=== PATIENT | male | born 1965 | race Caucasian/White ===

== ENCOUNTER → 2017-05-04 | Outpatient (CLI) | payer OTHER ==
[~2017-05-04] MED LIST: ACET-1256 PO; ATOR-22 PO; CLOP1TAB15 PO; HYDR-5688 PO; LISI-725 PO; LRS10 PO; VTMD PO
--- NOTE | 2017-05-04 08:32 | DIAGNOSTIC IMAGING REPORT ---
CHEST 2 VIEWS ROUTINE CLINICAL HISTORY: SCREENING COMPARISON STUDY: 12/11/2015 FINDINGS: The bones soft tissues and hemidiaphragms are normal. The cardiomediastinal silhouette is normal. The lungs are clear. The pulmonary vasculature is normal. Unchanged postoperative change of the thoracolumbar spine IMPRESSION: No acute process. Interval removal of the right-sided PICC catheter The above report was generated using voice recognition software. It may contain grammatical, syntax or spelling errors. Electronically signed by: Rey Jensen M.D. 05/04/2017 8:30 AM Dictated Date/Time: 05/04/2017 8:29 AM
[2017-05-04 09:39] LABS: URINE APPEARANCE CLEAR (CLEAR); URINE BILIRUBIN NEG (NEG); URINE COLOR YELLOW; URINE EPITHELIAL CELL AUTO 0-5 /lpf (0-5); URINE NITRITE NEG (NEG); URINE PH 5.5 (4.5-7.5); URINE SPECIFIC GRAVITY 1.014 (1.000-1.030); UROBILINOGEN NEG (NEG)
[2017-05-04 09:40] LABS: BASO % 0.4 %; BASO ABS # 0.03 K/uL (0-0.2); COMPLETE YES; EOS % 1.4 %; IG% 0.1 %; LYMPH % 32.2 %; LYMPH ABS # 2.59 K/uL (1.2-3.4); MEAN CELL VOLUME 92.4 fL (80-100); MEAN CORPUSCULAR HEMOGLOBIN 30.7 pg (25-34); MEAN CORPUSCULAR HGB CONC 33.2 g/dl (32-36); MEAN PLATELET VOLUME 9.5 fL (7.4-10.4); MONO % 7.8 %; NEUT % 58.1 %; PLATELET COUNT 273 K/uL (130-400); RED BLOOD COUNT 4.76 M/uL (4.7-6.1); WHITE BLOOD COUNT 8.05 K/uL (4.8-10.8)
[2017-05-04 09:51] LABS: MANUAL MICROSCOPIC REQUIRED? NO; REVIEW REQ? NO
[2017-05-04 10:01] LABS: ESTIMATED AVERAGE GLUCOSE 100 mg/dl; HA1C FLAG Normal (Normal)
[2017-05-04 10:06] LABS: BLOOD UREA NITROGEN 10 mg/dl (7-18); GLUCOSE 111 mg/dl (70-99)
[2017-05-04 10:07] LABS: ALT/SGPT 31 U/L (12-78); CALCIUM 8.8 mg/dl (8.5-10.1); CARBON DIOXIDE 29 mmol/L (21-32); CHLORIDE 107 mmol/L (98-107); CHOLESTEROL 136 mg/dl (0-200); POTASSIUM 4.6 mmol/L (3.5-5.1); SODIUM 139 mmol/L (136-145); TRIGLYCERIDES 73 mg/dl (0-150); URIC ACID 5.2 mg/dl (2.6-7.2); VERY LOW DENSITY LIPOPROT CALC 15 mg/dl
[2017-05-04 10:17] LABS: ALB/GLOB RATIO 1.2 (0.9-2); ALKALINE PHOSPHATASE 66 U/L (45-117); AST/SGOT 14 U/L (15-37); CHOLESTEROL/HDL RATIO 3.2; HDL CHOLESTEROL 42 mg/dl; LDL CHOLESTEROL CALCULATED 79 mg/dl; PROSTATE SPECIFIC ANTIGEN 0.282 ng/ml (0.000-4.000); THYROID STIMULATING HORMONE 0.956 uIu/ml (0.300-4.500)
== END | disposition home or self-care (01) ==
LOC: C.RAD 07:39
DX: I10 Essential (primary) hypertension (principal); R73.01 Impaired fasting glucose; G82.20 Paraplegia, unspecified; E78.5 Hyperlipidemia, unspecified; N39.0 Urinary tract infection, site not specified; Z95.820 Peripheral vascular angioplasty status with implants and grafts

== ENCOUNTER 2017-09-15 12:48 | Emergency (ER) | payer OTHER ==
[~2017-09-15] VITALS: Ht 175.3 cm; Wt 100.0 kg
[2017-09-15 12:53] VITALS: TEMP 36.9; Ht 175.3 cm; Wt 100.0 kg
--- NOTE | 2017-09-15 14:07 | EMERGENCY ROOM VISIT NOTE ---
History Report prepared by Yasmin: Amy Deleon Under the Supervision of: Dr. Brayan Roque M.D. First contact with patient: 13:42 Chief Complaint: PENIS PAIN Stated Complaint: ERECTION THAT WONT GO AWAY X3 DAYS,RECENT LEG AMPU Nursing Triage Summary: Pt reports an erection x 3 days, states he has not taken any medications. History of Present Illness The patient is a 52 year old male who presents to the Emergency Room with complaints of persistent erection that began 3 days ago. The patient states that he woke up with an erection, noting he did not take medications to cause the erection. The patient notes that he cannot feel the erection--he is a T12 paraplegic. He states that he had both legs amputated above the knee one month ago due to poor circulation to his legs. The patient denies any history of heart attacks or kidney problems. Source of History: patient Onset: 3 days ago Position: other (penis) Quality: other (erection) Timing: other (persistent) Review of Systems See HPI for pertinent positives & negatives. A total of 10 systems reviewed and were otherwise negative. Past Medical & Surgical Medical Problems: (1) Neurogenic bladder (2) Paraplegia (3) T12 spinal cord injury Surgical Problems: (1) History of back surgery (2) S/p fracture repair left arm Family History Cancer Social History Smoking Status: Former Smoker Drug Use: none Marital Status: Housing Status: lives alone Occupation Status: unemployed, disabled Current/Historical Medications Scheduled Atorvastatin (Lipitor), 20 MG PO QPM Baclofen (Baclofen), 10 MG PO TID Clopidogrel (Plavix), 75 MG PO QAM Ergocalciferol (Vitamin D), 50,000 UNITS PO WK Lisinopril (Zestril), 20 MG PO QAM Scheduled PRN Acetaminophen (Tylenol), 1,000 MG PO DIRECTED PRN for Pain or Fever Hydrocodone/Acetaminophen 5MG/325MG ([place] 5MG/325MG), 1 TAB PO Q6 PRN for Pain Allergies Coded Allergies: No Known Allergies (Unverified , 07/27/16) Physical Exam Vital Signs Date Time Temp Pulse Resp B/P (MAP) Pulse Ox O2 Delivery O2 Flow Rate FiO2 09/15/17 14:58 108 18 130/75 100 09/15/17 14:03 108 18 130/75 100 Room Air 09/15/17 12:53 36.9 108 20 116/63 98 Room Air Physical Exam GENERAL: Patient is in no acute distress. HEENT: No acute trauma, normocephalic atraumatic, mucous membranes moist, no nasal congestion, no scleral icterus. NECK: No stridor, no adenopathy, no meningismus, trachea is midline. LUNGS: Crackles at both lung bases. No wheezes. Breath sounds equal. HEART: Without murmurs gallops or rubs, regular rate and rhythm. ABDOMEN: Soft, nontender, bowel sounds positive, no hernias, no peritonitis. EXTREMITIES: Bilateral above the knee amputations, sutures still in place, no signs of infection. GROIN: Circumcised, no scrotal or penile cellulitis, erection present. NEUROLOGIC: Oriented x 3, awake and alert, paraplegia noted. SKIN: No rash, no jaundice, no diaphoresis. Medical Decision & Procedures Laboratory Results 09/15/17 14:46 09/15/17 14:46 Test 09/15/17 14:46 Red Blood Count 3.18 M/uL (4.7-6.1) Mean Corpuscular Volume 95.6 fL (80-100) Mean Corpuscular Hemoglobin 30.2 pg (25-34) Mean Corpuscular Hemoglobin Concent 31.6 g/dl (32-36) RDW Standard Deviation 52.0 fL (36.4-46.3) RDW Coefficient of Variation 14.9 % (11.5-14.5) Mean Platelet Volume 8.3 fL (7.4-10.4) Prothrombin Time 10.7 SECONDS (9.0-12.0) Prothromb Time International Ratio 1.0 (0.9-1.1) Activated Partial Thromboplast Time 31.0 SECONDS (21.0-31.0) Partial Thromboplastin Ratio 1.2 Anion Gap 7.0 mmol/L (3-11) Est Creatinine Clear Calc Drug Dose 156.1 ml/min Estimated GFR () 130.7 Estimated GFR (Non- 112.7 BUN/Creatinine Ratio 14.9 (10-20) Calcium Level 8.5 mg/dl (8.5-10.1) Total Bilirubin 0.4 mg/dl (0.2-1) Aspartate Amino Transf (AST/SGOT) 15 U/L (15-37) Alanine Aminotransferase (ALT/SGPT) 24 U/L (12-78) Alkaline Phosphatase 621 U/L (45-117) Total Protein 6.9 gm/dl (6.4-8.2) Albumin 3.5 gm/dl (3.4-5.0) Globulin 3.4 gm/dl (2.5-4.0) Albumin/Globulin Ratio 1.0 (0.9-2) Laboratory results reviewed by me. ED Course 1345: The patient was evaluated in room B4. A complete history and physical exam was performed. 1355: Reevaluated the patient. Discussed results and further instructions. He verbalized understanding and agreement. The patient was instructed to see Dr. Dockery, urologist for further evaluation. Medical Decision The patient is a 52 year old male who presents to the ED with complaints of a 3 day erection. Differential diagnoses considered include Infection, Priapism, Medication Reaction, Vascular Disease . There is a mild leukocytosis, this could be consistent with infection or just his presentation alone. The patient is anemic, the number is not critical, his count is likely down from his recent bilateral [id number] amputations. No significant electrolyte abnormality or kidney failure. No hepatitis. There was no coagulopathy. On exam, patient did have an obvious erection, there was no penile or scrotal cellulitis. I was concerned because his erection had been ongoing for a 3 full days. Patient was not in pain as he does have paraplegia. I discussed the case with urology. The patient was sent to their office. The chances of him having the ability to obtain an erection in the future are limited given the length of time that this current erection has been present. Patient understands. He was discharged to go directly to the urology office. Medication Reconcilliation Current Medication List: was personally reviewed by me Blood Pressure Screening Patient's blood pressure: Elevated blood pressure Blood pressure disposition: Elevated BP felt to be situational Consults Time Called: [id number] Consulting Physician: Dr. Dockery, Urologist Returned Call: [phone] Discussed the patient's case. The patient will be evaluated for further management. Impression Primary Impression: Priapism Scribe Attestation The scribe's documentation has been prepared under my direction and personally reviewed by me in its entirety. I confirm that the note above accurately reflects all work, treatment, procedures, and medical decision making performed by me. Departure Information Dispostion Other (discharged to the urology office) Referrals Yohannes Joshua M.D. (PCP) Forms HOME CARE DOCUMENTATION FORM, IMPORTANT VISIT INFORMATION Patient Instructions [facility] Additional Instructions report directly to Dr. Dockery's office for care do not eat or drink anything for now
[2017-09-15 14:56] LABS: HEMATOCRIT 30.4 % (42-52); MEAN CELL VOLUME 95.6 fL (80-100); MEAN CORPUSCULAR HEMOGLOBIN 30.2 pg (25-34); MEAN CORPUSCULAR HGB CONC 31.6 g/dl (32-36); MEAN PLATELET VOLUME 8.3 fL (7.4-10.4); PLATELET COUNT 378 K/uL (130-400); RED BLOOD COUNT 3.18 M/uL (4.7-6.1); WHITE BLOOD COUNT 12.83 K/uL (4.8-10.8)
[2017-09-15 14:58] VITALS: BP 130/75; PULSE 108; O2SAT 100
[2017-09-15 15:10] LABS: PARTIAL THROMBOPLASTIN RATIO 1.2; PROTHROMBIN TIME (PATIENT) 10.7 SECONDS (9.0-12.0)
[2017-09-15] MEDS ORDERED: PHENYLEPHRINE HCL ITC SCH (15:15)
[2017-09-15 15:19] LABS: BUN/CREATININE RATIO 14.9 (10-20); CALCIUM 8.5 mg/dl (8.5-10.1); CREATININE 0.66 mg/dl (0.60-1.40); POTASSIUM 3.4 mmol/L (3.5-5.1)
--- NOTE | 2017-09-15 16:11 | Pharmacy Progress Note ---
ED Pharmacist Progress Note Date of Service: Sep 15, 2017. Per Dr. Roque, urologist Dr. Dockery requested 6-8 phenylephrine syringes to be sent with the patient to urology office for treatment of priapism. I confirmed with Dr. Dockery the dose and concentration of 100mcg/ml q 10-15 min qty 7 syringes. After discussing with charge nurse Claire, it was decided to send the doses with security to the office to ensure safe and appropriate delivery to the physician.
== END 2017-09-15 14:59 | disposition home or self-care (01) ==
LOC: C.EDB 12:50
DX: N48.30 Priapism, unspecified (principal); G82.20 Paraplegia, unspecified; D64.9 Anemia, unspecified; Z89.611 Acquired absence of right leg above knee; Z89.612 Acquired absence of left leg above knee; N31.9 Neuromuscular dysfunction of bladder, unspecified; Z80.9 Family history of malignant neoplasm, unspecified; Z87.891 Personal history of nicotine dependence; Z79.01 Long term (current) use of anticoagulants; Z79.899 Other long term (current) drug therapy; Z98.890 Other specified postprocedural states

== ENCOUNTER → 2018-05-05 | Outpatient (CLI) | payer OTHER ==
--- NOTE | 2018-05-05 10:17 | DIAGNOSTIC IMAGING REPORT ---
RENAL ULTRASOUND HISTORY: Neurogenic bladder, Ret of Urine, Priapism COMPARISON: Abdomen and pelvis CT 12/11/2015. FINDINGS: Right kidney: 10.2 cm. No hydronephrosis. Normal corticomedullary differentiation and cortical thickness. Left kidney: 10.2 cm. Mild fullness within the left renal collecting system without nile hydronephrosis. Focal cortical scarring within the interpolar region of the left kidney. Question of an exophytic hypoechoic lesion within the left kidney. This measures 2.4 x 1.8 x 1.5 cm. Bladder: Mild bladder wall thickening and trabeculation. Bilateral ureteral jets are identified. The bladder is normal in size. IMPRESSION: 1. Mild bladder wall thickening with trabeculation. This could be due to chronic outlet obstruction or cystitis. 2. Question of an exophytic hypoechoic lesion within the left kidney which measures 2.4 cm. This favors the normal cortical lobulation. However, follow-up nonemergent dedicated renal CT is recommended for confirmation. 3. Mild fullness within the left renal collecting system without nile hydronephrosis. 4. Normal right kidney. Electronically signed by: Keo [place] M.D. 05/05/2018 10:16 AM Dictated Date/Time: 05/05/2018 10:12 AM
== END | disposition home or self-care (01) ==
LOC: C.ULTR 09:18
PROVIDERS: ATTEND Urology
DX: N31.9 Neuromuscular dysfunction of bladder, unspecified (principal); N48.30 Priapism, unspecified; R33.9 Retention of urine, unspecified; N28.9 Disorder of kidney and ureter, unspecified

== ENCOUNTER 2024-03-17 03:47 | Inpatient (IN) ==
--- NOTE | 2024-03-17 03:49 | Emergency Department Note ---
Impression & Plan Sepsis, Paraplegia, Neurogenic bladder, Colitis ED Provider Note CHIEF COMPLAINT: Constipation HISTORY OF PRESENTING ILLNESS: This 58-year-old male patient presents to the emergency department via EMS for evaluation of constipation. 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 The patient typically has a harder BM every 2-3 days, but hasn't had a BM in the past week. Has been taking an OTC stool softener without improvement of his symptoms. Now having pain in his lower abdomen and it radiates into his groin. Having nausea and vomiting with the symptoms. Vomited 3 times today. Denies any chest pain or SOB. Denies any urinary symptoms, but self caths 6 times a day due to his neurogenic bladder. Denies any fevers. No previous abdominal surgeries. No previous abdominal obstruction. He is not on any blood thinners. REVIEW OF SYSTEMS: See HPI for pertinent positives and pertinent negatives. ALLERGIES: NKDA MEDICATIONS: See below PAST MEDICAL HISTORY: See below PHYSICAL EXAM: VITALS: Vitals are noted on the nurse's note and reviewed by myself. GENERAL: Non toxic, no acute distress, non-diaphoretic. SKIN: Capillary refill <2 sec. EYES: PERRLA. EOMI. Conjunctivae without injection, sclerae without icterus. NOSE: Patent without discharge. MOUTH: Mucous membranes moist. Uvula midline. Airway patent. NECK: Supple without nuchal rigidity. HEART: Regular rate and rhythm without murmurs gallops or rubs. LUNGS: Clear to auscultation bilaterally without wheezes, rales or rhonchi. No retractions or accessory muscle use. ABDOMEN: Positive bowel sounds x 4. Normal tympanic percussion. Soft, diffusely tender to palpation in the lower abdomen. No masses or organomegaly. No CVA tenderness. Isabel sign negative. No guarding or rebound tenderness. : Permission to perform the exam. Male wall taper present for the exam. Bilateral testicles are descended and are nontender to palpation. However, the patient states that he typically has decreased sensation in this area, but no change in his sensation. No obvious penile lesions or discharge. No obvious hernias appreciated. RECTAL EXAM: Permission to perform the exam. Publicity Manager present for exam. External hemorrhoids present without thrombosis, but there is a small amount of bright red bleeding from the external hemorrhoid. No other external lesions. Normal sphincter tone. Internal hemorrhoids are not enlarged. No masses, tears, fistulas, fissures, or abscess noted. Harder stool is felt very high up in the rectal vault, but no fecal impaction felt on exam. Stool is brown and Hemoccult positive. MUSCULOSKELETAL: Bilateral [id number] amputations. No other gross musculoskeletal defects. NEURO: Patient was alert and oriented. No focal neurological deficits. DIFFERENTIAL DIAGNOSIS: Differential diagnosis includes hepatitis, pancreatitis, cholecystitis, cholelithiasis, appendicitis, kidney stone, pyelonephritis, UTI, gastritis, gastroenteritis, mesenteric adenitis, obstruction, constipation, hernia, abdominal abscess, perforation, diverticulitis, IBD, ischemic colitis, abdominal aortic aneurysm, testicular torsion, prostatitis, or others. ED COURSE AND MEDICAL DECISION MAKING: MONITOR: Continuous satellite project site monitor: Order was placed for continuous satellite project site monitor. Patient was placed on the satellite project site monitor and continuous pulse ox. Patient was noted to be in normal sinus rhythm at an initial rate of 88 bpm per my interpretation. EKG: EKG was interpreted by myself as normal sinus rhythm at 83 bpm with no acute ST or T wave changes. MEDICATIONS GIVEN: A total of 2.5 L of normal saline solution bolus. Toradol 10 mg IV, Zofran 4 mg IV, and Reglan 5 mg IV. Zosyn 4.5 g IV. INTERPRETATION OF LABS: I interpreted the labs with full lab results as below in the lab section of this note. White blood cell count elevated at 28.74. Hemoglobin elevated 18.8. Platelet count normal at 372. Potassium 3.2, anion gap 15, creatinine 1.8, glucose of 254, total bilirubin 1.1, AST 41, alk phos 122, and lipase 171. Magnesium normal. TSH elevated at 5.343 with free T4 still pending. Lactate elevated 3.8. Procalcitonin elevated 1.63. C. difficile negative. Stool bio fire still pending. Blood cultures are pending. INTERPRETATION OF IMAGING: Chest x-ray per my interpretation was negative for acute cardiopulmonary etiology. Radiology report still pending. Additional imaging studies were interpreted by myself and read by radiology as below. CT scan of the abdomen pelvis with IV contrast shows some apparent colitis within the mid to distal large bowel as well as possible cystitis and additional chronic changes. However, per our interpretation, there appears to be a possible obstruction with significant distention of the stomach and possible transition point. At our request, our radiologist Dr. Park also read the CT scan of the abdomen pelvis. He agrees with the colitis with the need to exclude a less likely underlying mass. The stomach and esophagus are distended and fluid-filled which may represent a gastric outlet obstruction. To consider GI consult for EGD. KUB to confirm NG tube placement shows that the NG tube terminates in the proximal stomach. The fenestrated line is at the GE junction. The tube should be advanced by approximately 5 cm. CONSULTATIONS: On-call hospitalist. Dr. Park of radiology. MDM SUMMARY: I examined the patient. The patient presents via EMS for constipation. He states that he has not had a bowel movement in the last week. He started with lower abdominal pain, nausea, and vomiting today. He has a history of constipation, but usually goes every 2 to 3 days. An IV lock was placed and labs were drawn. The patient was initially given 1 L normal saline solution bolus as well as Toradol 10 mg IV and Zofran 4 mg IV. He had some additional nausea and was given Reglan 5 mg IV. After the patient returned from CT scan, the patient had a large amount of loose foul-smelling stool. The stool was sent for C. difficile and stool bio fire. C. difficile was negative. Stool bio fire still pending. The patient did have multiple large episodes of loose stool while in the ER. Rectal exam with hard stool very high in the rectal vault, but no fecal impaction that can be disimpacted on exam. The patient's stool was Hemoccult positive, but the patient also had a bleeding external hemorrhoid from his large amount of diarrhea. CT scan of the abdomen pelvis with IV contrast read by stat rad shows colitis as well as possible cystitis. However, per our interpretation, there appears to be a possible obstruction with significant distention of the stomach and possible transition point. An NG tube was placed with 1000 mL of gastric contents removed. The patient felt much improved after his multiple episodes of diarrhea as well as the NG tube placement. At our request in the morning, our radiologist Dr. Park also read the CT scan of the abdomen pelvis. He agrees with the colitis with the need to exclude a less likely underlying mass. The stomach and esophagus are distended and fluid-filled which may represent a gastric outlet obstruction. To consider GI consult for EGD. KUB to confirm NG tube placement shows that the NG tube terminates in the proximal stomach. The fenestrated line is at the GE junction. The tube should be advanced by approximately 5 cm. The NG tube was repositioned. The patient continued with multiple large episodes of diarrhea and nursing staff placed a DigniShield. The patient's white blood cell count is elevated at 28.74. Lactate is also elevated at 3.8 with procalcitonin elevated at 1.63. The patient also has other multiple abnormal labs as above. Blood cultures are still pending. The patient was given a total of 2.5 L of normal saline solution bolus based on actual body weight since ideal body weight cannot be accurately calculated due to his bilateral [id number] amputations. The patient was given IV Zosyn. I had a meaningful discussion about this patient with Dr. Calderon who agrees with my assessment and the treatment plan. I spoke with the on-call hospitalist who agreed to admit the patient for further evaluation and treatment. Please refer to their dictation for further details. The patient's care was transferred in stable condition. DIAGNOSIS: Sepsis Colitis Past Med/Surg History Problem List (Updated 03/17/24 @ 08:07 by Nikki Pizano PA-C) Colitis (Acute) Sepsis (Acute) Paraplegia (Chronic) T12 spinal cord injury (Chronic) Neurogenic bladder (Chronic) History of back surgery (Chronic) Urinary tract infection (Acute) Medical History (Updated 03/17/24 @ 08:07 by Nikki Pizano PA-C) Paraplegia UTI (urinary tract infection) Surgical History S/P AKA (above knee amputation) bilateral Social History Smoking Status: Former smoker Tobacco Type: Cigarettes Feels Safe at Home: Yes Allergies Allergies Allergy/AdvReac Type Severity Reaction Status Date / Time No Known Allergies Allergy Unverified 11/13/19 16:16 Home Meds Home Medications Medication Instructions Recorded Confirmed atorvastatin 20 mg tablet 20 mg PO DAILY 01/09/19 04/26/23 baclofen 20 mg tablet 20 mg PO TID PRN Muscle Spasm 01/09/19 04/26/23 citalopram 20 mg tablet 40 mg PO DAILY 04/26/23 04/26/23 ferrous sulfate 325 mg (65 mg 325 mg PO Q OTHER DAY 04/26/23 04/26/23 iron) tablet (FeroSul) hydroxyzine HCl 25 mg tablet 25 mg PO TID PRN Anxiety 04/26/23 04/26/23 metoprolol succinate 25 mg 25 mg PO DAILY 04/26/23 04/26/23 tablet,extended release 24 hr ondansetron HCl 4 mg tablet 4 mg PO Q8 PRN Nausea And Vomiting 04/26/23 04/26/23 pantoprazole 40 mg tablet,delayed 40 mg PO QAM 04/26/23 04/26/23 release quetiapine 100 mg tablet 100 mg PO HS 04/26/23 04/26/23 Previous Rx's Medication Instructions Recorded amlodipine 5 mg tablet (Norvasc) 5 mg PO DAILY #30 tabs 04/26/23 Results & Data (ED) Vital Signs Vital Signs - 24 hr 03/17/24 03:50 03/17/24 04:00 03/17/24 04:01 Temperature 36.6 C Temperature Source Oral Pulse Rate 100 H 103 H 98 H Pulse Rate from SpO2 Sensor 98 H Pulse Rhythm Respiratory Rate 18 23 Respiratory Effort / Characteristics Non-Labored Spontaneous Respiratory Depth Normal Respiratory Pattern Regular Blood Pressure 105/75 105/75 Blood Pressure Mean 85 85 Pulse Oximetry 95 94 Oxygen Delivery Method Room Air Room Air Sepsis Recent Fever Within 48 Hours No Sepsis New/Unexplained Change in Mental Status N/A Sepsis Action Taken by Nursing No Action Required 03/17/24 04:05 03/17/24 04:53 Temperature Temperature Source Pulse Rate 70 85 Pulse Rate from SpO2 Sensor 87 Pulse Rhythm Regular Respiratory Rate 18 20 Respiratory Effort / Characteristics Respiratory Depth Respiratory Pattern Blood Pressure 125/106 H Blood Pressure Mean 112 Pulse Oximetry 98 97 Oxygen Delivery Method Room Air Room Air Sepsis Recent Fever Within 48 Hours Sepsis New/Unexplained Change in Mental Status Sepsis Action Taken by Nursing Laboratory Data 03/17/24 03:59 03/17/24 03:59 Lab Results 03/17/24 03/17/24 03/17/24 Range/Units 03:59 05:37 06:23 WBC 28.74 H (4.8-10.8) K/ul RBC 6.13 H (4.70-6.10) M/uL Hgb 18.8 H (14.0-18.0) g/dl Hct 54.6 H (42.0-52.0) % MCV 89.1 (80.0-100.0) fL MCH 30.7 (25.0-34.0) pg MCHC 34.4 (32.0-36.0) g/dL RDW Std Deviation 41.9 (36.4-46.3) fL RDW Coeff of Yves 13.0 (11.5-14.5) % Plt Count 372 (130-400) K/uL MPV 10.1 (9.4-12.4) fL Immature Gran % (Auto) 0.6 % Neut % (Auto) 82.9 % Lymph % (Auto) 8.8 % Billings % (Auto) 7.1 % Eos % (Auto) 0.2 % Baso % (Auto) 0.4 % Neut # (Auto) 23.83 H (1.40-6.50) K/uL Lymph # (Auto) 2.53 (1.20-3.40) K/uL Billings # (Auto) 2.03 H (0.11-0.59) K/uL Eos # (Auto) 0.05 (0.00-0.50) K/uL Baso # (Auto) 0.12 (0.00-0.20) K/uL Immature Gran # (Auto) 0.18 (0.01-0.20) K/uL Sodium 138 (136-145) mmol/L Potassium 3.2 L (3.5-5.1) mmol/L Chloride 101 (98-107) mmol/L Carbon Dioxide 22 (21-32) mmol/L Anion Gap 15 H (3-11) BUN 19 (6-23) mg/dl Creatinine 1.80 H (0.6-1.4) mg/dl Est Cr Clr Drug Dosing Not Reportable Est GFR ( Amer) 47.7 ml/min Est GFR (Non-Af Amer) 41.2 ml/min BUN/Creatinine Ratio 10.6 (10-20) Glucose 254 H (70-99(Fasting)) mg/dl Lactate 3.8 H* (0.4-2.0) mmol/L Calcium 9.6 (8.6-10.3) mg/dl Magnesium 2.3 (1.7-2.4) mg/dl Total Bilirubin 1.1 H (0.2-1.0) mg/dl AST 41 H (13-39) U/L ALT 41 (7-52) U/L Alkaline Phosphatase 122 H (34-104) U/L Total Protein 8.1 (6.0-8.3) gm/dl Albumin 5.0 (3.4-5.0) gm/dl Globulin 3.1 (2.5-4.0) gm/dl Albumin/Globulin Ratio 1.6 (0.9-2) Lipase 171 H (11-82) U/L Procalcitonin 1.63 H (0-0.5) ng/ml TSH 5.343 H (0.300-4.500) uIu/ml Stl C. cayetanensis PCR Not Detected (NotDetected) Stool Rotavirus A PCR Not Detected (NotDetected) Stl Adenov F 40/41 PCR Not Detected (NotDetected) Stool Astrovirus (PCR) Not Detected (NotDetected) Stool Campylobacter PCR Not Detected (NotDetected) Stl C. diff Tox B Gene Negative Cdiff Gene (Neg) Stool Cryptosporidium PCR Not Detected (NotDetected) Stl E.coli Shiga Tox PCR Not Detected (NotDetected) Stl Enterotoxigenic E PCR Not Detected (NotDetected) Stool EPEC (PCR) Not Detected (NotDetected) Stool EAEC (PCR) Not Detected (NotDetected) Stl E. histolytica PCR Not Detected (NotDetected) Stool Giardia Lamblia PCR Not Detected (NotDetected) Stool Salmonella PCR Not Detected (NotDetected) Stool Sapovirus (PCR) Not Detected (NotDetected) Stl P. shigelloides PCR Not Detected (NotDetected) Stl Shigella/EIEC PCR Not Detected (NotDetected) St Y.enterocolitica PCR Not Detected (NotDetected) Stool Vibrio (PCR) Not Detected (NotDetected) Stl Vibrio cholerae PCR Not Detected (NotDetected) Stl Norovirus GI/GII PCR Not Detected (NotDetected) Administered Medications Discontinued Medications Sodium Chloride (Nss) 1,000 mls @ 999 mls/hr IV .Q1H1M STA Stop: 03/17/24 05:01 Last Infusion: 03/17/24 05:28 Dose: Infused Documented By: Admin: 03/17/24 04:13 Dose: 999 mls/hr Documented By: SCAR Sodium Chloride (Nss) 1,000 mls @ 999 mls/hr IV .Q1H1M ONE Stop: 03/17/24 07:09 Last Infusion: 03/17/24 07:29 Dose: Infused Documented By: Admin: 03/17/24 06:25 Dose: 999 mls/hr Documented By: CSAR Piperacillin Sod/Tazobactam Sod (Zosyn) 4.5 gm in 100 mls @ 200 mls/hr IV NOW ONE Stop: 03/17/24 07:16 Last Infusion: 03/17/24 07:51 Dose: Infused Documented By: Admin: 03/17/24 07:21 Dose: 200 mls/hr Documented By: BERRY Ioversol (Optiray 320 100ml) 100 ml IV ONCE ONE Stop: 03/17/24 05:31 Last Admin: 03/17/24 05:32 Dose: 91 ml Documented By: PAYTON Ketorolac Tromethamine (Ketorolac Tromethamine 15 Mg/Ml Vial) 10 mg IV NOW STA Stop: 03/17/24 04:02 Last Admin: 03/17/24 04:13 Dose: 10 mg Documented By: SCAR Metoclopramide HCl (Metoclopramide Hcl Inj 5 Mg/Ml 2 Ml Vial) 5 mg IV ONE ONE Stop: 03/17/24 06:10 Last Admin: 03/17/24 06:25 Dose: 5 mg Documented By: SCAR Ondansetron HCl (Ondansetron Inj 2 Mg/Ml 2 Ml Vial) 4 mg IV NOW STA Stop: 03/17/24 04:02 Last Admin: 03/17/24 04:13 Dose: 4 mg Documented By: SCAR Imaging Data Radiologist's Impression: Abdomen/Pelvis CT 03/17/24 04:01 Exam(s): CT ABDOMEN + PELVIS With Contrast IV Amt: 91 ML OPTIRAY 320 EXAM: CT Abdomen and Pelvis With Intravenous Contrast CLINICAL HISTORY: Reason for exam: Lower abdominal pain, no BM x 1 week, paraplegia. TECHNIQUE: Axial computed tomography images of the abdomen and pelvis with intravenous contrast. CTDI is 25.36 mGy and DLP is 1148.48 mGy-cm. Automated exposure control was utilized for the study. A dose lowering technique was utilized adhering to the principles of ALARA. CONTRAST: Patient received 91 ML OPTIRAY 320 of IV contrast COMPARISON: No relevant prior studies available. FINDINGS: Lung bases: Unremarkable. No mass. No consolidation. ABDOMEN: Liver: Unremarkable. No mass. Gallbladder and bile ducts: Unremarkable. No calcified stones. No ductal dilation. Pancreas: There is stippled calcifications demonstrated within the pancreatic parenchyma. No ductal dilation. Spleen: Unremarkable. No splenomegaly. Adrenals: Unremarkable. No mass. Kidneys and ureters: Unremarkable. No solid mass. No hydronephrosis. Stomach and bowel: There is some bowel wall thickening and enhancement demonstrated to the distal transverse and proximal descending colon. There is some fecal retention within the distal: There is fluid demonstrated throughout the remaining colon. No obstruction. PELVIS: Appendix: No findings to suggest acute appendicitis. Bladder: There is diffuse urinary bladder wall thickening. Reproductive: Unremarkable as visualized. ABDOMEN and PELVIS: Intraperitoneal space: Unremarkable. No free air. No significant fluid collection. Bones/joints: There is degenerative change to the osseous structures. there are postsurgical changes to the spine subsequent streak artifact limits assessment. No acute fracture. No dislocation. Soft tissues: There are bilateral fat-containing indirect inguinal hernias. Vasculature: Abdominal aortic aneurysm is demonstrated mid and distal abdominal aorta with moderate mural thrombus 3.9 cm in maximal transverse dimension. There is calcific atherosclerotic vascular disease. Lymph nodes: Unremarkable. No enlarged lymph nodes. IMPRESSION: Some apparent colitis demonstrated within the mid to distal large bowel, Follow-up to resolution imaging findings suggest cystitis, additional chronic change, limited as described. Electronically signed by: Enrique Morse MD 03/17/24 06:01 AM Chest X-Ray 03/17/24 04:01 XR chest 1V portable HISTORY: abdominal pain COMPARISON: Chest 04/26/2023. FINDINGS: The lungs are clear. Cardiac silhouette is normal in size. No pleural effusions. No pneumothorax. Thoracolumbar posterior fusion hardware is again noted. IMPRESSION: No acute process. ACT 112: Negative or not required by law. Electronically signed by: Keo Park M.D. 03/17/2024 6:47 AM KUB X-Ray 03/17/24 06:08 KUB HISTORY: s/p NG tube COMPARISON: Abdomen and pelvis CT 03/17/2024. FINDINGS: Nasogastric tube terminates in the proximal stomach. The fenestrated line is at the gastroesophageal junction. This should be advanced by approximately 5 cm. No dilated loops of bowel identified. No renal calculi. No ureteral calculi. No pneumoperitoneum or pneumatosis. IMPRESSION: Nasogastric tube terminates in the proximal stomach. The fenestrated line is at the gastroesophageal junction. This should be advanced by approximately 5 cm. ACT 112: Negative or not required by law. Electronically signed by: Keo Park M.D. 03/17/2024 6:53 AM Discharge Plan Visit Data Chief Complaint: Constipation Stated Complaint: Constipation, Lower Abdominal Pain ED Provider: Christy Calderon ED Midlevel Provider: Nikki Pizano Discharge Problem: Sepsis, Paraplegia, Neurogenic bladder, Colitis Patient Disposition: Admitted As Inpatient Condition: Good Prescriptions Prescriptions: No Action baclofen 20 mg tablet 20 mg PO TID PRN (Reason: Muscle Spasm) atorvastatin 20 mg tablet 20 mg PO DAILY quetiapine 100 mg tablet 100 mg PO HS citalopram 20 mg tablet 40 mg PO DAILY metoprolol succinate 25 mg tablet extended release 24 hr 25 mg PO DAILY pantoprazole 40 mg tablet,delayed release (DR/EC) 40 mg PO QAM hydroxyzine HCl 25 mg tablet 25 mg PO TID PRN (Reason: Anxiety) ondansetron HCl 4 mg tablet 4 mg PO Q8 PRN (Reason: Nausea And Vomiting) ferrous sulfate [FeroSul] 325 mg (65 mg iron) tablet 325 mg PO Q OTHER DAY amlodipine [Norvasc] 5 mg tablet 5 mg PO DAILY Qty: 30 0RF Referrals Referrals: Ines Ruiz MD [Primary Care Provider] - Discharge Problem: Sepsis Qualifiers: Sepsis type: sepsis due to unspecified organism
[2024-03-17] MEDS: KETOROLAC TROMETHAMINE 15 MG/ML VIAL IV STA (04:13)
[2024-03-17] MEDS: ONDANSETRON INJ 2 MG/ML 2 ML VIAL IV STA (04:13)
[2024-03-17] MEDS: SODIUM CHLORIDE 0.9% 1,000 ML IV STA (04:13)
[2024-03-17 04:45] LABS: Alanine Aminotransferase 41 U/L (7-52); Albumin Globulin Ratio 1.6 (0.9-2); Alkaline Phosphatase 122 U/L (34-104); Anion Gap 15 (3-11); Aspartate Aminotransferase 41 U/L (13-39); BUN Creatinine Ratio 10.6 (10-20); Bilirubin,Total 1.1 mg/dl (0.2-1.0); Blood Urea Nitrogen 19 mg/dl (6-23); Calcium 9.6 mg/dl (8.6-10.3); Carbon Dioxide 22 mmol/L (21-32); Chloride 101 mmol/L (98-107); Est GFR (African American) 47.7 ml/min; Est GFR (Non-African American) 41.2 ml/min; Globulin 3.1 gm/dl (2.5-4.0); Glucose 254 mg/dl (70-99(Fasting)); Lipase 171 U/L (11-82); Magnesium 2.3 mg/dl (1.7-2.4); Potassium 3.2 mmol/L (3.5-5.1); Sodium 138 mmol/L (136-145); Total Protein 8.1 gm/dl (6.0-8.3)
[2024-03-17 05:00] LABS: Thyroid Stimulating Hormone 5.343 uIu/ml (0.300-4.500)
[2024-03-17 05:01] LABS: Hematocrit (blood only) 54.6 % (42.0-52.0); Hemoglobin 18.8 g/dl (14.0-18.0); Mean Corpuscular Hemoglobin 30.7 pg (25.0-34.0); Mean Corpuscular Hgb Conc 34.4 g/dL (32.0-36.0); Mean Corpuscular Volume 89.1 fL (80.0-100.0); Mean Platelet Volume 10.1 fL (9.4-12.4); Platelet Count 372 K/uL (130-400); RDW Standard Deviation 41.9 fL (36.4-46.3); Red Blood Count 6.13 M/uL (4.70-6.10); White Blood Count 28.74 K/ul (4.8-10.8)
[2024-03-17 05:02] LABS: Basophils # (auto) 0.12 K/uL (0.00-0.20); Basophils % (auto) 0.4 %; Eosinophils # (auto) 0.05 K/uL (0.00-0.50); Eosinophils % (auto) 0.2 %; Immature Granulocytes # (auto) 0.18 K/uL (0.01-0.20); Immature Granulocytes % (auto) 0.6 %; Lymphocytes # (auto) 2.53 K/uL (1.20-3.40); Lymphocytes % (auto) 8.8 %; Monocytes # (auto) 2.03 K/uL (0.11-0.59); Monocytes % (auto) 7.1 %; Neutrophils # (auto) 23.83 K/uL (1.40-6.50); Neutrophils % (auto) 82.9 %
[2024-03-17] MEDS: OPTIRAY 320 100ml IV ONE (05:32)
--- NOTE | 2024-03-17 06:02 | CT Scan Report ---
Exam(s): CT ABDOMEN + PELVIS With Contrast IV Amt: 91 ML OPTIRAY 320 EXAM: CT Abdomen and Pelvis With Intravenous Contrast CLINICAL HISTORY: Reason for exam: Lower abdominal pain, no BM x 1 week, paraplegia. TECHNIQUE: Axial computed tomography images of the abdomen and pelvis with intravenous contrast. CTDI is 25.36 mGy and DLP is 1148.48 mGy-cm. Automated exposure control was utilized for the study. A dose lowering technique was utilized adhering to the principles of ALARA. CONTRAST: Patient received 91 ML OPTIRAY 320 of IV contrast COMPARISON: No relevant prior studies available. FINDINGS: Lung bases: Unremarkable. No mass. No consolidation. ABDOMEN: Liver: Unremarkable. No mass. Gallbladder and bile ducts: Unremarkable. No calcified stones. No ductal dilation. Pancreas: There is stippled calcifications demonstrated within the pancreatic parenchyma. No ductal dilation. Spleen: Unremarkable. No splenomegaly. Adrenals: Unremarkable. No mass. Kidneys and ureters: Unremarkable. No solid mass. No hydronephrosis. Stomach and bowel: There is some bowel wall thickening and enhancement demonstrated to the distal transverse and proximal descending colon. There is some fecal retention within the distal: There is fluid demonstrated throughout the remaining colon. No obstruction. PELVIS: Appendix: No findings to suggest acute appendicitis. Bladder: There is diffuse urinary bladder wall thickening. Reproductive: Unremarkable as visualized. ABDOMEN and PELVIS: Intraperitoneal space: Unremarkable. No free air. No significant fluid collection. Bones/joints: There is degenerative change to the osseous structures. there are postsurgical changes to the spine subsequent streak artifact limits assessment. No acute fracture. No dislocation. Soft tissues: There are bilateral fat-containing indirect inguinal hernias. Vasculature: Abdominal aortic aneurysm is demonstrated mid and distal abdominal aorta with moderate mural thrombus 3.9 cm in maximal transverse dimension. There is calcific atherosclerotic vascular disease. Lymph nodes: Unremarkable. No enlarged lymph nodes. IMPRESSION: Some apparent colitis demonstrated within the mid to distal large bowel, Follow-up to resolution imaging findings suggest cystitis, additional chronic change, limited as described. Electronically signed by: Enrique Morse MD 03/17/24 06:01 AM
[2024-03-17] MEDS: METOCLOPRAMIDE HCL INJ 5 MG/ML 2 ML VIAL IV ONE (06:25)
[2024-03-17] MEDS: SODIUM CHLORIDE 0.9% 1,000 ML IV ONE ×2 (06:25→10:38)
--- NOTE | 2024-03-17 06:50 | XRay Report ---
XR chest 1V portable HISTORY: abdominal pain COMPARISON: Chest 04/26/2023. FINDINGS: The lungs are clear. Cardiac silhouette is normal in size. No pleural effusions. No pneumot horax. Thoracolumbar posterior fusion hardware is again noted. IMPRESSION: No acute process. ACT 112: Negative or not required by law. Electronically signed by: Keo Park M.D. 03/17/2024 6:47 AM
--- NOTE | 2024-03-17 06:56 | XRay Report ---
KUB HISTORY: s/p NG tube COMPARISON: Abdomen and pelvis CT 03/17/2024. FINDINGS: Nasogastric tube terminates in the proximal stomach. The fenestrated line is at the gastroe sophageal junction. This should be advanced by approximately 5 cm. No dilated loops of bowel identifi ed. No renal calculi. No ureteral calculi. No pneumoperitoneum or pneumatosis. IMPRESSION: Nasogastric tube terminates in the proximal stomach. The fenestrated line is at the gastroesophageal junction. This should be advanced by approximately 5 cm. ACT 112: Negative or not required by law. Electronically signed by: Keo Park M.D. 03/17/2024 6:53 AM
[2024-03-17] MEDS: PIPERACILLIN/TAZOBACTAM 4.5 GM/100 ML BAG IV ONE (07:21)
[2024-03-17 07:41] LABS: Adenovirus F 40/41 PCR Not Detected (NotDetected); Astrovirus PCR Not Detected (NotDetected); Campylobacter PCR Not Detected (NotDetected); Cryptosporidium PCR Not Detected (NotDetected); Cyclospora cayetanensis PCR Not Detected (NotDetected); Entamoeba histolytica PCR Not Detected (NotDetected); Enteroaggregative E.coli(EAEC) Not Detected (NotDetected); Enteropathogenic E.coli (EPEC) Not Detected (NotDetected); Enterotoxigenic E.coli (ETEC) Not Detected (NotDetected); Giardia lamblia PCR Not Detected (NotDetected); Norovirus GI/GII PCR Not Detected (NotDetected); Plesiomonas shigelloides PCR Not Detected (NotDetected); Rotavirus A PCR Not Detected (NotDetected); Salmonella PCR Not Detected (NotDetected); Sapovirus PCR Not Detected (NotDetected); Shiga-like Toxin E.coli (STEC) Not Detected (NotDetected); Shigella/Enteroinvasive E.coli Not Detected (NotDetected); Vibrio cholerae PCR Not Detected (NotDetected); Vibrio species PCR Not Detected (NotDetected); Yersinia enterocolitica PCR Not Detected (NotDetected)
[2024-03-17 08:17] LABS: T4 Free Thyroxine 1.27 ng/dl (0.61-1.60)
--- NOTE | 2024-03-17 08:48 | Electrocardiogram Report ---
Test Reason : Blood Pressure : / mmHG Vent. Rate : 083 BPM Atrial Rate : 083 BPM P-R Int : 160 ms QRS Dur : 060 ms QT Int : 384 ms P-R-T Axes : 058 012 -02 degrees QTc Int : 451 ms Normal sinus rhythm Normal ECG When compared with ECG of 26-APR-2023 19:18, No significant change was found Confirmed by Kt Bush ([id number]) on 03/17/2024 8:48:01 AM Referred By: REFERRED SELF Confirmed By:Kt Bush
[2024-03-17] MEDS: SODIUM CHLORIDE 0.9% 1,000 ML IV SCH (10:06)
[2024-03-17] MEDS: SODIUM CHLORIDE 0.9% 500 ML IV ONE (10:08)
[2024-03-17] MEDS: Patient's HEIGHT &/or WEIGHT Needed STA (10:36)
--- NOTE | 2024-03-17 11:13 | History & Physical Report ---
Date of Service March 17, 2024 Assessment & Plan (1) Abdominal pain: (2) Colitis: (3) Neurogenic bladder: (4) Sepsis: (5) FRANK (acute kidney injury): Plan 1) Abdominal Pain: Pt with a hx of paraplegia, neurogenic bladder, bilateraly [id number] amputation presented with abdominal pain, n/v, constipation x1week that has progressed since arrival to multiple episodes of large volume diarrhea. -Stomach & esophageal distension on CTAP. NG tube placed and removed 1000mL, raising concern for gastric outlet obstruction -New diarrhea in the setting of constipation, could represent overflow vs. infectious colitis given his leukocytosis -GI consult placed, appreciate recommendations -NPO 2) Sepsis: Afebrile. BPs normal-high. However, he is tachycardic with WBC count 28.74, meeting SIRS criteria. Source unknown, considerations include UTI vs. GI -Lactate 3.8 on admission-->5.7. Continue to trend -2.5L NS bolus given in ED -Continue mIVF NS @ 100mL/hr -Continue Zosyn 4.5g q8hr -Blood cx & UA pending -MRSA nares pending 3) Neurogenic bladder requiring multiple daily self catheterizations: Pt self caths 6-7x per day and has a hx of UTIs. 12 hrs since last cath at home, reporting suprapubic pain/pressure that was not relieved after catheterization. -Shields in place now -UA pending 4) FRANK: -Unclear if FRANK due to outlet obstruction vs. 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 He presented to the ED early this morning with nausea, vomiting, lower abd pain, and constipation. He estimates his last bowel movement was 1 week ago. He typically has BM every 2-3 days. Pt tried to relieve constipation with OTC stool softeners/suppositories several times this week without success. Yesterday the pain became constant and he began vomiting frequently, 1x per hour, which prompted him to seek evaluation. No hx of previous bowel obstruction or abdominal surgeries. He has had no recent changes to diet or medications. Pt reports no other sx and denies fevers/chills/chest pains/SOB. Pt also has a hx of neurogenic bladder related to his previous spinal cord injury, requiring him to self cath 6-7x per day. He reports having ~2 UTIs per year with his most recent UTI being 1 month ago. In the ED, pt was hemodynamically stable and afebrile, but found to have significant leukocytosis, elevated procal, elevated lactate, and FRANK with Cr 1.80. Pt was given 2.5L NS bolus and started on IV zosyn. He later began having multiple, large-volume loose stools. Stool biofire was negative. CXR was negative. CTAP revealed evidence of colitis in mid-distal large bowel, possible cystitis, as well as a distended/fluid-filled stomach which raised concern for gastric outlet obstruction. An NG tube was placed which evacuated 1000mL of gastric fluid and the pt felt much improvement in his sx after this. Allergies Allergy/AdvReac Type Severity Reaction Status Date / Time No Known Allergies Allergy Unverified 11/13/19 16:16 Home Medications Medication Instructions Recorded Confirmed Type baclofen 20 mg tablet 20 mg PO TID PRN Muscle Spasm 01/09/19 03/17/24 History amlodipine 5 mg tablet (Norvasc) 5 mg PO DAILY #30 tabs 04/26/23 03/17/24 Rx citalopram 20 mg tablet 40 mg PO DAILY 04/26/23 03/17/24 History ferrous sulfate 325 mg (65 mg 325 mg PO Q OTHER DAY 04/26/23 03/17/24 History iron) tablet (FeroSul) hydroxyzine HCl 25 mg tablet 25 mg PO TID PRN Anxiety 04/26/23 03/17/24 History metoprolol succinate 25 mg 25 mg PO DAILY 04/26/23 04/26/23 History tablet,extended release 24 hr ondansetron HCl 4 mg tablet 4 mg PO Q8 PRN Nausea And Vomiting 04/26/23 03/17/24 History pantoprazole 40 mg tablet,delayed 40 mg PO QAM 04/26/23 03/17/24 History release quetiapine 100 mg tablet 100 mg PO HS 04/26/23 03/17/24 History atorvastatin 40 mg tablet 40 mg PO DAILY 03/17/24 03/17/24 History lisinopril 20 mg tablet 20 mg PO DAILY 03/17/24 03/17/24 History Past Med/Surg History Problem List FRANK (acute kidney injury) (Acute) Abdominal pain (Acute) Colitis (Acute) Sepsis (Acute) Paraplegia (Chronic) T12 spinal cord injury (Chronic) Neurogenic bladder (Chronic) History of back surgery (Chronic) Urinary tract infection (Acute) Medical History Paraplegia UTI (urinary tract infection) Surgical History S/P AKA (above knee amputation) bilateral Social History Smoking Status: Former smoker Tobacco Type: Cigarettes Cigarettes Per Day: 80; Second Hand Exposure: No; Do You Dip or Chew Tobacco: No; Tobacco Cessation Education Requested by Patient: No Hx Alcohol Use: Yes (former) Hx Substance Use: Yes Last Used Substance: Days (ago) Preferred Language: Wolof Communication Ability: Effective Fieldwork Coordinator Required: No Beliefs That Will Affect Care: None Current Living Situation: Alone Other Information That Helps Us Care for You: No Feels Safe at Home: Yes Assistive Devices: Wheelchair and Other Review of Systems 2 Review of Systems: As per HPI. Physical Exam 2 Physical Exam: GENERAL: Non toxic, no acute distress, non-diaphoretic. SKIN: Capillary refill <2 sec. EYES: PERRLA. EOMI. Conjunctivae without injection, sclerae without icterus. NOSE: Patent without discharge. MOUTH: Mucous membranes moist. Uvula midline. Airway patent. NECK: Supple without nuchal rigidity. No lymphadenopathy. No thyromegaly. HEART: Regular rate and rhythm without murmurs gallops or rubs. LUNGS: Clear to auscultation bilaterally without wheezes, rales or rhonchi. No retractions or accessory muscle use. ABDOMEN: Normal bowel sounds. Soft, no rebound tenderness, no guarding. No hepatosplenomegaly. +diffusely ttp, most significant RLQ/suprapubic. +mild bladder distention. : Deferred. MUSCULOSKELETAL: Bilateral mlvfl-[id number]-cpkq amputations. No other gross musculoskeletal defects. NEURO: Patient was alert and oriented. No focal neurological deficits. Results & Data Results & Data Vital Signs (Past 12 Hours) Vital Signs Temp Pulse Pulse Resp BP BP Pulse Ox 03/17/24 08:36 36.2 C L 03/17/24 08:28 85 03/17/24 08:20 101 H 20 131/99 97 03/17/24 04:53 85 20 125/106 H 97 03/17/24 04:05 70 18 98 03/17/24 04:01 98 H 23 105/75 94 03/17/24 04:00 103 H 03/17/24 03:50 36.6 C 100 H 18 105/75 95 O2 Del Method 03/17/24 08:36 03/17/24 08:28 03/17/24 08:20 Room Air 03/17/24 04:53 Room Air 03/17/24 04:05 Room Air 03/17/24 04:01 Room Air 03/17/24 04:00 03/17/24 03:50 Room Air Laboratory Results 03/17/24 03:59 03/17/24 03:59 Laboratory Results WBC 28.74 K/ul (4.8-10.8) H 03/17/24 03:59 RBC 6.13 M/uL (4.70-6.10) H 03/17/24 03:59 Hgb 18.8 g/dl (14.0-18.0) H 03/17/24 03:59 Hct 54.6 % (42.0-52.0) H 03/17/24 03:59 MCV 89.1 fL (80.0-100.0) 03/17/24 03:59 MCH 30.7 pg (25.0-34.0) 03/17/24 03:59 MCHC 34.4 g/dL (32.0-36.0) 03/17/24 03:59 RDW Std Deviation 41.9 fL (36.4-46.3) 03/17/24 03:59 RDW Coeff of Yves 13.0 % (11.5-14.5) 03/17/24 03:59 Plt Count 372 K/uL (130-400) 03/17/24 03:59 MPV 10.1 fL (9.4-12.4) 03/17/24 03:59 Immature Gran % (Auto) 0.6 % 03/17/24 03:59 Neut % (Auto) 82.9 % 03/17/24 03:59 Lymph % (Auto) 8.8 % 03/17/24 03:59 [place] % (Auto) 7.1 % 03/17/24 03:59 Eos % (Auto) 0.2 % 03/17/24 03:59 Baso % (Auto) 0.4 % 03/17/24 03:59 Neut # (Auto) 23.83 K/uL (1.40-6.50) H 03/17/24 03:59 Lymph # (Auto) 2.53 K/uL (1.20-3.40) 03/17/24 03:59 [place] # (Auto) 2.03 K/uL (0.11-0.59) H 03/17/24 03:59 Eos # (Auto) 0.05 K/uL (0.00-0.50) 03/17/24 03:59 Baso # (Auto) 0.12 K/uL (0.00-0.20) 03/17/24 03:59 Immature Gran # (Auto) 0.18 K/uL (0.01-0.20) 03/17/24 03:59 Sodium 138 mmol/L (136-145) 03/17/24 03:59 Potassium 3.2 mmol/L (3.5-5.1) L 03/17/24 03:59 Chloride 101 mmol/L (98-107) 03/17/24 03:59 Carbon Dioxide 22 mmol/L (21-32) 03/17/24 03:59 Anion Gap 15 (3-11) H 03/17/24 03:59 BUN 19 mg/dl (6-23) 03/17/24 03:59 Creatinine 1.80 mg/dl (0.6-1.4) H 03/17/24 03:59 Est Cr Clr Drug Dosing Not Reportable 03/17/24 03:59 Est GFR ( Amer) 47.7 ml/min 03/17/24 03:59 Est GFR (Non-Af Amer) 41.2 ml/min 03/17/24 03:59 BUN/Creatinine Ratio 10.6 (10-20) 03/17/24 03:59 Glucose 254 mg/dl (70-99(Fasting)) H 03/17/24 03:59 Lactate 4.4 mmol/L (0.4-2.0) H* 03/17/24 08:23 Calcium 9.6 mg/dl (8.6-10.3) 03/17/24 03:59 Magnesium 2.3 mg/dl (1.7-2.4) 03/17/24 03:59 Total Bilirubin 1.1 mg/dl (0.2-1.0) H 03/17/24 03:59 AST 41 U/L (13-39) H 03/17/24 03:59 ALT 41 U/L (7-52) 03/17/24 03:59 Alkaline Phosphatase 122 U/L (34-104) H 03/17/24 03:59 Total Protein 8.1 gm/dl (6.0-8.3) 03/17/24 03:59 Albumin 5.0 gm/dl (3.4-5.0) 03/17/24 03:59 Globulin 3.1 gm/dl (2.5-4.0) 03/17/24 03:59 Albumin/Globulin Ratio 1.6 (0.9-2) 03/17/24 03:59 Lipase 171 U/L (11-82) H 03/17/24 03:59 Procalcitonin 1.63 ng/ml (0-0.5) H 03/17/24 03:59 TSH 5.343 uIu/ml (0.300-4.500) H 03/17/24 03:59 Free T4 1.27 ng/dl (0.61-1.60) 03/17/24 03:59 Stl C. cayetanensis PCR Not Detected (NotDetected) 03/17/24 05:37 Stool Rotavirus A PCR Not Detected (NotDetected) 03/17/24 05:37 Stl Adenov F 40/41 PCR Not Detected (NotDetected) 03/17/24 05:37 Stool Astrovirus (PCR) Not Detected (NotDetected) 03/17/24 05:37 Stool Campylobacter PCR Not Detected (NotDetected) 03/17/24 05:37 Stl C. diff Tox B Gene Negative Cdiff Gene (Neg) 03/17/24 05:37 Stool Cryptosporidium PCR Not Detected (NotDetected) 03/17/24 05:37 Stl E.coli Shiga Tox PCR Not Detected (NotDetected) 03/17/24 05:37 Stl Enterotoxigenic E PCR Not Detected (NotDetected) 03/17/24 05:37 Stool EPEC (PCR) Not Detected (NotDetected) 03/17/24 05:37 Stool EAEC (PCR) Not Detected (NotDetected) 03/17/24 05:37 Stl E. histolytica PCR Not Detected (NotDetected) 03/17/24 05:37 Stool Giardia Lamblia PCR Not Detected (NotDetected) 03/17/24 05:37 Stool Salmonella PCR Not Detected (NotDetected) 03/17/24 05:37 Stool Sapovirus (PCR) Not Detected (NotDetected) 03/17/24 05:37 Stl P. shigelloides PCR Not Detected (NotDetected) 03/17/24 05:37 Stl Shigella/EIEC PCR Not Detected (NotDetected) 03/17/24 05:37 St Y.enterocolitica PCR Not Detected (NotDetected) 03/17/24 05:37 Stool Vibrio (PCR) Not Detected (NotDetected) 03/17/24 05:37 Stl Vibrio cholerae PCR Not Detected (NotDetected) 03/17/24 05:37 Stl Norovirus GI/GII PCR Not Detected (NotDetected) 03/17/24 05:37 Diagnostic Findings Abdomen/Pelvis CT 03/17/24 04:01 Exam(s): CT ABDOMEN + PELVIS With Contrast IV Amt: 91 ML OPTIRAY 320 EXAM: CT Abdomen and Pelvis With Intravenous Contrast CLINICAL HISTORY: Reason for exam: Lower abdominal pain, no BM x 1 week, paraplegia. TECHNIQUE: Axial computed tomography images of the abdomen and pelvis with intravenous contrast. CTDI is 25.36 mGy and DLP is 1148.48 mGy-cm. Automated exposure control was utilized for the study. A dose lowering technique was utilized adhering to the principles of ALARA. CONTRAST: Patient received 91 ML OPTIRAY 320 of IV contrast COMPARISON: No relevant prior studies available. FINDINGS: Lung bases: Unremarkable. No mass. No consolidation. ABDOMEN: Liver: Unremarkable. No mass. Gallbladder and bile ducts: Unremarkable. No calcified stones. No ductal dilation. Pancreas: There is stippled calcifications demonstrated within the pancreatic parenchyma. No ductal dilation. Spleen: Unremarkable. No splenomegaly. Adrenals: Unremarkable. No mass. Kidneys and ureters: Unremarkable. No solid mass. No hydronephrosis. Stomach and bowel: There is some bowel wall thickening and enhancement demonstrated to the distal transverse and proximal descending colon. There is some fecal retention within the distal: There is fluid demonstrated throughout the remaining colon. No obstruction. PELVIS: Appendix: No findings to suggest acute appendicitis. Bladder: There is diffuse urinary bladder wall thickening. Reproductive: Unremarkable as visualized. ABDOMEN and PELVIS: Intraperitoneal space: Unremarkable. No free air. No significant fluid collection. Bones/joints: There is degenerative change to the osseous structures. there are postsurgical changes to the spine subsequent streak artifact limits assessment. No acute fracture. No dislocation. Soft tissues: There are bilateral fat-containing indirect inguinal hernias. Vasculature: Abdominal aortic aneurysm is demonstrated mid and distal abdominal aorta with moderate mural thrombus 3.9 cm in maximal transverse dimension. There is calcific atherosclerotic vascular disease. Lymph nodes: Unremarkable. No enlarged lymph nodes. IMPRESSION: Some apparent colitis demonstrated within the mid to distal large bowel, Follow-up to resolution imaging findings suggest cystitis, additional chronic change, limited as described. Electronically signed by: Enrique Morse MD 03/17/24 06:01 AM Chest X-Ray 03/17/24 04:01 XR chest 1V portable HISTORY: abdominal pain COMPARISON: Chest 04/26/2023. FINDINGS: The lungs are clear. Cardiac silhouette is normal in size. No pleural effusions. No pneumothorax. Thoracolumbar posterior fusion hardware is again noted. IMPRESSION: No acute process. ACT 112: Negative or not required by law. Electronically signed by: Keo Park M.D. 03/17/2024 6:47 AM KUB X-Ray 03/17/24 06:08 KUB HISTORY: s/p NG tube COMPARISON: Abdomen and pelvis CT 03/17/2024. FINDINGS: Nasogastric tube terminates in the proximal stomach. The fenestrated line is at the gastroesophageal junction. This should be advanced by approximately 5 cm. No dilated loops of bowel identified. No renal calculi. No ureteral calculi. No pneumoperitoneum or pneumatosis. IMPRESSION: Nasogastric tube terminates in the proximal stomach. The fenestrated line is at the gastroesophageal junction. This should be advanced by approximately 5 cm. ACT 112: Negative or not required by law. Electronically signed by: Keo Park M.D. 03/17/2024 6:53 AM Code Status & VTE Plan Code Status Full code. VTE Prophylaxis Plan VTE Prophylaxis will be ordered: Yes Supervising Physician Co-Signing Physician Notes Attending Physician Supervision Note: I independently interviewed and examined the patient and verified the jacques history and physical, reviewed labs and image studies and agree with findings and care plan noted above. 58 y/o with bilateral AKA and chronic constipation here with worsening abdominal pain, nausea, vomiting, diarrhea. Seen multiple times through the day - Early in the day - comfortable in bed with NGT draining. on exam - RRR, CTAB, BS diminished, tenderness in left lower quadrant, Few hours later - diaphoretic, abdomen tenderness worse. wbc 23, hb 18, creatinine 1.8 (baseline 1), lactate on admission 3, Abdominal pain - secondary to mesenteric ischemia Sepsis FRANK -Admitted in am with colitis possibly infectious and concern of GOO - received bolus fluids, IV abx, NGT placed and GI consulted. -With worsening status - rise in lactate from 3 to 5 - CTA done showing mesenteric ischemia -consult payroll processor for ICU transfer, calling [place] [facility] for transfer. -continue NGT, NPO, IVF, IV abx. -consult general surgery (4) Sepsis Sepsis type: sepsis due to unspecified organism
[2024-03-17] MEDS: POTASSIUM CHLORIDE / WTR 10 MEQ/100 ML PLCT IV SCH (11:45)
[2024-03-17] MEDS: PANTOprazole 40 MG in SYRINGE 0 ML IV SCH (11:48)
[2024-03-17] MEDS: HEPARIN SOD 5,000 UNIT/0.5 ML VIAL SQ SCH (11:50)
[2024-03-17] MEDS: ONDANSETRON INJ 2 MG/ML 2 ML VIAL IV PRN (12:29)
[2024-03-17 13:03] LABS: Appearance Urine Cloudy (Clear); Bacteria Urine Automated None Seen (None Seen); Bilirubin Urine 1+ (Negative); Blood Urine 1+ (Negative); Color Urine Dark Yellow; Epithelial Cell Urine Auto 0-2 /hpf (0-2); Glucose Urine UA Negative (Negative); Ketones Urine Negative (Negative); Leukocyte Esterase Urine 1+ (Negative); Nitrite Urine Negative (Negative); Protein Urine 2+ (Negative); RBC Urine Automated 0-2 /hpf (0-2); Specific Gravity Urine 1.043 (1.000-1.030); Sperm Urine Present (None Prsent); Urobilinogen Urine Negative (Negative)
--- NOTE | 2024-03-17 13:51 | Gastrointestinal Consultation ---
Date of Consultation March 17, 2024 Assessment & Plan (1) Colitis: Pleasant man with colitis more than likely an acute infectious colitis. His vomiting and relative GOO may well be related to his acute infectious process. He may well need evaluation but I would like to see how he does as his condition resolves. His WBC is elevated which goes along with an acute infectious process. Evaluation of his colon will be very difficult for him. May do EGD if his "GOO" doesn't resolve. I will follow over the weekend. History of Present Illness Reason for Consultation: colitis Attending Physician: Smiley Glynn MD History of Present Illness 58 year old man bilateral AKA and paraplegia below T12 who has been having lower abdominal pain for the past week. During this week he hadn't moved his bowels but since he came to hospital he has been having diarrhea. He also had vomiting all week. Denies NSAID usage. Denies fever or chills. Denies bleeding. Has never seen GI doctor for anything. CT scan showed distended stomach and evidence of colitis. NG placed and 1000 ml removed. WBC on admit 28K Allergies Allergy/AdvReac Type Severity Reaction Status Date / Time No Known Allergies Allergy Unverified 11/13/19 16:16 Home Medications Medication Instructions Recorded Confirmed Type baclofen 20 mg tablet 20 mg PO TID PRN Muscle Spasm 01/09/19 03/17/24 History amlodipine 5 mg tablet (Norvasc) 5 mg PO DAILY #30 tabs 04/26/23 03/17/24 Rx citalopram 20 mg tablet 40 mg PO DAILY 04/26/23 03/17/24 History ferrous sulfate 325 mg (65 mg 325 mg PO Q OTHER DAY 04/26/23 03/17/24 History iron) tablet (FeroSul) hydroxyzine HCl 25 mg tablet 25 mg PO TID PRN Anxiety 04/26/23 03/17/24 History metoprolol succinate 25 mg 25 mg PO DAILY 04/26/23 04/26/23 History tablet,extended release 24 hr ondansetron HCl 4 mg tablet 4 mg PO Q8 PRN Nausea And Vomiting 04/26/23 03/17/24 History pantoprazole 40 mg tablet,delayed 40 mg PO QAM 04/26/23 03/17/24 History release quetiapine 100 mg tablet 100 mg PO HS 04/26/23 03/17/24 History atorvastatin 40 mg tablet 40 mg PO DAILY 03/17/24 03/17/24 History lisinopril 20 mg tablet 20 mg PO DAILY 03/17/24 03/17/24 History Patient History Medical History Paraplegia UTI (urinary tract infection) Surgical History S/P AKA (above knee amputation) bilateral Social History Smoking Status: Former smoker Tobacco Type: Cigarettes Cigarettes Per Day: 80; Second Hand Exposure: No; Do You Dip or Chew Tobacco: No; Tobacco Cessation Education Requested by Patient: No Hx Alcohol Use: Yes (former) Hx Substance Use: Yes Last Used Substance: Days (ago) Preferred Language: Mongolian Communication Ability: Effective 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 Beliefs That Will Affect Care: None Current Living Situation: Alone Other Information That Helps Us Care for You: No Feels Safe at Home: Yes Assistive Devices: Wheelchair and Other Review of Systems Review of Systems: All systems reviewed & are unremarkable except as noted in HPI & below Physical Exam 2 Constitutional: WD/WN, vitals as above anxious Neck: trachea midline, no thyromegaly Respiratory: normal respiratory effort, lungs clear to auscultation Cardiovascular: RRR, no murmur, no edema Gastrointestinal (Abdomen): normal bowel sounds, soft, nontender, no hepatosplenomegaly Musculoskeletal: Extremities: + lower leg abnormality (AKA) Bilateral Results & Data Vital Signs (Past 12 Hours) Vital Signs Temp Pulse Pulse Pulse Resp BP BP 03/17/24 13:09 36.3 C L 120 H 150/98 H 03/17/24 12:37 36.7 C 122 H 18 169/108 H 03/17/24 11:51 37.1 C 111 H 18 154/89 H 03/17/24 10:00 36.7 C 101 H 18 154/94 H 03/17/24 08:36 36.2 C L 03/17/24 08:28 85 03/17/24 08:20 101 H 20 131/99 03/17/24 04:53 85 20 125/106 H 03/17/24 04:05 70 18 03/17/24 04:01 98 H 23 105/75 03/17/24 04:00 103 H 03/17/24 03:50 36.6 C 100 H 18 105/75 Pulse Ox O2 Del Method 03/17/24 13:09 98 Room Air 03/17/24 12:37 98 Room Air 03/17/24 11:51 98 Room Air 03/17/24 10:00 95 Room Air 03/17/24 08:36 03/17/24 08:28 03/17/24 08:20 97 Room Air 03/17/24 04:53 97 Room Air 03/17/24 04:05 98 Room Air 03/17/24 04:01 94 Room Air 03/17/24 04:00 03/17/24 03:50 95 Room Air Laboratory Results 03/17/24 03/17/24 03/17/24 Range/Units 13:13 12:26 12:10 WBC (4.8-10.8) K/ul RBC (4.70-6.10) M/uL Hgb (14.0-18.0) g/dl Hct (42.0-52.0) % MCV (80.0-100.0) fL MCH (25.0-34.0) pg MCHC (32.0-36.0) g/dL RDW Std Deviation (36.4-46.3) fL RDW Coeff of Yves (11.5-14.5) % Plt Count (130-400) K/uL MPV (9.4-12.4) fL Immature Gran % (Auto) % Neut % (Auto) % Lymph % (Auto) % [place] % (Auto) % Eos % (Auto) % Baso % (Auto) % Neut # (Auto) (1.40-6.50) K/uL Lymph # (Auto) (1.20-3.40) K/uL [place] # (Auto) (0.11-0.59) K/uL Eos # (Auto) (0.00-0.50) K/uL Baso # (Auto) (0.00-0.20) K/uL Immature Gran # (Auto) (0.01-0.20) K/uL Sodium (136-145) mmol/L Potassium (3.5-5.1) mmol/L Chloride (98-107) mmol/L Carbon Dioxide (21-32) mmol/L Anion Gap (3-11) BUN (6-23) mg/dl Creatinine (0.6-1.4) mg/dl Est Cr Clr Drug Dosing Est GFR ( Amer) ml/min Est GFR (Non-Af Amer) ml/min BUN/Creatinine Ratio (10-20) Glucose (70-99(Fasting)) mg/dl Lactate 5.7 H* (0.4-2.0) mmol/L Calcium (8.6-10.3) mg/dl Magnesium (1.7-2.4) mg/dl Total Bilirubin (0.2-1.0) mg/dl AST (13-39) U/L ALT (7-52) U/L Alkaline Phosphatase (34-104) U/L Total Protein (6.0-8.3) gm/dl Albumin (3.4-5.0) gm/dl Globulin (2.5-4.0) gm/dl Albumin/Globulin Ratio (0.9-2) Lipase (11-82) U/L Procalcitonin (0-0.5) ng/ml TSH (0.300-4.500) uIu/ml Free T4 (0.61-1.60) ng/dl Urine Color Dark Yellow Urine Appearance Cloudy A (Clear) Urine pH 5.0 (4.5-7.5) Ur Specific [place] 1.043 H (1.000-1.030) Urine Protein 2+ H (Negative) Urine Glucose (UA) Negative (Negative) Urine Ketones Negative (Negative) Urine Blood 1+ H (Negative) Urine Nitrite Negative (Negative) Urine Bilirubin 1+ H (Negative) Urine Urobilinogen Negative (Negative) Ur Leukocyte Esterase 1+ H (Negative) Urine WBC (Auto) 6-10 H (0-5) /hpf Urine RBC (Auto) 0-2 (0-2) /hpf U Hyaline Cast (Auto) 3-5 H (0-2) /lpf U Epithel Cells (Auto) 0-2 (0-2) /hpf Urine Bacteria (Auto) None Seen (None Seen) Urine Sperm Present A (None Prsent) Nasal Screen MRSA (PCR) Pending Stl C. cayetanensis PCR (NotDetected) Stool Rotavirus A PCR (NotDetected) Stl Adenov F 40/41 PCR (NotDetected) Stool Astrovirus (PCR) (NotDetected) Stool Campylobacter PCR (NotDetected) Stl C. diff Tox B Gene (Neg) Stool Cryptosporidium PCR (NotDetected) Stl E.coli Shiga Tox PCR (NotDetected) Stl Enterotoxigenic E PCR (NotDetected) Stool EPEC (PCR) (NotDetected) Stool EAEC (PCR) (NotDetected) Stl E. histolytica PCR (NotDetected) Stool Giardia Lamblia PCR (NotDetected) Stool Salmonella PCR (NotDetected) Stool Sapovirus (PCR) (NotDetected) Stl P. shigelloides PCR (NotDetected) Stl Shigella/EIEC PCR (NotDetected) St Y.enterocolitica PCR (NotDetected) Stool Vibrio (PCR) (NotDetected) Stl Vibrio cholerae PCR (NotDetected) Stl Norovirus GI/GII PCR (NotDetected) 03/17/24 03/17/24 03/17/24 Range/Units 10:46 08:23 06:23 WBC (4.8-10.8) K/ul RBC (4.70-6.10) M/uL Hgb (14.0-18.0) g/dl Hct (42.0-52.0) % MCV (80.0-100.0) fL MCH (25.0-34.0) pg MCHC (32.0-36.0) g/dL RDW Std Deviation (36.4-46.3) fL RDW Coeff of Yves (11.5-14.5) % Plt Count (130-400) K/uL MPV (9.4-12.4) fL Immature Gran % (Auto) % Neut % (Auto) % Lymph % (Auto) % [place] % (Auto) % Eos % (Auto) % Baso % (Auto) % Neut # (Auto) (1.40-6.50) K/uL Lymph # (Auto) (1.20-3.40) K/uL [place] # (Auto) (0.11-0.59) K/uL Eos # (Auto) (0.00-0.50) K/uL Baso # (Auto) (0.00-0.20) K/uL Immature Gran # (Auto) (0.01-0.20) K/uL Sodium (136-145) mmol/L Potassium (3.5-5.1) mmol/L Chloride (98-107) mmol/L Carbon Dioxide (21-32) mmol/L Anion Gap (3-11) BUN (6-23) mg/dl Creatinine (0.6-1.4) mg/dl Est Cr Clr Drug Dosing Est GFR ( Amer) ml/min Est GFR (Non-Af Amer) ml/min BUN/Creatinine Ratio (10-20) Glucose (70-99(Fasting)) mg/dl Lactate 5.0 H* 4.4 H* 3.8 H* (0.4-2.0) mmol/L Calcium (8.6-10.3) mg/dl Magnesium (1.7-2.4) mg/dl Total Bilirubin (0.2-1.0) mg/dl AST (13-39) U/L ALT (7-52) U/L Alkaline Phosphatase (34-104) U/L Total Protein (6.0-8.3) gm/dl Albumin (3.4-5.0) gm/dl Globulin (2.5-4.0) gm/dl Albumin/Globulin Ratio (0.9-2) Lipase (11-82) U/L Procalcitonin (0-0.5) ng/ml TSH (0.300-4.500) uIu/ml Free T4 (0.61-1.60) ng/dl Urine Color Urine Appearance (Clear) Urine pH (4.5-7.5) Ur Specific [place] (1.000-1.030) Urine Protein (Negative) Urine Glucose (UA) (Negative) Urine Ketones (Negative) Urine Blood (Negative) Urine Nitrite (Negative) Urine Bilirubin (Negative) Urine Urobilinogen (Negative) Ur Leukocyte Esterase (Negative) Urine WBC (Auto) (0-5) /hpf Urine RBC (Auto) (0-2) /hpf U Hyaline Cast (Auto) (0-2) /lpf U Epithel Cells (Auto) (0-2) /hpf Urine Bacteria (Auto) (None Seen) Urine Sperm (None Prsent) Nasal Screen MRSA (PCR) Stl C. cayetanensis PCR (NotDetected) Stool Rotavirus A PCR (NotDetected) Stl Adenov F PCR (NotDetected) Stool Astrovirus (PCR) (NotDetected) Stool Campylobacter PCR (NotDetected) Stl C. diff Tox B Gene (Neg) Stool Cryptosporidium PCR (NotDetected) Stl E.coli Shiga Tox PCR (NotDetected) Stl Enterotoxigenic E PCR (NotDetected) Stool EPEC (PCR) (NotDetected) Stool EAEC (PCR) (NotDetected) Stl E. histolytica PCR (NotDetected) Stool Giardia Lamblia PCR (NotDetected) Stool Salmonella PCR (NotDetected) Stool Sapovirus (PCR) (NotDetected) Stl P. shigelloides PCR (NotDetected) Stl Shigella/EIEC PCR (NotDetected) St Y.enterocolitica PCR (NotDetected) Stool Vibrio (PCR) (NotDetected) Stl Vibrio cholerae PCR (NotDetected) Stl Norovirus GI/GII PCR (NotDetected) 03/17/24 03/17/24 Range/Units 05:37 03:59 WBC 28.74 H (4.8-10.8) K/ul RBC 6.13 H (4.70-6.10) M/uL Hgb 18.8 H (14.0-18.0) g/dl Hct 54.6 H (42.0-52.0) % MCV 89.1 (80.0-100.0) fL MCH 30.7 (25.0-34.0) pg MCHC 34.4 (32.0-36.0) g/dL RDW Std Deviation 41.9 (36.4-46.3) fL RDW Coeff of Yves 13.0 (11.5-14.5) % Plt Count 372 (130-400) K/uL MPV 10.1 (9.4-12.4) fL Immature Gran % (Auto) 0.6 % Neut % (Auto) 82.9 % Lymph % (Auto) 8.8 % [place] % (Auto) 7.1 % Eos % (Auto) 0.2 % Baso % (Auto) 0.4 % Neut # (Auto) 23.83 H (1.40-6.50) K/uL Lymph # (Auto) 2.53 (1.20-3.40) K/uL [place] # (Auto) 2.03 H (0.11-0.59) K/uL Eos # (Auto) 0.05 (0.00-0.50) K/uL Baso # (Auto) 0.12 (0.00-0.20) K/uL Immature Gran # (Auto) 0.18 (0.01-0.20) K/uL Sodium 138 (136-145) mmol/L Potassium 3.2 L (3.5-5.1) mmol/L Chloride 101 (98-107) mmol/L Carbon Dioxide 22 (21-32) mmol/L Anion Gap 15 H (3-11) BUN 19 (6-23) mg/dl Creatinine 1.80 H (0.6-1.4) mg/dl Est Cr Clr Drug Dosing Not Reportable Est GFR ( Amer) 47.7 ml/min Est GFR (Non-Af Amer) 41.2 ml/min BUN/Creatinine Ratio 10.6 (10-20) Glucose 254 H (70-99(Fasting)) mg/dl Lactate (0.4-2.0) mmol/L Calcium 9.6 (8.6-10.3) mg/dl Magnesium 2.3 (1.7-2.4) mg/dl Total Bilirubin 1.1 H (0.2-1.0) mg/dl AST 41 H (13-39) U/L ALT 41 (7-52) U/L Alkaline Phosphatase 122 H (34-104) U/L Total Protein 8.1 (6.0-8.3) gm/dl Albumin 5.0 (3.4-5.0) gm/dl Globulin 3.1 (2.5-4.0) gm/dl Albumin/Globulin Ratio 1.6 (0.9-2) Lipase 171 H (11-82) U/L Procalcitonin 1.63 H (0-0.5) ng/ml TSH 5.343 H (0.300-4.500) uIu/ml Free T4 1.27 (0.61-1.60) ng/dl Urine Color Urine Appearance (Clear) Urine pH (4.5-7.5) Ur Specific [place] (1.000-1.030) Urine Protein (Negative) Urine Glucose (UA) (Negative) Urine Ketones (Negative) Urine Blood (Negative) Urine Nitrite (Negative) Urine Bilirubin (Negative) Urine Urobilinogen (Negative) Ur Leukocyte Esterase (Negative) Urine WBC (Auto) (0-5) /hpf Urine RBC (Auto) (0-2) /hpf U Hyaline Cast (Auto) (0-2) /lpf U Epithel Cells (Auto) (0-2) /hpf Urine Bacteria (Auto) (None Seen) Urine Sperm (None Prsent) Nasal Screen MRSA (PCR) Stl C. cayetanensis PCR Not Detected (NotDetected) Stool Rotavirus A PCR Not Detected (NotDetected) Stl Adenov F 40/41 PCR Not Detected (NotDetected) Stool Astrovirus (PCR) Not Detected (NotDetected) Stool Campylobacter PCR Not Detected (NotDetected) Stl C. diff Tox B Gene Negative Cdiff Gene (Neg) Stool Cryptosporidium PCR Not Detected (NotDetected) Stl E.coli Shiga Tox PCR Not Detected (NotDetected) Stl Enterotoxigenic E PCR Not Detected (NotDetected) Stool EPEC (PCR) Not Detected (NotDetected) Stool EAEC (PCR) Not Detected (NotDetected) Stl E. histolytica PCR Not Detected (NotDetected) Stool Giardia Lamblia PCR Not Detected (NotDetected) Stool Salmonella PCR Not Detected (NotDetected) Stool Sapovirus (PCR) Not Detected (NotDetected) Stl P. shigelloides PCR Not Detected (NotDetected) Stl Shigella/EIEC PCR Not Detected (NotDetected) St Y.enterocolitica PCR Not Detected (NotDetected) Stool Vibrio (PCR) Not Detected (NotDetected) Stl Vibrio cholerae PCR Not Detected (NotDetected) Stl Norovirus GI/GII PCR Not Detected (NotDetected) Diagnostic Findings Abdomen/Pelvis CT 03/17/24 04:01 Exam(s): CT ABDOMEN + PELVIS With Contrast IV Amt: 91 ML OPTIRAY 320 EXAM: CT Abdomen and Pelvis With Intravenous Contrast CLINICAL HISTORY: Reason for exam: Lower abdominal pain, no BM x 1 week, paraplegia. TECHNIQUE: Axial computed tomography images of the abdomen and pelvis with intravenous contrast. CTDI is 25.36 mGy and DLP is 1148.48 mGy-cm. Automated exposure control was utilized for the study. A dose lowering technique was utilized adhering to the principles of ALARA. CONTRAST: Patient received 91 ML OPTIRAY 320 of IV contrast COMPARISON: No relevant prior studies available. FINDINGS: Lung bases: Unremarkable. No mass. No consolidation. ABDOMEN: Liver: Unremarkable. No mass. Gallbladder and bile ducts: Unremarkable. No calcified stones. No ductal dilation. Pancreas: There is stippled calcifications demonstrated within the pancreatic parenchyma. No ductal dilation. Spleen: Unremarkable. No splenomegaly. Adrenals: Unremarkable. No mass. Kidneys and ureters: Unremarkable. No solid mass. No hydronephrosis. Stomach and bowel: There is some bowel wall thickening and enhancement demonstrated to the distal transverse and proximal descending colon. There is some fecal retention within the distal: There is fluid demonstrated throughout the remaining colon. No obstruction. PELVIS: Appendix: No findings to suggest acute appendicitis. Bladder: There is diffuse urinary bladder wall thickening. Reproductive: Unremarkable as visualized. ABDOMEN and PELVIS: Intraperitoneal space: Unremarkable. No free air. No significant fluid collection. Bones/joints: There is degenerative change to the osseous structures. there are postsurgical changes to the spine subsequent streak artifact limits assessment. No acute fracture. No dislocation. Soft tissues: There are bilateral fat-containing indirect inguinal hernias. Vasculature: Abdominal aortic aneurysm is demonstrated mid and distal abdominal aorta with moderate mural thrombus 3.9 cm in maximal transverse dimension. There is calcific atherosclerotic vascular disease. Lymph nodes: Unremarkable. No enlarged lymph nodes. IMPRESSION: Some apparent colitis demonstrated within the mid to distal large bowel, Follow-up to resolution imaging findings suggest cystitis, additional chronic change, limited as described. Electronically signed by: Enrique Morse MD 03/17/24 06:01 AM Chest X-Ray 03/17/24 04:01 XR chest 1V portable HISTORY: abdominal pain COMPARISON: Chest 04/26/2023. FINDINGS: The lungs are clear. Cardiac silhouette is normal in size. No pleural effusions. No pneumothorax. Thoracolumbar posterior fusion hardware is again noted. IMPRESSION: No acute process. ACT 112: Negative or not required by law. Electronically signed by: Keo Park M.D. 03/17/2024 6:47 AM KUB X-Ray 03/17/24 06:08 KUB HISTORY: s/p NG tube COMPARISON: Abdomen and pelvis CT 03/17/2024. FINDINGS: Nasogastric tube terminates in the proximal stomach. The fenestrated line is at the gastroesophageal junction. This should be advanced by approximate ly 5 cm. No dilated loops of bowel identified. No renal calculi. No ureteral calculi. No pneumoperitoneum or pneumatosis. IMPRESSION: Nasogastric tube terminates in the proximal stomach. The fenestrated line is at the gastroesophageal junction. This should be advanced by approximately 5 cm. ACT 112: Negative or not required by law. Electronically signed by: Keo Park M.D. 03/17/2024 6:53 AM
[2024-03-17] MEDS: ACETAMINOPHEN 1,000 MG/100 ML VIAL IV PRN (13:56)
[2024-03-17] MEDS: PIPERACILLIN/TAZOBACTAM 4.5 GM in DEXTROSE 5% MINI-B 100 ML IV SCH (14:15)
[2024-03-17 14:34] LABS: Albumin Globulin Ratio 1.7 (0.9-2); Albumin Level 3.8 gm/dl (3.4-5.0); BUN Creatinine Ratio 15.6 (10-20); Bilirubin,Total 1.1 mg/dl (0.2-1.0); C Reactive Protein 5.68 mg/dl (0-0.5); Calcium 7.6 mg/dl (8.6-10.3); Est GFR (African American) 60.9 ml/min; Est GFR (Non-African American) 52.6 ml/min; Globulin 2.3 gm/dl (2.5-4.0); Magnesium 1.7 mg/dl (1.7-2.4); Potassium 4.1 mmol/L (3.5-5.1); Total Protein 6.1 gm/dl (6.0-8.3)
--- NOTE | 2024-03-17 14:47 | Electrocardiogram Report ---
Test Reason : Blood Pressure : / mmHG Vent. Rate : 118 BPM Atrial Rate : 118 BPM P-R Int : 146 ms QRS Dur : 068 ms QT Int : 324 ms P-R-T Axes : 061 -06 068 degrees QTc Int : 454 ms Sinus tachycardia Diffuse Minor Nonspecific T wave abnormality Abnormal ECG When compared with ECG of 17-MAR-2024 06:39, Nonspecific T wave abnormality now present Confirmed by Kt Bush ([id number]) on 03/17/2024 2:47:30 PM Referred By: Smiley Glynn Confirmed By:Kt Bush
[2024-03-17 14:48] LABS: Hematocrit (blood only) 40.4 % (42.0-52.0); Hemoglobin 14.2 g/dl (14.0-18.0); Mean Corpuscular Hemoglobin 30.5 pg (25.0-34.0); Mean Corpuscular Hgb Conc 35.1 g/dL (32.0-36.0); Mean Corpuscular Volume 86.7 fL (80.0-100.0); Mean Platelet Volume 10.3 fL (9.4-12.4); Platelet Count 250 K/uL (130-400); RDW Coefficient of Variation 13.1 % (11.5-14.5); RDW Standard Deviation 40.6 fL (36.4-46.3); Red Blood Count 4.66 M/uL (4.70-6.10); White Blood Count 15.18 K/ul (4.8-10.8)
[2024-03-17 14:49] LABS: Basophils # (auto) 0.02 K/uL (0.00-0.20); Basophils % (auto) 0.1 %; Echinocytes 1+; Immature Granulocytes # (auto) 0.06 K/uL (0.01-0.20); Immature Granulocytes % (auto) 0.4 %; Lymphocytes # (auto) 0.57 K/uL (1.20-3.40); Lymphocytes % (auto) 3.8 %; Monocytes # (auto) 0.82 K/uL (0.11-0.59); Monocytes % (auto) 5.4 %; Neutrophils # (auto) 13.71 K/uL (1.40-6.50); Neutrophils % (auto) 90.3 %
[2024-03-17 15:49] VITALS: TEMP 98.8
[2024-03-17] MEDS: OPTIRAY 320 125ml IV ONE (16:10)
--- NOTE | 2024-03-17 16:34 | CT Scan Report ---
CT angio abd pelvis wo/w con CLINICAL HISTORY: acute abdomen TECHNIQUE: Multidetector row helical CT of the abdomen and pelvis was performed, following intravenou s administration of iodinated contrast. No oral contrast was administered. Automated dose lowering te chniques and/or adjustment according to patient size were utilized for this exam. Coronal and sagitta l reformations were obtained. MIP and 3D volume rendered reconstructions were obtained. CT DOSE: 2104.92 mGy.cm Comparison: Comparison is made to CT abdomen pelvis 03/17/2024 FINDINGS: Lower chest: No acute abnormality Liver: Unremarkable. No focal lesions are seen. Gallbladder and biliary tree: Vicarious excretion of contrast is incidentally noted. No intra- or ext rahepatic biliary ductal dilation. Pancreas: Calcifications are seen in the bladder which may be due to prior pancreatitis. Spleen: Unremarkable. Adrenals: Unremarkable. Kidneys and ureters: Unremarkable. Bladder: Diffuse homogeneous wall thickening is seen. Shields catheter is seen. Reproductive organs: Unremarkable. Bowel: Thickening of the sigmoid and descending bowel wall is seen. The appendix is normal. There is a small hiatal hernia. An enteric tube is seen. Lymph nodes Retroperitoneal: Unremarkable. Pelvic: Unremarkable. Mesenteric: Unremarkable. Peritoneum: Trace ascites is seen. Abdominal wall: Bilateral fat-containing inguinal hernias are seen. Bones: Degenerative changes in the visualized spine. Posterior fixation hardware is seen in the thora columbar spine. CT angiogram: Infrarenal aortic aneurysm measures 38 mm in diameter. There is severe narrowing of the bilateral external iliac arteries. Prominent atherosclerosis is seen throughout. 12 mm aneurysms are seen in the bilateral common iliac arteries. The origins of the celiac axis, superior mesenteric, inferior mesenteric and bilateral renal arteries are patent. IMPRESSION: 1. Thickening of the splenic flexure through the sigmoid colon which is concerning for ischemic coli tis, although infectious/inflammatory etiology cannot be excluded. 2. Extensive atherosclerosis with bilateral iliac stenosis. Aortic aneurysms as above, grossly simil ar to prior exam. 3. Bladder wall thickening which may be due to chronic outlet obstruction or cystitis. ACT 112: Negative or not required by law. Electronically signed by: Mark Hare M.D. 03/17/2024 4:32 PM
[2024-03-17] MEDS ORDERED: SODIUM CHLORIDE 0.9% 1,000 ML IV ONE (17:25)
[2024-03-17] MEDS: Heparin IV Adult Wt-Based Standard *NO* INITIAL Bolus Protocol IV SCH (17:25)
[2024-03-17] MEDS: PROMETHAZINE HCL 12.5 MG in SODIUM CHLORIDE 0.9% 50 ML IV PRN (18:15)
[2024-03-17] MEDS: HEPARIN SODIUM/DEXTROSE 25,000 UNITS/500 ML BAG IV SCH (18:31)
[2024-03-17] MEDS ORDERED: ONDANSETRON 4 MG OD TAB PO PRN (18:38)
[2024-03-17 18:41] VITALS: RESP 19
[2024-03-17] MEDS ORDERED: STAT IV/IM STA (18:43)
[2024-03-17] MEDS ORDERED: SODIUM BICARBONATE 8.4% 150 MEQ in DEXTROSE 5% 1,000 ML IV SCH (18:45)
--- NOTE | 2024-03-17 18:45 | Critical Care Consultation ---
Date of Consultation March 17, 2024 Assessment & Plan (1) Colitis: (2) Sepsis: (3) Lactic acidosis: (4) FRANK (acute kidney injury): Plan 58-year-old male with a history of vasculopathy, bilateral AKA, prior spinal cord injury, hypertension, GERD and anxiety disorder presenting to the hospital with signs and symptoms concerning for ischemic colitis. CTA confirmed colitis and significant bilateral iliac artery stenosis. Will continue with fluid hydration and change his fluids to D5 with 3 A of bicarbonate at 125 an hour. Continue Zosyn. Discussed with primary team and patient has been accepted for transfer to [facility] for further surgical evaluation and possible colectomy. Chest x-ray personally reviewed from earlier today with no acute abnormality seen. No vasoactive medication required at this current time. Will monitor maps closely and attempt to maintain mean arterial blood pressure above 65 mmHg. Discussed extensively with primary resident service including resident physician, attending physician and bedside nursing. 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 CT on admission revealed pancolitis within the mid to distal large bowel. Follow-up CT of the abdomen pelvis later today revealed thickening of the splenic flexure through the sigmoid colon concerning for ischemic colitis. Extensive atherosclerosis and bilateral iliac stenosis was noted. Aortic aneurysm was seen. Bladder thickening was seen as well. ICU service was consulted due to rising lactic acidosis and concerns for sepsis. Upon evaluation, patient was complaining of severe abdominal pain and having bouts of retching. He has an NG tube in place. His hemodynamic parameters were remarkable for tachycardia and otherwise normal blood pressure with systolics in the 140s. Allergies Allergy/AdvReac Type Severity Reaction Status Date / Time No Known Allergies Allergy Unverified 11/13/19 16:16 Home Medications Medication Instructions Recorded Confirmed Type baclofen 20 mg tablet 20 mg PO TID PRN Muscle Spasm 01/09/19 03/17/24 History amlodipine 5 mg tablet (Norvasc) 5 mg PO DAILY #30 tabs 04/26/23 03/17/24 Rx citalopram 20 mg tablet 40 mg PO DAILY 04/26/23 03/17/24 History ferrous sulfate 325 mg (65 mg 325 mg PO Q OTHER DAY 04/26/23 03/17/24 History iron) tablet (FeroSul) hydroxyzine HCl 25 mg tablet 25 mg PO TID PRN Anxiety 04/26/23 03/17/24 History metoprolol succinate 25 mg 25 mg PO DAILY 04/26/23 04/26/23 History tablet,extended release 24 hr ondansetron HCl 4 mg tablet 4 mg PO Q8 PRN Nausea And Vomiting 04/26/23 03/17/24 History pantoprazole 40 mg tablet,delayed 40 mg PO QAM 04/26/23 03/17/24 History release quetiapine 100 mg tablet 100 mg PO HS 04/26/23 03/17/24 History atorvastatin 40 mg tablet 40 mg PO DAILY 03/17/24 03/17/24 History lisinopril 20 mg tablet 20 mg PO DAILY 03/17/24 03/17/24 History Patient History Medical History (Updated 03/17/24 @ 18:41 by Luis Alfredo Garza MD) Paraplegia UTI (urinary tract infection) Surgical History S/P AKA (above knee amputation) bilateral Social History Smoking Status: Former smoker Tobacco Type: Cigarettes Cigarettes Per Day: 80; Second Hand Exposure: No; Do You Dip or Chew Tobacco: No; Tobacco Cessation Education Requested by Patient: No Hx Alcohol Use: Yes (former) Hx Substance Use: Yes Last Used Substance: Days (ago) Preferred Language: Croatian Communication Ability: Effective 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 Rebound tenderness positive as well. Minimal bowel sounds. Musculoskeletal: Extremities: + lower leg abnormality (AKA) Bilateral Results & Data Results & Data Vital Signs (Past 12 Hours) Vital Signs Temp Pulse Pulse Pulse Resp BP Pulse Ox 03/17/24 15:48 37.1 C 106 H 18 123/79 93 03/17/24 13:09 36.3 C L 120 H 150/98 H 98 03/17/24 12:37 36.7 C 122 H 18 169/108 H 98 03/17/24 11:51 37.1 C 111 H 18 154/89 H 98 03/17/24 10:00 36.7 C 101 H 18 154/94 H 95 03/17/24 08:36 36.2 C L 03/17/24 08:28 85 03/17/24 08:20 101 H 20 131/99 97 O2 Del Method 03/17/24 15:48 Room Air 03/17/24 13:09 Room Air 03/17/24 12:37 Room Air 03/17/24 11:51 Room Air 03/17/24 10:00 Room Air 03/17/24 08:36 03/17/24 08:28 03/17/24 08:20 Room Air Coding Level of Care Code 47938 IN/OBS CONSULT LVL 4,60M Diagnoses Colitis K52.9 Sepsis A41.9 Sepsis type: sepsis due to unspecified organism Lactic acidosis E87.20 FRANK (acute kidney injury) N17.9 (2) Sepsis Sepsis type: sepsis due to unspecified organism
--- NOTE | 2024-03-17 18:47 | Discharge Summary ---
Date of Service March 17, 2024 Admission HPI Per Admitting Provider The patient is a 58 y/o male with PMH significant for paraplegia (2/2 T12 spinal cord injury), neurogenic bladder, and bilateral [id number] amputation. He presented to the ED early this morning with nausea, vomiting, lower abd pain, and constipation. He estimates his last bowel movement was 1 week ago. He typically has BM every 2-3 days. Pt tried to relieve constipation with OTC stool softeners/suppositories several times this week without success. Yesterday the pain became constant and he began vomiting frequently, 1x per hour, which prompted him to seek evaluation. No hx of previous bowel obstruction or abdo divya surgeries. He has had no recent changes to diet or medications. Pt reports no other sx and denies fevers/chills/chest pains/SOB. Pt also has a hx of neurogenic bladder related to his previous spinal cord injury, requiring him to self cath 6-7x per day. He reports having ~2 UTIs per year with his most recent UTI being 1 month ago. In the ED, pt was hemodynamically stable and afebrile, but found to have significant leukocytosis, elevated procal, elevated lactate, and FRANK with Cr 1.80. Pt was given 2.5L NS bolus and started on IV zosyn. He later began having multiple, large-volume loose stools. Stool biofire was negative. CXR was negative. CTAP revealed evidence of colitis in mid-distal large bowel, possible cystitis, as well as a distended/fluid-filled stomach which raised concern for gastric outlet obstruction. An NG tube was placed which evacuated 1000mL of gastric fluid and the pt felt much improvement in his sx after this. Principal Diagnosis ischemic colitis Discharge Data Allergies Allergy/AdvReac Type Severity Reaction Status Date / Time No Known Allergies Allergy Unverified 11/13/19 16:16 Consultations 03/17/24 07:56 Consult Gastroenterology Routine 03/17/24 07:58 ED Decision to Admit Stat 03/17/24 17:34 Consult Assistant Plant Manager Stat 03/17/24 18:29 Radiology Transfer Of Images Stat 03/17/24 18:36 Consult General Surgery Routine Ordered Studies Laboratory Results WBC 15.18 K/ul (4.8-10.8) H D 03/17/24 13:59 RBC 4.66 M/uL (4.70-6.10) L 03/17/24 13:59 Hgb 14.2 g/dl (14.0-18.0) D 03/17/24 13:59 Hct 40.4 % (42.0-52.0) L 03/17/24 13:59 MCV 86.7 fL (80.0-100.0) 03/17/24 13:59 MCH 30.5 pg (25.0-34.0) 03/17/24 13:59 MCHC 35.1 g/dL (32.0-36.0) 03/17/24 13:59 RDW Std Deviation 40.6 fL (36.4-46.3) 03/17/24 13:59 RDW Coeff of Yves 13.1 % (11.5-14.5) 03/17/24 13:59 Plt Count 250 K/uL (130-400) 03/17/24 13:59 MPV 10.3 fL (9.4-12.4) 03/17/24 13:59 Immature Gran % (Auto) 0.4 % 03/17/24 13:59 Neut % (Auto) 90.3 % 03/17/24 13:59 Lymph % (Auto) 3.8 % 03/17/24 13:59 [place] % (Auto) 5.4 % 03/17/24 13:59 Eos % (Auto) 0.0 % 03/17/24 13:59 Baso % (Auto) 0.1 % 03/17/24 13:59 Neut # (Auto) 13.71 K/uL (1.40-6.50) H 03/17/24 13:59 Lymph # (Auto) 0.57 K/uL (1.20-3.40) L 03/17/24 13:59 [place] # (Auto) 0.82 K/uL (0.11-0.59) H 03/17/24 13:59 Eos # (Auto) 0.00 K/uL (0.00-0.50) 03/17/24 13:59 Baso # (Auto) 0.02 K/uL (0.00-0.20) 03/17/24 13:59 Immature Gran # (Auto) 0.06 K/uL (0.01-0.20) 03/17/24 13:59 Echinocytes 1+ 03/17/24 13:59 Sodium 142 mmol/L (136-145) 03/17/24 13:59 Potassium 4.1 mmol/L (3.5-5.1) D 03/17/24 13:59 Chloride 114 mmol/L (98-107) H 03/17/24 13:59 Carbon Dioxide 15 mmol/L (21-32) L 03/17/24 13:59 Anion Gap 13 (3-11) H 03/17/24 13:59 BUN 23 mg/dl (6-23) 03/17/24 13:59 Creatinine 1.47 mg/dl (0.6-1.4) H D 03/17/24 13:59 Est Cr Clr Drug Dosing 18.0 ml/min 03/17/24 13:59 Est GFR ( Amer) 60.9 ml/min 03/17/24 13:59 Est GFR (Non-Af Amer) 52.6 ml/min 03/17/24 13:59 BUN/Creatinine Ratio 15.6 (10-20) 03/17/24 13:59 Glucose 152 mg/dl (70-99(Fasting)) H 03/17/24 13:59 POC Glucose 130 mg/dl (70-99) H 03/17/24 15:55 Lactate 4.0 mmol/L (0.4-2.0) H* 03/17/24 17:11 Calcium 7.6 mg/dl (8.6-10.3) L D 03/17/24 13:59 Magnesium 1.7 mg/dl (1.7-2.4) 03/17/24 13:59 Total Bilirubin 1.1 mg/dl (0.2-1.0) H 03/17/24 13:59 AST 49 U/L (13-39) H 03/17/24 13:59 ALT 33 U/L (7-52) 03/17/24 13:59 Alkaline Phosphatase 77 U/L (34-104) 03/17/24 13:59 C-Reactive Protein 5.68 mg/dl (0-0.5) H 03/17/24 13:59 Total Protein 6.1 gm/dl (6.0-8.3) D 03/17/24 13:59 Albumin 3.8 gm/dl (3.4-5.0) 03/17/24 13:59 Globulin 2.3 gm/dl (2.5-4.0) L 03/17/24 13:59 Albumin/Globulin Ratio 1.7 (0.9-2) 03/17/24 13:59 Lipase 171 U/L (11-82) H 03/17/24 03:59 Procalcitonin 1.63 ng/ml (0-0.5) H 03/17/24 03:59 TSH 5.343 uIu/ml (0.300-4.500) H 03/17/24 03:59 Free T4 1.27 ng/dl (0.61-1.60) 03/17/24 03:59 Urine Color Dark Yellow 03/17/24 12:10 Urine Appearance Cloudy (Clear) A 03/17/24 12:10 Urine pH 5.0 (4.5-7.5) 03/17/24 12:10 Ur Specific [place] 1.043 (1.000-1.030) H 03/17/24 12:10 Urine Protein 2+ (Negative) H 03/17/24 12:10 Urine Glucose (UA) Negative (Negative) 03/17/24 12:10 Urine Ketones Negative (Negative) 03/17/24 12:10 Urine Blood 1+ (Negative) H 03/17/24 12:10 Urine Nitrite Negative (Negative) 03/17/24 12:10 Urine Bilirubin 1+ (Negative) H 03/17/24 12:10 Urine Urobilinogen Negative (Negative) 03/17/24 12:10 Ur Leukocyte Esterase 1+ (Negative) H 03/17/24 12:10 Urine WBC (Auto) 6-10 /hpf (0-5) H 03/17/24 12:10 Urine RBC (Auto) 0-2 /hpf (0-2) 03/17/24 12:10 U Hyaline Cast (Auto) 3-5 /lpf (0-2) H 03/17/24 12:10 U Epithel Cells (Auto) 0-2 /hpf (0-2) 03/17/24 12:10 Urine Bacteria (Auto) None Seen (None Seen) 03/17/24 12:10 Urine Sperm Present (None Prsent) A 03/17/24 12:10 Nasal Screen MRSA (PCR) Negative (Negative) 03/17/24 13:13 Stl C. cayetanensis PCR Not Detected (NotDetected) 03/17/24 05:37 Stool Rotavirus A PCR Not Detected (NotDetected) 03/17/24 05:37 Stl Adenov F 40/41 PCR Not Detected (NotDetected) 03/17/24 05:37 Stool Astrovirus (PCR) Not Detected (NotDetected) 03/17/24 05:37 Stool Campylobacter PCR Not Detected (NotDetected) 03/17/24 05:37 Stl C. diff Tox B Gene Negative Cdiff Gene (Neg) 03/17/24 05:37 Stool Cryptosporidium PCR Not Detected (NotDetected) 03/17/24 05:37 Stl E.coli Shiga Tox PCR Not Detected (NotDetected) 03/17/24 05:37 Stl Enterotoxigenic E PCR Not Detected (NotDetected) 03/17/24 05:37 Stool EPEC (PCR) Not Detected (NotDetected) 03/17/24 05:37 Stool EAEC (PCR) Not Detected (NotDetected) 03/17/24 05:37 Stl E. histolytica PCR Not Detected (NotDetected) 03/17/24 05:37 Stool Giardia Lamblia PCR Not Detected (NotDetected) 03/17/24 05:37 Stool Salmonella PCR Not Detected (NotDetected) 03/17/24 05:37 Stool Sapovirus (PCR) Not Detected (NotDetected) 03/17/24 05:37 Stl P. shigelloides PCR Not Detected (NotDetected) 03/17/24 05:37 Stl Shigella/EIEC PCR Not Detected (NotDetected) 03/17/24 05:37 St Y.enterocolitica PCR Not Detected (NotDetected) 03/17/24 05:37 Stool Vibrio (PCR) Not Detected (NotDetected) 03/17/24 05:37 Stl Vibrio cholerae PCR Not Detected (NotDetected) 03/17/24 05:37 Stl Norovirus GI/GII PCR Not Detected (NotDetected) 03/17/24 05:37 Impressions Abdomen/Pelvis CT 03/17/24 04:01 Exam(s): CT ABDOMEN + PELVIS With Contrast IV Amt: 91 ML OPTIRAY 320 EXAM: CT Abdomen and Pelvis With Intravenous Contrast CLINICAL HISTORY: Reason for exam: Lower abdominal pain, no BM x 1 week, paraplegia. TECHNIQUE: Axial computed tomography images of the abdomen and pelvis with intravenous contrast. CTDI is 25.36 mGy and DLP is 1148.48 mGy-cm. Automated exposure control was utilized for the study. A dose lowering technique was utilized adhering to the principles of ALARA. CONTRAST: Patient received 91 ML OPTIRAY 320 of IV contrast COMPARISON: No relevant prior studies available. FINDINGS: Lung bases: Unremarkable. No mass. No consolidation. ABDOMEN: Liver: Unremarkable. No mass. Gallbladder and bile ducts: Unremarkable. No calcified stones. No ductal dilation. Pancreas: There is stippled calcifications demonstrated within the pancreatic parenchyma. No ductal dilation. Spleen: Unremarkable. No splenomegaly. Adrenals: Unremarkable. No mass. Kidneys and ureters: Unremarkable. No solid mass. No hydronephrosis. Stomach and bowel: There is some bowel wall thickening and enhancement demonstrated to the distal transverse and proximal descending colon. There is some fecal retention within the distal: There is fluid demonstrated throughout the remaining colon. No obstruction. PELVIS: Appendix: No findings to suggest acute appendicitis. Bladder: There is diffuse urinary bladder wall thickening. Reproductive: Unremarkable as visualized. ABDOMEN and PELVIS: Intraperitoneal space: Unremarkable. No free air. No significant fluid collection. Bones/joints: There is degenerative change to the osseous structures. there are postsurgical changes to the spine subsequent streak artifact limits assessment. No acute fracture. No dislocation. Soft tissues: There are bilateral fat-containing indirect inguinal hernias. Vasculature: Abdominal aortic aneurysm is demonstrated mid and distal abdominal aorta with moderate mural thrombus 3.9 cm in maximal transverse dimension. There is calcific atherosclerotic vascular disease. Lymph nodes: Unremarkable. No enlarged lymph nodes. IMPRESSION: Some apparent colitis demonstrated within the mid to distal large bowel, Follow-up to resolution imaging findings suggest cystitis, additional chronic change, limited as described. Electronically signed by: Enrique Morse MD 03/17/24 06:01 AM Chest X-Ray 03/17/24 04:01 XR chest 1V portable HISTORY: abdominal pain COMPARISON: Chest 04/26/2023. FINDINGS: The lungs are clear. Cardiac silhouette is normal in size. No pleural effusions. No pneumothorax. Thoracolumbar posterior fusion hardware is again noted. IMPRESSION: No acute process. ACT 112: Negative or not required by law. Electronically signed by: Keo Park M.D. 03/17/2024 6:47 AM KUB X-Ray 03/17/24 06:08 KUB HISTORY: s/p NG tube COMPARISON: Abdomen and pelvis CT 03/17/2024. FINDINGS: Nasogastric tube terminates in the proximal stomach. The fenestrated line is at the gastroesophageal junction. This should be advanced by approximately 5 cm. No dilated loops of bowel identified. No renal calculi. No ureteral calculi. No pneumoperitoneum or pneumatosis. IMPRESSION: Nasogastric tube terminates in the proximal stomach. The fenestrated line is at the gastroesophageal junction. This should be advanced by approximately 5 cm. ACT 112: Negative or not required by law. Electronically signed by: Keo Park M.D. 03/17/2024 6:53 AM Abdomen/Pelvis CTA 03/17/24 13:06 CT angio abd pelvis wo/w con CLINICAL HISTORY: acute abdomen TECHNIQUE: Multidetector row helical CT of the abdomen and pelvis was performed, following intravenous administration of iodinated contrast. No oral contrast was administered. Automated dose lowering techniques and/or adjustment according to patient size were utilized for this exam. Coronal and sagittal reformations were obtained. MIP and 3D volume rendered reconstructions were obtained. CT DOSE: 2104.92 mGy.cm Comparison: Comparison is made to CT abdomen pelvis 03/17/2024 FINDINGS: Lower chest: No acute abnormality Liver: Unremarkable. No focal lesions are seen. Gallbladder and biliary tree: Vicarious excretion of contrast is incidentally noted. No intra- or extrahepatic biliary ductal dilation. Pancreas: Calcifications are seen in the bladder which may be due to prior pancreatitis. Spleen: Unremarkable. Adrenals: Unremarkable. Kidneys and ureters: Unremarkable. Bladder: Diffuse homogeneous wall thickening is seen. Shields catheter is seen. Reproductive organs: Unremarkable. Bowel: Thickening of the sigmoid and descending bowel wall is seen. The appendix is normal. There is a small hiatal hernia. An enteric tube is seen. Lymph nodes Retroperitoneal: Unremarkable. Pelvic: Unremarkable. Mesenteric: Unremarkable. Peritoneum: Trace ascites is seen. Abdominal wall: Bilateral fat-containing inguinal hernias are seen. Bones: Degenerative changes in the visualized spine. Posterior fixation hardware is seen in the thoracolumbar spine. CT angiogram: Infrarenal aortic aneurysm measures 38 mm in diameter. There is severe narrowing of the bilateral external iliac arteries. Prominent atherosclerosis is seen throughout. 12 mm aneurysms are seen in the bilateral common iliac arteries. The origins of the celiac axis, superior mesenteric, inferior mesenteric and bilateral renal arteries are patent. IMPRESSION: 1. Thickening of the splenic flexure through the sigmoid colon which is concerning for ischemic colitis, although infectious/inflammatory etiology cannot be excluded. 2. Extensive atherosclerosis with bilateral iliac stenosis. Aortic aneurysms as above, grossly similar to prior exam. 3. Bladder wall thickening which may be due to chronic outlet obstruction or cystitis. ACT 112: Negative or not required by law. Electronically signed by: Mark Hare M.D. 03/17/2024 4:32 PM Hospital Course (1) Abdominal pain: Ischemic Colitis Pt with a hx of paraplegia, neurogenic bladder, bilateraly [id number]-[id number]-ewpt amputation presented with abdominal pain, n/v, constipation x1week that has pro gressed since arrival to multiple episodes of large volume diarrhea. -Stomach & esophageal distension on initial CTAP. NG tube placed and removed 1000mL, raising concern for gastric outlet obstruction. NPO. -GI consult placed, appreciate recommendations -patient then became tachycardic and diaphoretic. Lactate peaked at 5.7 despite nearly 5L fluid. CTA ordered - concerning for ischemic colitis. -patient accepted to [facility] for transfer via [facility] Sepsis: Afebrile. BPs normal-high. However, he is tachycardic with WBC count 28.74, meeting SIRS criteria. Source unknown, considerations include UTI vs. GI -Lactate 3.8 on admission-->5.7. Continue to trend -2.5L NS bolus given in ED -Continue mIVF NS @ 100mL/hr -Continue Zosyn 4.5g q8hr -Blood cx & UA pending -MRSA nares pending Neurogenic bladder requiring multiple daily self catheterizations: Pt self caths 6-7x per day and has a hx of UTIs. 12 hrs since last cath at home, reporting suprapubic pain/pressure that was not relieved after catheterization. -Shields in place -UA without bacteria FRANK: -Unclear if FRANK due to outlet obstruction vs. hypoperfusion in the setting of sepsis -Cr 1.80 -Continue mIVF as above -Monitor CMP FEN/GI: NPO, IVF Code status: Full code Dispo: ICU - transfer to [facility] (2) Colitis: (3) Neurogenic bladder: (4) Sepsis: (5) FRANK (acute kidney injury): Plan 1) Abdominal Pain: Pt with a hx of paraplegia, neurogenic bladder, bilateraly [id number] amputation presented with abdominal pain, n/v, constipation x1week that has progressed since arrival to multiple episodes of large volume diarrhea. -Stomach & esophageal distension on CTAP. NG tube placed and removed 1000mL, raising concern for gastric outlet obstruction -New diarrhea in the setting of constipation, could represent overflow vs. infectious colitis given his leukocytosis -GI consult placed, appreciate recommendations -NPO 2) Sepsis: Afebrile. BPs normal-high. However, he is tachycardic with WBC count 28.74, meeting SIRS criteria. Source unknown, considerations include UTI vs. GI -Lactate 3.8 on admission-->5.7. Continue to trend -2.5L NS bolus given in ED -Continue mIVF NS @ 100mL/hr -Continue Zosyn 4.5g q8hr -Blood cx & UA pending -MRSA nares pending 3) Neurogenic bladder requiring multiple daily self catheterizations: Pt self caths 6-7x per day and has a hx of UTIs. 12 hrs since last cath at home, reporting suprapubic pain/pressure that was not relieved after catheterization. -Shields in place now -UA pending 4) FRANK: -Unclear if FRANK due to outlet obstruction vs. hypoperfusion in the setting of sepsis -Cr 1.80 -Continue mIVF as above -Monitor CMP FEN/GI: NPO Code status: Full code DVT ppx: heparin Dispo: med/surg Total Time Total Time Spent Total Time Spent (In Minutes): 30 Discharge Plan Discharge Items Patient Disposition: Transfer Acute Care Hospital Reason For Visit: ABDOMINAL PAIN Discharge Diagnosis: ischemic colitis Condition on Discharge: Good Activity: Per Instructions section Non-emergency contact: Primary Care Provider Call non-emergency contact if: you have any medication questions and your symptoms worsen Follow-up/Referrals: Ines Ruiz MD [Primary Care Provider] - Diet: Nothing by Mouth Pending Studies at Discharge: No Stand-Alone Forms: My [facility] Skilled Items Patient informed of condition?: Yes DNR: No Discharge Level of Care: Other Communicable Disease: No Discharge Prognosis: Deteriorating Lines: Peripheral IV Urinary Catheter: Yes (Shields) Medications and DC Order Prescriptions: No Action baclofen 20 mg tablet 20 mg PO TID PRN (Reason: Muscle Spasm) quetiapine 100 mg tablet 100 mg PO HS citalopram 20 mg tablet 40 mg PO DAILY metoprolol succinate 25 mg tablet extended release 24 hr 25 mg PO DAILY pantoprazole 40 mg tablet,delayed release (DR/EC) 40 mg PO QAM hydroxyzine HCl 25 mg tablet 25 mg PO TID PRN (Reason: Anxiety) ondansetron HCl 4 mg tablet 4 mg PO Q8 PRN (Reason: Nausea And Vomiting) ferrous sulfate [FeroSul] 325 mg (65 mg iron) tablet 325 mg PO Q OTHER DAY amlodipine [Norvasc] 5 mg tablet 5 mg PO DAILY Qty: 30 0RF atorvastatin 40 mg tablet 40 mg PO DAILY lisinopril 20 mg tablet 20 mg PO DAILY Discharge Orders: Discharge Order (Routine); Ordered 03/17/24 Ordered By: Smiley Glynn Admission Data Admit Date/Time: 03/17/24 08:03 Attending Provider: Smiley Glynn Admit Provider: Naresh Rosas Primary Care Provider: Ines Ruiz Other Providers: Ana Alfaro Jr; Smiley Glynn; Luis Alfredo Garza; Chloe Samaniego Supervising Physician Co-Signing Physician Notes Attending Physician Supervision Note: I independently interviewed and examined the patient and verified the jacques history and physical, reviewed labs and image studies and agree with findings and care plan noted above. 58 y/o with bilateral AKA and chronic constipation here with worsening abdominal pain, nausea, vomiting, diarrhea. Seen multiple times through the day - Early in the day - comfortable in bed with NGT draining. on exam - RRR, CTAB, BS diminished, tenderness in left lower quadrant, Few hours later - diaphoretic, abdomen tenderness worse. wbc 23, hb 18, creatinine 1.8 (baseline 1), lactate on admission 3, Abdominal pain - secondary to mesenteric ischemia Sepsis FRANK -Admitted in am with colitis possibly infectious and concern of GOO - received bolus fluids, IV abx, NGT placed and GI consulted. -With worsening status - rise in lactate from 3 to 5 - CTA done showing mesenteric ischemia -Transferred to ICU. -continue NGT, NPO, IVF, IV abx. -Transfer to [facility] accepted via [facility]. Resident Activity Tracking Resident Involvement: Resident Care Provided Care Provided: Adult [facility]
[2024-03-17 19:25] VITALS: BP 123/79; PULSE 101; O2SAT 98
--- OUTSIDE RECORDS SUMMARY | 2024-03-18 06:12 | External Medical Summary | Continuity of Care Document ---
Author Name Unknown Organization [facility] Address [address] [place] [address] Phone [phone] Care Team Providers Care Cadworx Piping Designer Name Role Phone Terrance Evans Care Team Information Recei kelly [phone] Problems Active Problems Provider Date Urinary tract infectious disease JOSE ELIAS Hess Onset: 08/12/2017 Neuromuscular dysfunction of bladder, unspecified JOSE ELIAS Hutchison Onset: 08/12/2017 Paraplegia Anthony Cohn PA-C Onset: Amputated above knee Anthony Cohn PA-C Onset : 09/06/2017 Low back pain Anthony Cohn PA-C Onset: C/O - a back symptom Anthony Cohn PA-C Onset : 09/06/2017 Recurrent major depression in remission Anthony Cohn PA-C Onset: 09/06/2017 Generalized anxiety disorder HARSH Dumont Onset: 09/06/2017 Hyperlipidemia Anthony Cohn PA-C Onset: Essential hypertension Anthony Cohn PA-C Ons et: 09/06/2017 Social History Type Date Description Comments Sex Unknown Cigarette Use 01/21/2024 Quit - Age 50 Tobacco Use Reviewed: 01/21/24 Never Smoked Cigars Tobacco Use Reviewed: 01/21/24 Never Smoked A Pipe Smoking Status Reviewed: 01/21/24 Never Smoked A Pipe Smokeless Tobacco 01/21/2024 Never Used Smokeless To bacco ETOH Use Denies alcohol use Recreational Drug Use Denies Drug Use Allergies and adverse reactions Description No Known Drug Allergies Medications Active Medications SIG Qnty Indications Order ing Provider Date Nitrofurantoin Monohyd Fzani352db Capsules take one capsule orally two times a day for 5 days. 10radha Ruiz MD 01/25/2024 Ocpylznnpa90pj Tablets 1 by mouth every day 30tabs I10 Ines Ruiz MD 01/21/2024 Ciprofloxacin GZN156rh Tablets 1 tablet by mouth twice a day for 10 days 20tabs R30.0 Ines Ruiz MD 01/21/2024 Eclmkh771la Capsules take one capsule by mouth two times a day as needed for constipation 30caps Ines Ruiz MD 10/22/2023 Ucqqybx84PJ/Scoop Powder take one scoop as directed daily as needed 119gm K59.00 Ines Ruiz MD 10/22/2023 Citalopram Shsfkixtrbqa75iz Tablets take one tab daily 30tabs F41.1 Ines Ruiz MD 06/25/2023 Ondansetron HCL4mg Tablets take 1 tablet (4 mg total) by mouth every 8 hours as needed for nausea or vomiting. 30tabs R11.0 Ines Ruiz MD 04/07/2023 Wheelchair-Lightweigh tDevice use for ambulation OT/PT evaluation for custom manual 1units Ines Ruiz MD 04/07/2023 Quetiapine Bfyzolcj819vi Tablets take 1 tablet by mouth at bedtime 30tabs G47.00 Ines Ruiz MD 03/26/2023 Ferrous Srhcllz828(65Fe) mg Tablets take 1 tablet by mouth on alternate days 15tabs Ines Ruiz MD 01/08/2023 Kmszpnnagt23zk Tablets take 1 tablet by mouth twice a day 60tabs R11.0 Ines Ruiz MD 01/05/2023 Metoprolol Succinate ER25mg Tablets ER 24HR take 2 tablet by mouth once daily 90tabs Ines Ruiz MD 04/30/2022 Atorvastatin Aybembr10zo Tablets take 1 tablet by mouth every night 90tabs Ines Ruiz MD 01/20/[address] take 1 tablet by mouth every morning 90taelliot Ruiz MD 10/29/2021 Wheelchair CushionMisc roho cushion 16x16 as directed 1units Ines Ruiz MD 07/01/2020 Adult DiapersDevice small/medium pullups 100units N31.9 Rodriguez Torrez MD 11/22/2017 Cgrvuja16hq Tablets 1 by mouth every day Yohannes Joshua MD Kincerhb96xz Tablets take 1 tablet by mouth three times a day if needed 90tabs Ines Ruiz MD Amlodipine Gpqerozg7sz Tablets take one tab daily 30tabs Ines Ruiz MD History Medications Yagah495cc Tablets 1 tablet by mouth twice a day for 10 days (onset of symptoms) 20tabs N39.0 Keith Gutierrez JR, MD 11/11/2023 - 01/21/2024 Immunizations CPT Code Status Date Vaccine Lot # [id number] Given 07/22/2023 Influenza Virus Vaccine, Quadrivalent (Cciiv4), Derived From Cell [id number] Given 04/10/2021 Moderna Sars-Co v-2 (Cov-19) vacc,100 mcg/ 0.5 mL 12Y+EMR Doc Only [id number] Given 03/13/2021 Moderna Sars-Co v-2 (Cov-19) vacc,100 mcg/ 0.5 mL 12Y+EMR Doc Only [id number] 72067 Given 10/27/2018 Influenza Virus Vaccine, Quadrivalent (Cciiv4), Derived From 4 Given 10/27/2018 Tdap (Tetanus, diphtheria & acel. pertussis) Adacel or Boostrix [id number] 11855 Refused 07/22/2023 Moderna Covid-1 9 Vaccine 50mcg Booster-EMR Doc Only [id number] Refused 01/05/2023 Influenza Virus Vaccine, Quadrivalent (Cciiv4), Derived From Cell [id number] Refused 12/28/2019 Influenza Virus Vaccine, Quadrivalent (Cciiv4), Derived From Cell Vital Signs Date Vital Result Comment 01/21/2024 9:05am BP Systolic 156 mmHg BP Diastolic 100 mmHg Body Temperature 97.7 F Heart Rate 80 /min Respiratory Rate 16 /min O2 % BldC Oximetry 94 % 10/22/2023 9:37am BP Systolic 146 mmHg BP Diastolic 88 mmHg Body Temperature 97.8 F Heart Rate 102 /min Respiratory Rate 18 /min O2 % BldC Oximetry 98 % Results Test Acquired Date Facility Test Result H/L Range N ote Urine Culture 01/21/2024 [facility] [address] [place] [address] [phone] Urine Source URINE Urine Isolate#1 01/21/2024 [facility] [address] [place] [address] [phone] Col Count #1 >100,000 COL/CC Isolate #1 Enterobacter marilou <SEE NOTE> 1 Amox/K Clav >16/8 R Ampicillin >16 R Aztreonam <=4 S Cefazolin >16 R Cefepime <=2 S Ceftriaxone <=1 S Ciprofloxacin 1 R Gentamicin <=2 S Nitrofurantoin <=32 S Tetracycline >8 R Tobramycin <=2 S Trimeth/Sulfa >2/38 R Meropenem <=1 S Urine DIP (In Office) Manual 01/21/2024 [facility] (In Office Test) Ua Glucose Negative Ua Bilirubin Negative Ua Ketones Negative Ua Specific [place] 1.010 Ua Blood Trace Ua PH 7.0 Ua Protein Negative Ua Urobilinogen 0.2 Ua Nitrite Negative Ua Leuko Large 1 Enterobacter cloacae Procedures Date Code Description Status 01/21/2024 G2211 Continuation of care e/m vis it add on Completed 01/21/2024 3080F PVRP Diastolic BP >/= 90 MMH G Completed 01/21/2024 3077F PVRP Systolic BP >/= 140 MMH G Completed 11/11/2023 G2211 Continuation of care e/m vis it add on Completed 10/22/2023 G2211 Continuation of care e/m vis it add on Completed 10/22/2023 3079F PVRP Diastolic BP 80-89 MMHG Completed 10/22/2023 3077F PVRP Systolic BP >/= 140 MMH G Completed Medical Devices Description No Information Available Encounters Type Date Location Provider Dx Diagnosis Office Visit 01/21/2024 9:15a Ervin Ruiz MD R30.0 Dysuria I10 Essential (primary) hypertension K59.00 Constipation, unspec ified F41.1 Generalized anxiety disorder E78.5 Hyperlipidemia, unsp ecified Office Visit 11/11/2023 2:00p Ervin cheung MD N39.0 Urinary tract infection, site not specified Office Visit 10/22/2023 9:45a Ervin cheung MD K59.00 Constipation, unspecified I10 Essential (primary) hypertension F41.1 Generalized anxiety disorder G82.20 Paraplegia, unspecif ied E78.5 Hyperlipidemia, unsp ecified N31.9 Neuromuscular dysfun ction of bladder, unspecified Assessments Date Code Description Provider 01/21/2024 R30.0 Dysuria Ines Ruiz MD 01/21/2024 I10 Essential (primary) hyperten beth Ruiz MD 01/21/2024 K59.00 Constipation, unspecified James Ruiz MD 01/21/2024 F41.1 Generalized anxiety disorder Ines Ruiz MD 01/21/2024 E78.5 Hyperlipidemia, unspecified Ines Ruiz MD 11/11/2023 N39.0 Urinary tract infection, sit e not specified Ines Ruiz MD 10/22/2023 K59.00 Constipation, unspecified James Ruiz MD 10/22/2023 I10 Essential (primary) prabhjot Ruiz MD 10/22/2023 F41.1 Generalized anxiety disorder Ines Ruiz MD 10/22/2023 G82.20 Paraplegia, unspecified Miguel Ruiz MD 10/22/2023 E78.5 Hyperlipidemia, unspecified Ines Ruiz MD 10/22/2023 N31.9 Neuromuscular dy sfunction of bladder, unspecified Ines Ruiz MD Plan of Treatment Future Appointment(s):* 03/17/2024 9:30 am - Ines Ruiz MD at [facility] 01/21/2024 - Ines Ruiz MD* R30.0 Dysuria* New Medication:* Ciprofloxacin HCL 500 mg - 1 tablet by mouth twice a day for 10 days * I10 Essential (primary) hypertension* New Medication:* Lisinopril 20 mg - 1 by mouth every day * K59.00 Constipation, unspecified * F41.1 Generalized anxiety disorder * E78.5 Hyperlipidemia, unspecified Functional Status Description No Information Available Mental Status Description No Information Available Referrals Description No Information Available
--- OUTSIDE RECORDS SUMMARY | 2024-03-18 06:12 | External Medical Summary | Continuity of Care Document ---
Author Name Unknown Organization [facility] Address [address] [place] [address] Phone [phone] Care Team Providers Care Services Clerk Name Role Phone Terrance Evans Care Team Information Recei kelly [phone] Problems Active Problems Provider Date Urinary tract infectious disease JOSE ELIAS Hess Onset: 08/12/2017 Neuromuscular dysfunction of bladder, unspecified JOSE ELIAS Hutchison Onset: 08/12/2017 Paraplegia Anthony Cohn PA-C Onset: Amputated above knee Anthony oChn PA-C Onset : 09/06/2017 Low back pain [...] Indications Order ing Provider Date Nitrofurantoin Monohyd Tinsg859cx Capsules take one capsule orally two times a day for 5 days. 10radha Ruiz MD 01/25/2024 Vjmsimbipx30mm Tablets 1 by mouth every day 30tabs I10 Ines Ruiz MD 01/21/2024 Ciprofloxacin XEP510do Tablets 1 tablet by mouth twice a day for 10 days 20tabs R30.0 Ines Ruiz MD 01/21/2024 Twqgie789yg Capsules take one capsule by mouth two times a day as needed for constipation 30caps Ines Ruiz MD 10/22/2023 Hudqotj38AZ/Scoop Powder take one scoop as directed daily as needed 119gm K59.00 Ines Ruiz MD 10/22/2023 Citalopram Bdfllinwfyht86gc Tablets take one tab daily 30tabs F41.1 Ines Ruiz MD 06/25/2023 Ondansetron HCL4mg Tablets take 1 tablet (4 mg total) by mouth every 8 hours as needed for nausea or vomiting. 30tabs R11.0 Ines Ruiz MD 04/07/2023 Wheelchair-Lightweigh tDevice use for ambulation OT/PT evaluation for custom manual 1units Ines Ruiz MD 04/07/2023 Quetiapine Adepzhua400is Tablets take 1 tablet by mouth at bedtime 30tabs G47.00 Ines Ruiz MD 03/26/2023 Ferrous Zqcopif067(65Fe) mg Tablets take 1 tablet by mouth on alternate days 15tabs Ines Ruiz MD 01/08/2023 Vkwwtxssjh86jx Tablets take 1 tablet by mouth twice a day 60tabs R11.0 Ines Ruiz MD 01/05/2023 Metoprolol Succinate ER25mg Tablets ER 24HR take 2 tablet by mouth once daily 90tabs Ines Ruiz MD 04/30/2022 Atorvastatin Hxjdisg28id Tablets take 1 tablet by mouth every night 90tabs Ines Ruiz MD 01/20/[address] take 1 tablet by mouth every morning 90taelliot Ruiz MD 10/29/2021 Wheelchair CushionMisc roho cushion 16x16 as directed 1units Ines Ruiz MD 07/01/2020 Adult DiapersDevice small/medium pullups 100units N31.9 Rodriguez Torrez MD 11/22/2017 Azjyqhh09fb Tablets 1 by mouth every day Yohannes Joshua MD Zfaklvgp11pz Tablets take 1 tablet by mouth three times a day if needed 90tabs Ines Ruiz MD Amlodipine Qxtnmcdn4le Tablets take one tab daily 30tabs Ines Ruiz MD History Medications Lavkx346tm Tablets 1 tablet by mouth twice a day for 10 days (onset of symptoms) 20tabs N39.0 Keith Gutierrez JR, MD 11/11/2023 - 01/21/2024 Immunizations CPT Code Status Date Vaccine Lot # [id number] Given 07/22/2023 Influenza Virus Vaccine, Quadrivalent (Cciiv4), Derived From Cell [id number] Given 04/10/2021 Moderna Sars-Co v-2 (Cov-19) vacc,100 mcg/ 0.5 mL 12Y+EMR Doc Only [id number] 60175 Given 03/13/2021 Moderna Sars-Co v-2 (Cov-19) vacc,100 mcg/ 0.5 mL 12Y+EMR Doc Only [id number] 10808 Given 10/27/2018 Influenza Virus Vaccine, Quadrivalent (Cciiv4), Derived From 6 Given 10/27/2018 Tdap (Tetanus, diphtheria & acel. pertussis) Adacel or Boostrix [id number] 37862 Refused 07/22/2023 Moderna Covid-1 9 Vaccine 50mcg Booster-EMR Doc Only [id number] Refused 01/05/2023 Influenza Virus Vaccine, Quadrivalent (Cciiv4), Derived From Cell [id number] Refused 12/28/2019 Influenza Virus Vaccine, Quadrivalent (Cciiv4), [...] H/L Range N ote Urine Culture 01/21/2024 [facility] [address] [place] [address] [phone] Urine Source URINE Urine Isolate#1 01/21/2024 [facility] [address] [place] [address] [phone] Col Count #1 >100,000 COL/CC Isolate #1 Enterobacter marilou <SEE NOTE> 1 Amox/K Clav >16/8 R Ampicillin >16 R Aztreonam <=4 S Cefazolin >16 R Cefepime <=2 S Ceftriaxone <=1 S Ciprofloxacin 1 R Gentamicin <=2 S Nitrofurantoin <=32 S Tetracycline >8 R Tobramycin <=2 S Trimeth/Sulfa >2/38 R Meropenem <=1 S Urine DIP (In Office) Manual 01/21/2024 [facility] (In Office Test) Ua Glucose Negative Ua Bilirubin Negative Ua Ketones Negative Ua Specific [place] 1.010 Ua Blood Trace Ua PH 7.0 [...] 9:30 am - Ines Ruiz MD at [facility] 01/21/2024 - Ines Ruiz MD* R30.0 Dysuria* [...]
--- OUTSIDE RECORDS SUMMARY | 2024-03-18 06:12 | External Medical Summary | Continuity of Care Document ---
Author Name Unknown Organization [facility] Address [address] [place] [address] Phone [phone] Care Team Providers Care Pediatric Np Name Role Phone Terrance Evans Care Team Information Recei kelly [phone] Problems Active Problems Provider Date Urinary tract [...] SIG Qnty Indications Order ing Provider Date Ciprofloxacin BGC602pz Tablets 1 tablet by mouth twice a day for 10 days 20tabs R30.0 Ines Ruiz MD 01/21/2024 Qsedpzyzah39ek Tablets 1 by mouth every day 30tabs I10 Ines Ruiz MD 01/21/2024 Rkbasb806mo Capsules take one capsule by mouth two times a day as needed for constipation 30caps Ines Ruiz MD 10/22/2023 Azvnhmv40JC/Scoop Powder take one scoop as directed daily as needed 119gm K59.00 Ines Ruiz MD 10/22/2023 Citalopram Hnpeiepobfst37zr Tablets take one tab daily 30tabs F41.1 Ines ku MD 06/25/2023 Ondansetron HCL4mg Tablets take 1 tablet (4 mg total) by mouth every 8 hours as needed for nausea or vomiting. 30tabs R11.0 Ines Ruiz MD 04/07/2023 Wheelchair-Lightweig htDevice use for ambulation OT/PT evaluation for custom manual 1units Ines Ruiz MD 04/07/2023 Quetiapine Cpgejbjd517lq Tablets take 1 tablet by mouth at bedtime 30tabs G47.00 Ines Ruiz MD 03/26/2023 Ferrous Xjmbidd833(65Fe) mg Tablets take 1 tablet by mouth on alternate days 15tabs Ines Ruiz MD 01/08/2023 Qbqjjpprke57yt Tablets take 1 tablet by mouth twice a day 60tabs R11.0 Ines Ruiz MD 01/05/2023 Metoprolol Succinate ER25mg Tablets ER 24HR take 2 tablet by mouth once daily 90tabs Ines Ruiz MD 04/30/2022 Atorvastatin Dtraice88xz Tablets take 1 tablet by mouth every night 90tabs Ines Ruiz MD 01/20/[address] take 1 tablet by mouth every morning 90tabs Ines Ruiz MD 10/29/2021 Wheelchair CushionMisc roho cushion 16x16 as directed 1units Ines Ruiz MD 07/01/2020 Adult DiapersDevice small/medium pullups 100units N31.9 Rodriguez Torrez MD 11/22/2017 Byotkgn78un Tablets 1 by mouth every day Yohannes Joshua MD Cxmazjbz41cd Tablets take 1 tablet by mouth three times a day if needed 90tabs Ines Ruiz MD Amlodipine Lqvqtecl4vy Tablets take one tab daily 30tabs Ines cruz MD History Medications Fsocj905at Tablets 1 tablet by mouth twice a day for 10 days (onset of symptoms) 20tabs N39.0 Keith Gutierrez JR, MD 11/11/2023 - 01/21/2024 Immunizations CPT Code Status Date Vaccine Lot # [id number] Given 07/22/2023 Influenza Virus Vaccine, Quadrivalent (Cciiv4), Derived From Cell [id number] 44025 Given 04/10/2021 Moderna Sars-Co v-2 (Cov-19) vacc,100 mcg/ 0.5 mL 12Y+EMR Doc Only [id number] 47127 Given 03/13/2021 Moderna Sars-Co v-2 (Cov-19) vacc,100 mcg/ 0.5 mL 12Y+EMR Doc Only [id number] 07063 Given 10/27/2018 Influenza Virus Vaccine, Quadrivalent (Cciiv4), Derived From 2 Given 10/27/2018 Tdap (Tetanus, diphtheria & acel. pertussis) Adacel or Boostrix [id number] 64895 Refused 07/22/2023 Moderna Covid-1 9 Vaccine 50mcg Booster-EMR Doc Only [id number] Refused 01/05/2023 Influenza Virus Vaccine, Quadrivalent (Cciiv4), Derived From Cell 23799 Refused 12/28/2019 Influenza Virus Vaccine, Quadrivalent (Cciiv4), [...] Test Result H/L Range N ote Urine DIP (In Office) Manual 01/21/2024 [facility] (In Office Test) Ua Glucose Negative Ua Bilirubin Negative Ua Ketones Negative Ua Specific [place] 1.010 Ua Blood Trace Ua PH 7.0 Ua Protein Negative Ua Urobilinogen 0.2 Ua Nitrite Negative Ua Leuko Large Procedures Date Code Description Status 01/21/2024 3080F PVRP Diastolic BP >/= 90 [...] MD 01/21/2024 I10 Essential (primary) hyperten beth Ines Ruiz MD 01/21/2024 K59.00 Constipation, unspecified James Ruiz MD 01/21/2024 F41.1 Generalized anxiety disorder Ines Ruiz MD 01/21/2024 E78.5 Hyperlipidemia, unspecified Ines Ruiz MD 11/11/2023 N39.0 Urinary tract infection, sit e not specified Ines Ruiz MD 10/22/2023 K59.00 Constipation, unspecified James Riuz MD 10/22/2023 I10 Essential (primary) hyperten beth Ines Ruiz MD 10/22/2023 F41.1 Generalized anxiety disorder Ines Ruiz MD 10/22/2023 G82.20 Paraplegia, unspecified Miguel Ruiz MD 10/22/2023 E78.5 Hyperlipidemia, unspecified Ines Ruiz MD 10/22/2023 N31.9 Neuromuscular dy sfunction of bladder, unspecified Ines Ruiz MD Plan of Treatment Future Appointment(s):* 03/17/2024 9:30 am - Ines Ruiz MD at [facility] 01/21/2024 - Ines Ruiz MD* R30.0 Dysuria* [...]
--- OUTSIDE RECORDS SUMMARY | 2024-03-18 06:12 | External Medical Summary ---
Continuity of Care Document (CCD) Created on: January 21, 2024 Rigoberto Ornelas External Reference #: [id number] : [id number] Sex: Male Author Name Unknown Organization [facility] Address [address] [place] [address] Phone [phone] Care Team Providers Care Oracle Manager Name Role Phone Terrance Evans Care Team Information Recei kelly [phone] Problems Active Problems Provider Date Urinary tract [...] Qnty Indications Order ing Provider Date Ciprofloxacin YDK330jm Tablets 1 tablet by mouth twice a day for 10 days 20tabs R30.0 Ines Ruiz MD 01/21/2024 Uzldvkzhru59qo Tablets 1 by mouth every day 30tabs I10 Ines Ruiz MD 01/21/2024 Iwsdpf558az Capsules take one capsule by mouth two times a day as needed for constipation 30caps Ines Ruiz MD 10/22/2023 Lmiuuwq28FO/Scoop Powder take one scoop as directed daily as needed 119gm K59.00 Ines Ruiz MD 10/22/2023 Citalopram Jynzcpjzrrrc31hu Tablets take one tab daily 30tabs F41.1 Ines ku MD 06/25/2023 Ondansetron HCL4mg Tablets take 1 tablet (4 mg total) by mouth every 8 hours as needed for nausea or vomiting. 30tabs R11.0 Ines Ruiz MD 04/07/2023 Wheelchair-Lightweig htDevice use for ambulation OT/PT evaluation for custom manual 1units Ines Ruiz MD 04/07/2023 Quetiapine Vqdagpsk154mn Tablets take 1 tablet by mouth at bedtime 30tabs G47.00 Ines Ruiz MD 03/26/2023 Ferrous Tgeplse286(65Fe) mg Tablets take 1 tablet by mouth on alternate days 15tabs Ines Ruiz MD 01/08/2023 Zotchvfsrr32kg Tablets take 1 tablet by mouth twice a day 60tabs R11.0 Ines Ruiz MD 01/05/2023 Metoprolol Succinate ER25mg Tablets ER 24HR take 2 tablet by mouth once daily 90tabs Ines Ruiz MD 04/30/2022 Atorvastatin Loodlpe11mr Tablets take 1 tablet by mouth every night 90tabs Ines Ruiz MD 01/20/[address] take 1 tablet by mouth every morning 90tabs Ines Ruiz MD 10/29/2021 Wheelchair CushionMisc roho cushion 16x16 as directed 1units Ines Ruiz MD 07/01/2020 Adult DiapersDevice small/medium pullups 100units N31.9 Rodriguez Torrez MD 11/22/2017 Ugdermz11ti Tablets 1 by mouth every day Yohannes Joshua MD Uwfhwbzz89fy Tablets take 1 tablet by mouth three times a day if needed 90tabs Ines Ruiz MD Amlodipine Mnzrpgmx8re Tablets take one tab daily 30tabs Ines cruz MD History Medications Pinkm049vz Tablets 1 tablet by mouth twice a day for 10 days (onset of symptoms) 20tabs N39.0 Keith Gutierrez JR, MD 11/11/2023 - 01/21/2024 Immunizations CPT Code Status Date Vaccine Lot # [id number] Given 07/22/2023 Influenza Virus Vaccine, Quadrivalent (Cciiv4), Derived From Cell [id number] 13819 Given 04/10/2021 Moderna Sars-Co v-2 (Cov-19) vacc,100 mcg/ 0.5 mL 12Y+EMR Doc Only [id number] 53899 Given 03/13/2021 Moderna Sars-Co v-2 (Cov-19) vacc,100 mcg/ 0.5 mL 12Y+EMR Doc Only [id number] 00197 Given 10/27/2018 Influenza Virus Vaccine, Quadrivalent (Cciiv4), Derived From 5 Given 10/27/2018 Tdap (Tetanus, diphtheria & acel. pertussis) Adacel or Boostrix [id number] 81565 Refused 07/22/2023 Moderna Covid-1 9 Vaccine 50mcg Booster-EMR Doc Only [id number] Refused 01/05/2023 Influenza Virus Vaccine, Quadrivalent (Cciiv4), Derived From Cell [id number] Refused 12/28/2019 Influenza Virus Vaccine, Quadrivalent (Cciiv4), [...] ote Urine DIP (In Office) Manual 01/21/2024 [facility] (In Office Test) Ua Glucose Negative Ua Bilirubin Negative Ua Ketones Negative Ua Specific [place] 1.010 Ua Blood Trace Ua PH 7.0 Ua Protein Negative Ua Urobilinogen 0.2 Ua Nitrite Negative Ua Leuko Large Procedures Date Code Description Status 11/11/2023 G2211 Continuation of care e/m vis it add on Completed 10/22/2023 G2211 Continuation of care e/m vis it add on Completed 10/22/2023 3079F PVRP Diastolic BP 80-89 MMHG Completed 10/22/2023 3077F PVRP Systolic BP >/= 140 MMH G Completed Medical Devices Description No Information Available Encounters Type Date Location Provider Dx Diagnosis Office Visit 11/11/2023 2:00p Ervin Ruiz MD N39.0 Urinary tract infection, site not specified Office Visit 10/22/2023 9:45a Ervin Ruiz MD K59.00 Constipation, unspecified I10 Essential (primary) [...] James Ruiz MD 10/22/2023 I10 Essential (primary) hyperten beth Ruiz MD 10/22/2023 F41.1 Generalized anxiety disorder Ines Ruiz MD 10/22/2023 G82.20 Paraplegia, unspecified Miguel Ruiz MD 10/22/2023 E78.5 Hyperlipidemia, unspecified Ines Ruiz MD 10/22/2023 N31.9 Neuromuscular dy sfunction of bladder, unspecified Ines Ruiz MD Plan of Treatment Future Appointment(s):* 03/17/2024 9:30 am - Ines Ruiz MD at [facility] 01/21/2024 - Ines Ruiz MD* R30.0 Dysuria* [...]
--- OUTSIDE RECORDS SUMMARY | 2024-03-18 06:12 | External Medical Summary | Continuity of Care Document ---
Author Name Unknown Organization [facility] Address [address] [place] [address] Phone [phone] Care Team Providers Care Hand Clerical Verifier Name Role Phone Terrance Evans Care Team Information Recei kelly [phone] Problems Active Problems Provider Date Urinary tract [...] Date Description Comments Sex Unknown Cigarette Use 10/22/2023 Quit - Age 50 Tobacco Use Reviewed: 10/22/23 Never Smoked Cigars Tobacco Use Reviewed: 10/22/23 Never Smoked A Pipe Smoking Status Reviewed: 10/22/23 Never Smoked A Pipe Smokeless Tobacco 10/22/2023 Never Used Smokeless To bacco ETOH Use Denies alcohol use Recreational Drug Use Denies Drug Use Allergies and adverse reactions Description No Known Drug Allergies Medications Active Medications SIG Qnty Indications Order ing Provider Date Mtnbt237ru Tablets 1 tablet by mouth twice a day for 10 days (onset of symptoms) 20tabs N39.0 Keith Gutierrez JR, MD 11/11/2023 Vrwgks195wb Capsules take one capsule by mouth two times a day as needed for constipation 30caps Ines Ruiz MD 10/22/2023 Shhrnxo79NZ/Scoop Powder take one scoop as directed daily as needed 119gm K59.00 Ines Ruiz MD 10/22/2023 Citalopram Kgaxqhscxdaa12kh Tablets take one tab daily 30tabs F41.1 Ines ku MD 06/25/2023 Ondansetron HCL4mg Tablets take 1 tablet (4 mg total) by mouth every 8 hours as needed for nausea or vomiting. 30tabs R11.0 Ines Ruiz MD 04/07/2023 Wheelchair-Lightweig htDevice use for ambulation OT/PT evaluation for custom manual 1units Ines Ruiz MD 04/07/2023 Quetiapine Ezujdzse132wb Tablets take 1 tablet by mouth at bedtime 30tabs G47.00 Ines Ruiz MD 03/26/2023 Ferrous Lovrvur656(65Fe) mg Tablets take 1 tablet by mouth on alternate days 15tabs Ines Ruiz MD 01/08/2023 Lgzevrhnzq40pe Tablets take 1 tablet by mouth twice a day 60tabs R11.0 Ines Ruiz MD 01/05/2023 Metoprolol Succinate ER25mg Tablets ER 24HR take 2 tablet by mouth once daily 90tabs Ines Ruiz MD 04/30/2022 Atorvastatin Ivhmecj61fi Tablets take 1 tablet by mouth every night 90tabs Ines Ruiz MD 01/20/[address] take 1 tablet by mouth every morning 90tabs Ines Ruiz MD 10/29/2021 Wheelchair CushionMisc roho cushion 16x16 as directed 1unsinai Ruiz MD 07/01/2020 Adult DiapersDevice small/medium pullups 100units N31.9 Rodriguez Torrez MD 11/22/2017 Asoyexl26tc Tablets 1 by mouth every day Yohannes Joshua MD Xkrkfkjj85xd Tablets take 1 tablet by mouth three times a day if needed 90tabs Ines Ruiz MD Amlodipine Muxyupau5pv Tablets take one tab daily 30tabs Ines cruz MD History Medications Citalopram Eqtdpaflxoho71vx Tablets take two tabs daily 60tabs F41.1 Ines Ruiz MD 06/25/2023 - 07/22/2023 Fpydn347nh Tablets 1 tablet by mouth twice a day for 10 days (onset of symptoms) 20tabs N39.0 Keith Gutierrez JR, MD 06/08/2023 - 10/22/2023 Immunizations CPT Code Status Date Vaccine Lot # [id number] Given 07/22/2023 Influenza Virus Vaccine, Quadrivalent (Cciiv4), Derived From Cell [id number] Given 04/10/2021 Moderna Sars-Co v-2 (Cov-19) vacc,100 mcg/ 0.5 mL 12Y+EMR Doc Only [id number] Given 03/13/2021 Moderna Sars-Co v-2 (Cov-19) vacc,100 mcg/ 0.5 mL 12Y+EMR Doc Only [id number] Given 10/27/2018 Influenza Virus Vaccine, Quadrivalent (Cciiv4), Derived From 3 Given 10/27/2018 Tdap (Tetanus, diphtheria & acel. pertussis) Adacel or Boostrix [id number] Refused 07/22/2023 Moderna Covid-1 9 Vaccine 50mcg Booster-EMR Doc Only [id number] Refused 01/05/2023 Influenza Virus Vaccine, Quadrivalent (Cciiv4), Derived From Cell [id number] Refused 12/28/2019 Influenza Virus Vaccine, Quadrivalent (Cciiv4), Derived From Cell Vital Signs Date Vital Result Comment 10/22/2023 9:37am BP Systolic 146 mmHg BP Diastolic 88 mmHg Body Temperature 97.8 F Heart Rate 102 /min Respiratory Rate 18 /min O2 % BldC Oximetry 98 % 07/22/2023 9:18am BP Systolic 130 mmHg BP Diastolic 86 mmHg Body Temperature 97.8 F Heart Rate 94 /min O2 % BldC Oximetry 96 % Results Test Acquired Date Facility Test Result H/L Range N ote CBC W/Diff 07/22/2023 [facility]. [address] [place] [address] [phone] WBC 7.6 10^3/M3 3.1-9.2 RBC 4.69 10^6/M3 4.00-5.80 HGB 14.9 GR/DL 12.5-17.5 HCT 43.5 % 37.5-52.5 MCV 92.6 CUMICR 82.6-95.8 MCH 31.7 PICOGR 27.9-32.9 MCHC 34.2 % 32.6-35.4 RDW 14.2 % 11.4-14.6 PLT 233 10^3/M3 140-350 MPV 8.8 CUMICR 7.0-10.6 %Neut 67.5 % 40.0-75.0 %Lymph 23.9 % 17.0-45.0 %[place] 7.3 % 1.0-11.0 %Eos 0.8 % 0.0-6.0 %Baso 0.5 % 0.0-2.0 #Neut 5.1 10^3/M3 1.5-8.0 #Lymph 1.8 10^3/M3 0.8-3.2 #[place] 0.6 10^3/M3 0.0-0.8 #Eos 0.1 10^3/m3 0.0-0.4 #Baso 0.0 10^3/m3 0.0-0.2 Comp. Met 07/22/2023 [facility]. [address] [place] [address] [phone] Glucose 104 mg/dL 70-110 BUN 15 mg/dL 6-25 Creatinine 0.8 mg/dL 0.7-1.3 Sodium 143 mEq/L 135-145 Potassium 4.8 mEq/L 3.5-5.0 Chloride 103 mEq/L 95-107 Co-2 30 mEq/L 24-31 Alk Phos 87 IU/L 43-122 Alt(SGPT) 30 IU/L 10-40 Ast(Sgot) 24 IU/L 3-42 T.Bilirubin 0.4 mg/dL 0.1-1.3 Calcium 10.0 mg/dL 8.5-10.6 Tot.Protein 6.4 g/dL 5.8-8.0 Albumin 4.4 g/dL 3.0-5.2 Globulin 2.0 g/dL 2.0-3.4 GFR 107 ML/MIN/1.73SQM >60 Hba1c 07/22/2023 [facility]. [address] [place] [address] [phone] A1c 5.40 % 4.70-6.50 1 Iron Panel(Medcom) 07/22/2023 [facility]. [address] [place] [address] [phone] Iron 87 g /dL 45-140 % Saturation 26 % Low 30-35 Tibc 07/22/2023 [facility]. [address] [place] [address] [phone] Tibc 329 g /dL 260-400 Transferrin 235 mg/dL 200-400 Lipid 07/22/2023 [facility]. [address] [place] [address] [phone] Cholesterol 127 mg/dL 0-200 2 Triglyceride 273 mg/dL High 0-150 3 HDLD 31 mg/dL See Comment 4 Measured LDL 63 mg/dL 0-130 5 Calc VLDL 54.6 mg/dL See Comment 6 Chol/HDL 4.1 RATIO See Comment 7 Non-HDL 96 mg/dL See Comment 8 Laboratory test finding 07/22/2023 [facility]. [address] [place] [address] [phone] PSA Screen 0.6 ng/mL 0.0-4.0 Urine Culture 06/08/2023 [facility]. [address] [place] [address] [phone] Urine Source URINE Total Col Count >100,000 COL/CC Urine Isolate#1 06/08/2023 [facility]. [address] [place] [address] [phone] Isolate #1 Citrobacter freu <SEE NOTE> Amox/K Clav 16/ R Ampicillin <=8 R Aztreonam <=4 S Cefazolin >16 R Cefepime <=2 S Ceftriaxone <=1 S Ciprofloxacin <=1 S Gentamicin <=4 S Levofloxacin <=2 S Nitrofurantoin <=32 S Tobramycin <=4 S Trimeth/Sulfa <=2/38 S Meropenem <=1 S Cefotetan <=16 R Minocycline <=4 S Urine DIP (In Office) Manual 06/08/2023 [facility] (In Office Test) Ua Glucose negative Ua Bilirubin negative Ua Ketones negative Ua Specific [place] 1.010 Ua Blood moderate hemoli Ua PH 6.5 Ua Protein negative Ua Urobilinogen normal Ua Nitrite negative Ua Leuko negative 1 MEAN GLUCOSE IN mg/d L/A1c% POOR CONTROL FAIR CONTROL GOOD CONTROL EXCELLENT CONTROL 360-14 210-9 180-8 120-6 330-13 150-7 90-5 300-12 270-11 240-10 2 CHOLESTEROL Less than 200mg/dl Low risk 201-239 mg/dl Borderline risk Equal to or greater 240mg/dl High risk 3 TRIGLYCERIDES Less than 150mg/dl Normal 150-199mg/dl Borderline 200-499mg/dl High Greater than 500mg/dl Very High 4 HDL <40mg/dl Elevated Risk 41-59mg/dl Risk >=60mg/dl Least Risk 5 LDL <100mg/dl Optimal 100-129mg/dl Near Optimal 130-159mg/dl Borderline High 160-189mg/dl High >=190 Very High 6 VLDL Less than 30mg/dl Normal 7 CHOL/HDL <4.0 Optimal 4.0-5.0 Borderline >6.0 High Risk 8 NON-HDL 30mg/dl higher than LDL Target Procedures Date Code Description Status 11/11/2023 G2211 Continuation of care e/m vis it add on Completed 10/22/2023 G2211 Continuation of care e/m vis it add on Completed 10/22/2023 3079F PVRP Diastolic BP 80-89 MMHG Completed 10/22/2023 3077F PVRP Systolic BP >/= 140 MMH G Completed 07/22/2023 G0103 PSA Blood Screen Completed 07/22/2023 G0008 Influenza Admin Completed 07/22/2023 05936 Venipuncture Routine Complet ed 07/22/2023 3079F PVRP Diastolic BP 80-89 MMHG Completed 07/22/2023 3075F PVRP Systolic BP 130 To 139 MMHG Completed 06/08/2023 65773 Venipuncture Routine Complet ed 05/20/2023 3080F PVRP Diastolic BP >/= 90 MMH G Completed 05/20/2023 3077F PVRP Systolic BP >/= 140 MMH [...] N31.9 Neuromuscular dysfun ction of bladder, unspecified Office Visit 07/22/2023 9:45a Ervin Ruiz MD I10 Essential (primary) hypertension F41.1 Generalized anxiety disorder G82.20 Paraplegia, unspecif ied R11.0 Nausea E78.5 Hyperlipidemia, unsp ecified N31.9 Neuromuscular dysfun ction of bladder, unspecified Z13.1 Encounter for screen ing for diabetes mellitus Z12.5 Encounter for screen ing for malignant neoplasm of prostate Z23 Encounter for immuni zation Office Visit 06/08/2023 8:45a Ervin cheung MD R30.0 Dysuria Office Visit 05/20/2023 3:15p Ervin cheung MD I10 Essential (primary) hypertension Assessments Date Code Description Provider 11/11/2023 N39.0 Urinary tract infection, sit e not specified Ines Ruiz MD 10/22/2023 K59.00 Constipation, unspecified James Ruiz MD 10/22/2023 I10 Essential (primary) hyperten beth Ines Ruiz MD 10/22/2023 F41.1 Generalized anxiety disorder Ines Ruiz MD 10/22/2023 G82.20 Paraplegia, unspecified Miguel Ruiz MD 10/22/2023 E78.5 Hyperlipidemia, unspecified Ines Ruiz MD 10/22/2023 N31.9 Neuromuscular dy sfunction of bladder, unspecified Ines Ruiz MD 07/22/2023 I10 Essential (primary) prabhjot Ruiz MD 07/22/2023 F41.1 Generalized anxiety disorder Ines Ruiz MD 07/22/2023 G82.20 Paraplegia, unspecified Miguel Ruiz MD 07/22/2023 R11.0 Nausea Ines Ruiz MD 07/22/2023 E78.5 Hyperlipidemia, unspecified Ines Ruiz MD 07/22/2023 N31.9 Neuromuscular dy sfunction of bladder, unspecified Ines Ruiz MD 07/22/2023 Z13.1 Encounter for screening for diabetes mellitus Ines Ruiz MD 07/22/2023 Z12.5 Encounter for sc reening for malignant neoplasm of prostate Ines Ruiz MD 07/22/2023 Z23 Encounter for immunization G rowena Ruiz MD 06/18/2023 R30.0 Dysuria Ines Ruiz MD 06/08/2023 R30.0 Dysuria Ines Ruiz MD 05/20/2023 I10 Essential (primary) prabhjot Ruiz MD Plan of Treatment Future Appointment(s):* 01/21/2024 9:15 am - Ines Ruiz MD at [facility] 11/11/2023 - Ines Ruiz MD* N39.0 Urinary tract infection, site not specified* New Medication:* Cipro 500 mg - 1 tablet by mouth twice a day for 10 days (onset of symptoms) * Comments:* Reviewed the importance of proper hygiene after voiding. Functional Status Description No Information Available Mental Status Description No Information Available Referrals Description No Information Available
--- OUTSIDE RECORDS SUMMARY | 2024-03-18 06:13 | External Medical Summary | Continuity of Care Document ---
Author Name Unknown Organization [facility] Address [address] [place] [address] Phone [phone] Care Team Providers Care Hands Hanger Name Role Phone Terrance Evans Care Team Information Recei kelly [phone] Problems Active Problems Provider Date Urinary tract [...] SIG Qnty Indications Order ing Provider Date Xrqkmdo68MD/Scoop Powder take one scoop as directed daily as needed 119gm K59.00 Ines Ruiz MD 10/22/2023 Nnwphh216pa Capsules take one capsule by mouth two times a day as needed for constipation 30caps Ines Ruiz MD 10/22/2023 Citalopram Ifbsoyecacxq76hx Tablets take one tab daily 30tabs F41.1 Ines ku MD 06/25/2023 Ondansetron HCL4mg Tablets take 1 tablet (4 mg total) by mouth every 8 hours as needed for nausea or vomiting. 30tabs R11.0 Ines Ruiz MD 04/07/2023 Wheelchair-Lightweig htDevice use for ambulation OT/PT evaluation for custom manual 1unsinai Ruiz MD 04/07/2023 Quetiapine Tzvyfhww083wr Tablets take 1 tablet by mouth at bedtime 30tabs G47.00 Ines Ruiz MD 03/26/2023 Ferrous Fgqxpnx083(65Fe) mg Tablets take 1 tablet by mouth on alternate days 15tabs Ines Ruiz MD 01/08/2023 Hhpbojmgvm43ee Tablets take 1 tablet by mouth twice a day 60tabs R11.0 Ines Ruiz MD 01/05/2023 Metoprolol Succinate ER25mg Tablets ER 24HR take 2 tablet by mouth once daily 90tabs Ines Ruiz MD 04/30/2022 Atorvastatin Jcnfgdh28rf Tablets take 1 tablet by mouth every night 90tabs Ines Ruiz MD 01/20/[address] take 1 tablet by mouth every morning 90tabs Ines Ruiz MD 10/29/2021 Wheelchair CushionMisc roho cushion 16x16 as directed 1unsinai Ruiz MD 07/01/2020 Adult DiapersDevice small/medium pullups 100units N31.9 Rodriguez Torrez MD 11/22/2017 Svknkso64zw Tablets 1 by mouth every day Yohannes Joshua MD Irzdcmvn43bw Tablets take 1 tablet by mouth three times a day if needed 90tabs Ines Ruiz MD Amlodipine Iisjaojv1em Tablets take one tab daily 30tabs Ines cruz MD History Medications Citalopram Vkpigjprxeye59ou Tablets take two tabs daily 60tabs F41.1 Ines Ruiz MD 06/25/2023 - 07/22/2023 Oofkw148vu Tablets 1 tablet by mouth twice a day for 10 days (onset of symptoms) 20tabs N39.0 Keith Gutierrez JR, MD 06/08/2023 - 10/22/2023 Immunizations CPT Code Status Date Vaccine Lot # 29743 Given 07/22/2023 Influenza Virus Vaccine, Quadrivalent (Cciiv4), Derived From Cell [id number] 19627 Given 04/10/2021 Moderna Sars-Co v-2 (Cov-19) vacc,100 mcg/ 0.5 mL 12Y+EMR Doc Only [id number] [id number] Given 03/13/2021 Moderna Sars-Co v-2 (Cov-19) vacc,100 mcg/ 0.5 mL 12Y+EMR Doc Only [id number] Given 10/27/2018 Influenza Virus Vaccine, Quadrivalent (Cciiv4), Derived From 1 Given 10/27/2018 Tdap (Tetanus, diphtheria & acel. pertussis) Adacel or Boostrix [id number] Refused 07/22/2023 Moderna Covid-1 9 Vaccine 50mcg Booster-EMR Doc Only [id number] Refused 01/05/2023 Influenza Virus Vaccine, Quadrivalent (Cciiv4), Derived From Cell [id number] Refused 12/28/2019 Influenza Virus Vaccine, Quadrivalent (Cciiv4), [...] H/L Range N ote CBC W/Diff 07/22/2023 [facility]. [address] [place] [address] [phone] WBC 7.6 10^3/M3 3.1-9.2 RBC 4.69 10^6/M3 4.00-5.80 HGB 14.9 GR/DL 12.5-17.5 HCT 43.5 % 37.5-52.5 MCV 92.6 CUMICR 82.6-95.8 MCH 31.7 PICOGR 27.9-32.9 MCHC 34.2 % 32.6-35.4 RDW 14.2 % 11.4-14.6 PLT 233 10^3/M3 140-350 MPV 8.8 CUMICR 7.0-10.6 %Neut 67.5 % 40.0-75.0 %Lymph 23.9 % 17.0-45.0 %[place] 7.3 % 1.0-11.0 %Eos 0.8 % 0.0-6.0 %Baso 0.5 % 0.0-2.0 #Neut 5.1 10^3/M3 1.5-8.0 #Lymph 1.8 10^3/M3 0.8-3.2 #Todd 0.6 10^3/M3 0.0-0.8 #Eos 0.1 10^3/m3 0.0-0.4 #Baso 0.0 10^3/m3 0.0-0.2 Comp. Met 07/22/2023 [facility]. [address] [place] [address] [phone] Glucose 104 mg/dL 70-110 BUN 15 mg/dL [...] 2.0-3.4 GFR 107 ML/MIN/1.73SQM >60 Hba1c 07/22/2023 [facility]. [address] [place] [address] [phone] A1c 5.40 % 4.70-6.50 1 Iron Panel(Medcom) 07/22/2023 [facility]. [address] [place] [address] [phone] Iron 87 g /dL 45-140 % Saturation 26 % Low 30-35 Tibc 07/22/2023 [facility]. [address] [place] [address] [phone] Tibc 329 g /dL 260-400 Transferrin 235 mg/dL 200-400 Lipid 07/22/2023 [facility]. [address] [place] [address] [phone] Cholesterol 127 mg/dL 0-200 2 Triglyceride 273 mg/dL High 0-150 3 HDLD 31 mg/dL See Comment 4 Measured LDL 63 mg/dL 0-130 5 Calc VLDL 54.6 mg/dL See Comment 6 Chol/HDL 4.1 RATIO See Comment 7 Non-HDL 96 mg/dL See Comment 8 Laboratory test finding 07/22/2023 [facility]. [address] [place], [place] [address] [phone] PSA Screen 0.6 ng/mL 0.0-4.0 Urine Culture 06/08/2023 [facility]. [address] [place] [address] [phone] Urine Source URINE Total Col Count >100,000 COL/CC Urine Isolate#1 06/08/2023 [facility]. [address] [place] [address] [phone] Isolate #1 Citrobacter freu <SEE NOTE> Amox/K Clav 16/8 R Ampicillin <=8 R Aztreonam <=4 S Cefazolin >16 R Cefepime <=2 S Ceftriaxone <=1 S Ciprofloxacin <=1 S Gentamicin <=4 S Levofloxacin <=2 S Nitrofurantoin <=32 S Tobramycin <=4 S Trimeth/Sulfa <=2/38 S Meropenem <=1 S Cefotetan <=16 R Minocycline <=4 S Urine DIP (In Office) Manual 06/08/2023 [facility] (In Office Test) Ua Glucose negative Ua Bilirubin negative Ua Ketones negative Ua Specific [place] 1.010 Ua Blood moderate hemoli Ua PH [...] LDL Target Procedures Date Code Description Status 07/22/2023 G0103 PSA Blood Screen Completed 07/22/2023 G0008 Influenza Admin Completed 07/22/2023 94947 Venipuncture Routine [facility] ed 07/22/2023 3079F PVRP Diastolic BP 80-89 MMHG Completed 07/22/2023 3075F PVRP Systolic BP 130 To 139 MMHG Completed 06/08/2023 17611 Venipuncture Routine [facility] ed 05/20/2023 3080F PVRP Diastolic BP >/= 90 MMH G Completed 05/20/2023 3077F PVRP Systolic BP >/= 140 MMH G Completed 05/03/2023 3080F PVRP Diastolic BP >/= 90 MMH G Completed 05/03/2023 3077F PVRP Systolic BP >/= 140 MMH G Completed Medical Devices Description No Information Available Encounters Type Date Location Provider Dx Diagnosis Office Visit 07/22/2023 9:45a Ervin Ruiz MD I10 Essential (pr imary) hypertension F41.1 Generalized anxiety disorder G82.20 Paraplegia, [...] Ervin cheung MD I10 Essential (primary) hypertension Office Visit 05/03/2023 11:30a Ervin evans MD I10 Essential (primary) hypertension Assessments Date Code Description Provider 10/22/2023 K59.00 Constipation, unspecified James Ruiz MD 07/22/2023 I10 Essential (primary) hyperten beth Ruiz MD 07/22/2023 F41.1 Generalized anxiety disorder [...] Ruiz MD 07/22/2023 Z23 Encounter for immunization Yolanda Ruiz MD 06/18/2023 R30.0 Dysuria Ines Ruiz MD 06/08/2023 R30.0 Dysuria Ines Ruiz MD 05/20/2023 I10 Essential (primary) hyperten beth Ruiz MD 05/03/2023 I10 Essential (primary) hyperten beth Ruiz MD Plan of Treatment Future Appointment(s):* 01/21/2024 9:15 am - Ines Ruiz MD at [facility] 10/22/2023 - Ines Ruiz MD* K59.00 Constipation, unspecified* New Medication:* Miralax 17 GM/Scoop - take one scoop as directed daily as needed * Comments:* Recommended to continue to take stool softener Take Miralax daily drink plenty of fluid and follow high fiber diet Functional Status Description No Information Available Mental Status Description No Information Available Referrals Description No Information Available
--- OUTSIDE RECORDS SUMMARY | 2024-03-18 06:13 | External Medical Summary | Continuity of Care Document ---
Author Name Unknown Organization [facility] Address [address] [place] [address] Phone [phone] Care Team Providers Care Branch Operations Specialist Name Role Phone Terrance Evans Care Team Information Recei kelly [phone] Problems Active Problems Provider Date Urinary tract [...] SIG Qnty Indications Order ing Provider Date Mabbbfu00OC/Scoop Powder take one scoop as directed daily as needed 119gm K59.00 Ines Ruiz MD 10/22/2023 Jkccbg136ce Capsules take one capsule by mouth two times a day as needed for constipation 30caps Ines Ruiz MD 10/22/2023 Citalopram Wvgzgacmewcv87gz Tablets take one tab daily 30tabs F41.1 Ines ku MD 06/25/2023 Ondansetron HCL4mg Tablets take 1 tablet (4 mg total) by mouth every 8 hours as needed for nausea or vomiting. 30tabs R11.0 Ines Ruiz MD 04/07/2023 Wheelchair-Lightweig htDevice use for ambulation OT/PT evaluation for custom manual 1unsinai Ruiz MD 04/07/2023 Quetiapine Bgbgzpnp442na Tablets take 1 tablet by mouth at bedtime 30tabs G47.00 Ines Ruiz MD 03/26/2023 Ferrous Tytiylg168(65Fe) mg Tablets take 1 tablet by mouth on alternate days 15tabs Ines Ruiz MD 01/08/2023 Hhshmnstmd26xk Tablets take 1 tablet by mouth twice a day 60tabs R11.0 Ines Ruiz MD 01/05/2023 Metoprolol Succinate ER25mg Tablets ER 24HR take 2 tablet by mouth once daily 90tabs Ines Ruiz MD 04/30/2022 Atorvastatin Atkndre39sp Tablets take 1 tablet by mouth every night 90tabs Ines Ruiz MD 01/20/[address] take 1 tablet by mouth every morning 90tabs Ines Ruiz MD 10/29/2021 Wheelchair CushionMisc roho cushion 16x16 as directed 1unsinai Ruiz MD 07/01/2020 Adult DiapersDevice small/medium pullups 100units N31.9 Rodriguez Torrez MD 11/22/2017 Hnzuxou21cg Tablets 1 by mouth every day Yohannes Joshua MD Pjigkzml98bg Tablets take 1 tablet by mouth three times a day if needed 90tabs Ines Ruiz MD Amlodipine Yrmrlxoh7ip Tablets take one tab daily 30tabs Ines cruz MD History Medications Citalopram Vublggvqhlie88fg Tablets take two tabs daily 60tabs F41.1 Ines Ruiz MD 06/25/2023 - 07/22/2023 Tqino222if Tablets 1 tablet by mouth twice a day for 10 days (onset of symptoms) 20tabs N39.0 Keith Gutierrez JR, MD 06/08/2023 - 10/22/2023 Immunizations CPT Code Status Date Vaccine Lot # 36917 Given 07/22/2023 Influenza Virus Vaccine, Quadrivalent (Cciiv4), Derived From Cell [id number] Given 04/10/2021 Moderna Sars-Co v-2 (Cov-19) vacc,100 mcg/ 0.5 mL 12Y+EMR Doc Only [id number] Given 03/13/2021 Moderna Sars-Co v-2 (Cov-19) vacc,100 mcg/ 0.5 mL 12Y+EMR Doc Only [id number] 59017 Given 10/27/2018 Influenza Virus Vaccine, Quadrivalent (Cciiv4), Derived From 2 Given 10/27/2018 Tdap (Tetanus, diphtheria & acel. pertussis) Adacel or Boostrix [id number] 99656 Refused 07/22/2023 Moderna Covid-1 9 Vaccine 50mcg Booster-EMR Doc Only [id number] Refused 01/05/2023 Influenza Virus Vaccine, Quadrivalent (Cciiv4), Derived From Cell [id number] Refused 12/28/2019 Influenza Virus Vaccine, Quadrivalent (Cciiv4), [...] H/L Range N ote CBC W/Diff 07/22/2023 [facility]. [address] [place] [address] [phone] WBC 7.6 10^3/M3 3.1-9.2 RBC 4.69 10^6/M3 4.00-5.80 HGB 14.9 GR/DL 12.5-17.5 HCT 43.5 % 37.5-52.5 MCV 92.6 CUMICR 82.6-95.8 MCH 31.7 PICOGR 27.9-32.9 MCHC 34.2 % 32.6-35.4 RDW 14.2 % 11.4-14.6 PLT 233 10^3/M3 140-350 MPV 8.8 CUMICR 7.0-10.6 %Neut 67.5 % 40.0-75.0 %Lymph 23.9 % 17.0-45.0 %[place] 7.3 % 1.0-11.0 %Eos 0.8 % 0.0-6.0 %Baso 0.5 % 0.0-2.0 #Neut 5.1 10^3/M3 1.5-8.0 #Lymph 1.8 10^3/M3 0.8-3.2 #[place] 0.6 10^3/M3 0.0-0.8 #Eos 0.1 10^3/m3 0.0-0.4 #Baso 0.0 10^3/m3 0.0-0.2 Comp. Met 07/22/2023 [facility]. [address] [place] [address] [phone] Glucose 104 mg/dL 70-110 BUN 15 mg/dL [...] 2.0-3.4 GFR 107 ML/MIN/1.73SQM >60 Hba1c 07/22/2023 [facility]. [address] [place] [address] [phone] A1c 5.40 % 4.70-6.50 1 Iron Panel(Medcom) 07/22/2023 [facility]. [address] [place] [address] [phone] Iron 87 g /dL 45-140 % Saturation 26 % Low 30-35 Tibc 07/22/2023 [facility]. [address] [place] [address] [phone] Tibc 329 g /dL 260-400 Transferrin 235 mg/dL 200-400 Lipid 07/22/2023 [facility]. [address] [place] [address] [phone] Cholesterol 127 mg/dL 0-200 2 Triglyceride 273 mg/dL High 0-150 3 HDLD 31 mg/dL See Comment 4 Measured LDL 63 mg/dL 0-130 5 Calc VLDL 54.6 mg/dL See Comment 6 Chol/HDL 4.1 RATIO See Comment 7 Non-HDL 96 mg/dL See Comment 8 Laboratory test finding 07/22/2023 [facility]. [address] [place], [place] [id number] [phone] PSA Screen 0.6 ng/mL 0.0-4.0 Urine Culture 06/08/2023 [facility]. [address] [place] [address] [phone] Urine Source URINE Total Col Count >100,000 COL/CC Urine Isolate#1 06/08/2023 [facility]. [address] [place] [address] [phone] Isolate #1 Citrobacter freu <SEE NOTE> Amox/K Clav 16/8 R Ampicillin <=8 R Aztreonam <=4 S Cefazolin >16 R Cefepime <=2 S Ceftriaxone <=1 S Ciprofloxacin <=1 S Gentamicin <=4 S Levofloxacin <=2 S Nitrofurantoin <=32 S Tobramycin <=4 S Trimeth/Sulfa <=2/38 S Meropenem <=1 S Cefotetan <=16 R Minocycline <=4 S Urine DIP (In Office) Manual 06/08/2023 [facility] (In Office Test) Ua Glucose negative Ua Bilirubin negative Ua Ketones negative Ua Specific [place] 1.010 Ua Blood moderate hemoli Ua PH [...] Completed 07/22/2023 G0008 Influenza Admin Completed 07/22/2023 17336 Venipuncture Routine [facility] ed 07/22/2023 3079F PVRP Diastolic BP 80-89 [facility] Completed 07/22/2023 3075F PVRP Systolic BP 130 To 139 [facility] Completed 06/08/2023 22962 Venipuncture Routine [facility] 05/20/2023 3080F PVRP Diastolic BP >/= [...] 9:15 am - Ines Ruiz MD at [place] 10/22/2023 - Ines Ruiz MD* K59.00 Constipation, [...]
--- OUTSIDE RECORDS SUMMARY | 2024-03-18 06:13 | External Medical Summary | Continuity of Care Document ---
Author Name Unknown Organization [facility] Address [address] [place] [address] Phone [phone] Care Team Providers Care Hospitality Associate Name Role Phone Terrance Evans Care Team Information Recei kelly [phone] Problems Active Problems Provider Date Urinary tract [...] SIG Qnty Indications Order ing Provider Date Wrpmves38RM/Scoop Powder take one scoop as directed daily as needed 119gm K59.00 Ines Ruiz MD 10/22/2023 Dlsupt458fe Capsules take one capsule by mouth two times a day as needed for constipation 30caps Ines Ruiz MD 10/22/2023 Citalopram Tlryzuxieekc85od Tablets take one tab daily 30tabs F41.1 Ines ku MD 06/25/2023 Ondansetron HCL4mg Tablets take 1 tablet (4 mg total) by mouth every 8 hours as needed for nausea or vomiting. 30tabs R11.0 Ines Ruiz MD 04/07/2023 Wheelchair-Lightweig htDevice use for ambulation OT/PT evaluation for custom manual 1unsinai Ruiz MD 04/07/2023 Quetiapine Jhaxvvyp506dy Tablets take 1 tablet by mouth at bedtime 30tabs G47.00 Ines Ruiz MD 03/26/2023 Ferrous Jisbfrx872(65Fe) mg Tablets take 1 tablet by mouth on alternate days 15tabs Ines Ruiz MD 01/08/2023 Puxvvhfxam69io Tablets take 1 tablet by mouth twice a day 60tabs R11.0 Ines Ruiz MD 01/05/2023 Metoprolol Succinate ER25mg Tablets ER 24HR take 2 tablet by mouth once daily 90tabs Ines Ruiz MD 04/30/2022 Atorvastatin Pbcqrrl22fh Tablets take 1 tablet by mouth every night 90tabs Ines Ruiz MD 01/20/[address] take 1 tablet by mouth every morning 90tabs Ines Ruiz MD 10/29/2021 Wheelchair CushionMisc roho cushion 16x16 as directed 1unsinai Ruiz MD 07/01/2020 Adult DiapersDevice small/medium pullups 100units N31.9 Rodriguez Torrez MD 11/22/2017 Szjnqxf68oi Tablets 1 by mouth every day Yohannes Joshua MD Uumejsdw80qx Tablets take 1 tablet by mouth three times a day if needed 90tabs Ines Ruiz MD Amlodipine Ymddmqlg9mu Tablets take one tab daily 30tabs Ines cruz MD History Medications Citalopram Gdauumzevhfs74po Tablets take two tabs daily 60tabs F41.1 Ines Ruiz MD 06/25/2023 - 07/22/2023 Bcgkc530cw Tablets 1 tablet by mouth twice a day for 10 days (onset of symptoms) 20tabs N39.0 Keith Gutierrez JR, MD 06/08/2023 - 10/22/2023 Immunizations CPT Code Status Date Vaccine Lot # [id number] Given 07/22/2023 Influenza Virus Vaccine, Quadrivalent (Cciiv4), Derived From Cell [id number] Given 04/10/2021 Moderna Sars-Co v-2 (Cov-19) vacc,100 mcg/ 0.5 mL 12Y+EMR Doc Only [id number] Given 03/13/2021 Moderna Sars-Co v-2 (Cov-19) vacc,100 mcg/ 0.5 mL 12Y+EMR Doc Only [id number] 97748 Given 10/27/2018 Influenza Virus Vaccine, Quadrivalent (Cciiv4), Derived From 8 Given 10/27/2018 Tdap (Tetanus, diphtheria & acel. pertussis) Adacel or Boostrix [id number] Refused 07/22/2023 Moderna Covid-1 9 Vaccine 50mcg Booster-EMR Doc Only [id number] Refused 01/05/2023 Influenza Virus Vaccine, Quadrivalent (Cciiv4), Derived From Cell [id number] Refused 12/28/2019 Influenza Virus Vaccine, Quadrivalent (Cciiv4), [...] H/L Range N ote CBC W/Diff 07/22/2023 [facility]. [address] [place] [address] [phone] WBC 7.6 10^3/M3 3.1-9.2 RBC 4.69 10^6/M3 4.00-5.80 HGB 14.9 GR/DL 12.5-17.5 HCT 43.5 % 37.5-52.5 MCV 92.6 CUMICR 82.6-95.8 MCH 31.7 PICOGR 27.9-32.9 MCHC 34.2 % 32.6-35.4 RDW 14.2 % 11.4-14.6 PLT 233 10^3/M3 140-350 MPV 8.8 CUMICR 7.0-10.6 %Neut 67.5 % 40.0-75.0 %Lymph 23.9 % 17.0-45.0 %[place] 7.3 % 1.0-11.0 %Eos 0.8 % 0.0-6.0 %Baso 0.5 % 0.0-2.0 #Neut 5.1 10^3/M3 1.5-8.0 #Lymph 1.8 10^3/M3 0.8-3.2 #[place] 0.6 10^3/M3 0.0-0.8 #Eos 0.1 10^3/m3 0.0-0.4 #[place] 0.0 10^3/m3 0.0-0.2 Comp. Met 07/22/2023 [facility]. [address] [place] [address] [phone] Glucose 104 mg/dL 70-110 BUN 15 mg/dL [...] 2.0-3.4 GFR 107 ML/MIN/1.73SQM >60 Hba1c 07/22/2023 [facility]. [address] [place] [address] [phone] A1c 5.40 % 4.70-6.50 1 Iron Panel(Medcom) 07/22/2023 [facility]. [address] [place] [address] [phone] Iron 87 g /dL 45-140 % Saturation 26 % Low 30-35 Tibc 07/22/2023 [facility]. [address] [place] [address] [phone] Tibc 329 g /dL 260-400 Transferrin 235 mg/dL 200-400 Lipid 07/22/2023 [facility]. [address] [place] [address] [phone] Cholesterol 127 mg/dL 0-200 2 Triglyceride 273 mg/dL High 0-150 3 HDLD 31 mg/dL See Comment 4 Measured LDL 63 mg/dL 0-130 5 Calc VLDL 54.6 mg/dL See Comment 6 Chol/HDL 4.1 RATIO See Comment 7 Non-HDL 96 mg/dL See Comment 8 Laboratory test finding 07/22/2023 [facility]. [address] [place], [place] [id number] [phone] PSA Screen 0.6 ng/mL 0.0-4.0 Urine Culture 06/08/2023 [facility] [address] [place] [address] [phone] Urine Source URINE Total Col Count >100,000 COL/CC Urine Isolate#1 06/08/2023 [facility]. [address] [place] [address] [phone] Isolate #1 Citrobacter freu <SEE NOTE> Amox/K Clav 16/8 R Ampicillin <=8 R Aztreonam <=4 S Cefazolin >16 R Cefepime <=2 S Ceftriaxone <=1 S Ciprofloxacin <=1 S Gentamicin <=4 S Levofloxacin <=2 S Nitrofurantoin <=32 S Tobramycin <=4 S Trimeth/Sulfa <=2/38 S Meropenem <=1 S Cefotetan <=16 R Minocycline <=4 S Urine DIP (In Office) Manual 06/08/2023 [facility] (In Office Test) Ua Glucose negative Ua Bilirubin negative Ua Ketones negative Ua Specific [place] 1.010 Ua Blood moderate hemoli Ua PH [...] LDL Target Procedures Date Code Description Status 10/22/2023 G2211 Continuation of care e/m vis it add on Completed 07/22/2023 G0103 PSA Blood Screen Completed 07/22/2023 G0008 Influenza Admin Completed 07/22/2023 57969 Venipuncture Routine [facility] ed 07/22/2023 3079F PVRP Diastolic BP 80-89 MMHG Completed 07/22/2023 3075F PVRP Systolic BP 130 To 139 MMHG Completed 06/08/2023 59883 Venipuncture Routine [facility] ed 05/20/2023 3080F PVRP Diastolic BP >/= 90 MMH G Completed 05/20/2023 3077F PVRP Systolic BP >/= 140 MMH G Completed 05/03/2023 3080F PVRP Diastolic BP >/= 90 MMH G Completed 05/03/2023 3077F PVRP Systolic BP >/= 140 MMH G Completed Medical Devices Description No Information Available Encounters Type Date Location Provider Dx Diagnosis Office Visit 10/22/2023 9:45a Ervin Ruiz MD K59.00 Constipation, unspecified Office Visit 07/22/2023 9:45a Ervin Ruiz [...] MD 07/22/2023 I10 Essential (primary) hyperten beth Ines Ruiz MD 07/22/2023 F41.1 Generalized anxiety disorder [...] beth Ruiz MD 05/03/2023 I10 Essential (primary) prabhjot Ruiz MD Plan of Treatment Future Appointment(s):* 01/21/2024 9:15 am - Ines Ruiz MD at [facility] 10/22/2023 - Ines Ruiz MD* K59.00 Constipation, [...]
--- OUTSIDE RECORDS SUMMARY | 2024-03-18 06:13 | External Medical Summary | Continuity of Care Document ---
Author Name Unknown Organization [facility] Address [address] [place] [address] Phone [phone] Care Team Providers Care Cylinder Steamer Name Role Phone Terrance Evans Care Team Information Recei kelly [phone] Problems Active Problems Provider Date Urinary tract [...] SIG Qnty Indications Order ing Provider Date Ixynsit58EQ/Scoop Powder take one scoop as directed daily as needed 119gm K59.00 Ines Ruiz MD 10/22/2023 Kxupmn981xi Capsules take one capsule by mouth two times a day as needed for constipation 30caps Ines Ruiz MD 10/22/2023 Citalopram Wuqgkpswglhz63og Tablets take one tab daily 30tabs F41.1 Ines ku MD 06/25/2023 Ondansetron HCL4mg Tablets take 1 tablet (4 mg total) by mouth every 8 hours as needed for nausea or vomiting. 30tabs R11.0 Ines Ruiz MD 04/07/2023 Wheelchair-Lightweig htDevice use for ambulation OT/PT evaluation for custom manual 1unsinai Ruiz MD 04/07/2023 Quetiapine Snrakhkv756ix Tablets take 1 tablet by mouth at bedtime 30tabs G47.00 Ines Ruiz MD 03/26/2023 Ferrous Ipopoox130(65Fe) mg Tablets take 1 tablet by mouth on alternate days 15tabs Ines Ruiz MD 01/08/2023 Apqdokadms52ck Tablets take 1 tablet by mouth twice a day 60tabs R11.0 Ines Ruiz MD 01/05/2023 Metoprolol Succinate ER25mg Tablets ER 24HR take 2 tablet by mouth once daily 90tabs Ines Ruiz MD 04/30/2022 Atorvastatin Dgxgnmt48ts Tablets take 1 tablet by mouth every night 90tabs Ines Ruiz MD 01/20/[address] take 1 tablet by mouth every morning 90tabs Ines Ruiz MD 10/29/2021 Wheelchair CushionMisc roho cushion 16x16 as directed 1unsinai Ruiz MD 07/01/2020 Adult DiapersDevice small/medium pullups 100units N31.9 Rodriguez Torrez MD 11/22/2017 Nvizpcj90gh Tablets 1 by mouth every day Yohannes Joshua MD Snmgecxo48xs Tablets take 1 tablet by mouth three times a day if needed 90tabs Ines Ruiz MD Amlodipine Cxaqusnb9yw Tablets take one tab daily 30tabs Ines cruz MD History Medications Citalopram Xczsxmabtvqs33ie Tablets take two tabs daily 60tabs F41.1 Ines Ruiz MD 06/25/2023 - 07/22/2023 Nkhru300wx Tablets 1 tablet by mouth twice a day for 10 days (onset of symptoms) 20tabs N39.0 Keith Gutierrez JR, MD 06/08/2023 - 10/22/2023 Immunizations CPT Code Status Date Vaccine Lot # [id number] Given 07/22/2023 Influenza Virus Vaccine, Quadrivalent (Cciiv4), Derived From Cell [id number] Given 04/10/2021 Moderna Sars-Co v-2 (Cov-19) vacc,100 mcg/ 0.5 mL 12Y+EMR Doc Only [id number] 27044 Given 03/13/2021 Moderna Sars-Co v-2 (Cov-19) vacc,100 mcg/ 0.5 mL 12Y+EMR Doc Only [id number] [id number] Given 10/27/2018 Influenza Virus Vaccine, Quadrivalent (Cciiv4), Derived From 5 Given 10/27/2018 Tdap (Tetanus, diphtheria & acel. pertussis) Adacel or Boostrix [id number] Refused 07/22/2023 Moderna Covid-1 9 Vaccine 50mcg Booster-EMR Doc Only [id number] Refused 01/05/2023 Influenza Virus Vaccine, Quadrivalent (Cciiv4), Derived From Cell [id number] Refused 12/28/2019 Influenza Virus Vaccine, Quadrivalent (Cciiv4), [...] H/L Range N ote CBC W/Diff 07/22/2023 [facility]. [address] [place] [address] [phone] WBC 7.6 10^3/M3 3.1-9.2 RBC 4.69 10^6/M3 4.00-5.80 HGB 14.9 GR/DL 12.5-17.5 HCT 43.5 % 37.5-52.5 MCV 92.6 CUMICR 82.6-95.8 MCH 31.7 PICOGR 27.9-32.9 MCHC 34.2 % 32.6-35.4 RDW 14.2 % 11.4-14.6 PLT 233 10^3/M3 140-350 MPV 8.8 CUMICR 7.0-10.6 %Neut 67.5 % 40.0-75.0 %Lymph 23.9 % 17.0-45.0 %[place] 7.3 % 1.0-11.0 %Eos 0.8 % 0.0-6.0 %Baso 0.5 % 0.0-2.0 #Neut 5.1 10^3/M3 1.5-8.0 #Lymph 1.8 10^3/M3 0.8-3.2 #[place] 0.6 10^3/M3 0.0-0.8 #Eos 0.1 10^3/m3 0.0-0.4 #[place] 0.0 10^3/m3 0.0-0.2 Comp. Met 07/22/2023 [facility]. [address] [place] [address] [phone] Glucose 104 mg/dL 70-110 BUN 15 mg/dL [...] 2.0-3.4 GFR 107 ML/MIN/1.73SQM >60 Hba1c 07/22/2023 [facility]. [address] [place] [address] [phone] A1c 5.40 % 4.70-6.50 1 Iron Panel(Medcom) 07/22/2023 [facility]. [address] [place] [address] [phone] Iron 87 g /dL 45-140 % Saturation 26 % Low 30-35 Tibc 07/22/2023 [facility]. [address] [place] [address] [phone] Tibc 329 g /dL 260-400 Transferrin 235 mg/dL 200-400 Lipid 07/22/2023 [facility]. [address] [place] [address] [phone] Cholesterol 127 mg/dL 0-200 2 Triglyceride 273 mg/dL High 0-150 3 HDLD 31 mg/dL See Comment 4 Measured LDL 63 mg/dL 0-130 5 Calc VLDL 54.6 mg/dL See Comment 6 Chol/HDL 4.1 RATIO See Comment 7 Non-HDL 96 mg/dL See Comment 8 Laboratory test finding 07/22/2023 [facility]. [address] [place], [place] [address] [phone] PSA Screen 0.6 ng/mL 0.0-4.0 Urine Culture 06/08/2023 [facility]. [address] [place] [address] [phone] Urine Source URINE Total Col Count >100,000 COL/CC Urine Isolate#1 06/08/2023 [facility]. [address] [place] [address] [phone] Isolate #1 Citrobacter freu <SEE NOTE> Amox/K Clav 16/8 R Ampicillin <=8 R Aztreonam <=4 S Cefazolin >16 R Cefepime <=2 S Ceftriaxone <=1 S Ciprofloxacin <=1 S Gentamicin <=4 S Levofloxacin <=2 S Nitrofurantoin <=32 S Tobramycin <=4 S Trimeth/Sulfa <=2/38 S Meropenem <=1 S Cefotetan <=16 R Minocycline <=4 S Urine DIP (In Office) Manual 06/08/2023 [facility] (In Office Test) Ua Glucose negative Ua Bilirubin negative Ua Ketones negative Ua Specific [place] 1.010 Ua Blood moderate hemoli Ua PH [...] Completed 07/22/2023 G0008 Influenza Admin Completed 07/22/2023 77894 Venipuncture Routine [facility] ed 07/22/2023 3079F PVRP Diastolic BP 80-89 MMHG Completed 07/22/2023 3075F PVRP Systolic BP 130 To 139 MMHG Completed 06/08/2023 96427 Venipuncture Routine [facility] ed 05/20/2023 3080F PVRP Diastolic BP >/= [...] 9:15 am - Ines Ruiz MD at [facility] 10/22/2023 - Ines Ruiz MD* K59.00 Constipation, [...]
--- OUTSIDE RECORDS SUMMARY | 2024-03-18 06:13 | External Medical Summary | Continuity of Care Document ---
Author Name Unknown Organization [facility] Address [address] [place] [address] Phone [phone] Care Team Providers Care M48 M60 Armor Crewman Name Role Phone Terrance Evans Care Team Information Recei kelly [phone] Problems Active Problems Provider Date Urinary tract [...] SIG Qnty Indications Order ing Provider Date Xqrztog94ZB/Scoop Powder take one scoop as directed daily as needed 119gm K59.00 Ines Ruiz MD 10/22/2023 Jhuqmz964bp Capsules take one capsule by mouth two times a day as needed for constipation 30caps Ines Ruiz MD 10/22/2023 Citalopram Gbjwmdqunccu41xl Tablets take one tab daily 30tabs F41.1 Ines ku MD 06/25/2023 Ondansetron HCL4mg Tablets take 1 tablet (4 mg total) by mouth every 8 hours as needed for nausea or vomiting. 30tabs R11.0 Ines Ruiz MD 04/07/2023 Wheelchair-Lightweig htDevice use for ambulation OT/PT evaluation for custom manual 1unsinai Ruiz MD 04/07/2023 Quetiapine Purunamt326xo Tablets take 1 tablet by mouth at bedtime 30tabs G47.00 Ines Ruiz MD 03/26/2023 Ferrous Jlcmffj135(65Fe) mg Tablets take 1 tablet by mouth on alternate days 15tabs Ines Ruiz MD 01/08/2023 Ghtmgdrpyq25ms Tablets take 1 tablet by mouth twice a day 60tabs R11.0 Ines Ruiz MD 01/05/2023 Metoprolol Succinate ER25mg Tablets ER 24HR take 2 tablet by mouth once daily 90tabs Ines Ruiz MD 04/30/2022 Atorvastatin Lrstlfx38pv Tablets take 1 tablet by mouth every night 90tabs Ines Ruiz MD 01/20/[address] take 1 tablet by mouth every morning 90tabs Ines Ruiz MD 10/29/2021 Wheelchair CushionMisc roho cushion 16x16 as directed 1unsinai Ruiz MD 07/01/2020 Adult DiapersDevice small/medium pullups 100units N31.9 Rodriguez Torrez MD 11/22/2017 Aandepb32yy Tablets 1 by mouth every day Yohannes Joshua MD Fcumwimh95ra Tablets take 1 tablet by mouth three times a day if needed 90tabs Ines Ruiz MD Amlodipine Jvnyoemt5xo Tablets take one tab daily 30tabs Ines cruz MD History Medications Citalopram Uubtrfizjxew05bb Tablets take two tabs daily 60tabs F41.1 Ines Ruiz MD 06/25/2023 - 07/22/2023 Affxq877wl Tablets 1 tablet by mouth twice a day for 10 days (onset of symptoms) 20tabs N39.0 Keith Gutierrez JR, MD 06/08/2023 - 10/22/2023 Immunizations CPT Code Status Date Vaccine Lot # 10097 Given 07/22/2023 Influenza Virus Vaccine, Quadrivalent (Cciiv4), Derived From Cell [id number] 87771 Given 04/10/2021 Moderna Sars-Co v-2 (Cov-19) vacc,100 mcg/ 0.5 mL 12Y+EMR Doc Only [id number] 22007 Given 03/13/2021 Moderna Sars-Co v-2 (Cov-19) vacc,100 mcg/ 0.5 mL 12Y+EMR Doc Only [id number] 10501 Given 10/27/2018 Influenza Virus Vaccine, Quadrivalent (Cciiv4), Derived From 4 Given 10/27/2018 Tdap (Tetanus, diphtheria & acel. pertussis) Adacel or Boostrix [id number] Refused 07/22/2023 Moderna Covid-1 9 Vaccine 50mcg Booster-EMR Doc Only [id number] Refused 01/05/2023 Influenza Virus Vaccine, Quadrivalent (Cciiv4), Derived From Cell [id number] Refused 12/28/2019 Influenza Virus Vaccine, Quadrivalent (Cciiv4), [...] H/L Range N ote CBC W/Diff 07/22/2023 [facility]. [address] [place] [address] [phone] WBC 7.6 10^3/M3 3.1-9.2 RBC 4.69 10^6/M3 4.00-5.80 HGB 14.9 GR/DL 12.5-17.5 HCT 43.5 % 37.5-52.5 MCV 92.6 CUMICR 82.6-95.8 MCH 31.7 PICOGR 27.9-32.9 MCHC 34.2 % 32.6-35.4 RDW 14.2 % 11.4-14.6 PLT 233 10^3/M3 140-350 MPV 8.8 CUMICR 7.0-10.6 %Neut 67.5 % 40.0-75.0 %Lymph 23.9 % 17.0-45.0 %[place] 7.3 % 1.0-11.0 %Eos 0.8 % 0.0-6.0 %[place] 0.5 % 0.0-2.0 #Neut 5.1 10^3/M3 1.5-8.0 #Lymph 1.8 10^3/M3 0.8-3.2 #[place] 0.6 10^3/M3 0.0-0.8 #Eos 0.1 10^3/m3 0.0-0.4 #Baso 0.0 10^3/m3 0.0-0.2 Comp. Met 07/22/2023 [facility]. [address] [place] [address] [phone] Glucose 104 mg/dL 70-110 BUN 15 mg/dL [...] 2.0-3.4 GFR 107 ML/MIN/1.73SQM >60 Hba1c 07/22/2023 [facility]. [address] [place] [address] [phone] A1c 5.40 % 4.70-6.50 1 Iron Panel(Medcom) 07/22/2023 [facility]. [address] [place] [address] [phone] Iron 87 g /dL 45-140 % Saturation 26 % Low 30-35 Tibc 07/22/2023 [facility]. [address] [place] [address] [phone] Tibc 329 g /dL 260-400 Transferrin 235 mg/dL 200-400 Lipid 07/22/2023 [facility]. [address] [place] [address] [phone] Cholesterol 127 mg/dL 0-200 2 Triglyceride 273 mg/dL High 0-150 3 HDLD 31 mg/dL See Comment 4 Measured LDL 63 mg/dL 0-130 5 Calc VLDL 54.6 mg/dL See Comment 6 Chol/HDL 4.1 RATIO See Comment 7 Non-HDL 96 mg/dL See Comment 8 Laboratory test finding 07/22/2023 [facility]. [address] [place], [place] [id number] [phone] PSA Screen 0.6 ng/mL 0.0-4.0 Urine Culture 06/08/2023 [facility]. [address] [place] [address] [phone] Urine Source URINE Total Col Count >100,000 COL/CC Urine Isolate#1 06/08/2023 [facility]. [address] [place] [address] [phone] Isolate #1 Citrobacter freu <SEE NOTE> Amox/K Clav 16/8 R Ampicillin <=8 R Aztreonam <=4 S Cefazolin >16 R Cefepime <=2 S Ceftriaxone <=1 S Ciprofloxacin <=1 S Gentamicin <=4 S Levofloxacin <=2 S Nitrofurantoin <=32 S Tobramycin <=4 S Trimeth/Sulfa <=2/38 S Meropenem <=1 S Cefotetan <=16 R Minocycline <=4 S Urine DIP (In Office) Manual 06/08/2023 [facility] (In Office Test) Ua Glucose negative Ua Bilirubin negative Ua Ketones negative Ua Specific [place] 1.010 Ua Blood moderate hemoli Ua PH [...] Completed 07/22/2023 G0008 Influenza Admin Completed 07/22/2023 01273 Venipuncture Routine [facility] ed 07/22/2023 3079F PVRP Diastolic BP 80-89 MMHG Completed 07/22/2023 3075F PVRP Systolic BP 130 To 139 MMHG Completed 06/08/2023 15556 Venipuncture Routine [facility] ed 05/20/2023 3080F PVRP Diastolic [...] 9:15 am - Ines Ruiz MD at [facility] 10/22/2023 - Ines Ruiz MD* K59.00 Constipation, [...]
== END 2024-03-17 19:25 | disposition short-term general hospital (02) | DRG 871 ==
LOC: ED 03:47 → 3N 08:03 → 2S 15:34 → 1E 18:01

== ENCOUNTER 2024-04-19 10:55 | Inpatient (IN) ==
[2024-04-19] MEDS ORDERED: ACETAMINOPHEN 325 MG TAB PO PRN (11:27)
[2024-04-20] MEDS ORDERED: POLYETHYLENE (MIRALAX) 17 GM PACK PO PRN (00:19)
[2024-04-20] MEDS ORDERED: ACETAMINOPHEN 325 MG TAB PO PRN (00:19)
[2024-04-20] MEDS ORDERED: hydrOXYzine HCl 25 MG TAB PO PRN (00:24)
--- NOTE | 2024-04-20 00:29 | History & Physical Report ---
Date of Service April 20, 2024 Assessment & Plan (1) T12 spinal cord injury: Plan: Noted. Patient is at baseline -Turn and position q 3 hours -Continue Baclofen for spasms (2) Neurogenic bladder: Plan: Noted. Patient catheterizes at home q 4-6 hours -Bladder scan and straight cath as needed (3) Colon perforation: Plan: Patient with ischemic colitis s/p perforation s/p exploratory laparotomy with colectomy and end-ileostomy formation performed at [facility]. Patient with prolonged and complicated stay requiring MICU care, intubation and pressors. He had drains in place which have since been removed. Repeat CT of the abdomen demonstrates resolving fluid collections. Patient overall improving -Ostomy care q shift and PRN -Continue Zosyn -PT/OT evaluation for placement needs Plan Hypertension - Continue Amlodipine, Lisinopril and Metoprolol GERD - Continue Protonix Hyperlipidemia -Continue Atorvastatin Admission and Anticipated Discharge Date Admission Date: April 19, 2024 History of Present Illness Chief Complaint: readmission following surgery at [facility] Primary Care Provider: Ines Ruiz MD Rigoberto Ornelas is a 58-year-old male with history of T12 paraplegia, neurogenic bladder and bilateral below-knee amputations who initially presented to [facility] on 03/17/2024 with complaint of abdominal pain as well as nausea and vomiting. Patient with increasing lactate, CT of the abdomen concerning for ischemic colitis. Patient was transferred to [facility] ICU for management of presumed ischemic colitis. Patient did initial days at [place]. He had repeat imaging that did not demonstrate ischemic colitis but noted heavy stool burden. He was manually disimpacted and treated with aggressive bowel regimen. He was treated with Zosyn --> Augmentin as well. Decompensated on 03/27/2024 with elevated lactate, worsening abdominal pain and tachycardia. He had repeat imaging that was suggestive of ischemic colitis with localized perforation. He was taken to the OR for exploratory laparotomy and total abdominal colectomy. In the OR necrotic intact cadaveric appearing sigmoid colon with multiple areas of perforation. Free leakage of stool within the abdomen. Dilated ischemic appearing remainder of colon with several focal areas of necrosis. Fibrinous material or small bowel the bowel itself appeared viable. Patient was transferred to the surgical ICU postoperatively and remained intubated and sedated requiring multiple vasopressors. He had open abdomen with his bowel discontinuity. He did self extubate on 03/30 and was not reintubated until his return to the OR on 03/30/2024 When he had placement of an ileostomy closure of the abdomen placement. He was administered TPN. he was treated with vancomycin, Zosyn and fluconazole. Then transition to meropenem, fluconazole and vancomycin. He did have high output from his ileostomy requiring treatment with Imodium. Patient had a repeat CT abdomen on 04/16/2024 which revealed decrease in size of multiple intra-abdominal peripheral enhancing collections. Persistent mesenteric edema. No new collections. Slight increase in small rectal effusion. Both drains were removed. Discharge summary in chart for more details on patient's stay at [place]. Presently with no complaints. States that pain is well-controlled. He has had normal output from his ostomy. Does feel weak General overall doing well. Allergies Allergy/AdvReac Type Severity Reaction Status Date / Time No Known Allergies Allergy Unverified 11/13/19 16:16 Home Medications Medication Instructions Recorded Confirmed Type baclofen 20 mg tablet 20 mg PO TID PRN Muscle Spasm 01/09/19 03/17/24 History amlodipine 5 mg tablet (Norvasc) 5 mg PO DAILY #30 tabs 04/26/23 03/17/24 Rx citalopram 20 mg tablet 40 mg PO DAILY 04/26/23 03/17/24 History ferrous sulfate 325 mg (65 mg 325 mg PO Q OTHER DAY 04/26/23 03/17/24 History iron) tablet (FeroSul) hydroxyzine HCl 25 mg tablet 25 mg PO TID PRN Anxiety 04/26/23 03/17/24 History metoprolol succinate 25 mg 25 mg PO DAILY 04/26/23 04/26/23 History tablet,extended release 24 hr ondansetron HCl 4 mg tablet 4 mg PO Q8 PRN Nausea And Vomiting 04/26/23 03/17/24 History pantoprazole 40 mg tablet,delayed 40 mg PO QAM 04/26/23 03/17/24 History release quetiapine 100 mg tablet 100 mg PO HS 04/26/23 03/17/24 History atorvastatin 40 mg tablet 40 mg PO DAILY 03/17/24 03/17/24 History lisinopril 20 mg tablet 20 mg PO DAILY 03/17/24 03/17/24 History Past Med/Surg History Problem List (Updated 04/20/24 @ 05:40 by Roz Sue DO) Colon perforation Lactic acidosis FRANK (acute kidney injury) (Acute) Abdominal pain (Acute) Colitis (Acute) Sepsis (Acute) Paraplegia (Chronic) T12 spinal cord injury (Chronic) Neurogenic bladder (Chronic) History of back surgery (Chronic) Urinary tract infection (Acute) Medical History (Updated 04/20/24 @ 05:40 by Roz Sue DO) Paraplegia UTI (urinary tract infection) Surgical History S/P AKA (above knee amputation) bilateral Social History Smoking Status: Former smoker Tobacco Type: Cigarettes Cigarettes Per Day: 80; Second Hand Exposure: No; Do You Dip or Chew Tobacco: No; Hx Alcohol Use: No Hx Substance Use: No Preferred Language: Congolese Communication Ability: Effective Greenhouse Manager Required: No Beliefs That Will Affect Care: None Current Living Situation: Alone Other Information That Helps Us Care for You: No Feels Safe at Home: Yes Assistive Devices: Glasses and Wheelchair Review of Systems Review of Systems: All systems reviewed & are unremarkable except as noted in HPI & below Physical Exam Physical Exam: General: patient resting comfortably, NAD, non-toxic in appearance, AA&O x 4 Skin: warm, dry, intact, no rashes or lesions HEENT: NC/AT, PERRL, EOMI, anicteric sclera, conjunctiva without injection, external ear normal to inspection and nontender, nares patent, moist mucus membranes, dentition intact, no oropharyngeal lesions, neck supple, trachea midline, no LAD, no thyromegaly, no JVD Heart: +S1/S2, regular, no m/r/g Lungs: equal air entry bilaterally, no rales/rhonchi/wheezes Abd: +BS, incision well approximated with no evidence of infection, ileostomy in place with liquid output Ext: Neuro: nonfocal, patient AA&O x 4, speech intact, no facial droop, moving all extremities on command with equal strength 5/5 Results & Data Results & Data Laboratory Results Laboratory Results WBC 8.92 K/ul (4.8-10.8) 04/20/24 00:05 RBC 3.06 M/uL (4.70-6.10) L 04/20/24 00:05 Hgb 9.0 g/dl (14.0-18.0) L 04/20/24 00:05 Hct 28.3 % (42.0-52.0) L 04/20/24 00:05 MCV 92.5 fL (80.0-100.0) 04/20/24 00:05 MCH 29.4 pg (25.0-34.0) 04/20/24 00:05 MCHC 31.8 g/dL (32.0-36.0) L 04/20/24 00:05 RDW Std Deviation 56.0 fL (36.4-46.3) H 04/20/24 00:05 RDW Coeff of Yves 17.0 % (11.5-14.5) H 04/20/24 00:05 Plt Count 564 K/uL (130-400) H 04/20/24 00:05 MPV 8.8 fL (9.4-12.4) L 04/20/24 00:05 Immature Gran % (Auto) 0.8 % 04/20/24 00:05 Neut % (Auto) 66.7 % 04/20/24 00:05 Lymph % (Auto) 23.1 % 04/20/24 00:05 [place] % (Auto) 7.8 % 04/20/24 00:05 Eos % (Auto) 0.9 % 04/20/24 00:05 Baso % (Auto) 0.7 % 04/20/24 00:05 Neut # (Auto) 5.95 K/uL (1.40-6.50) 04/20/24 00:05 Lymph # (Auto) 2.06 K/uL (1.20-3.40) 04/20/24 00:05 [place] # (Auto) 0.70 K/uL (0.11-0.59) H 04/20/24 00:05 Eos # (Auto) 0.08 K/uL (0.00-0.50) 04/20/24 00:05 Baso # (Auto) 0.06 K/uL (0.00-0.20) 04/20/24 00:05 Immature Gran # (Auto) 0.07 K/uL (0.01-0.20) 04/20/24 00:05 Sodium 134 mmol/L (136-145) L 04/20/24 00:05 Potassium 3.9 mmol/L (3.5-5.1) 04/20/24 00:05 Chloride 104 mmol/L (98-107) 04/20/24 00:05 Carbon Dioxide 24 mmol/L (21-32) 04/20/24 00:05 Anion Gap 6 (3-11) 04/20/24 00:05 BUN 14 mg/dl (6-23) 04/20/24 00:05 Creatinine 0.34 mg/dl (0.6-1.4) L 04/20/24 00:05 Est Cr Clr Drug Dosing Not Reportable 04/20/24 00:05 Est GFR ( Amer) > 150.0 ml/min 04/20/24 00:05 Est GFR (Non-Af Amer) 142.0 ml/min 04/20/24 00:05 BUN/Creatinine Ratio 41.2 (10-20) H 04/20/24 00:05 Glucose 100 mg/dl (70-99(Fasting)) H 04/20/24 00:05 Calcium 8.0 mg/dl (8.6-10.3) L 04/20/24 00:05 Phosphorus 3.6 mg/dl (2.5-4.9) 04/20/24 00:05 Magnesium 1.7 mg/dl (1.7-2.4) 04/20/24 00:05 Total Bilirubin 0.3 mg/dl (0.2-1.0) 04/20/24 00:05 AST 25 U/L (13-39) 04/20/24 00:05 ALT 48 U/L (7-52) 04/20/24 00:05 Alkaline Phosphatase 175 U/L (34-104) H 04/20/24 00:05 Total Protein 6.0 gm/dl (6.0-8.3) 04/20/24 00:05 Albumin 2.9 gm/dl (3.4-5.0) L 04/20/24 00:05 Globulin 3.1 gm/dl (2.5-4.0) 04/20/24 00:05 Albumin/Globulin Ratio 0.9 (0.9-2) 04/20/24 00:05 PG Care Time/CCT Total # of Minutes Spent Total Time Spent with Patient: Total time spent is greater than 50% in coordination of care (as documented) at patient's floor/unit and/or counseling patient: Coding Level of Care Code 95501 INT INP/OBS CARE 2/55MIN Diagnoses T12 spinal cord injury S24.104A Neurogenic bladder N31.9 Colon perforation K63.1
[2024-04-20 00:33] LABS: Basophils # (auto) 0.06 K/uL (0.00-0.20); Basophils % (auto) 0.7 %; Eosinophils # (auto) 0.08 K/uL (0.00-0.50); Eosinophils % (auto) 0.9 %; Hematocrit (blood only) 28.3 % (42.0-52.0); Immature Granulocytes # (auto) 0.07 K/uL (0.01-0.20); Immature Granulocytes % (auto) 0.8 %; Lymphocytes # (auto) 2.06 K/uL (1.20-3.40); Lymphocytes % (auto) 23.1 %; Mean Corpuscular Hemoglobin 29.4 pg (25.0-34.0); Mean Corpuscular Hgb Conc 31.8 g/dL (32.0-36.0); Mean Corpuscular Volume 92.5 fL (80.0-100.0); Mean Platelet Volume 8.8 fL (9.4-12.4); Monocytes % (auto) 7.8 %; Neutrophils # (auto) 5.95 K/uL (1.40-6.50); Neutrophils % (auto) 66.7 %; Platelet Count 564 K/uL (130-400); Red Blood Count 3.06 M/uL (4.70-6.10); White Blood Count 8.92 K/ul (4.8-10.8)
[2024-04-20 00:51] LABS: Alanine Aminotransferase 48 U/L (7-52); Albumin Globulin Ratio 0.9 (0.9-2); Albumin Level 2.9 gm/dl (3.4-5.0); Alkaline Phosphatase 175 U/L (34-104); Anion Gap 6 (3-11); Aspartate Aminotransferase 25 U/L (13-39); BUN Creatinine Ratio 41.2 (10-20); Bilirubin,Total 0.3 mg/dl (0.2-1.0); Blood Urea Nitrogen 14 mg/dl (6-23); Carbon Dioxide 24 mmol/L (21-32); Chloride 104 mmol/L (98-107); Est GFR (African American) > 150.0 ml/min; Globulin 3.1 gm/dl (2.5-4.0); Glucose 100 mg/dl (70-99(Fasting)); Magnesium 1.7 mg/dl (1.7-2.4); Phosphorus 3.6 mg/dl (2.5-4.9); Potassium 3.9 mmol/L (3.5-5.1); Sodium 134 mmol/L (136-145)
[2024-04-20] MEDS: PIPERACILLIN/TAZOBACTAM 4.5 GM in DEXTROSE 5% MINI-B 100 ML IV SCH (01:59)
[2024-04-20 07:31] LABS: Basophils # (auto) 0.05 K/uL (0.00-0.20); Basophils % (auto) 0.6 %; Eosinophils # (auto) 0.07 K/uL (0.00-0.50); Eosinophils % (auto) 0.9 %; Hematocrit (blood only) 28.6 % (42.0-52.0); Immature Granulocytes # (auto) 0.08 K/uL (0.01-0.20); Lymphocytes # (auto) 2.23 K/uL (1.20-3.40); Lymphocytes % (auto) 28.1 %; Mean Corpuscular Hemoglobin 28.8 pg (25.0-34.0); Mean Corpuscular Hgb Conc 31.5 g/dL (32.0-36.0); Mean Corpuscular Volume 91.7 fL (80.0-100.0); Monocytes # (auto) 0.72 K/uL (0.11-0.59); Monocytes % (auto) 9.1 %; Neutrophils # (auto) 4.78 K/uL (1.40-6.50); Neutrophils % (auto) 60.3 %; Platelet Count 593 K/uL (130-400); RDW Standard Deviation 55.8 fL (36.4-46.3); Red Blood Count 3.12 M/uL (4.70-6.10); White Blood Count 7.93 K/ul (4.8-10.8)
[2024-04-20 07:35] LABS: Anion Gap 9 (3-11); BUN Creatinine Ratio 33.3 (10-20); Blood Urea Nitrogen 11 mg/dl (6-23); Calcium 8.2 mg/dl (8.6-10.3); Carbon Dioxide 24 mmol/L (21-32); Chloride 105 mmol/L (98-107); Est GFR (African American) > 150.0 ml/min; Est GFR (Non-African American) 143.7 ml/min; Glucose 81 mg/dl (70-99(Fasting)); Potassium 3.6 mmol/L (3.5-5.1); Sodium 138 mmol/L (136-145)
[2024-04-20] MEDS: amLODIPine BESYLATE 5 MG TAB PO SCH (07:41)
[2024-04-20] MEDS: METOPROLOL SUCC 25MG EXT REL TAB PO SCH (07:41)
[2024-04-20] MEDS: lisinopril 20 MG TAB PO SCH (07:41)
[2024-04-20] MEDS: PANTOprazole 40 MG TAB PO SCH (07:41)
[2024-04-20] MEDS: CITALOPRAM 40 MG TAB PO SCH (07:41)
[2024-04-20] MEDS: ATORVASTATIN 40 MG TAB PO SCH (07:41)
--- NOTE | 2024-04-20 09:16 | Hospitalist Progress Note ---
Date of Service April 20, 2024 Assessment & Plan (1) T12 spinal cord injury: (2) Neurogenic bladder: (3) Colon perforation: Plan Patient is a 58-year-old male with history of T12 paraplegia, neurogenic bladder and bilateral below-knee amputations who initially presented to [facility] on 03/17/2024 with complaint of abdominal pain as well as nausea and vomiting and was then transferred to [facility] [place]/t c/o ischemic colitis due to increasing lactate and CT imaging. Transferred back [place] [facility] after multiple surgical interventions resulting in end-ileostomy and SICU stay d/ need for mechanical ventilation and multiple vasopressors. Stabilized and transferred back with IV Zosyn (end date 04/28) for PT/OT and placement coordination. Stable. PT and OT consulted. Pending placement coordination once needs are assessed. Colonic perforation - Repeat CT of the abdomen demonstrates resolving fluid collections. Patient overall improving - Ostomy care q shift and PRN - Continue Zosyn (end date 04/28) T12 injury - Noted. Patient is at baseline -Turn and position q 3 hours -Continue Baclofen for spasms Neurogenic bladder - Noted. Patient catheterizes at home q 4-6 hours - Bladder scan and straight cath as needed Hypertension - Continue Amlodipine, Lisinopril and Metoprolol GERD - Continue Protonix Hyperlipidemia - Continue Atorvastatin FEN: None Diet: Low fiber VTE ppx: s/p b/l BKA Dispo: PT/OT; Placement once needs assessed Admission and Anticipated Discharge Date Admission Date: April 19, 2024 Supervising Physician Co-Signing Physician Notes I personally examined the patient and verified all jacques points of history and exam, discussed case, and agree with decision making with Dr Angel feeling ok no significant belly pain vitals noted nad heent nc at mmm breathing unlabored no accessory muscles good effort skin no rashes no pallor or icterus colon perforation - postop still on zosyn but pain free appears to be doing well. awaiting [facility] care [facility] otherwise as above Subjective Patient lying in bed comfortably. No pain at the time. No fevers, chills, weakness, lightheadedness, chest pain, SOB, or any other symptoms. Review of Systems Review of Systems: As per HPI. Physical Exam Physical Exam: GENERAL: aaox3, afebrile, calm, NAD CARDIO: RRR, no r/m/g RESPIRATORY: CTA b/l, normal respiratory effort, no respiratory distress GI: soft, nontender, nondistended, vertical midline scar consistent with history of exploratory laparotomy that is healing well, colostomy bag in RLQ that is draining nonbloody stool without surrounding erythema EXTREMITIES: s/p b/l LE amputation Results & Data Results & Data Vital Signs (Past 12 Hours) Vital Signs Temp Pulse Pulse Resp BP Pulse Ox O2 Del Method 04/20/24 08:02 36.7 C 118 H 20 146/89 H 94 Room Air 04/20/24 03:04 36.7 C 107 H 20 115/75 94 Room Air 04/20/24 01:01 Room Air 04/20/24 00:20 103 H 04/19/24 23:35 36.6 C 101 H 18 106/73 93 Room Air Resident Activity Tracking Resident Involvement: Resident Care Provided Care Provided: Adult Hospital Medicine
--- NOTE | 2024-04-20 12:20 | Electrocardiogram Report ---
Test Reason : Blood Pressure : / mmHG Vent. Rate : 115 BPM Atrial Rate : 115 BPM P-R Int : 130 ms QRS Dur : 084 ms QT Int : 338 ms P-R-T Axes : 041 021 049 degrees QTc Int : 467 ms Sinus tachycardia Otherwise normal ECG When compared with ECG of 17-MAR-2024 13:46, Nonspecific T wave abnormality no longer evident in Anterior leads Confirmed by Rojelio Hernández ([id number]) on 04/20/2024 12:20:13 PM Referred By: Marcio Buckner Confirmed By:Rojelio Hernández
--- OUTSIDE RECORDS SUMMARY | 2024-04-20 13:03 | External Medical Summary | Summary of Care ---
Author Name Unknown Organization [facility] Address [address] [place] [address] Phone [phone] Care Team Providers Care Nurse Sexual Assault Name Role Phone SantiagoAnayeli Barbara MOCTEZUMA Primary Care Provider Reason for Visit * Reason Onset Date Comments Appointment 04/17/2024 recall Encounter Details Date Type Department Care Team (Late st Contact Info) Description 04/17/2024 Telephone Vascular Surg [facility] [address], [place] [id number] Say Calle MD [address] [place], [place] [id number] Appointment (recall) Allergies No known active allergiesdocumented as of this encounter (statuses as of 04/17/2024) Medications Medication Sig Dispensed Refills Start Date End Date Status Aspirin 81 MG Tablet Take 81 mg by mouth daily. Active Baclofen 20 MG Tablet Take 20 mg by mouth 3 times a day as needed. 0 08/02/2017 Active Lisinopril 40 MG Tablet Take 40 mg by mouth daily. 0 08/10/2017 Active D3-50 23471 units Capsule Take 1 Cap by mouth once a week. Once a week 0 08/10/2017 Active ondansetron ODT (ZOFRAN) 4 MG TBDP every 8 hours. 0 07/26/2017 Ac tive Atorvastatin Calcium 40 MG Oral Tablet (Lipitor) Take by mouth 40 mg before bedtime. 04/23/2022 Active Metoprolol Succinate ER 25 MG Oral Tablet Extended Release 24 Hour (toPROL XL) Take by mouth 25 mg in the morning. 04/23/2022 Active Pantoprazole Sodium 40 MG Oral Tablet Delayed Release (Protonix) Take by mouth 40 mg in the morning. In the morning.. 04/30/2022 Active QUEtiapine Fumarate 100 MG Oral Tablet (SEROquel) Take by mouth 100 mg before bedtime. 06/10/2022 Active documented as of this encounter (statuses as of 04/17/2024) Active Problems Problem Noted Date Diagnosed Date Abdominal aortic aneurysm (AAA) without rupture 02/21/2019 Status post bilateral above knee amputation 10/2016 PAD (peripheral artery disease) 12/20/2015 Gangrene of foot 12/20/2015 Paraplegia 12/20/2015 Thoracic compression fracture 12/20/2015 documented as of this encounter (statuses as of 04/17/2024) Social History Tobacco Use Types Packs/Day Years Used Date Smoking Tobacco: Former Cigarettes 2 30 0 11/21/1985 - 11/21/2015 Smokeless Tobacco: Never Alcohol Use Standard Drinks/Week Comments Yes 0 (1 standard drink = 0.6 oz pur e alcohol) Utilities Answer Date Recorded Do you have trouble paying y our heating, water, or electric bill? (Adult - for ages 18 years and over) Not on file 04/04/2024 Is your family able to pay t he heat, water, or electric bill? (Household - for ages 0-17 years) Not on file 04/04/2024 Does your family have access to good internet? (Household - for ages 0-17 years) Not on file 04/04/2024 Social Connections Answer Date Recorded How often do you feel lonely or isolated from those around you? (Adult - for ages 18 years and over) Not on file 04/04/2024 Sex and Gender Information Value Date Recorded Sex Assigned at Not on file Gender Identity Not on file Sexual Orientation Not on file Job Start Date Occupation Industry Not on file Not on file Not on file documented as of this encounter Functional Status Functional Status Response Date of Assess ment Are you deaf or do you have serious difficulty h earing? No 08/18/2017 Are you blind or do you have serious difficulty seeing, even when wearing glasses? No 08/18/2017 Do you have serious difficul ty walking or climbing stairs? (5 years old or older) Yes 08/18/2017 Do you have difficulty dress ing or bathing? (5 years old or older) No 08/18/2017 Because of a physical, menta l, or emotional condition, do you have difficulty doing errands alone such as visiting a doctor s office or shopping? (15 years old or older) No 08/18/20 17 Cognitive Status Response Date of Assessm ent Because of a physical, menta l, or emotional condition, do you have serious difficulty concentrating, remembering, or making decisions? (5 years old or older) No 08/18/2017 documented as of this encounter Miscellaneous Notes * Telephone Encounter - Luz Girard OSA - 04/17/2024 2:32 PM EDT 2 years with aortic duplex and Dr. Calle Called and left a message for patient to call and schedule his 2 year follow up [facility] documented in this encounter Plan of Treatment Health Maintenance Due Date Last Done Comments Lipid Panel 1967 Depression Screening 1979 HIV Screening 1982 Hepatitis C Screening 1985 DTaP,Tdap,and Td Vaccines (1 - Tdap) 1986 Hepatitis B (1 of 3 - 19+ 3- dose series) 1986 Cologuard 2012 Colonoscopy 2012 Colorectal Cancer Screening 2012 Fecal Occult Blood Test 2012 Sigmoidoscopy 2012 Lung Cancer Screening 2017 Zoster Vaccines (1 of 2) 2017 COVID-19 Vaccine ( - 2022-2 4 season) 2023 Influenza Vaccine (FLU shot) (#1) 2024 GARDASIL-HPV IMMUNIZATION SERIES Aged Out No longer eligible based on patient's age to complete this topic MENINGOCOCCAL (MENACTRA/MENVEO) Aged Out No longer eligible based on patient's age to complete this topic Pneumococcal Vaccine: Pediat rics (0 to 5 Years) and At-Risk Patients (6 to 64 Years) Aged Out No longer eligible b ased on patient's age to complete this topic documented as of this encounter Medical Devices Implanted Type Area Ornamental Painter Device Identifier Shelf Expiration Date Model / Serial / Lot Graft Stent Viab [id number] - [id number] - [id number] Implanted:Qty : 1 on 01/02/2016 [place]le [place] [facility] [place] Popliteal Artery [employer] 07/28/2018 [id number] / [id number] / Stent Complete Sc 6x150 - [id number] Implanted:Qty : 1 on 01/02/2016 by Say Calle MD [place] [facility] [place]: [employer] : VASCULAR 01/24/2017 [id number] / / [id number] documented as of this encounter Advance Directives * Full Code (Latest Code Status on File) Date Activated Date Inactivated Comments 08/18/2017 10:40 AM 08/21/2017 4:18 PM This order reflects the patients wishes and were consensually agreed upon. * Full Code Date Activated Date Inactivated Comments 01/02/2016 11:34 AM 01/03/2016 2:26 PM Question Answer Comments Discussion of Advance Directives occurred with: Not Discussed Does the patient have a Living Will? No Does the patient have Health Care Power of Attor kelley? No * Full Code Date Activated Date Inactivated Comments 12/20/2015 6:35 PM 12/23/2015 5:04 PM This order ref lects the patients wishes and were consensually agreed upon. Question Answer Comments Discussion of Advance Directives occurred with: Patient/Family Does the patient have a Living Will? No Does the patient have Health Care Power of Attor kelley? No Care Teams Nurse Sexual Assault Relationship Specialty Start Date End Date Anayeli Santiago CRNP PCP - General Nurse Practitioner 02/15/19 documented as of this encounter
--- OUTSIDE RECORDS SUMMARY | 2024-04-20 13:03 | External Medical Summary | Summary of Care ---
Author Name Unknown Organization [facility] Address [address] [place] [address] Phone [phone] Care Team Providers Care Technology Instructor Name Role Phone SantiagoAnayeli Barbara MOCTEZUMA Primary Care Provider Reason for Visit * Reason Onset Date Comments Appointment 04/17/2024 recall Encounter Details Date Type Department Care Team (Late st Contact Info) Description 04/17/2024 Telephone Vascular Surg [facility] [address], [place] [phone] Say Calle MD [address], [place] [phone] Appointment (recall) Allergies No known active allergiesdocumented as of this encounter (statuses as of 04/19/2024) Medications Medication Sig Dispensed Refills Start Date End Date Status Aspirin 81 MG Tablet Take 81 mg by mouth daily. Active Baclofen 20 MG Tablet Take 20 mg by mouth 3 times a day as needed. 0 08/02/2017 Active Lisinopril 40 MG Tablet Take 40 mg by mouth daily. 0 08/10/2017 Active D3-50 28195 units Capsule Take 1 Cap by mouth [...] as of this encounter (statuses as of 04/19/2024) Active Problems Problem Noted Date Diagnosed Date Abdominal aortic aneurysm (AAA) without rupture 02/21/2019 Status post bilateral above knee amputation 10/2016 PAD (peripheral artery disease) 12/20/2015 Gangrene of foot 12/20/2015 Paraplegia 12/20/2015 Thoracic compression fracture 12/20/2015 documented as of this encounter (statuses as of 04/19/2024) Social History Tobacco Use Types Packs/Day Years [...] Telephone Encounter - Luz Girard OSA - 04/19/2024 11:01 AM EDT Called patient x2 to schedule his 2 year follow up Left message rr * Telephone Encounter - Luz Girard OSA - 04/17/2024 2:32 PM EDT 2 years with aortic duplex and Dr. Calle Called and left a message for patient to call and schedule his 2 year follow up [facility] documented in this encounter Plan of Treatment Health Maintenance Due Date Last Done Comments Lipid Panel 1967 Depression Screening 1979 HIV Screening 1982 Hepatitis C Screening 1985 DTaP,Tdap,and Td Vaccines (1 - Tdap) 1986 Hepatitis B Vaccine (1 of 3 - 19+ 3-dose series) 1986 Cologuard 2012 Colonoscopy 2012 Colorectal Cancer Screening 2012 Fecal Occult Blood Test 2012 Sigmoidoscopy 2012 Lung Cancer Screening 2017 Zoster Vaccines (1 of 2) 2017 COVID-19 Vaccine ( - 2022-2 4 season) 2023 Influenza Vaccine (FLU shot) (#1) 2024 HPV (Gardasil) Vaccine Aged Out No lo nger eligible based on patient's age to complete this topic MENINGOCOCCAL (MENACTRA/MENVEO) Aged Out No longer eligible based on patient's age to complete this topic Pneumococcal Vaccine: Pediat rics (0 to 5 Years) and At-Risk Patients (6 to 64 Years) Aged Out No longer eligible b ased on patient's age to complete this topic documented as of this encounter Medical Devices Implanted Type Area Cafeteria Monitor Device Identifier Shelf Expiration Date Model / Serial / Lot Graft Stent Viab [id number] - [id number] - [id number] Implanted:Qty : 1 on 01/02/2016 by Say Calle MD at [place] [facility] [place] [place] Right: Popliteal Artery [employer] 07/28/2018 [id number] / [id number] / Stent Complete Sc 6x150 - [id number] Implanted:Qty : 1 on 01/02/2016 by Say Calle MD at [place] [facility] [place] [place] Right: [employer] : VASCULAR 01/24/2017 [id number] / / [id number] documented as of this encounter Advance Directives [...] Power of Attor kelley? No Care Teams Technology Instructor Relationship Specialty Start Date End Date Anayeli Santiago CRNP PCP - General Nurse Practitioner 02/15/19 documented as of this encounter
[2024-04-20] MEDS: BACLOFEN 20 MG TAB PO PRN (14:39)
--- NOTE | 2024-04-20 15:47 | Billing Data ---
Date of Service April 20, 2024 Coding Level of Care Code 02968 SUB INP/OBS CARE
[2024-04-20] MEDS: ONDANSETRON INJ 2 MG/ML 2 ML VIAL IV PRN (17:46)
[2024-04-20] MEDS: QUEtiapine FUMARATE 100 MG TABLET PO SCH (22:15)
[2024-04-20] MEDS ORDERED: IBUPROFEN 600 MG TAB PO PRN (22:40)
[2024-04-20] MEDS: oxyCODONE HCL IR 5 MG TAB (IMMEDIATE RELEASE) PO PRN (23:12)
[2024-04-21 08:34] LABS: Anion Gap 8 (3-11); BUN Creatinine Ratio 19.3 (10-20); Blood Urea Nitrogen 11 mg/dl (6-23); Calcium 8.4 mg/dl (8.6-10.3); Carbon Dioxide 24 mmol/L (21-32); Chloride 103 mmol/L (98-107); Est GFR (Non-African American) 114.8 ml/min; Glucose 90 mg/dl (70-99(Fasting)); Potassium 3.9 mmol/L (3.5-5.1); Sodium 135 mmol/L (136-145)
[2024-04-21 08:45] LABS: Basophils # (auto) 0.04 K/uL (0.00-0.20); Basophils % (auto) 0.4 %; Eosinophils # (auto) 0.09 K/uL (0.00-0.50); Eosinophils % (auto) 0.9 %; Hematocrit (blood only) 32.8 % (42.0-52.0); Hemoglobin 10.2 g/dl (14.0-18.0); Immature Granulocytes # (auto) 0.07 K/uL (0.01-0.20); Immature Granulocytes % (auto) 0.7 %; Lymphocytes # (auto) 1.46 K/uL (1.20-3.40); Lymphocytes % (auto) 14.4 %; Mean Corpuscular Hemoglobin 29.1 pg (25.0-34.0); Mean Corpuscular Hgb Conc 31.1 g/dL (32.0-36.0); Mean Corpuscular Volume 93.4 fL (80.0-100.0); Mean Platelet Volume 8.9 fL (9.4-12.4); Monocytes # (auto) 0.85 K/uL (0.11-0.59); Monocytes % (auto) 8.4 %; Neutrophils # (auto) 7.63 K/uL (1.40-6.50); Neutrophils % (auto) 75.2 %; Platelet Count 514 K/uL (130-400); RDW Coefficient of Variation 17.2 % (11.5-14.5); RDW Standard Deviation 57.8 fL (36.4-46.3); Red Blood Count 3.51 M/uL (4.70-6.10); White Blood Count 10.14 K/ul (4.8-10.8)
--- NOTE | 2024-04-21 10:45 | Hospitalist Progress Note ---
Date of Service April 21, 2024 Assessment & Plan (1) T12 spinal cord injury: (2) Neurogenic bladder: (3) Colon perforation: Plan Patient is a 58-year-old male with history of T12 paraplegia, neurogenic bladder and bilateral below-knee amputations who initially presented to [facility] on 03/17/2024 with complaint of abdominal pain as well as nausea and vomiting and was then transferred to [facility] d/t c/o ischemic colitis due to increasing lactate and CT imaging. Transferred back from [facility] after multiple surgical interventions resulting in end-ileostomy and SICU stay d/ need for mechanical ventilation and multiple vasopressors. Stabilized and transferred back with IV Zosyn (end date 04/28) for PT/OT and placement coordination. No fevers and VSS. PT eval and no needs from their end. OT consulted. Pending placement coordination once needs are assessed. Continue IV abx. Colonic perforation - Repeat CT of the abdomen demonstrates resolving fluid collections. Patient overall improving - Ostomy care q shift and PRN - Continue Zosyn (end date 04/28) T12 injury - Noted. Patient is at baseline -Turn and position q 3 hours -Continue Baclofen for spasms Neurogenic bladder - Noted. Patient catheterizes at home q 4-6 hours - Bladder scan and straight cath as needed Hypertension - Continue Amlodipine, Lisinopril and Metoprolol GERD - Continue Protonix Hyperlipidemia - Continue Atorvastatin FEN: None Diet: Low fiber VTE ppx: s/p b/l BKA Dispo: PT/OT; Placement once needs assessed Admission and Anticipated Discharge Date Admission Date: April 19, 2024 Supervising Physician Co-Signing Physician Notes I personally examined the patient and verified all jacques points of history and exam, discussed case, and agree with decision making with Dr Angel feeling ok no significant belly pain Would like to go homelater discussed with therapy and he seems to be more or less at his baseline level of function vitals noted nad heent nc at mmm breathing unlabored no accessory muscles good effort skin no rashes no pallor or icterus colon perforation - postop still on zosyn through 04/28 but pain free appears to be doing well. wants to go home and this seems reasonable based on his level of functionbut asking case management about the ability to set up Zosyn for home. Tachycardia notedcontinue to follow. will give 1L LR and look for response to gauge if ?ongoing fluids would be of benefit otherwise as above Subjective Patient lying in bed comfortably. No pain at the time. No fevers, chills, chest pain, SOB, lightheadedness, or any other symptom. Review of Systems Review of Systems: As per HPI. Physical Exam Physical Exam: GENERAL: aaox3, afebrile, calm, NAD CARDIO: RRR, no r/m/g RESPIRATORY: CTA b/l, normal respiratory effort, no respiratory distress GI: soft, nontender, nondistended, vertical midline scar consistent with history of exploratory laparotomy that is healing well, colostomy bag in RLQ that is draining nonbloody stool without surrounding erythema EXTREMITIES: s/p b/l LE AKA Results & Data Results & Data Vital Signs (Past 12 Hours) Vital Signs Temp Pulse Pulse Resp BP Pulse Ox O2 Del Method 04/21/24 08:36 107 H 04/21/24 07:56 117/81 04/21/24 01:42 36.7 C 119 H 18 104/68 95 Room Air 04/21/24 00:45 111 H 04/21/24 00:44 37.3 C 86 20 93/67 L 93 Room Air 04/21/24 00:41 36.7 C 123 H 18 91/63 L 93 Room Air Resident Activity Tracking Resident Involvement: Resident Care Provided Care Provided: Adult Hospital Medicine
--- NOTE | 2024-04-21 15:54 | Billing Data ---
Date of Service April 21, 2024 Coding Level of Care Code 74601 SUB INP/OBS CARE
[2024-04-21] MEDS: LACTATED RINGER'S 1,000 ML IV SCH (16:07)
[2024-04-22 08:14] LABS: Basophils # (auto) 0.03 K/uL (0.00-0.20); Basophils % (auto) 0.3 %; Eosinophils # (auto) 0.14 K/uL (0.00-0.50); Eosinophils % (auto) 1.6 %; Hematocrit (blood only) 29.8 % (42.0-52.0); Hemoglobin 9.3 g/dl (14.0-18.0); Immature Granulocytes # (auto) 0.05 K/uL (0.01-0.20); Immature Granulocytes % (auto) 0.6 %; Lymphocytes # (auto) 1.27 K/uL (1.20-3.40); Lymphocytes % (auto) 14.3 %; Mean Corpuscular Hemoglobin 28.9 pg (25.0-34.0); Mean Corpuscular Hgb Conc 31.2 g/dL (32.0-36.0); Mean Corpuscular Volume 92.5 fL (80.0-100.0); Neutrophils # (auto) 6.62 K/uL (1.40-6.50); Neutrophils % (auto) 74.2 %; Platelet Count 400 K/uL (130-400); RDW Coefficient of Variation 16.8 % (11.5-14.5); RDW Standard Deviation 55.9 fL (36.4-46.3); Red Blood Count 3.22 M/uL (4.70-6.10); White Blood Count 8.91 K/ul (4.8-10.8)
[2024-04-22 08:15] LABS: Anion Gap 8 (3-11); Blood Urea Nitrogen 8 mg/dl (6-23); Carbon Dioxide 24 mmol/L (21-32); Chloride 105 mmol/L (98-107); Est GFR (African American) > 150.0 ml/min; Est GFR (Non-African American) 130.1 ml/min; Glucose 86 mg/dl (70-99(Fasting)); Potassium 3.3 mmol/L (3.5-5.1); Sodium 137 mmol/L (136-145)
--- NOTE | 2024-04-22 08:35 | Hospitalist Progress Note ---
Date of Service April 22, 2024 Assessment & Plan (1) T12 spinal cord injury: (2) Neurogenic bladder: (3) Colon perforation: Plan Patient is a 58-year-old male with history of T12 paraplegia, neurogenic bladder and bilateral below-knee amputations who initially presented to [facility] on 03/17/2024 with complaint of abdominal pain as well as nausea and vomiting and was then transferred to [facility] d/t c/o ischemic colitis due to increasing lactate and CT imaging. Transferred back from [facility] after multiple surgical interventions resulting in end-ileostomy and SICU stay d/ need for mechanical ventilation and multiple vasopressors. Stabilized and transferred back with IV Zosyn (end date 04/28) for PT/OT and placement coordination. PT/OT clear for home, not recommending rehab. Will need IV abx through 04/28 for discharge. Colonic perforation - Repeat CT of the abdomen demonstrates resolving fluid collections. Patient overall improving - Ostomy care q shift and PRN - Continue Zosyn (end date 04/28) - Surgery consulted to evaluate incision; allison removed, recommend daily wet to dry dressings. T12 injury - Noted. Patient is at baseline -Turn and position q 3 hours -Continue Baclofen for spasms Neurogenic bladder - Noted. Patient catheterizes at home q 4-6 hours - Bladder scan and straight cath as needed Hypertension - Continue Amlodipine, Lisinopril and Metoprolol GERD - Continue Protonix Hyperlipidemia - Continue Atorvastatin FEN: None Diet: Low fiber VTE ppx: s/p b/l BKA Dispo: PT/OT; Placement once needs assessed Admission and Anticipated Discharge Date Admission Date: April 19, 2024 Supervising Physician Co-Signing Physician Notes Patient seen and examined, chart reviewed, case discussed with Dr. Lion and I agree with the assessment and plan as above except as otherwise noted Labs and images reviewed 58-year-old male who was transferred to [facility] for ischemic colitis and was subsequently s/p colectomy and end ileostomy transferred back after stabilization pending placement per transfer agreement. He has done well since arrival. Initially was with some residual leukocytosis and tachycardia; however CT at [facility] did not show any new abscesses and some small improving/resolving fluid collections and patient has continued to do well with no fever and resolution of leukocytosis since then. Will need to continue Zosyn through 04/28. PT/OT pending, if patient is okay with his current level of home services and can be discharged once Zosyn infusions have been coordinated as long as he remains well. At time of bedside assessment lungs are clear, abdomen is soft and nontender. He does have a small dehiscence of his inferior abdominal incision. This was assessed by surgery, recommend wet-to-dry saline dressing and wound care until healed. Remaining allison were removed, no additional intervention required at this time and no signs of active infection. Appreciate mentations. Agree with assessment and management as above Subjective Patient seen and evaluated at bedside this morning. No acute events overnight. Patient asked me to examine the lower portion of his exlap incision. There is a 1 inch portion of dehiscence. Appears clean, non infectious. Otherwise, no acute complaints this AM Review of Systems Review of Systems: reviewed, per HPI Physical Exam Physical Exam: Constitutional: chronically ill appearing, NAD HEENT: NCAT, no conjunctival injection CV: clinically well perfused, no cyanosis Resp: no increased WOB GI: soft, non distended, ostomy in place with appropriate output MSK: b/l aka Skin: midline incision with allison in place, lower portion of incision with dehiscence vs incomplete closure. Fascial sutures visualized. Granulation tissue present. No evidence of infection. Neuro: alert, oriented, no focal neurologic deficit appreciated Results & Data Results & Data Vital Signs (Past 12 Hours) Vital Signs Temp Pulse Pulse Resp BP Pulse Ox O2 Del Method 04/22/24 07:31 36.9 C 120 H 18 106/67 95 Room Air 04/22/24 07:18 Room Air 04/22/24 04:02 36.7 C 118 H 18 104/68 94 Room Air 04/22/24 00:14 36.7 C 118 H 18 103/71 93 Room Air 04/21/24 22:47 116 H Resident Activity Tracking Resident Involvement: Resident Care Provided Care Provided: Adult Hospital Medicine
[2024-04-22] MEDS: POTASSIUM CHLORIDE CRTAB 20 MEQ TABCR PO STA (10:09)
--- NOTE | 2024-04-22 10:42 | Surgery Consultation ---
Date of Consultation April 22, 2024 Assessment & Plan (1) Abdominal wound dehiscence: No signs of active infection within his wound Would recommend a wet to dry saline dressing once daily until healed I removed the rest of his allison Please call with any questions or concerns History of Present Illness Reason for Consultation: Abdominal wound Attending Physician: Marcio Buckner MD History of Present Illness This is a 58-year-old male that is status post exploratory laparotomy, total abdominal colectomy with end ileostomy at [facility] on 03/27/2024. He had an open abdomen stool contamination was eventually closed 2 days later. He has been eating without issue and his ostomy is working. A few days ago the inferior pole of his midline incision at the skin level opened up. There is scant serosanguineous drainage. He denies any abdominal pain. He denies any N/V. An Allevyn dressing has been placed on the wound. Allergies Allergy/AdvReac Type Severity Reaction Status Date / Time No Known Allergies Allergy Unverified 11/13/19 16:16 Home Medications Medication Instructions Recorded Confirmed Type baclofen 20 mg tablet 20 mg PO TID PRN Muscle Spasm 01/09/19 03/17/24 History amlodipine 5 mg tablet (Norvasc) 5 mg PO DAILY #30 tabs 04/26/23 03/17/24 Rx citalopram 20 mg tablet 40 mg PO DAILY 04/26/23 03/17/24 History ferrous sulfate 325 mg (65 mg 325 mg PO Q OTHER DAY 04/26/23 03/17/24 History iron) tablet (FeroSul) hydroxyzine HCl 25 mg tablet 25 mg PO TID PRN Anxiety 04/26/23 03/17/24 History metoprolol succinate 25 mg 25 mg PO DAILY 04/26/23 04/26/23 History tablet,extended release 24 hr ondansetron HCl 4 mg tablet 4 mg PO Q8 PRN Nausea And Vomiting 04/26/23 03/17/24 History pantoprazole 40 mg tablet,delayed 40 mg PO QAM 04/26/23 03/17/24 History release quetiapine 100 mg tablet 100 mg PO HS 04/26/23 03/17/24 History atorvastatin 40 mg tablet 40 mg PO DAILY 03/17/24 03/17/24 History lisinopril 20 mg tablet 20 mg PO DAILY 03/17/24 03/17/24 History Patient History Medical History (Updated 04/22/24 @ 10:41 by Blake Woo DO) Paraplegia UTI (urinary tract infection) Surgical History S/P AKA (above knee amputation) bilateral Social History Smoking Status: Former smoker Tobacco Type: Cigarettes Cigarettes Per Day: 80; Second Hand Exposure: No; Do You Dip or Chew Tobacco: No; Hx Alcohol Use: No Hx Substance Use: No Preferred Language: Portuguese Communication Ability: Effective Ethnographic Materials Conservator Required: No Beliefs That Will Affect Care: None Current Living Situation: Alone Other Information That Helps Us Care for You: No Feels Safe at Home: Yes Assistive Devices: Wheelchair Review of Systems Constitutional: no fever and no chills Eyes: no blind spots and no eye pain Ear, Nose, Mouth, Throat: no ear pain, no sore throat and no dysphagia Respiratory: no cough and no dyspnea Cardiovascular: no chest pain and no dyspnea on exertion Gastrointestinal: no abdominal pain, no nausea and no vomiting Genitourinary: no dysuria or no difficulty urinating Musculoskeletal: no back pain and no neck pain Integumentary: + wounds; no lesions and no changing les ions Neurologic: no headache(s) and no confusion Psychiatric: no behavioral changes and no depression Hematologic / Lymphatic: no easy bleeding and no easy bruising Physical Exam Constitutional: WD/WN, vitals as above Eyes: PERRL, conjunctivae normal, anicteric sclerae ENMT: external ear and nose normal, oropharynx normal Neck: trachea midline, no thyromegaly Respiratory: normal respiratory effort, lungs clear to auscultation Cardiovascular: RRR, no murmur, no edema Gastrointestinal (Abdomen): Inspection/Auscultation: abdomen normal to inspection; abdomen not distended Percussion/Palpation: abdomen soft; abdomen nontender and no guarding Midline incision well healed with allison in place Inferior pole with skin dehiscence, good granulation tissue, no odor Musculoskeletal: no cyanosis or clubbing, extremities motor strength 5/5 Skin: no rashes, warm and dry Neurologic: PERRL, EOMI, accommodation nl, no face palsy, no dysarthria Psychiatric: A+Ox3, euthymic affect Results & Data Vital Signs (Past 12 Hours) Vital Signs Temp Pulse Pulse Resp BP Pulse Ox O2 Del Method 04/22/24 09:11 113 H 04/22/24 07:31 36.9 C 120 H 18 106/67 95 Room Air 04/22/24 07:18 Room Air 04/22/24 04:02 36.7 C 118 H 18 104/68 94 Room Air 04/22/24 00:14 36.7 C 118 H 18 103/71 93 Room Air 04/21/24 22:47 116 H PG Care Time/CCT Total # of Minutes Spent Total Time Spent with Patient: Total time spent is greater than 50% in coordination of care (as documented) at patient's floor/unit and/or counseling patient: Coding Level of Care Code 34086 INT INP/OBS CARE 3/75MIN Diagnoses Abdominal wound dehiscence T81.30XA
[2024-04-22] MEDS: ONDANSETRON INJ 2 MG/ML 2 ML VIAL IV PRN (22:16)
[2024-04-23 08:29] LABS: Basophils # (auto) 0.04 K/uL (0.00-0.20); Basophils % (auto) 0.4 %; Eosinophils # (auto) 0.24 K/uL (0.00-0.50); Eosinophils % (auto) 2.7 %; Hematocrit (blood only) 33.4 % (42.0-52.0); Hemoglobin 10.3 g/dl (14.0-18.0); Immature Granulocytes # (auto) 0.04 K/uL (0.01-0.20); Immature Granulocytes % (auto) 0.4 %; Lymphocytes # (auto) 1.32 K/uL (1.20-3.40); Lymphocytes % (auto) 14.8 %; Mean Corpuscular Hemoglobin 28.8 pg (25.0-34.0); Mean Corpuscular Hgb Conc 30.8 g/dL (32.0-36.0); Mean Corpuscular Volume 93.3 fL (80.0-100.0); Mean Platelet Volume 9.1 fL (9.4-12.4); Monocytes # (auto) 0.71 K/uL (0.11-0.59); Neutrophils # (auto) 6.55 K/uL (1.40-6.50); Neutrophils % (auto) 73.7 %; Platelet Count 403 K/uL (130-400); RDW Coefficient of Variation 16.7 % (11.5-14.5); RDW Standard Deviation 56.6 fL (36.4-46.3); Red Blood Count 3.58 M/uL (4.70-6.10)
--- NOTE | 2024-04-23 08:48 | Hospitalist Progress Note ---
Date of Service April 23, 2024 Assessment & Plan (1) T12 spinal cord injury: (2) Neurogenic bladder: (3) Colon perforation: Plan Patient is a 58-year-old male with history of T12 paraplegia, neurogenic bladder and bilateral below-knee amputations who initially presented to [facility] on 03/17/2024 with complaint of abdominal pain as well as nausea and vomiting and was then transferred to [facility] d/t c/o ischemic colitis due to increasing lactate and CT imaging. Transferred back from [facility] after multiple surgical interventions resulting in end-ileostomy and SICU stay d/ need for mechanical ventilation and multiple vasopressors. Stabilized and transferred back with IV Zosyn (end date 04/28) for PT/OT and placement coordination. Medically stable for discharge. PT/OT clear for home, not recommending rehab. Will need IV abx through 04/28 for discharge. Colonic perforation - Repeat CT of the abdomen demonstrates resolving fluid collections. Patient overall improving - Ostomy care q shift and PRN - Continue Zosyn (end date 04/28) - Surgery consulted to evaluate incision; allison removed, recommend daily wet to dry dressings. T12 injury - Noted. Patient is at baseline -Turn and position q 3 hours -Continue Baclofen for spasms Neurogenic bladder - Noted. Patient catheterizes at home q 4-6 hours - Bladder scan and straight cath as needed Hypertension - Continue Amlodipine, Lisinopril and Metoprolol GERD - Continue Protonix Hyperlipidemia - Continue Atorvastatin FEN: None Diet: Low fiber VTE ppx: s/p b/l BKA Dispo: PT/OT; Placement once needs assessed Admission and Anticipated Discharge Date Admission Date: April 19, 2024 Supervising Physician Co-Signing Physician Notes Patient seen and examined, chart reviewed, case discussed with Hayden Lion, DO and I agree with the assessment and plan as above except as otherwise noted Labs and images reviewed Seen at bedside. Sleeping comfortably awakens easily before going back to [facility]. No events overnight, no abdominal pain although it has a little bit of nausea. Tolerating diet. No fevers. Abdomen is soft/nontender. Patient would like to return home. He is medically stable for discharge at this time however requires Zosyn through 04/28 per [facility] ID. Discussed with case management and this is not able to be facilitated today, hopefully will be available with home healt h services 04/24. Patient will also need wound care with wet-to-dry dressings until his lower abdominal incision is completely healed. Remains with no signs of superimposed infection. Agree with above Subjective Patient seen and evaluated at bedside this morning. No acute events overnight. Still with some persistent nausea. Good output from ostomy, no abdominal pain. Tolerating diet well. Pt desires discharge to home when possible. Review of Systems Review of Systems: reviewed, per HPI Physical Exam Physical Exam: Constitutional: chronically ill appearing, NAD HEENT: NCAT, no conjunctival injection CV: clinically well perfused, no cyanosis Resp: no increased WOB GI: soft, non distended, ostomy in place with appropriate output MSK: b/l aka Skin: allison removed from midline abdominal incision. C/D/I with exception of lower pole. Wet to dry dressing in place. Neuro: alert, oriented, no focal neurologic deficit appreciated Results & Data Results & Data Vital Signs (Past 12 Hours) Vital Signs Temp Pulse Pulse Pulse Resp BP Pulse Ox 04/23/24 07:39 36.7 C 117 H 18 136/89 95 04/23/24 03:04 36.4 C L 110 H 18 106/68 96 04/22/24 23:57 119 H 04/22/24 23:35 113 H 113 H 04/22/24 23:09 36.8 C 120 H 18 99/65 L 91 O2 Del Method 04/23/24 07:39 Room Air 04/23/24 03:04 Room Air 04/22/24 23:57 04/22/24 23:35 04/22/24 23:09 Room Air Resident Activity Tracking Resident Involvement: Resident Care Provided Care Provided: Adult Hospital Medicine
[2024-04-23 08:53] LABS: Alanine Aminotransferase 57 U/L (7-52); Albumin Level 3.3 gm/dl (3.4-5.0); Alkaline Phosphatase 135 U/L (34-104); Anion Gap 7 (3-11); Aspartate Aminotransferase 28 U/L (13-39); BUN Creatinine Ratio 17.4 (10-20); Bilirubin,Total 0.4 mg/dl (0.2-1.0); Blood Urea Nitrogen 8 mg/dl (6-23); Calcium 8.7 mg/dl (8.6-10.3); Carbon Dioxide 24 mmol/L (21-32); Chloride 106 mmol/L (98-107); Est GFR (African American) 145.3 ml/min; Est GFR (Non-African American) 125.4 ml/min; Globulin 3.4 gm/dl (2.5-4.0); Glucose 93 mg/dl (70-99(Fasting)); Potassium 4.4 mmol/L (3.5-5.1); Sodium 137 mmol/L (136-145); Total Protein 6.7 gm/dl (6.0-8.3)
[2024-04-23] MEDS: PROCHLORPERAZINE 10 MG in SYRINGE 8 ML IV ONE (20:37)
--- NOTE | 2024-04-24 06:58 | Hospitalist Progress Note ---
Date of Service April 24, 2024 Assessment & Plan (1) T12 spinal cord injury: (2) Neurogenic bladder: (3) Colon perforation: Plan Patient is a 58-year-old male with history of T12 paraplegia, neurogenic bladder and bilateral below-knee amputations who initially presented to [facility] on 03/17/2024 with complaint of abdominal pain as well as nausea and vomiting and was then transferred [place] [facility] [place]t c/o ischemic colitis due to increasing lactate and CT imaging. Transferred back from [facility] after multiple surgical interventions resulting in end-ileostomy and SICU stay d/ need for mechanical ventilation and multiple vasopressors. Stabilized and transferred back with IV Zosyn (end date 04/28) for PT/OT and placement coordination. Medically stable for discharge. PT/OT clear for home, not recommending rehab. Will need IV abx through 04/28 for discharge. Colonic perforation - Repeat CT of the abdomen demonstrates resolving fluid collections. Patient overall improving - Ostomy care q shift and PRN - Continue Zosyn (end date 04/28) - Surgery consulted to evaluate incision; allison removed, recommend daily wet to dry dressings. T12 injury - Noted. Patient is at baseline -Turn and position q 3 hours -Continue Baclofen for spasms Neurogenic bladder - Noted. Patient catheterizes at home q 4-6 hours - Bladder scan and straight cath as needed Hypertension - Continue Amlodipine, Lisinopril and Metoprolol GERD - Continue Protonix Hyperlipidemia - Continue Atorvastatin FEN: None Diet: Low fiber VTE ppx: s/p b/l BKA Dispo: PT/OT; Placement once needs assessed Admission and Anticipated Discharge Date Admission Date: April 19, 2024 Supervising Physician Co-Signing Physician Notes Attending attestation Pt seen and examined in concert with Dr. Anna. In agreement with the documented findings as noted in the resident documentation with any exceptions or additions as noted here. Resting comfortably in bed, tolerating PO intake well without complaint. On examination, S1/S2 nl RRR no MCG. CTAB. Abd NT/ND BS+ve Colon perforation s/p repair and ostomy - gen surg consult - continue Zosyn with end date as noted. Will need PICC and outpatient abx set up for discharge. Else see resident documentation as noted. Subjective No events overnight Evaluated this am, no acute needs. Colostomy in place, good output. Pending home health and IV abx for home. CM following Review of Systems Review of Systems: as per HPI Physical Exam Physical Exam: Constitutional: chronically ill appearing, NAD HEENT: NCAT, no conjunctival injection CV: clinically well perfused, no cyanosis Resp: no increased WOB GI: soft, non distended, ostomy in place with appropriate output MSK: b/l aka Skin: allison removed from midline abdominal incision. C/D/I with exception of lower pole. Wet to dry dressing in place. Neuro: alert, oriented, no focal neurologic deficit appreciated Results & Data Results & Data Vital Signs (Past 12 Hours) Vital Signs Temp Pulse Pulse Resp BP Pulse Ox O2 Del Method 04/24/24 04:16 36.7 C 105 H 16 104/71 95 Room Air 04/23/24 22:35 37.0 C 124 H 16 100/66 95 Room Air 04/23/24 22:25 Room Air 04/23/24 21:57 112 H 04/23/24 19:31 37.0 C 112 H 18 109/77 94 Room Air Resident Activity Tracking Resident Involvement: Resident Care Provided Care Provided: Adult Hospital Medicine
[2024-04-24 09:09] LABS: Basophils # (auto) 0.06 K/uL (0.00-0.20); Basophils % (auto) 0.8 %; Eosinophils # (auto) 0.19 K/uL (0.00-0.50); Eosinophils % (auto) 2.4 %; Hematocrit (blood only) 30.9 % (42.0-52.0); Hemoglobin 9.6 g/dl (14.0-18.0); Immature Granulocytes # (auto) 0.04 K/uL (0.01-0.20); Immature Granulocytes % (auto) 0.5 %; Lymphocytes # (auto) 1.34 K/uL (1.20-3.40); Mean Corpuscular Hemoglobin 28.9 pg (25.0-34.0); Mean Corpuscular Hgb Conc 31.1 g/dL (32.0-36.0); Mean Corpuscular Volume 93.1 fL (80.0-100.0); Mean Platelet Volume 9.5 fL (9.4-12.4); Monocytes # (auto) 0.68 K/uL (0.11-0.59); Monocytes % (auto) 8.7 %; Neutrophils # (auto) 5.55 K/uL (1.40-6.50); Neutrophils % (auto) 70.6 %; Platelet Count 415 K/uL (130-400); RDW Coefficient of Variation 16.4 % (11.5-14.5); Red Blood Count 3.32 M/uL (4.70-6.10); White Blood Count 7.86 K/ul (4.8-10.8)
[2024-04-24 09:31] LABS: Alanine Aminotransferase 66 U/L (7-52); Albumin Level 3.4 gm/dl (3.4-5.0); Alkaline Phosphatase 130 U/L (34-104); Anion Gap 9 (3-11); Aspartate Aminotransferase 29 U/L (13-39); BUN Creatinine Ratio 20.9 (10-20); Bilirubin,Total 0.4 mg/dl (0.2-1.0); Blood Urea Nitrogen 9 mg/dl (6-23); Calcium 8.7 mg/dl (8.6-10.3); Carbon Dioxide 22 mmol/L (21-32); Chloride 106 mmol/L (98-107); Est GFR (African American) 149.4 ml/min; Est GFR (Non-African American) 128.9 ml/min; Globulin 3.3 gm/dl (2.5-4.0); Glucose 87 mg/dl (70-99(Fasting)); Potassium 3.5 mmol/L (3.5-5.1); Sodium 137 mmol/L (136-145); Total Protein 6.7 gm/dl (6.0-8.3)
[2024-04-25 06:52] LABS: Basophils # (auto) 0.05 K/uL (0.00-0.20); Basophils % (auto) 0.7 %; Eosinophils % (auto) 2.8 %; Hematocrit (blood only) 31.2 % (42.0-52.0); Immature Granulocytes # (auto) 0.03 K/uL (0.01-0.20); Immature Granulocytes % (auto) 0.4 %; Lymphocytes # (auto) 1.52 K/uL (1.20-3.40); Lymphocytes % (auto) 20.9 %; Mean Corpuscular Hemoglobin 29.4 pg (25.0-34.0); Mean Corpuscular Hgb Conc 32.1 g/dL (32.0-36.0); Mean Corpuscular Volume 91.8 fL (80.0-100.0); Mean Platelet Volume 9.2 fL (9.4-12.4); Monocytes % (auto) 9.6 %; Neutrophils # (auto) 4.77 K/uL (1.40-6.50); Neutrophils % (auto) 65.6 %; Platelet Count 396 K/uL (130-400); RDW Coefficient of Variation 16.1 % (11.5-14.5); RDW Standard Deviation 54.4 fL (36.4-46.3); White Blood Count 7.27 K/ul (4.8-10.8)
--- NOTE | 2024-04-25 06:52 | Discharge Summary ---
Date of Service April 25, 2024 Admission HPI Per Admitting Provider Rigoberto Ornelas is a 58-year-old male with history of T12 paraplegia, neurogenic bladder and bilateral below-knee amputations who initially presented to [facility] on 03/17/2024 with complaint of abdominal pain as well as nausea and vomiting. Patient with increasing lactate, CT of the abdomen concerning for ischemic colitis. Patient was transferred to [facility] ICU for management of presumed ischemic colitis. Patient did initial days at [facility]. He had repeat imaging that did not demonstrate ischemic colitis but noted heavy stool burden. He was manually disimpacted and treated with aggressive bowel regimen. He was treated with Zosyn --> Augmentin as well. Decompensated on 03/27/2024 with elevated lactate, worsening abdominal pain and tachycardia. He had repeat imaging that was suggestive of ischemic colitis with localized perforation. He was taken to the OR for exploratory laparotomy and total abdominal colectomy. In the OR necrotic intact cadaveric appearing sigmoid colon with multiple areas of perforation. Free leakage of stool within the abdomen. Dilated ischemic appearing remainder of colon with several focal areas of necrosis. Fibrinous material or small bowel the bowel itself appeared viable. Patient was transferred to the surgical ICU postoperatively and remained intubated and sedated requiring multiple vasopressors. He had open abdomen with his bowel discontinuity. He did self extubate on 03/30 and was not reintubated until his return to the OR on 03/30/2024 When he had placement of an ileostomy closure of the abdomen placement. He was administered TPN. he was treated with vancomycin, Zosyn and fluconazole. Then transition to meropenem, fluconazole and vancomycin. He did have high output from his ileostomy requiring treatment with Imodium. Patient had a repeat CT abdomen on 04/16/2024 which revealed decrease in size of multiple intra-abdominal peripheral enhancing collections. Persistent mesenteric edema. No new collections. Slight increase in small rectal effusion. Both drains were removed. Discharge summary in chart for more details on patient's stay at [facility]. Presently with no complaints. States that pain is well-controlled. He has had normal output from his ostomy. Does feel weak General overall doing well. Principal Diagnosis Ischemic colitis s/p end-ileostomy - colostomy Discharge Exam Constitutional: chronically ill appearing, NAD HEENT: NCAT, no conjunctival injection CV: clinically well perfused, no cyanosis Resp: no increased WOB GI: soft, non distended, ostomy in place with appropriate output MSK: b/l aka Skin: allison removed from midline abdominal incision. C/D/I with exception of lower pole. Wet to dry dressing in place. Neuro: alert, oriented, no focal neurologic deficit appreciated Discharge Data Allergies Allergy/AdvReac Type Severity Reaction Status Date / Time No Known Allergies Allergy Unverified 11/13/19 16:16 Consultations 04/22/24 10:15 Consult General Surgery Routine Hospital Course (1) T12 spinal cord injury: (2) Neurogenic bladder: (3) Colon perforation: Plan Patient is a 58-year-old male with history of T12 paraplegia, neurogenic bladder and bilateral below-knee amputations who initially presented to [facility] on 03/17/2024 with complaint of abdominal pain as well as nausea and vomiting and was then transferred to [facility] d/t c/o ischemic colitis due to increasing lactate and CT imaging. Transferred back from [facility] after multiple surgical interventions resulting in end-ileostomy and SICU stay d/ need for mechanical ventilation and multiple vasopressors. Stabilized and transferred back to our institution with IV Zosyn (end date 04/28) for PT/OT and placement coordination. Patient was discharge home with home health. Will need IV abx through 04/28 Colonic perforation - Repeat CT of the abdomen demonstrates resolving fluid collections. Patient overall improving - Continue Ostomy care daily - Continue Zosyn end date 04/28 - Surgery consulted to evaluate incision; allison were removed, recommend daily wet to dry dressings. Asymptomatic tachycardia - 130s while septic, trending down to 100s - Workup done at [facility]- Secondary to hypovolemia/dehydration - Recommended to continue PO hydration - Follow up with PCP T12 injury - Patient is at baseline -Turn and position q 3 hours -Continue Baclofen for spasms - PT eval done during this admission, ok to be discharge home Neurogenic bladder - Continue, patient catheterizes at home q 4-6 hours Hypertension - Continue Amlodipine, Lisinopril and Metoprolol GERD - Continue Protonix Hyperlipidemia - Continue Atorvastatin Total Time Total Time Spent Total Time Spent (In Minutes): see attending attestation Discharge Plan Discharge Items Patient Disposition: Home - Home Health Services Reason For Visit: BOWEL PERFORATION Discharge Diagnosis: Colonic perforation Activity: Per Instructions section Non-emergency contact: Primary Care Provider Call non-emergency contact if: you have any medication questions, your symptoms worsen, your pain is unusual for you and your temperature is above 101 Follow-up/Referrals: Ines Ruiz MD [Primary Care Provider] - (PLEASE CALL YOUR PRIMARY CARE PROVIDER TO SCHEDULE A HOSPITAL DISCHARGE FOLLOW-UP APPOINTMENT WITHIN 7-10 DAYS) Diet: Regular Addtl Attending Provider Instructions: You were transferred from [facility] after ischemic colitis requiring multiples surgical interventions resulting in end- ileostomy (removing a part of your colon). You will be discharge home with home health services and a PICC line for IV Zosyn. The end date of the antibiotic use if 04/28/2024. After completing your treatment you will need to repeat some blood work to ensure your kidney tolerated well the treatment Follow-up appointments: Make a follow-up appointment with your PCP within the next week. It is very important that you follow up with them shortly after discharge from the hospital. Keep all your follow-up appointments as already scheduled. If you cannot make an appointment, notify your provider. Medications: Your medication list has been reviewed and reconciled upon discharge to ensure accuracy and continuity of care. An updated list of all your medications is included with your hospital discharge paperwork. Please review this list closely, and make note of any changes. Take your medications as instructed; do not skip a dose of your medicines. Make sure all of your doctors know every medicine you are taking (including sslj-jzn-zuhregl medicines, vitamins, and supplements). Call your primary care provider before taking any new medicines (including gcxb-daf-ilwbeyb medicines, vitamins, and supplements), because some of these may interact with your current medications, or may make your symptoms worse. Tell your primary care provider if you cannot afford your medications. CALL 911 OR GO TO THE EMERGENCY DEPARTMENT if you experience any of the following: Sudden, severe abdominal pain or nausea/vomiting Severe chest pain, or chest pain that radiates (moves) to your jaw or arm Sudden, severe shortness of breath or difficulty breathing Pending Studies at Discharge: No Stand-Alone Forms: My Emme E2MS, Smoking Cessation Medications and DC Order Prescriptions: Continued baclofen 20 mg tablet 20 mg PO TID PRN (Reason: Muscle Spasm) quetiapine 100 mg tablet 100 mg PO HS citalopram 20 mg tablet 40 mg PO DAILY metoprolol succinate 25 mg tablet extended release 24 hr 25 mg PO DAILY pantoprazole 40 mg tablet,delayed release (DR/EC) 40 mg PO QAM hydroxyzine HCl 25 mg tablet 25 mg PO TID PRN (Reason: Anxiety) ondansetron HCl 4 mg tablet 4 mg PO Q8 PRN (Reason: Nausea And Vomiting) ferrous sulfate [FeroSul] 325 mg (65 mg iron) tablet 325 mg PO Q OTHER DAY amlodipine [Norvasc] 5 mg tablet 5 mg PO DAILY Qty: 30 0RF atorvastatin 40 mg tablet 40 mg PO DAILY lisinopril 20 mg tablet 20 mg PO DAILY Discharge Orders: Discharge Order (Routine); Ordered 04/25/24 Ordered By: Tiffany Jaramillo Admission Data Admit Date/Time: 04/19/24 23:40 Attending Provider: Jhony Garcia Admit Provider: Roz Sue Primary Care Provider: Ines Ruiz Other Providers: Blake Woo; [facility]; Irma Chávez; [facility] Supervising Physician Co-Signing Physician Notes Attending attestation Pt seen and examined in concert with Dr. Anna. In agreement with the documented findings as noted in the resident documentation with any exceptions or additions as noted here. Resting comfortably in bed, tolerating PO intake well without complaint. Reports no chest pain, palpitations, nausea, CASANOVA, vision changes, lightheadedness. On examination, S1/S2 nl RRR no MCG. CTAB. Abd NT/ND BS+ve Colon perforation s/p repair and ostomy - gen surg consult - continue Zosyn with end date as noted via PICC placed at [facility] Tachycardia - evaluation at [facility] and without current complaint, likely hydration related and gradually improving. Monitor closely and consider further evaluation at follow up or if symptoms develop. Precautions reviewed w/ patient. Else see resident documentation as noted. Total attending physician time spent with this patient's care on the day of d ischarge: 35 minutes. Resident Activity Tracking Resident Involvement: Resident Care Provided Care Provided: Adult Hospital Medicine
[2024-04-25 07:30] LABS: Alanine Aminotransferase 80 U/L (7-52); Albumin Level 3.3 gm/dl (3.4-5.0); Alkaline Phosphatase 126 U/L (34-104); Anion Gap 9 (3-11); Aspartate Aminotransferase 32 U/L (13-39); BUN Creatinine Ratio 25.6 (10-20); Bilirubin,Total 0.4 mg/dl (0.2-1.0); Blood Urea Nitrogen 10 mg/dl (6-23); Calcium 8.6 mg/dl (8.6-10.3); Carbon Dioxide 22 mmol/L (21-32); Chloride 106 mmol/L (98-107); Est GFR (African American) > 150.0 ml/min; Est GFR (Non-African American) 134.2 ml/min; Globulin 3.2 gm/dl (2.5-4.0); Glucose 88 mg/dl (70-99(Fasting)); Potassium 3.3 mmol/L (3.5-5.1); Sodium 137 mmol/L (136-145); Total Protein 6.5 gm/dl (6.0-8.3)
== END 2024-04-25 14:35 | disposition home health service (06) | DRG 394 ==
LOC: 2N 23:40 → SUATTDRO 23:40
DX: R00.0 Tachycardia, unspecified; Z93.2 Ileostomy status; E78.5 Hyperlipidemia, unspecified; G82.20 Paraplegia, unspecified; Z95.828 Presence of other vascular implants and grafts; Z89.512 Acquired absence of left leg below knee; Y81.3 Surgical instruments, materials and general- and plastic-surgery devices (including sutures) associated with adverse incidents; K63.1 Perforation of intestine (nontraumatic); N31.9 Neuromuscular dysfunction of bladder, unspecified; K21.9 Gastro-esophageal reflux disease without esophagitis; Z79.899 Other long term (current) drug therapy; Z89.511 Acquired absence of right leg below knee; T81.31XA Disruption of external operation (surgical) wound, not elsewhere classified, initial encounter; I10 Essential (primary) hypertension; Z90.49 Acquired absence of other specified parts of digestive tract

== ENCOUNTER 2024-05-08 03:39 | Inpatient (IN) ==
--- OUTSIDE RECORDS SUMMARY | 2024-05-08 03:44 | External Medical Summary | Continuity of Care Document ---
Author Name Unknown Organization [facility] Address [address] [place] [address] Phone [phone] Care Team Providers Care Transformer Repairer Name Role Phone Terrance Evans Care Team Information Recei kelly [phone] Problems Active Problems Provider Date Urinary tract [...] hypertension Anthony Cohn PA-C Ons et: 09/06/2017 Ileostomy present Ines Ruiz MD Onset: 04/17 Social History Type Date Description Comments Sex Male Cigarette Use 01/21/2024 Quit - Age 50 Tobacco Use Reviewed: 01/21/24 Never Smoked Cigars Tobacco Use Reviewed: 01/21/24 Never Smoked A Pipe Smoking Status Reviewed: 04/27/24 Never Smoked A Pipe Smokeless Tobacco 01/21/2024 Never Used Smokeless To bacco ETOH Use Denies alcohol use Recreational Drug Use Denies Drug Use Allergies and adverse reactions Description No Known Drug Allergies Medications Active Medications SIG Qnty Indications Order ing Provider Date Zosyn4-0.5GM/100ML Solution Infuse 4.5 gram IV every 8 hours. Unknown 04/25/2024 Nitrofurantoin Monohyd Nffpz782zg Capsules take one capsule orally two times a day for 5 days. 10caps Ines Ruiz MD 01/25/2024 Fxbmgkjbpo83qb Tablets 1 by mouth every day 30tabs I10 Ines Ruiz MD 01/21/2024 Ciprofloxacin AOU357lb Tablets 1 tablet by mouth twice a day for 10 days 20tabs R30.0 Ines Ruiz MD 01/21/2024 Ofczkc216ex Capsules take one capsule by mouth two times a day as needed for constipation 30caps Ines Ruiz MD 10/22/2023 Hlkcdmj51DI/Scoop Powder take one scoop as directed daily as needed 119gm K59.00 Ines uRiz MD 10/22/2023 Citalopram Jkulkurwbsfs06fh Tablets take one tab daily 30tabs F41.1 Ines Ruiz MD 06/25/2023 Ondansetron HCL4mg Tablets take 1 tablet (4 mg total) by mouth every 8 hours as needed for nausea or vomiting. 30tabs R11.0 Ines Ruiz MD 04/07/2023 Wheelchair-Lightweigh tDevice use for ambulation OT/PT evaluation for custom manual 1units Ines Ruiz MD 04/07/2023 Quetiapine Zeetyuyr502da Tablets take 1 tablet by mouth at bedtime 30tabs G47.00 Ines Ruiz MD 03/26/2023 Ferrous Seulpye884(65Fe) mg Tablets take 1 tablet by mouth on alternate days 15tabs Ines Ruiz MD 01/08/2023 Mqppamrvdf86jq Tablets take 1 tablet by mouth twice a day 60tabs R11.0 Ines Ruiz MD 01/05/2023 Metoprolol Succinate ER25mg Tablets ER 24HR take 2 tablet by mouth once daily 90tabs Ines Ruiz MD 04/30/2022 Atorvastatin Gjoqdyu44uf Tablets take 1 tablet by mouth every night 90tabs Ines Ruiz MD 01/20/[address] take 1 tablet by mouth every morning 90tabs Ines Ruiz MD 10/29/2021 Wheelchair CushionMisc roho cushion 16x16 as directed 1units Ines Ruiz MD 07/01/2020 Adult DiapersDevice small/medium pullups 100units N31.9 Rodriguez Torrez MD 11/22/2017 Jihanjt78lj Tablets 1 by mouth every day Yohannes Joshua MD Heanazre34mg Tablets take 1 tablet by mouth three times a day if needed 90tabs Ines Ruiz MD Amlodipine Rxjjvmhh5ha Tablets take one tab daily 30tabs Ines Ruiz MD History Medications Sqwge595sb Tablets 1 tablet by mouth twice a day for 10 days (onset of symptoms) 20tabs N39.0 Keith Gutierrez JR, MD 11/11/2023 - 01/21/2024 Immunizations CPT Code Status Date Vaccine Lot # [id number] Given 07/22/2023 Influenza Virus Vaccine, Quadrivalent (Cciiv4), Derived From Cell [id number] Given 04/10/2021 Moderna Sars-Co v-2 (Cov-19) vacc,100 mcg/ 0.5 mL 12Y+EMR Doc Only [id number] Given 03/13/2021 Moderna Sars-Co v-2 (Cov-19) vacc,100 mcg/ 0.5 mL 12Y+EMR Doc Only [id number] Given 10/27/2018 Influenza Virus Vaccine, Quadrivalent (Cciiv4), Derived From 0 Given 10/27/2018 Tdap (Tetanus, diphtheria & acel. pertussis) Adacel or Boostrix [id number] Refused 07/22/2023 Moderna Covid-1 9 Vaccine 50mcg Booster-EMR Doc Only [id number] Refused 01/05/2023 Influenza Virus Vaccine, Quadrivalent (Cciiv4), Derived From Cell [id number] Refused 12/28/2019 Influenza Virus Vaccine, Quadrivalent (Cciiv4), Derived From Cell Vital Signs Date Vital Result Comment 04/27/2024 1:47pm BP Systolic 102 mmHg BP Diastolic 68 mmHg Body Temperature 97.5 F Heart Rate 108 /min Respiratory Rate 15 /min Weight 1.00 lb O2 % BldC Oximetry 98 % 01/21/2024 9:05am BP Systolic 156 mmHg BP Diastolic 100 mmHg Body Temperature 97.7 F Heart Rate 80 /min Respiratory Rate 16 /min O2 % BldC Oximetry 94 % Results Test Acquired Date Facility Test Result H/L Range N ote CBC W/Diff 04/27/2024 [facility] [address] [place] [address] [phone] WBC 7.1 10^3/M3 3.1-9.2 RBC 3.38 10^6/M3 Low 4.00-5.80 HGB 10.4 GR/DL Low 12.5-17.5 HCT 32.3 % Low 37.5-52.5 MCV 95.5 CUMICR 82.6-95.8 MCH 30.8 PICOGR 27.9-32.9 MCHC 32.2 % Low 32.6-35.4 RDW 18.1 % High 11.4-14.6 PLT 488 10^3/M3 High 140-350 MPV 7.8 CUMICR 7.0-10.6 %Neut 67.4 % 40.0-75.0 %Lymph 21.1 % 17.0-45.0 %Bill[place] 8.4 % 1.0-11.0 %Eos 2.0 % 0.0-6.0 %Baso 1.1 % 0.0-2.0 #Neut 4.8 10^3/M3 1.5-8.0 #Lymph 1.5 10^3/M3 0.8-3.2 #Billings 0.6 10^3/M3 0.0-0.8 #Eos 0.1 10^3/m3 0.0-0.4 #Baso 0.1 10^3/m3 0.0-0.2 Comp. Met 04/27/2024 [facility] [address] [place] [address] [phone] Glucose 90 mg/dL 70-110 BUN 12 mg/dL 6-25 Creatinine 0.5 mg/dL Low 0.7-1.3 Sodium 143 mEq/L 135-145 Potassium 4.0 mEq/L 3.5-5.0 Chloride 108 mEq/L High 95-107 Co-2 23 mEq/L Low 24-31 Alk Phos 135 IU/L High 43-122 Alt(SGPT) 81 IU/L High 10-40 Ast(Sgot) 30 IU/L 3-42 T.Bilirubin 0.4 mg/dL 0.1-1.3 Calcium 9.5 mg/dL 8.5-10.6 Tot.Protein 6.8 g/dL 5.8-8.0 Albumin 3.9 g/dL 3.0-5.2 Globulin 2.9 g/dL 2.0-3.4 GFR 183 ML/MIN/1.73SQM >60 Urine Culture 01/21/2024 [facility] [address] [place], [place] [id number] [phone] Urine Source URINE Urine Isolate#1 01/21/2024 [facility] [address] [place] [address] [phone] Col Count #1 >100,000 COL/CC Isolate #1 Enterobacter marilou <SEE NOTE> 1 Amox/K Clav >16/8 R Ampicillin >16 R Aztreonam <=4 S Cefazolin >16 R Cefepime <=2 S Ceftriaxone <=1 S Ciprofloxacin 1 R Gentamicin <=2 S Nitrofurantoin <=32 S Tetracycline >8 R Tobramycin <=2 S Trimeth/Sulfa >2/38 R Meropenem <=1 S Urine DIP (In Office) Manual 01/21/2024 [facility] (In Office Test) Ua Glucose Negative Ua Bilirubin Negative Ua Ketones Negative Ua Specific [place] 1.010 Ua Blood Trace Ua PH 7.0 Ua Protein Negative Ua Urobilinogen 0.2 Ua Nitrite Negative Ua Leuko Large 1 Enterobacter cloacae Procedures Date Code Description Status 04/27/2024 29200 Venipuncture Routine Complet ed 04/27/2024 1111F D/C Medications Reconciled W/Current Medications In Outpt MR Completed 01/21/2024 G2211 Continuation of care e/m vis it add on Completed 01/21/2024 3080F PVRP Diastolic BP >/= 90 MMH G Completed 01/21/2024 3077F PVRP Systolic BP >/= 140 MMH G Completed 11/11/2023 G2211 Continuation of care e/m vis it add on Completed Medical Devices Description No Information Available Encounters Type Date Location Provider Dx Diagnosis Office Visit 04/27/2024 1:00p Ervin Ruiz MD K55.9 Vascular diso rder of intestine, unspecified K63.1 Perforation of intes iwllam (nontraumatic) Z93.2 Ileostomy status Office Visit 01/21/2024 9:15a Ervin Ruiz MD R30.0 Dysuria I10 Essential (primary) hypertension K59.00 Constipation, unspec ified F41.1 Generalized anxiety disorder E78.5 Hyperlipidemia, unsp ecified Office Visit 11/11/2023 2:00p Ervin Ruiz MD N39.0 Urinary tract infection, site not specified Assessments Date Code Description Provider 04/27/2024 K55.Mireille Ischemic colitis Ines cheung MD 04/27/2024 K63.1 Perforation of intestine (no ntraumatic) Ines Ruiz MD 04/27/2024 Z93.2 Ileostomy status Ines cheung MD 01/21/2024 R30.0 Dysuria Ines Ruiz MD 01/21/2024 I10 Essential (primary) hyperten beth Ines Ruiz MD 01/21/2024 K59.00 Constipation, unspecified James Ruiz MD 01/21/2024 F41.1 Generalized anxiety disorder Ines Ruiz MD 01/21/2024 E78.5 Hyperlipidemia, unspecified Ines Ruiz MD 11/11/2023 N39.0 Urinary tract infection, sit e not specified Ines Ruiz MD Plan of Treatment Future Appointment(s):* 05/11/2024 9:30 am - Ines Ruiz MD at [facility] 04/27/2024 - Ines Ruiz MD* K55.9 Ischemic colitis * K63.1 Perforation of intestine (nontraumatic) * Z93.2 Ileostomy status* Follow up:* f/up in 2 weeks Functional Status Description No Information Available Mental Status Description No Information Available Referrals Description No Information Available
--- OUTSIDE RECORDS SUMMARY | 2024-05-08 03:44 | External Medical Summary | Continuity of Care Document ---
Author Name Unknown Organization [facility] Address [address] [place] [address] Phone [phone] Care Team Providers Care Rn Anesthetist Name Role Phone Terrance Evans Care Team Information Recei kelly [phone] Problems Active Problems Provider Date Urinary tract [...] every 8 hours. Unknown 04/25/2024 Nitrofurantoin Monohyd Nodxy384kn Capsules take one capsule orally two times a day for 5 days. 10caps Ines Ruiz MD 01/25/2024 Tpiooplrlg05vy Tablets 1 by mouth every day 30tabs I10 Ines Ruiz MD 01/21/2024 Ciprofloxacin HRY596xz Tablets 1 tablet by mouth twice a day for 10 days 20tabs R30.0 Ines Ruiz MD 01/21/2024 Ectnwt897xf Capsules take one capsule by mouth two times a day as needed for constipation 30caps Ines Ruiz MD 10/22/2023 Visdfpz58SU/Scoop Powder take one scoop as directed daily as needed 119gm K59.00 Ines Ruiz MD 10/22/2023 Citalopram Anteyovopoov50nq Tablets take one tab daily 30tabs F41.1 Ines Ruiz MD 06/25/2023 Ondansetron HCL4mg Tablets take 1 tablet (4 mg total) by mouth every 8 hours as needed for nausea or vomiting. 30tabs R11.0 Ines Ruiz MD 04/07/2023 Wheelchair-Lightweigh tDevice use for ambulation OT/PT evaluation for custom manual 1units Ines Ruiz MD 04/07/2023 Quetiapine Xsleqnhu886yw Tablets take 1 tablet by mouth at bedtime 30tabs G47.00 Ines Ruiz MD 03/26/2023 Ferrous Ednuwni654(65Fe) mg Tablets take 1 tablet by mouth on alternate days 15tabs Ines Ruiz MD 01/08/2023 Elkpuczida72hr Tablets take 1 tablet by mouth twice a day 60tabs R11.0 Ines Ruiz MD 01/05/2023 Metoprolol Succinate ER25mg Tablets ER 24HR take 2 tablet by mouth once daily 90tabs Ines Ruiz MD 04/30/2022 Atorvastatin Mzssfsb80ee Tablets take 1 tablet by mouth every night 90tabs Ines Ruiz MD 01/20/[address] take 1 tablet by mouth every morning 90tabs Ines uRiz MD 10/29/2021 Wheelchair CushionMisc roho cushion 16x16 as directed 1units Ines Ruiz MD 07/01/2020 Adult DiapersDevice small/medium pullups 100units N31.9 Rodriguez Torrez MD 11/22/2017 Rmkusyf84zd Tablets 1 by mouth every day Yohannes Joshua MD Ifvoabhv84gz Tablets take 1 tablet by mouth three times a day if needed 90tabs Ines Ruiz MD Amlodipine Wmwjpiui4tl Tablets take one tab daily 30tabs Ines Ruiz MD History Medications Fuvbd818oc Tablets 1 tablet by mouth twice a day for 10 days (onset of symptoms) 20tabs N39.0 Keith Gutierrez JR, MD 11/11/2023 - 01/21/2024 Immunizations CPT Code Status Date Vaccine Lot # [id number] Given 07/22/2023 Influenza Virus Vaccine, Quadrivalent (Cciiv4), Derived From Cell [id number] Given 04/10/2021 Moderna Sars-Co v-2 (Cov-19) vacc,100 mcg/ 0.5 mL 12Y+EMR Doc Only [id number] Given 03/13/2021 Moderna Sars-Co v-2 (Cov-19) vacc,100 mcg/ 0.5 mL 12Y+EMR Doc Only [id number] Given 10/27/2018 Influenza Virus Vaccine, Quadrivalent (Cciiv4), Derived From 1 Given 10/27/2018 Tdap (Tetanus, diphtheria & acel. pertussis) Adacel or Boostrix [id number] Refused 07/22/2023 Moderna Covid-1 9 Vaccine 50mcg Booster-EMR Doc Only [id number] Refused 01/05/2023 Influenza Virus Vaccine, Quadrivalent (Cciiv4), Derived From Cell [id number] Refused 12/28/2019 Influenza Virus Vaccine, Quadrivalent (Cciiv4), [...] H/L Range N ote CBC W/Diff 04/27/2024 [facility] [address] [place] [address] [phone] WBC 7.1 10^3/M3 3.1-9.2 RBC 3.38 10^6/M3 Low 4.00-5.80 HGB 10.4 GR/DL Low 12.5-17.5 HCT 32.3 % Low 37.5-52.5 MCV 95.5 CUMICR 82.6-95.8 MCH 30.8 PICOGR 27.9-32.9 MCHC 32.2 % Low 32.6-35.4 RDW 18.1 % High 11.4-14.6 PLT 488 10^3/M3 High 140-350 MPV 7.8 CUMICR 7.0-10.6 %Neut 67.4 % 40.0-75.0 %Lymph 21.1 % 17.0-45.0 %Mitchell 8.4 % 1.0-11.0 %Eos 2.0 % 0.0-6.0 %Baso 1.1 % 0.0-2.0 #Neut 4.8 10^3/M3 1.5-8.0 #Lymph 1.5 10^3/M3 0.8-3.2 #Mitchell 0.6 10^3/M3 0.0-0.8 #Eos 0.1 10^3/m3 0.0-0.4 #Baso 0.1 10^3/m3 0.0-0.2 Comp. Met 04/27/2024 [facility] [address] [place] [address] [phone] Glucose 90 mg/dL 70-110 BUN 12 mg/dL [...] GFR 183 ML/MIN/1.73SQM >60 Urine Culture 01/21/2024 [facility] [address] [place], [place] [id number] [phone] Urine Source URINE Urine Isolate#1 01/21/2024 [facility] [address] [place] [address] [phone] Col Count #1 >100,000 COL/CC Isolate #1 Enterobacter marilou <SEE NOTE> 1 Amox/K Clav >16/8 R Ampicillin >16 R Aztreonam <=4 S Cefazolin >16 R Cefepime <=2 S Ceftriaxone <=1 S Ciprofloxacin 1 R Gentamicin <=2 S Nitrofurantoin <=32 S Tetracycline >8 R Tobramycin <=2 S Trimeth/Sulfa >2/38 R Meropenem <=1 S Urine DIP (In Office) Manual 01/21/2024 [facility] (In Office Test) Ua Glucose Negative Ua Bilirubin Negative Ua Ketones Negative Ua Specific [place] 1.010 Ua Blood Trace Ua PH 7.0 Ua Protein Negative Ua Urobilinogen 0.2 Ua Nitrite Negative Ua Leuko Large 1 Enterobacter cloacae Procedures Date Code Description Status 04/27/2024 09202 Venipuncture Routine Complet ed 04/27/2024 1111F D/C [...] of intestine, unspecified K63.1 Perforation of intes willam (nontraumatic) Z93.2 Ileostomy status Office Visit 01/21/2024 [...] 9:30 am - Ines Ruiz MD at [facility] 04/27/2024 - Ines Ruiz MD* K55.9 Ischemic colitis * K63.1 Perforation of intestine (nontraumatic) * Z93.2 Ileostomy status* Follow up:* f/up in 2 weeks Functional Status Description No Information Available Mental Status Description No Information Available Referrals Description No Information Available
--- OUTSIDE RECORDS SUMMARY | 2024-05-08 03:44 | External Medical Summary | Summary of Care ---
Author Name Unknown Organization [facility] Address [address] [place] [address] Phone [phone] Care Team Providers Care Travel Guide Name Role Phone Ines Ruiz MD Primary Care Provider [phone] Reason for Visit * Reason Onset Date Comments Appointment 04/17/2024 recall Encounter Details Date Type Department Care Team (Late st Contact Info) Description 04/17/2024 Telephone Vascular Surg [facility] [address] [place] [address] Say Calle MD [address] [place] [address] Appointment (recall) Allergies No known active allergiesdocumented as of this encounter (statuses as of 05/03/2024) Medications Medication Sig Dispensed Refills Start Date End Date Status Aspirin 81 MG Tablet Take 81 mg by mouth daily. Active Baclofen 20 MG Tablet Take 20 mg by mouth 3 times a day as needed. 0 08/02/2017 Active Lisinopril 40 MG Tablet Take 40 mg by mouth daily. 0 08/10/2017 Active D3-50 42925 units Capsule Take 1 Cap by mouth [...] as of this encounter (statuses as of 05/03/2024) Active Problems Problem Noted Date Diagnosed Date Abdominal aortic aneurysm (AAA) without rupture 02/21/2019 Status post bilateral above knee amputation 10/2016 PAD (peripheral artery disease) 12/20/2015 Gangrene of foot 12/20/2015 Paraplegia 12/20/2015 Thoracic compression fracture 12/20/2015 documented as of this encounter (statuses as of 05/03/2024) Social History Tobacco Use Types Packs/Day Years [...] encounter Miscellaneous Notes * Telephone Encounter - Rita Washington OSA - 05/03/2024 1:21 PM EDT Scheduled and is aware * Telephone Encounter - Luz Girard OSA - 04/21/2024 9:37 AM EDT Sent letter rr * Telephone Encounter - Luz Girard [...] documented in this encounter Plan of Treatment Upcoming Encounters Date Type Department Care Team (Late st Contact Info) Description 06/06/2024 8:30 AM EDT Imaging Vascular Lab, [facility] 2nd Floor, [place] [address] [facility] [place] [address] 06/14/2024 12:30 PM EDT Office Visit Vascular Surgery, [facility] [address] [place] [address] Say Calle MD [address] [place] [address] Health Maintenance Due Date Last Done Comments [...] 2023 Influenza Vaccine (FLU shot) (#1) 2024 07/22/2023, 10/27/2018, 12/08/2015 HPV (Gardasil) Vaccine Aged Out No lo nger eligible based on patient's age to complete this topic MENINGOCOCCAL (MENACTRA/MENVEO) Aged Out No longer eligible b ased on patient's age to complete this topic Pneumococcal Vaccine: Pediatrics (0 to 5 Years) and At-Risk Patients (6 to 64 Years) Aged Out No longer eligible b ased on patient's age to complete this topic documented as of this encounter Medical Devices Implanted Type Area [employer] Device Identifier Shelf Expiration Date Model / Serial / Lot Graft Stent Viab [id number] - [id number] - [id number] Implanted:Qty : 1 on 01/02/2016 by [place] [facility] [place] Popliteal Artery [employer] 07/28/2018 [id number] / [id number] / Stent Complete Sc [id number] - [id number] Implanted:Qty : 1 on 01/02/2016 by Say Calle [place] [facility] [place] [employer] : VASCULAR 01/24/2017 [id number] / / [id number] documented as of this encounter Advance Directives [...] Power of Attor kelley? No Care Teams Travel Guide Relationship Specialty Start Date End Date Ines Ruiz MD [address] [place] [phone] PCP - General Family Medicine 11/11/23 documented as of this encounter
--- NOTE | 2024-05-08 04:06 | Emergency Department Note ---
Impression & Plan Altered mental status, FRANK (acute kidney injury), Hypomagnesemia, Acute UTI (urinary tract infection), Hypotension ED Provider Note ED Provider Note NAME: ANA ROOT AGE:58 SEX: Male : 1965 ARRIVES VIA: EMS INFORMANT: EMS ED PROVIDER(s): Roxie Pettit DO CHIEF COMPLAINT: Altered mental status HPI: This is a 58-year-old male brought in by EMS after he was found naked crawling around on the ground and [place]. Patient with a history of paraplegia and bilateral lower extremity amputation. Patient typically uses a wheelchair however was found crawling around on his lower extremity stumps. Patient cannot answer any questions coherently for bystanders or EMS and answers all questions with "Ana". Patient with recent abdominal surgery after transfer to [facility] for ischemic colitis. PAST MEDICAL HISTORY:See Below PAST SURGICAL HISTORY:See Below FAMILY HISTORY:See Below SOCIAL HISTORY:See Below HOME MEDICATIONS:See Below ALLERGIES:See Below VITALS:See Below PHYSICAL EXAMINATION: GENERAL: alert, unwell appearing, well nourished, moderate distress EYE EXAM: normal conjunctiva, PERRL and EOM's grossly intact OROPHARYNX: no exudate, no erythema, lips, buccal mucosa, and tongue normal and mucous membranes are dry NECK: supple, no nuchal rigidity, no adenopathy, non-tender LUNGS: Clear to auscultation. Normal chest wall mechanics, no w/r/r HEART: no murmurs, S1 normal and S2 normal ABDOMEN: abdomen soft, non-tender, normo-active bowel sounds, no masses, no rebound or guarding. Well-healed vertical midline incision consistent with exploratory laparotomy with exception of small area of irritation at inferior incision, no dehiscence, no drainage, no surrounding erythema, stoma noted with adhesive remnants suggestive of bag at this likely colostomy site however no bag noted per EMS BACK: Back is symmetrical on inspection and there is no deformity, no midline tenderness, no CVA tenderness. Superficial abrasions noted over buttocks, no other evidence of trauma SKIN: no rashes, petechiae, orbruising UPPER EXTREMITIES: upper extremities are grossly normal. FROM, nml pulses b/l. LOWER EXTREMITIES: No pitting edema. b/l LE amputations with superficial abrasions. NEURO EXAM: confused, answers "Ana" to every question, cranial nerves II-XII grossly intact, no facial droop,moving arms and legs spontaneously but would not follow commands Vital Signs: reviewed and remarkable Differential Diagnosis: Sepsis, CVA, ICH, electrolyte abnormality, medication noncompliance, substance abuse, mesenteric ischemia, perforation, GI bleed, respiratory failure, as well as others were considered MEDICAL DECISION MAKING: This is a 58-year-old male brought in by EMS due to concern for altered mental status. Patient noted to be hypotensive en route and was given 1 L of IV fluids by EMS and route. No hypoxia noted. Patient unable to follow commands. On arrival here patient noted to be tachycardic and hypotensive, he was hypothermic but not hypoxic. He would not follow any commands and answered all questions by stating his name. Labs drawn and sent, IV established, EKG and chest ray performed at bedside interpreted me and patient monitored on telemetry. Several attempts were made in order to obtain labs, and a second line was placed as a precaution. Patient started on additional IV fluids here. Due to concern for possible evolving sepsis, dose of IV Zosyn was added as patient's ex lap scar was well-approximated but appeared recent. Upon review of EMR patient with significant recent history in transfer to [place] for colostomy. Blood eventually obtained and [id number] BMP revealed creatinine of 4. Upon comparison to EMR this is new compared to prior. Cultures, lactic acid, and procalcitonin also obtained and sent. Patient's blood pressure improved and heart rate improved with additional volume resuscitation. However patient continued to be altered. He was sent for CT of the head, C-spine, chest, abdomen/pelvis. Patient blood pressure continued to improve and remained stable. At the end of the second liter we did decrease the IV fluids to a maintenance rate of 250/h. Noted to have significant hypomagnesemia and IV repletion was started. Shields catheter placed and UA sent for additional analysis. Case discussed with the on-call hospitalist additionally who came and evaluated the patient at bedside. While discussing the patient at bedside he was noted to become more hypotensive again. We discussed initiation of Levophed which was ordered. Patient's blood pressure improved. I did contact the ICU nurse practitioner who also came to bedside. We discussed the case. Despite FRANK, no hyperkalemia. ABG unable to be obtained, however VBG did reveal acidemia. UA suggestive of infection and patient with hx of bladder dysfunction due to his paraplegia. I have low suspicion for occult alcohol or substance abuse at this time. These were also added to the patient's evaluation. Patient blood pressure improved while on Levophed and he was making urine. No indication at this time for emergent dialysis. Etoh and UDS negative. CT's ultimately reassuring. No ICH. Post op changes noted from recent abdominal surgery. Consultation(s): 0540: Discussed with Dr. Bullock, MD hospitalist team, for additional evaluation and management. 0555: Discussed with Keo Tsang, ICU MOBILE ENGINEER. He will come evaluate the patient in the ER. ER Treatment Provided: See below Diagnostics Interpreted By Me: -ECG: Normal sinus at 92, normal axis, normal QRS, prolonged QTc, nonspecific ST/T wave changes -Cardiac Monitoring: An order was placed for continuous cardiac monitoring. The monitor shows a rate of 117 with sinus tachycardia rhythm. -Laboratory studies: As stated above and show below. -Imaging studies: X-ray Chest: A single view study of the chest was reviewed and was negative for cardiomegaly, focal infiltrate, effusion, pulmonary edema, or wide mediastinum. Triage Nursing Note Reviewed Prior/Outside Records Reviewed - DC summary from 04/25/24 reviewed Critical Care: Critical care of 62 min performed to assess and manage high likelihood of life- threatening ams, hypotension, and FRANK, involving labs and imaging performed with assessment to evaluate ams, hypotension diagnosis with frequent reassessment. This time includes bedside time, treatment discussions with patient/family/consultants, documentation time and excludes procedure time. Past Med/Surg History Problem List (Updated 05/08/24 @ 07:15 by Background Giorgio) Metabolic acidosis Encephalopathy Severe sepsis Sepsis due to urinary tract infection Septic shock Admitted to intensive care unit Hypotension (Acute) Acute UTI (urinary tract infection) (Acute) Hypomagnesemia (Acute) FRANK (acute kidney injury) (Acute) Altered mental status (Acute) Abdominal wound dehiscence Colon perforation Lactic acidosis FRANK (acute kidney injury) (Acute) Abdominal pain (Acute) Colitis (Acute) Sepsis (Acute) Paraplegia (Chronic) T12 spinal cord injury (Chronic) Neurogenic bladder (Chronic) History of back surgery (Chronic) Urinary tract infection (Acute) Medical History (Updated 05/08/24 @ 07:15 by Background Chipon) Paraplegia UTI (urinary tract infection) Surgical History S/P AKA (above knee amputation) bilateral Social History Smoking Status: Former smoker Tobacco Type: Cigarettes Cigarettes Per Day: 80; Second Hand Exposure: No; Do You Dip or Chew Tobacco: No; Hx Alcohol Use: No Hx Substance Use: No Preferred Language: German Communication Ability: Effective [place] Working Supervisor Required: No Beliefs That Will Affect Care: None Current Living Situation: Alone Feels Safe at Home: Yes Assistive Devices: CPAP and Wheelchair Allergies Allergies Allergy/AdvReac Type Severity Reaction Status Date / Time No Known Allergies Allergy Unverified 11/13/19 16:16 Home Meds Home Medications Medication Instructions Recorded Confirmed baclofen 20 mg tablet 20 mg PO TID PRN Muscle Spasm 01/09/19 03/17/24 citalopram 20 mg tablet 40 mg PO DAILY 04/26/23 03/17/24 ferrous sulfate 325 mg (65 mg 325 mg PO Q OTHER DAY 04/26/23 03/17/24 iron) tablet (FeroSul) hydroxyzine HCl 25 mg tablet 25 mg PO TID PRN Anxiety 04/26/23 03/17/24 metoprolol succinate 25 mg 25 mg PO DAILY 04/26/23 04/26/23 tablet,extended release 24 hr ondansetron HCl 4 mg tablet 4 mg PO Q8 PRN Nausea And Vomiting 04/26/23 03/17/24 pantoprazole 40 mg tablet,delayed 40 mg PO QAM 04/26/23 03/17/24 release quetiapine 100 mg tablet 100 mg PO HS 04/26/23 03/17/24 atorvastatin 40 mg tablet 40 mg PO DAILY 03/17/24 03/17/24 lisinopril 20 mg tablet 20 mg PO DAILY 03/17/24 03/17/24 Previous Rx's Medication Instructions Recorded amlodipine 5 mg tablet (Norvasc) 5 mg PO DAILY #30 tabs 04/26/23 Results & Data (ED) Vital Signs Vital Signs - 24 hr 05/08/24 03:44 05/08/24 03:53 05/08/24 03:59 Temperature 34.9 C L Temperature Source Rectal Pulse Rate 93 H 96 H 84 Pulse Rate [Apical] Pulse Rate from SpO2 Sensor 96 H Respiratory Rate 14 18 Blood Pressure 158/130 H Blood Pressure [Right Arm] Blood Pressure Mean 136 Blood Pressure Mean [Right Arm] Pulse Oximetry 95 99 Oxygen Delivery Method Room Air Room Air Sepsis Recent Fever Within 48 Hours No Sepsis New/Unexplained Change in Mental Status Yes Sepsis Action Taken by Nursing Adv Provider Notified 05/08/24 04:03 05/08/24 04:05 05/08/24 04:12 Temperature Temperature Source Pulse Rate 93 H 96 H Pulse Rate [Apical] Pulse Rate from SpO2 Sensor 88 97 H Respiratory Rate 15 12 Blood Pressure Blood Pressure [Right Arm] Blood Pressure Mean Blood Pressure Mean [Right Arm] Pulse Oximetry 97 99 98 Oxygen Delivery Method Room Air Room Air Room Air Sepsis Recent Fever Within 48 Hours Sepsis New/Unexplained Change in Mental Status Sepsis Action Taken by Nursing 05/08/24 04:30 05/08/24 04:40 05/08/24 05:11 Temperature 32.8 C L Temperature Source Shields Cath ( Temp Sensing) Pulse Rate 93 H Pulse Rate [Apical] 89 111 H Pulse Rate from SpO2 Sensor Respiratory Rate 18 18 16 Blood Pressure 76/44 L Blood Pressure [Right Arm] 76/44 L 107/61 Blood Pressure Mean 45 Blood Pressure Mean [Right Arm] 54 76 Pulse Oximetry 100 83 L 100 Oxygen Delivery Method Room Air Room Air Room Air Sepsis Recent Fever Within 48 Hours Sepsis New/Unexplained Change in Mental Status Sepsis Action Taken by Nursing 05/08/24 05:11 05/08/24 05:11 05/08/24 05:24 Temperature 32.8 C L 34.0 C L Temperature Source Shields Cath ( Temp Sensing) Pulse Rate 87 Pulse Rate [Apical] Pulse Rate from SpO2 Sensor 86 Respiratory Rate 14 Blood Pressure 107/61 Blood Pressure [Right Arm] Blood Pressure Mean 71 Blood Pressure Mean [Right Arm] Pulse Oximetry 100 Oxygen Delivery Method Room Air Sepsis Recent Fever Within 48 Hours Sepsis New/Unexplained Change in Mental Status Sepsis Action Taken by Nursing 05/08/24 05:30 05/08/24 05:32 05/08/24 05:39 Temperature 34.5 C L 34.3 C L 34.4 C L Temperature Source Shields Cath ( Temp Sensing) Pulse Rate 93 H 76 Pulse Rate [Apical] 85 Pulse Rate from SpO2 Sensor 82 Respiratory Rate 14 20 15 Blood Pressure 109/73 Blood Pressure [Right Arm] 109/73 Blood Pressure Mean 88 Blood Pressure Mean [Right Arm] 85 Pulse Oximetry 100 99 100 Oxygen Delivery Method Room Air Room Air Room Air Sepsis Recent Fever Within 48 Hours Sepsis New/Unexplained Change in Mental Status Sepsis Action Taken by Nursing 05/08/24 05:48 05/08/24 05:49 05/08/24 05:49 Temperature 34.6 C L Temperature Source Shields Cath ( Temp Sensing) Pulse Rate Pulse Rate [Apical] 90 Pulse Rate from SpO2 Sensor Respiratory Rate 14 Blood Pressure 75/50 L 75/50 L Blood Pressure [Right Arm] 76/47 L Blood Pressure Mean 60 60 Blood Pressure Mean [Right Arm] 56 Pulse Oximetry 100 Oxygen Delivery Method Room Air Sepsis Recent Fever Within 48 Hours Sepsis New/Unexplained Change in Mental Status Sepsis Action Taken by Nursing 05/08/24 05:51 05/08/24 05:56 05/08/24 06:08 Temperature 34.6 C L Temperature Source Pulse Rate 88 Pulse Rate [Apical] Pulse Rate from SpO2 Sensor 89 Respiratory Rate 16 Blood Pressure 78/66 L 99/70 L Blood Pressure [Right Arm] Blood Pressure Mean 71 75 Blood Pressure Mean [Right Arm] Pulse Oximetry 99 Oxygen Delivery Method Room Air Sepsis Recent Fever Within 48 Hours Sepsis New/Unexplained Change in Mental Status Sepsis Action Taken by Nursing 05/08/24 06:15 Temperature 34.6 C L Temperature Source Pulse Rate 87 Pulse Rate [Apical] Pulse Rate from SpO2 Sensor 92 H Respiratory Rate 16 Blood Pressure Blood Pressure [Right Arm] Blood Pressure Mean Blood Pressure Mean [Right Arm] Pulse Oximetry 100 Oxygen Delivery Method Room Air Sepsis Recent Fever Within 48 Hours Sepsis New/Unexplained Change in Mental Status Sepsis Action Taken by Nursing Laboratory Data 05/08/24 04:44 05/08/24 14:33 Lab Results 05/08/24 05/08/24 05/08/24 Range/Units 04:28 04:34 04:44 WBC 10.93 H (4.8-10.8) K/ul RBC 3.56 L (4.70-6.10) M/uL Hgb 10.0 L (14.0-18.0) g/dl POC Hgb 11.2 L (14.0-18.0) g/dl Hct 32.9 L (42.0-52.0) % POC Hct 33 L (42-52) % MCV 92.4 (80.0-100.0) fL MCH 28.1 (25.0-34.0) pg MCHC 30.4 L (32.0-36.0) g/dL RDW Std Deviation 48.9 H (36.4-46.3) fL RDW Coeff of Yves 14.4 (11.5-14.5) % Plt Count 331 (130-400) K/uL MPV 9.9 (9.4-12.4) fL Immature Gran % (Auto) 0.4 % Neut % (Auto) 84.1 % Lymph % (Auto) 7.1 % [place] % (Auto) 7.6 % Eos % (Auto) 0.5 % Baso % (Auto) 0.3 % Neut # (Auto) 9.20 H (1.40-6.50) K/uL Lymph # (Auto) 0.78 L (1.20-3.40) K/uL [place] # (Auto) 0.83 H (0.11-0.59) K/uL Eos # (Auto) 0.05 (0.00-0.50) K/uL Baso # (Auto) 0.03 (0.00-0.20) K/uL Immature Gran # (Auto) 0.04 (0.01-0.20) K/uL VBG pH 7.13 L (7.36-7.41) VBG pCO2 43 (38-50) mmHg VBG pO2 26 mmHg VBG HCO3 14 mmol/L VBG O2 Saturation < 60.0 % VBG Base Excess -14.4 mEq/L POC Sodium 136 (135-144) mmol/L Sodium 139 (136-145) mmol/L POC Potassium 4.2 (3.3-5.0) mmol/L Potassium 3.5 (3.5-5.1) mmol/L POC Chloride 107 (101-112) mmol/L Chloride 105 (98-107) mmol/L Carbon Dioxide 18 L (21-32) mmol/L POC Total CO2 16 L (24-31) mmol/L Anion Gap 16 H (3-11) POC Anion Gap 19.0 (16-25) mmol/L POC BUN 38 H (7-18) mg/dl BUN 31 H (6-23) mg/dl Creatinine 3.92 H (0.6-1.4) mg/dl POC Creatinine 4.0 H (0.6-1.3) mg/dl Est Cr Clr Drug Dosing Not Reportable Est GFR ( Amer) 18.6 ml/min Est GFR (Non-Af Amer) 16.1 ml/min BUN/Creatinine Ratio 7.9 L (10-20) Glucose 187 H (70-99(Fasting)) mg/dl POC Glucose (other) 173 H (70-99) mg/dl Lactate 6.0 H* (0.4-2.0) mmol/L Calcium 9.1 (8.6-10.3) mg/dl POC Ioniz Calcium Regi 1.08 L (1.12-1.32) mmol/l Magnesium 1.2 L (1.7-2.4) mg/dl Total Bilirubin 0.5 (0.2-1.0) mg/dl Direct Bilirubin 0.1 (0-0.2) mg/dl AST 22 (13-39) U/L ALT 48 (7-52) U/L Alkaline Phosphatase 112 H (34-104) U/L Troponin I High Sens 6.7 (0-20) pg/ml Total Protein 7.1 (6.0-8.3) gm/dl Albumin 4.0 (3.4-5.0) gm/dl Procalcitonin 0.10 (0-0.5) ng/ml Urine Color Urine Appearance (Clear) Urine pH (4.5-7.5) Ur Specific [place] (1.000-1.030) Urine Protein (Negative) Urine Glucose (UA) (Negative) Urine Ketones (Negative) Urine Blood (Negative) Urine Nitrite (Negative) Urine Bilirubin (Negative) Urine Urobilinogen (Negative) Ur Leukocyte Esterase (Negative) Urine WBC (Auto) (0-5) /hpf Urine RBC (Auto) (0-2) /hpf U Hyaline Cast (Auto) (0-2) /lpf U Epithel Cells (Auto) (0-2) /hpf Urine Bacteria (Auto) (None Seen) Urine Yeast (None Prsent) Nasal Screen MRSA (PCR) (Negative) Urine Opiates Screen Ur Methadone, Qual Urine Fentanyl Screen Urine Barbiturates Ur Phencyclidine (PCP) U Amphetamin/Meth Scrn MDMA (Ecstasy) Screen U Benzodiazepines Scrn Ur Cocaine Metabolite U Marijuana (THC) Screen Blood Type A Positive Antibody Screen NEGATIVE 05/08/24 05/08/24 Range/Units 05:17 06:00 WBC (4.8-10.8) K/ul RBC (4.70-6.10) M/uL Hgb (14.0-18.0) g/dl POC Hgb (14.0-18.0) g/dl Hct (42.0-52.0) % POC Hct (42-52) % MCV (80.0-100.0) fL MCH (25.0-34.0) pg MCHC (32.0-36.0) g/dL RDW Std Deviation (36.4-46.3) fL RDW Coeff of Yves (11.5-14.5) % Plt Count (130-400) K/uL MPV (9.4-12.4) fL Immature Gran % (Auto) % Neut % (Auto) % Lymph % (Auto) % [place] % (Auto) % Eos % (Auto) % Baso % (Auto) % Neut # (Auto) (1.40-6.50) K/uL Lymph # (Auto) (1.20-3.40) K/uL [place] # (Auto) (0.11-0.59) K/uL Eos # (Auto) (0.00-0.50) K/uL Baso # (Auto) (0.00-0.20) K/uL Immature Gran # (Auto) (0.01-0.20) K/uL VBG pH (7.36-7.41) VBG pCO2 (38-50) mmHg VBG pO2 mmHg VBG HCO3 mmol/L VBG O2 Saturation % VBG Base Excess mEq/L POC Sodium (135-144) mmol/L Sodium (136-145) mmol/L POC Potassium (3.3-5.0) mmol/L Potassium (3.5-5.1) mmol/L POC Chloride (101-112) mmol/L Chloride (98-107) mmol/L Carbon Dioxide (21-32) mmol/L POC Total CO2 (24-31) mmol/L Anion Gap (3-11) POC Anion Gap (16-25) mmol/L POC BUN (7-18) mg/dl BUN (6-23) mg/dl Creatinine (0.6-1.4) mg/dl POC Creatinine (0.6-1.3) mg/dl Est Cr Clr Drug Dosing Est GFR ( Amer) ml/min Est GFR (Non-Af Amer) ml/min BUN/Creatinine Ratio (10-20) Glucose (70-99(Fasting)) mg/dl POC Glucose (other) (70-99) mg/dl Lactate (0.4-2.0) mmol/L Calcium (8.6-10.3) mg/dl POC Ioniz Calcium Regi (1.12-1.32) mmol/l Magnesium (1.7-2.4) mg/dl Total Bilirubin (0.2-1.0) mg/dl Direct Bilirubin (0-0.2) mg/dl AST (13-39) U/L ALT (7-52) U/L Alkaline Phosphatase (34-104) U/L Troponin I High Sens (0-20) pg/ml Total Protein (6.0-8.3) gm/dl Albumin (3.4-5.0) gm/dl Procalcitonin (0-0.5) ng/ml Urine Color Dark Yellow Urine Appearance Turbid A (Clear) Urine pH 5.0 (4.5-7.5) Ur Specific [place] 1.023 (1.000-1.030) Urine Protein 3+ H (Negative) Urine Glucose (UA) Negative (Negative) Urine Ketones Trace H (Negative) Urine Blood 2+ H (Negative) Urine Nitrite Negative (Negative) Urine Bilirubin 1+ H (Negative) Urine Urobilinogen Negative (Negative) Ur Leukocyte Esterase 3+ H (Negative) Urine WBC (Auto) >50 H (0-5) /hpf Urine RBC (Auto) 11-20 H (0-2) /hpf U Hyaline Cast (Auto) >20 H (0-2) /lpf U Epithel Cells (Auto) >20 H (0-2) /hpf Urine Bacteria (Auto) 3+ H (None Seen) Urine Yeast Present A (None Prsent) Nasal Screen MRSA (PCR) Negative (Negative) Urine Opiates Screen Cancelled Ur Methadone, Qual Cancelled Urine Fentanyl Screen Cancelled Urine Barbiturates Cancelled Ur Phencyclidine (PCP) Cancelled U Amphetamin/Meth Scrn Cancelled MDMA (Ecstasy) Screen Cancelled U Benzodiazepines Scrn Cancelled Ur Cocaine Metabolite Cancelled U Marijuana (THC) Screen Cancelled Blood Type Antibody Screen Administered Medications Acetaminophen (Acetaminophen 1000 Mg/100 Ml Iv) 1,000 mg IV Q8H PRN PRN Reason: Pain or Fever Stop: 05/11/24 07:21 Last Admin: 05/08/24 21:08 Dose: 1,000 mg Documented By: Admin: 05/08/24 10:37 Dose: 1,000 mg Documented By: NAOMY Heparin Sodium (Porcine) (Heparin Sod 5,000 Unit/0.5 Ml Vial) 5,000 units SQ Q12 MELIDA Stop: 06/07/24 08:59 Last Admin: 05/08/24 21:08 Dose: 5,000 units Documented By: Admin: 05/08/24 09:22 Dose: 5,000 units Documented By: NAOMY Lactated Ringer's (Lr) 1,000 mls @ 75 mls/hr IV .[id number] MELIDA Stop: 06/07/24 05:29 Last Admin: 05/08/24 22:39 Dose: Not Given Documented By: Admin: 05/08/24 20:55 Dose: Not Given Documented By: Admin: 05/08/24 15:45 Dose: 75 mls/hr Documented By: Infusion: 05/08/24 15:01 Dose: Infused Documented By: Infusion: 05/08/24 07:53 Dose: 75 mls/hr Documented By: Admin: 05/08/24 07:25 Dose: 999 mls/hr Documented By: Infusion: 05/08/24 07:24 Dose: Infused Documented By: Infusion: 05/08/24 06:42 Dose: 999 mls/hr Documented By: Admin: 05/08/24 05:29 Dose: 250 mls/hr Documented By: PEGGY Norepinephrine Bitartrate (Levophed/D5w) 4 mg in 250 mls @ 20.149 mls/hr IV .[id number] MELIDA; Protocol Stop: 06/07/24 05:59 Last Titration: 05/08/24 23:04 Dose: 0.09 mcg/kg/min, 20.1 mls/hr Documented By: Titration: 05/08/24 22:30 Dose: 0.07 mcg/kg/min, 15.7 mls/hr Documented By: Titration: 05/08/24 16:12 Dose: 0.05 mcg/kg/min, 11.2 mls/hr Documented By: Titration: 05/08/24 15:00 Dose: 0.03 mcg/kg/min, 6.7 mls/hr Documented By: Titration: 05/08/24 14:36 Dose: 0.05 mcg/kg/min, 11.2 mls/hr Documented By: Titration: 05/08/24 07:10 Dose: 0 mcg/kg/min, 0 mls/hr Documented By: Admin: 05/08/24 05:58 Dose: 0.15 mcg/kg/min, 33.6 mls/hr Documented By: PAU Co-signed By: PEGGY Piperacillin Sod/Tazobactam (Sod 4.5 gm/ Dextrose) 100 mls @ 25 mls/hr IV Q12H MELIDA; Protocol Stop: 05/10/24 12:59 Last Infusion: 05/08/24 16:30 Dose: Infused Documented By: Admin: 05/08/24 12:24 Dose: 25 mls/hr Documented By: NAOMY Thiamine HCl 500 mg/ Sodium (Chloride) 55 mls @ 210 mls/hr IV Q12H MELIDA Stop: 05/10/24 23:46 Last Admin: 05/08/24 23:21 Dose: 210 mls/hr Documented By: Infusion: 05/08/24 12:53 Dose: Infused Documented By: Admin: 05/08/24 12:23 Dose: 210 mls/hr Documented By: NAOMY Folic Acid 1 mg/ Syringe 10 mls @ 5 mls/min IV QAM MELIDA Stop: 06/07/24 11:29 Last Admin: 05/08/24 12:23 Dose: 5 mls/min Documented By: NAOMY Pantoprazole Sodium 40 mg/ (Syringe) 10 mls @ 5 mls/min IV BID MELIDA Stop: 06/07/24 21:44 Last Admin: 05/08/24 22:11 Dose: 5 mls/min Documented By: CURT Insulin Aspart (Insulin Aspart Per Unit Charge) 0 units SC Q6 [facility] Stop: 06/07/24 11:59 Last Admin: 05/08/24 23:24 Dose: Not Given Documented By: Admin: 05/08/24 17:59 Dose: Not Given Documented By: NAOMY Co-signed By: ABI Admin: 05/08/24 12:24 Dose: Not Given Documented By: NAOMY Co-signed By: ES Miscellaneous (Icu Protocol For Hyperglycemia) 1 each N/A ACHS [facility] Stop: 05/10/24 07:29 Last Admin: 05/08/24 20:55 Dose: Not Given Documented By: Admin: 05/08/24 16:12 Dose: Not Given Documented By: Admin: 05/08/24 12:24 Dose: Not Given Documented By: Admin: 05/08/24 09:24 Dose: Not Given Documented By: NAOMY Morphine Sulfate (Morphine Sulfate 2 Mg/Ml [place]) 2 mg IV Q2H PRN PRN Reason: Severe Pain (Scale 7, 8, 9,10) Stop: 05/22/24 11:11 Last Admin: 05/08/24 15:26 Dose: 2 mg Documented By: NAOMY Discontinued Medications Bacitracin/Polymyxin B Sulfate (Bacitracin/Polymyxin B Sulfate 90 Appln/28.4 Gm Tube) 1 appln EXT NOW ONE Stop: 05/08/24 05:28 Last Admin: 05/08/24 07:48 Dose: 1 appln Documented By: NAOMY Calcium Gluconate (Calcium Gluconate 1000 Mg/60 Ml Nss) Confirm Administered Dose 2,000 mg IV .STK-MED ONE Stop: 05/08/24 10:56 Last Admin: 05/08/24 11:04 Dose: Not Given Documented By: NAOMY Sodium Chloride (Nss) 1,000 mls @ 999 mls/hr IV .Q1H1M MELIDA Stop: 05/08/24 05:45 Last Infusion: 05/08/24 05:28 Dose: Infused Documented By: JUAN MIGUEL Admin: 05/08/24 05:08 Dose: 999 mls/hr Documented By: JUAN MIGUEL Infusion: 05/08/24 05:08 Dose: Infused Documented By: JUAN MIGUEL Admin: 05/08/24 04:13 Dose: 999 mls/hr Documented By: PEGGY Piperacillin Sod/Tazobactam Sod (Zosyn) 4.5 gm in 100 mls @ 200 mls/hr IV NOW ONE Stop: 05/08/24 04:17 Last Infusion: 05/08/24 05:28 Dose: Infused Documented By: JUAN MIGUEL Admin: 05/08/24 05:07 Dose: 200 mls/hr Documented By: JUAN MIGUEL Magnesium Sulfate/Dextrose (Magnesium Sulfate / D5w) 1 gm in 100 mls @ 100 mls/hr IV Q1H [facility] Stop: 05/08/24 07:32 Last Infusion: 05/08/24 10:24 Dose: Infused Documented By: Admin: 05/08/24 07:24 Dose: 100 mls/hr Documented By: Infusion: 05/08/24 06:45 Dose: Infused Documented By: Admin: 05/08/24 05:45 Dose: 100 mls/hr Documented By: PEGGY Pantoprazole Sodium 40 mg/ (Syringe) 10 mls @ 5 mls/min IV DAILY@1100 [facility] Stop: 06/07/24 10:59 Last Admin: 05/08/24 11:05 Dose: 5 mls/min Documented By: NAOMY Magnesium Sulfate/Dextrose (Magnesium Sulfate / D5w) 1 gm in 100 mls @ 50 mls/hr IV Q2H [facility] Stop: 05/08/24 10:29 Last Infusion: 05/08/24 10:42 Dose: Infused Documented By: Admin: 05/08/24 08:42 Dose: 50 mls/hr Documented By: NAOMY Potassium Chloride (K [place] / Wtr) 20 meq in 100 mls @ 50 mls/hr IV 0800 ONE Stop: 05/08/24 09:59 Last Infusion: 05/08/24 10:36 Dose: Infused Documented By: Admin: 05/08/24 08:36 Dose: 50 mls/hr Documented By: NAOMY Calcium Gluconate 1,000 mg/ (Sodium Chloride) 60 mls @ 240 mls/hr IV Q15M [facility] Stop: 05/08/24 10:59 Last Infusion: 05/08/24 11:34 Dose: Infused Documented By: Admin: 05/08/24 11:19 Dose: 240 mls/hr Documented By: Infusion: 05/08/24 11:19 Dose: Infused Documented By: Admin: 05/08/24 11:05 Dose: 240 mls/hr Documented By: NAOMY Lactated Ringer's (Lr) 500 mls @ 999 mls/hr IV .Q31M ONE Stop: 05/08/24 15:35 Last Infusion: 05/08/24 15:59 Dose: Infused Documented By: Admin: 05/08/24 15:28 Dose: 999 mls/hr Documented By: NAOMY Potassium Chloride (K Randall / Wtr) 20 meq in 100 mls @ 50 mls/hr IV ONE ONE Stop: 05/08/24 18:44 Last Infusion: 05/08/24 18:49 Dose: Infused Documented By: Admin: 05/08/24 16:45 Dose: 50 mls/hr Documented By: NAOMY Lactated Ringer's (Lr) 250 mls @ 999 mls/hr IV .Q16M ONE Stop: 05/08/24 16:45 Last Infusion: 05/08/24 17:00 Dose: Infused Documented By: Admin: 05/08/24 16:44 Dose: 999 mls/hr Documented By: NAOMY Miscellaneous (Stat Iv Infusion Titration Per Protocol) 1 each N/A NOW STA Stop: 05/08/24 05:53 Last Admin: 05/08/24 05:58 Dose: Not Given Documented By: PAU Morphine Sulfate (Morphine Sulfate 2 Mg/Ml Carp) Confirm Administered Dose 2 mg .ROUTE .STK-MED ONE Stop: 05/08/24 11:00 Last Admin: 05/08/24 11:03 Dose: 2 mg Documented By: NAOMY Norepinephrine Bitartrate (Norepinephrine/D5w 4 Mg/250 Ml) Confirm Administered Dose 4 mg IV .STK-MED ONE Stop: 05/08/24 05:52 Last Admin: 05/08/24 06:02 Dose: Not Given Documented By: PAU Ondansetron HCl (Ondansetron Inj 2 Mg/Ml 2 Ml Vial) 4 mg IV NOW STA Stop: 05/08/24 04:10 Last Admin: 05/08/24 04:13 Dose: 4 mg Documented By: PEGGY Sodium Bicarbonate (Sodium Bicarb 8.4% Inj 50 Meq/50 Ml Syr) Confirm Administered Dose 100 meq IV .STK-MED ONE Stop: 05/08/24 05:52 Last Admin: 05/08/24 06:02 Dose: Not Given Documented By: PAU Sodium Bicarbonate (Sodium Bicarb 8.4% Inj 50 Meq/50 Ml Syr) 100 meq IV NOW STA Stop: 05/08/24 06:02 Last Admin: 05/08/24 05:55 Dose: 100 meq Documented By: PAU Imaging Data Radiologist's Impression: Abdomen/Pelvis CT 05/08/24 03:45 Exam(s): CT ABDOMEN + PELVIS Without Contrast EXAM: CT Abdomen and Pelvis Without Intravenous Contrast CLINICAL HISTORY: Reason for exam: AMS, recent bowel perforation. TECHNIQUE: Axial computed tomography images of the abdomen and pelvis without intravenous contrast. CTDI is 36.43 mGy and DLP is 3290.62 mGy-cm. Automated exposure control was utilized for the study. A dose lowering technique was utilized adhering to the principles of ALARA. COMPARISON: No relevant prior studies available. FINDINGS: Limitations: The study is limited due to lack of IV and oral contrast. Lung bases: Unremarkable. No mass. No consolidation. ABDOMEN: Liver: There is hepatomegaly liver 20 cm in maximal craniocaudal dimension. Gallbladder and bile ducts: Unremarkable. No calcified stones. No ductal dilation. Pancreas: There are stippled calcifications demonstrated within the pancreas more so head of the pancreas presumably related to prior bout of pancreatitis. No ductal dilation. Spleen: Unremarkable. No splenomegaly. Adrenals: Unremarkable. No mass. Kidneys and ureters: Unremarkable. No obstructing stones. No hydronephrosis. Stomach and bowel: Extensive postsurgical changes are demonstrated with apparent ileostomy site demonstrated right side of the abdomen. Apparent cysts near total colectomy with apparent anastomosis of the rectum with the small bowel. No obstruction. PELVIS: Appendix: See above. Bladder: There is diffuse thickening to the urinary bladder wall. No stones. Reproductive: Unremarkable as visualized. ABDOMEN and PELVIS: Intraperitoneal space: Minor amount of ascites is demonstrated. No free air. Bones/joints: Postsurgical and post degenerative change to the osseous structures. Study is limited due to streak artifact from the patient's lumbar spine hardware. No acute fracture. No dislocation. Soft tissues: Unremarkable. Vasculature: There is infrarenal abdominal aortic aneurysm approximately 3.6 cm in maximal transverse dimension. Extensive calcific atherosclerotic vascular disease present. Can stenosis of bilateral common iliac arteries. Lymph nodes: Unremarkable. No enlarged lymph nodes. IMPRESSION: Limited as described. Minor amount of ascites/fluid within the abdomen a component of peritonitis cannot be excluded. Configuration of the urinary bladder raises suspicion of cystitis. Electronically signed by: Enrique Morse MD 05/08/24 06:[address] 05/08/24 03:45 Exam(s): CT C SPINE EXAM: CT Cervical Spine Without Intravenous Contrast CLINICAL HISTORY: Reason for exam: fall, AMS. TECHNIQUE: Axial computed tomography images of the cervical spine without intravenous contrast. CTDI is 26.95 mGy and DLP is 455.09 mGy-cm. Automated exposure control was utilized for the study. A dose lowering technique was utilized adhering to the principles of ALARA. COMPARISON: No relevant prior studies available. FINDINGS: Vertebrae: There is moderate spondylotic spurring demonstrated at multiple levels. No acute fracture. Discs/spinal canal/neural foramina: No acute findings. No spinal canal stenosis. Soft tissues: Unremarkable. IMPRESSION: No acute findings in the cervical spine. Electronically signed by: Enrique Morse MD 05/08/24 05:[address] 05/08/24 03:45 Exam(s): CT CHEST Without Contrast EXAM: CT Chest Without Intravenous Contrast CLINICAL HISTORY: Reason for exam: PE, recent bowel surgery, AMS. TECHNIQUE: Axial computed tomography images of the chest without intravenous contrast. CTDI is 36.43 mGy and DLP is 3290.62 mGy-cm. Automated exposure control was utilized for the study. A dose lowering technique was utilized adhering to the principles of ALARA. COMPARISON: No relevant prior studies available. FINDINGS: Lungs: There is some streaky densities demonstrated within the lingula region presumably atelectasis. No mass. Pleural space: Unremarkable. No pneumothorax. No significant effusion. Heart: Unremarkable. No cardiomegaly. No significant pericardial effusion. No significant coronary artery calcifications. Bones/joints: Degenerative and postsurgical change to the osseous structures. No acute fracture. No dislocation. Soft tissues: Unremarkable. Vasculature: Calcific atherosclerotic vascular disease. No thoracic aortic aneurysm. Lymph nodes: Unremarkable. No enlarged lymph nodes. IMPRESSION: Nondiagnostic for assessment of pulmonary emboli as contrast was not administered, chronic change. Electronically signed by: Enrique Morse MD 05/08/24 06:[address] 05/08/24 03:45 Exam(s): CT HEAD Without Contrast EXAM: CT Head Without Intravenous Contrast CLINICAL HISTORY: Reason for exam: fall, AMS. TECHNIQUE: Axial computed tomography images of the head/brain without intravenous contrast. CTDI is 36.43 mGy and DLP is 624.41 mGy-cm. Automated exposure control was utilized for the study. A dose lowering technique was utilized adhering to the principles of ALARA. COMPARISON: No relevant prior studies available. FINDINGS: Limitations: The study is slightly limited due to motion artifact. Brain: There are a few punctate calcifications demonstrated within the right insula presumably related to remote insult. No hemorrhage. No significant white matter disease. Ventricles: Unremarkable. No ventriculomegaly. Bones/joints: Unremarkable. No acute fracture. Soft tissues: Unremarkable. Sinuses: Unremarkable as visualized. No acute sinusitis. Mastoid air cells: Unremarkable as visualized. No mastoid effusion. IMPRESSION: No acute bleed mass or infarct as visualized, slightly limited. Electronically signed by: Enrique Morse MD 05/08/24 05:20 AM Discharge Plan Visit Data Chief Complaint: Altered Mental Status Stated Complaint: ALTERED MENTAL STATUS ED Provider: Roxie Pettit Discharge Problem: Altered mental status, FRANK (acute kidney injury), Hypomagnesemia, Acute UTI (urinary tract infection), Hypotension Patient Disposition: Admitted As Inpatient Discharge Instructions Interventions: ED Discharge Assessment Last Done: 05/08/24 07:15
[2024-05-08] MEDS: ONDANSETRON INJ 2 MG/ML 2 ML VIAL IV STA (04:13)
[2024-05-08] MEDS: SODIUM CHLORIDE 0.9% 1,000 ML IV SCH (04:13)
[2024-05-08 04:42] LABS: iSTAT Hemoglobin 11.2 g/dl (14.0-18.0); iSTAT Ionized Calcium 1.08 mmol/l (1.12-1.32); iSTAT Potassium 4.2 mmol/L (3.3-5.0)
[2024-05-08] MEDS: PIPERACILLIN/TAZOBACTAM 4.5 GM/100 ML BAG IV ONE (05:07)
[2024-05-08 05:12] LABS: Base Excess VBG -14.4 mEq/L; HCO3 VBG 14 mmol/L; Oxygen Saturation VBG < 60.0 %; PCO2 VBG 43 mmHg (38-50); PO2 VBG 26 mmHg; pH VBG 7.13 (7.36-7.41)
[2024-05-08 05:21] LABS: Basophils # (auto) 0.03 K/uL (0.00-0.20); Basophils % (auto) 0.3 %; Eosinophils # (auto) 0.05 K/uL (0.00-0.50); Eosinophils % (auto) 0.5 %; Hematocrit (blood only) 32.9 % (42.0-52.0); Immature Granulocytes # (auto) 0.04 K/uL (0.01-0.20); Immature Granulocytes % (auto) 0.4 %; Lymphocytes # (auto) 0.78 K/uL (1.20-3.40); Lymphocytes % (auto) 7.1 %; Mean Corpuscular Hemoglobin 28.1 pg (25.0-34.0); Mean Corpuscular Hgb Conc 30.4 g/dL (32.0-36.0); Mean Corpuscular Volume 92.4 fL (80.0-100.0); Mean Platelet Volume 9.9 fL (9.4-12.4); Monocytes # (auto) 0.83 K/uL (0.11-0.59); Monocytes % (auto) 7.6 %; Neutrophils % (auto) 84.1 %; Platelet Count 331 K/uL (130-400); RDW Coefficient of Variation 14.4 % (11.5-14.5); RDW Standard Deviation 48.9 fL (36.4-46.3); Red Blood Count 3.56 M/uL (4.70-6.10); White Blood Count 10.93 K/ul (4.8-10.8)
--- NOTE | 2024-05-08 05:21 | CT Scan Report ---
Exam(s): CT HEAD Without Contrast EXAM: CT Head Without Intravenous Contrast CLINICAL HISTORY: Reason for exam: fall, AMS. TECHNIQUE: Axial computed tomography images of the head/brain without intravenous contrast. CTDI is 36.43 mGy and DLP is 624.41 mGy-cm. Automated exposure control was utilized for the study. A dose lowering technique was utilized adhering to the principles of ALARA. COMPARISON: No relevant prior studies available. FINDINGS: Limitations: The study is slightly limited due to motion artifact. Brain: There are a few punctate calcifications demonstrated within the right insula presumably related to remote insult. No hemorrhage. No significant white matter disease. Ventricles: Unremarkable. No ventriculomegaly. Bones/joints: Unremarkable. No acute fracture. Soft tissues: Unremarkable. Sinuses: Unremarkable as visualized. No acute sinusitis. Mastoid air cells: Unremarkable as visualized. No mastoid effusion. IMPRESSION: No acute bleed mass or infarct as visualized, slightly limited. Electronically signed by: Enrique Morse MD 05/08/24 05:20 AM
--- NOTE | 2024-05-08 05:23 | CT Scan Report ---
Exam(s): CT C SPINE EXAM: CT Cervical Spine Without Intravenous Contrast CLINICAL HISTORY: Reason for exam: fall, AMS. TECHNIQUE: Axial computed tomography images of the cervical spine without intravenous contrast. CTDI is 26.95 mGy and DLP is 455.09 mGy-cm. Automated exposure control was utilized for the study. A dose lowering technique was utilized adhering to the principles of ALARA. COMPARISON: No relevant prior studies available. FINDINGS: Vertebrae: There is moderate spondylotic spurring demonstrated at multiple levels. No acute fracture. Discs/spinal canal/neural foramina: No acute findings. No spinal canal stenosis. Soft tissues: Unremarkable. IMPRESSION: No acute findings in the cervical spine. Electronically signed by: Enrique Morse MD 05/08/24 05:22 AM
[2024-05-08 05:29] LABS: Alanine Aminotransferase 48 U/L (7-52); Alkaline Phosphatase 112 U/L (34-104); Anion Gap 16 (3-11); BUN Creatinine Ratio 7.9 (10-20); Bilirubin,Total 0.5 mg/dl (0.2-1.0); Blood Urea Nitrogen 31 mg/dl (6-23); Calcium 9.1 mg/dl (8.6-10.3); Carbon Dioxide 18 mmol/L (21-32); Chloride 105 mmol/L (98-107); Est GFR (African American) 18.6 ml/min; Est GFR (Non-African American) 16.1 ml/min; Glucose 187 mg/dl (70-99(Fasting)); Magnesium 1.2 mg/dl (1.7-2.4); Sodium 139 mmol/L (136-145); Total Protein 7.1 gm/dl (6.0-8.3); Troponin I High Sensitivity 6.7 pg/ml (0-20)
[2024-05-08] MEDS: LACTATED RINGER'S 1,000 ML IV SCH (05:29)
[2024-05-08 05:41] LABS: Aspartate Aminotransferase 22 U/L (13-39); Bilirubin Direct 0.1 mg/dl (0-0.2); Potassium 3.5 mmol/L (3.5-5.1)
[2024-05-08] MEDS: MAGNESIUM SULFATE / D5W 1 GM/100 ML BAG IV SCH ×2 (05:45→08:42)
[2024-05-08] MEDS: SODIUM BICARB 8.4% INJ 50 MEQ/50 ML SYR IV STA (05:55)
[2024-05-08] MEDS: STAT IV Infusion **Titration per Protocol STA (05:58)
[2024-05-08] MEDS: NOREPINEPHRINE/D5W 4 MG/250 ML PLCT IV SCH (05:58)
[2024-05-08] MEDS: NOREPINEPHRINE/D5W 4 MG/250 ML IV ONE (06:02)
[2024-05-08] MEDS: SODIUM BICARB 8.4% INJ 50 MEQ/50 ML SYR IV ONE (06:02)
[2024-05-08 06:07] LABS: Appearance Urine Turbid (Clear); Bacteria Urine Automated 3+ (None Seen); Bilirubin Urine 1+ (Negative); Blood Urine 2+ (Negative); Cast Urine Automated >20 /lpf (0-2); Color Urine Dark Yellow; Epithelial Cell Urine Auto >20 /hpf (0-2); Glucose Urine UA Negative (Negative); Ketones Urine Trace (Negative); Leukocyte Esterase Urine 3+ (Negative); Nitrite Urine Negative (Negative); Protein Urine 3+ (Negative); Specific Gravity Urine 1.023 (1.000-1.030); Urobilinogen Urine Negative (Negative); WBC Urine Automated >50 /hpf (0-5)
--- NOTE | 2024-05-08 06:11 | CT Scan Report ---
Exam(s): CT ABDOMEN + PELVIS Without Contrast EXAM: CT Abdomen and Pelvis Without Intravenous Contrast CLINICAL HISTORY: Reason for exam: AMS, recent bowel perforation. TECHNIQUE: Axial computed tomography images of the abdomen and pelvis without intravenous contrast. CTDI is 36.43 mGy and DLP is 3290.62 mGy-cm. Automated exposure control was utilized for the study. A dose lowering technique was utilized adhering to the principles of ALARA. COMPARISON: No relevant prior studies available. FINDINGS: Limitations: The study is limited due to lack of IV and oral contrast. Lung bases: Unremarkable. No mass. No consolidation. ABDOMEN: Liver: There is hepatomegaly liver 20 cm in maximal craniocaudal dimension. Gallbladder and bile ducts: Unremarkable. No calcified stones. No ductal dilation. Pancreas: There are stippled calcifications demonstrated within the pancreas more so head of the pancreas presumably related to prior bout of pancreatitis. No ductal dilation. Spleen: Unremarkable. No splenomegaly. Adrenals: Unremarkable. No mass. Kidneys and ureters: Unremarkable. No obstructing stones. No hydronephrosis. Stomach and bowel: Extensive postsurgical changes are demonstrated with apparent ileostomy site demonstrated right side of the abdomen. Apparent cysts near total colectomy with apparent anastomosis of the rectum with the small bowel. No obstruction. PELVIS: Appendix: See above. Bladder: There is diffuse thickening to the urinary bladder wall. No stones. Reproductive: Unremarkable as visualized. ABDOMEN and PELVIS: Intraperitoneal space: Minor amount of ascites is demonstrated. No free air. Bones/joints: Postsurgical and post degenerative change to the osseous structures. Study is limited due to streak artifact from the patient's lumbar spine hardware. No acute fracture. No dislocation. Soft tissues: Unremarkable. Vasculature: There is infrarenal abdominal aortic aneurysm approximately 3.6 cm in maximal transverse dimension. Extensive calcific atherosclerotic vascular disease present. Can stenosis of bilateral common iliac arteries. Lymph nodes: Unremarkable. No enlarged lymph nodes. IMPRESSION: Limited as described. Minor amount of ascites/fluid within the abdomen a component of peritonitis cannot be excluded. Configuration of the urinary bladder raises suspicion of cystitis. Electronically signed by: Enrique Morse MD 05/08/24 06:11 AM
--- NOTE | 2024-05-08 06:17 | History & Physical Report ---
Date of Service May 08, 2024 Assessment & Plan (1) Admitted to intensive care unit: (2) Septic shock: (3) Sepsis due to urinary tract infection: (4) Hypotension: (5) Hypomagnesemia: (6) FRANK (acute kidney injury): (7) Altered mental status: (8) Paraplegia: (9) T12 spinal cord injury: (10) Neurogenic bladder: Plan Admit to intensive care unit/septic shock due to urinary tract infection/neurogenic bladder/Shields placement in ED- Follow urine culture and sensitivity Venous blood gas with pH 7.13, pCO2 43, pO2 26 Empiric Zosyn 4.5 g IV every 8 hours Follow blood culture and sensitivity Status post 3 L LR fluid bolus in the ED to be followed by maintenance per the ICU Lowest blood pressure 75/40 Status post 2 A of sodium bicarbonate Levophed infusion started and titration per protocol CT scan of head, cervical spine, chest, abdomen and pelvis without acute findings Shields catheter placed in the ED, routine management Acute kidney injury- Creatinine 3.92, with base 0.45 IV fluids as noted above Repeat laboratories daily Hypertension/electrolyte disturbances- Magnesium 1.2, to receive IV replacement, recheck laboratories in a.m. Potassium 3.5- IV replacement, and recheck laboratories in a.m Due to hypotension, holding amlodipine, lisinopril, metoprolol succinate Ischemic colitis/status post perforation/status post multiple surgeries at [facility]- CT scan of abdomen pelvis with minor amount of ascites/fluid within the abdomen, with a competent of peritonitis cannot be excluded. Configuration of the urinary bladder raises suspicion of cystitis Zosyn 4.5 g IV every 8 hours Paraplegia/T12 spinal cord injury/- Routine supportive care Continue baclofen, citalopram, hydroxyzine and quetiapine when able to take p.o. 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 The patient had initially presented to [facility] on 03/17/2024 with complaint of abdominal pain, nausea and vomiting, and was then transferred to [facility] due to ischemic colitis with increased lactate and abnormal CT imaging. At [facility], patient had multiple surgical interventions resulting in an ileostomy and SICU stay due to need for mechanical ventilation and multiple vasopressors. Patient was transferred back to [facility] on 04/20/2024, and remained until 04/25/2024. He was then discharged home with home health, with IV Zosyn to continue through 04/28. The patient presents to the emergency department via EMS early this morning after having been found by passersby to be confused and crawling on the ground, who then called EMS for help. The patient is unable to provide much history due to altered mental state. He was found in the emergency department to be in septic shock, received 3 L of LR fluid bolus, 2 A of sodium bicarbonate, 2 g of magnesium sulfate IV, and was started on the Levophed infusion prior to being transferred to the ICU. Allergies Allergy/AdvReac Type Severity Reaction Status Date / Time No Known Allergies Allergy Unverified 11/13/19 16:16 Home Medications Medication Instructions Recorded Confirmed Type baclofen 20 mg tablet 20 mg PO TID PRN Muscle Spasm 01/09/19 03/17/24 History amlodipine 5 mg tablet (Norvasc) 5 mg PO DAILY #30 tabs 04/26/23 03/17/24 Rx citalopram 20 mg tablet 40 mg PO DAILY 04/26/23 03/17/24 History ferrous sulfate 325 mg (65 mg 325 mg PO Q OTHER DAY 04/26/23 03/17/24 History iron) tablet (FeroSul) hydroxyzine HCl 25 mg tablet 25 mg PO TID PRN Anxiety 04/26/23 03/17/24 History metoprolol succinate 25 mg 25 mg PO DAILY 04/26/23 04/26/23 History tablet,extended release 24 hr ondansetron HCl 4 mg tablet 4 mg PO Q8 PRN Nausea And Vomiting 04/26/23 03/17/24 History pantoprazole 40 mg tablet,delayed 40 mg PO QAM 04/26/23 03/17/24 History release quetiapine 100 mg tablet 100 mg PO HS 04/26/23 03/17/24 History atorvastatin 40 mg tablet 40 mg PO DAILY 03/17/24 03/17/24 History lisinopril 20 mg tablet 20 mg PO DAILY 03/17/24 03/17/24 History Past Med/Surg History Problem List (Updated 05/08/24 @ 06:39 by Tyler Bullock MD) Sepsis due to urinary tract infection Septic shock Admitted to intensive care unit Hypotension (Acute) Acute UTI (urinary tract infection) (Acute) Hypomagnesemia (Acute) FRANK (acute kidney injury) (Acute) Altered mental status (Acute) Abdominal wound dehiscence Colon perforation Lactic acidosis FRANK (acute kidney injury) (Acute) Abdominal pain (Acute) Colitis (Acute) Sepsis (Acute) Paraplegia (Chronic) T12 spinal cord injury (Chronic) Neurogenic bladder (Chronic) History of back surgery (Chronic) Urinary tract infection (Acute) Medical History (Updated 05/08/24 @ 06:39 by Tyler Bullock MD) Paraplegia UTI (urinary tract infection) Surgical History S/P AKA (above knee amputation) bilateral Social History Smoking Status: Unknown if ever smoked Tobacco Type: Cigarettes Cigarettes Per Day: 80; Second Hand Exposure: No; Do You Dip or Chew Tobacco: No; Hx Alcohol Use: No Hx Substance Use: No Preferred Language: Angolan Communication Ability: Effective Dynamics Ax Developer Required: No Beliefs That Will Affect Care: None Current Living Situation: Alone Feels Safe at Home: Yes Assistive Devices: Wheelchair Review of Systems Review of Systems: The patient is not able to contribute to HPI or review of systems due to altered mental status and decreased responsiveness. Information is gathered through EMS and previous records review Physical Exam Physical Exam: The patient is lethargic and unresponsive, normocephalic and atraumatic, lying in bed and in no acute distress. HEENT--PERRL, EOMI, mucous membranes and oropharynx very dry. Neck--supple. No JVD. No bruits. Thyroid normal, trachea midline, no adenopathy. Heart--tachycardic and regular. Systolic murmur, no rubs or gallops. Lungs--overall clear. No respiratory distress, no accessory muscle use. Abdomen--normal bowel sounds and soft. Nontender. Nondistended Extremities--bilateral AKA, with brush hernandez noted over extremities Dermatologic--see above Neurologic--limited exam Rheumatologic--limited exam Psychiatric--unresponsive Results & Data Results & Data Vital Signs (Past 12 Hours) Vital Signs Temp Pulse Pulse Resp BP Pulse Ox O2 Del Method 05/08/24 05:48 34.6 C L 90 14 76/47 L 100 Room Air 05/08/24 05:30 34.5 C L 85 14 109/73 100 Room Air 05/08/24 05:11 32.8 C L 05/08/24 05:11 32.8 C L 111 H 16 107/61 100 Room Air 05/08/24 04:30 89 18 76/44 L 100 Room Air 05/08/24 04:05 99 Room Air 05/08/24 03:59 34.9 C L 84 18 99 Room Air 05/08/24 03:44 93 H Laboratory Results Laboratory Results WBC 10.93 K/ul (4.8-10.8) H 05/08/24 04:44 RBC 3.56 M/uL (4.70-6.10) L 05/08/24 04:44 Hgb 10.0 g/dl (14.0-18.0) L 05/08/24 04:44 POC Hgb 11.2 g/dl (14.0-18.0) L 05/08/24 04:28 Hct 32.9 % (42.0-52.0) L 05/08/24 04:44 POC Hct 33 % (42-52) L 05/08/24 04:28 MCV 92.4 fL (80.0-100.0) 05/08/24 04:44 MCH 28.1 pg (25.0-34.0) 05/08/24 04:44 MCHC 30.4 g/dL (32.0-36.0) L 05/08/24 04:44 RDW Std Deviation 48.9 fL (36.4-46.3) H 05/08/24 04:44 RDW Coeff of Yves 14.4 % (11.5-14.5) 05/08/24 04:44 Plt Count 331 K/uL (130-400) 05/08/24 04:44 MPV 9.9 fL (9.4-12.4) 05/08/24 04:44 Immature Gran % (Auto) 0.4 % 05/08/24 04:44 Neut % (Auto) 84.1 % 05/08/24 04:44 Lymph % (Auto) 7.1 % 05/08/24 04:44 [place] % (Auto) 7.6 % 05/08/24 04:44 Eos % (Auto) 0.5 % 05/08/24 04:44 Baso % (Auto) 0.3 % 05/08/24 04:44 Neut # (Auto) 9.20 K/uL (1.40-6.50) H 05/08/24 04:44 Lymph # (Auto) 0.78 K/uL (1.20-3.40) L 05/08/24 04:44 [place] # (Auto) 0.83 K/uL (0.11-0.59) H 05/08/24 04:44 Eos # (Auto) 0.05 K/uL (0.00-0.50) 05/08/24 04:44 Baso # (Auto) 0.03 K/uL (0.00-0.20) 05/08/24 04:44 Immature Gran # (Auto) 0.04 K/uL (0.01-0.20) 05/08/24 04:44 VBG pH 7.13 (7.36-7.41) L 05/08/24 04:44 VBG pCO2 43 mmHg (38-50) 05/08/24 04:44 VBG pO2 26 mmHg 05/08/24 04:44 VBG HCO3 14 mmol/L 05/08/24 04:44 VBG O2 Saturation < 60.0 % 05/08/24 04:44 VBG Base Excess -14.4 mEq/L 05/08/24 04:44 POC Sodium 136 mmol/L (135-144) 05/08/24 04:28 Sodium 139 mmol/L (136-145) 05/08/24 04:34 POC Potassium 4.2 mmol/L (3.3-5.0) 05/08/24 04:28 Potassium 3.5 mmol/L (3.5-5.1) 05/08/24 04:34 POC Chloride 107 mmol/L (101-112) 05/08/24 04:28 Chloride 105 mmol/L (98-107) 05/08/24 04:34 Carbon Dioxide 18 mmol/L (21-32) L 05/08/24 04:34 POC Total CO2 16 mmol/L (24-31) L 05/08/24 04:28 Anion Gap 16 (3-11) H 05/08/24 04:34 POC Anion Gap 19.0 mmol/L (16-25) 05/08/24 04:28 POC BUN 38 mg/dl (7-18) H 05/08/24 04:28 BUN 31 mg/dl (6-23) H 05/08/24 04:34 Creatinine 3.92 mg/dl (0.6-1.4) H 05/08/24 04:34 POC Creatinine 4.0 mg/dl (0.6-1.3) H 05/08/24 04:28 Est Cr Clr Drug Dosing Not Reportable 05/08/24 04:34 Est GFR ( Amer) 18.6 ml/min 05/08/24 04:34 Est GFR (Non-Af Amer) 16.1 ml/min 05/08/24 04:34 BUN/Creatinine Ratio 7.9 (10-20) L 05/08/24 04:34 Glucose 187 mg/dl (70-99(Fasting)) H 05/08/24 04:34 POC Glucose (other) 173 mg/dl (70-99) H 05/08/24 04:28 Lactate 1.3 mmol/L (0.4-2.0) 05/08/24 06:20 Calcium 9.1 mg/dl (8.6-10.3) 05/08/24 04:34 POC Ioniz Calcium Regi 1.08 mmol/l (1.12-1.32) L 05/08/24 04:28 Magnesium 1.2 mg/dl (1.7-2.4) L 05/08/24 04:34 Total Bilirubin 0.5 mg/dl (0.2-1.0) 05/08/24 04:34 Direct Bilirubin 0.1 mg/dl (0-0.2) 05/08/24 04:34 AST 22 U/L (13-39) 05/08/24 04:34 ALT 48 U/L (7-52) 05/08/24 04:34 Alkaline Phosphatase 112 U/L (34-104) H 05/08/24 04:34 Troponin I High Sens 6.7 pg/ml (0-20) 05/08/24 04:34 Total Protein 7.1 gm/dl (6.0-8.3) 05/08/24 04:34 Albumin 4.0 gm/dl (3.4-5.0) 05/08/24 04:34 Procalcitonin 0.10 ng/ml (0-0.5) 05/08/24 04:34 Urine Color Dark Yellow 05/08/24 05:17 Urine Appearance Turbid (Clear) A 05/08/24 05:17 Urine pH 5.0 (4.5-7.5) 05/08/24 05:17 Ur Specific [place] 1.023 (1.000-1.030) 05/08/24 05:17 Urine Protein 3+ (Negative) H 05/08/24 05:17 Urine Glucose (UA) Negative (Negative) 05/08/24 05:17 Urine Ketones Trace (Negative) H 05/08/24 05:17 Urine Blood 2+ (Negative) H 05/08/24 05:17 Urine Nitrite Negative (Negative) 05/08/24 05:17 Urine Bilirubin 1+ (Negative) H 05/08/24 05:17 Urine Urobilinogen Negative (Negative) 05/08/24 05:17 Ur Leukocyte Esterase 3+ (Negative) H 05/08/24 05:17 Urine WBC (Auto) >50 /hpf (0-5) H 05/08/24 05:17 Urine RBC (Auto) 11-20 /hpf (0-2) H 05/08/24 05:17 U Hyaline Cast (Auto) >20 /lpf (0-2) H 05/08/24 05:17 U Epithel Cells (Auto) >20 /hpf (0-2) H 05/08/24 05:17 Urine Bacteria (Auto) 3+ (None Seen) H 05/08/24 05:17 Urine Yeast Present (None Prsent) A 05/08/24 05:17 Blood Type A Positive 05/08/24 04:44 Antibody Screen NEGATIVE 05/08/24 04:44 Impressions Abdomen/Pelvis CT 07/22/24 03:45 Exam(s): CT ABDOMEN + PELVIS Without Contrast EXAM: CT Abdomen and Pelvis Without Intravenous Contrast CLINICAL HISTORY: Reason for exam: AMS, recent bowel perforation. TECHNIQUE: Axial computed tomography images of the abdomen and pelvis without intravenous contrast. CTDI is 36.43 mGy and DLP is 3290.62 mGy-cm. Automated exposure control was utilized for the study. A dose lowering technique was utilized adhering to the principles of ALARA. COMPARISON: No relevant prior studies available. FINDINGS: Limitations: The study is limited due to lack of IV and oral contrast. Lung bases: Unremarkable. No mass. No consolidation. ABDOMEN: Liver: There is hepatomegaly liver 20 cm in maximal craniocaudal dimension. Gallbladder and bile ducts: Unremarkable. No calcified stones. No ductal dilation. Pancreas: There are stippled calcifications demonstrated within the pancreas more so head of the pancreas presumably related to prior bout of pancreatitis. No ductal dilation. Spleen: Unremarkable. No splenomegaly. Adrenals: Unremarkable. No mass. Kidneys and ureters: Unremarkable. No obstructing stones. No hydronephrosis. Stomach and bowel: Extensive postsurgical changes are demonstrated with apparent ileostomy site demonstrated right side of the abdomen. Apparent cysts near total colectomy with apparent anastomosis of the rectum with the small bowel. No obstruction. PELVIS: Appendix: See above. Bladder: There is diffuse thickening to the urinary bladder wall. No stones. Reproductive: Unremarkable as visualized. ABDOMEN and PELVIS: Intraperitoneal space: Minor amount of ascites is demonstrated. No free air. Bones/joints: Postsurgical and post degenerative change to the osseous structures. Study is limited due to streak artifact from the patient's lumbar spine hardware. No acute fracture. No dislocation. Soft tissues: Unremarkable. Vasculature: There is infrarenal abdominal aortic aneurysm approximately 3.6 cm in maximal transverse dimension. Extensive calcific atherosclerotic vascular disease present. Can stenosis of bilateral common iliac arteries. Lymph nodes: Unremarkable. No enlarged lymph nodes. IMPRESSION: Limited as described. Minor amount of ascites/fluid within the abdomen a component of peritonitis cannot be excluded. Configuration of the urinary bladder raises suspicion of cystitis. Electronically signed by: Enrique Morse MD 05/08/24 06:[address] 05/08/24 03:45 Exam(s): CT C SPINE EXAM: CT Cervical Spine Without Intravenous Contrast CLINICAL HISTORY: Reason for exam: fall, AMS. TECHNIQUE: Axial computed tomography images of the cervical spine without intravenous contrast. CTDI is 26.95 mGy and DLP is 455.09 mGy-cm. Automated exposure control was utilized for the study. A dose lowering technique was utilized adhering to the principles of ALARA. COMPARISON: No relevant prior studies available. FINDINGS: Vertebrae: There is moderate spondylotic spurring demonstrated at multiple levels. No acute fracture. Discs/spinal canal/neural foramina: No acute findings. No spinal canal stenosis. Soft tissues: Unremarkable. IMPRESSION: No acute findings in the cervical spine. Electronically signed by: Enrique Morse MD 05/08/24 05:[address] 05/08/24 03:45 Exam(s): CT CHEST Without Contrast EXAM: CT Chest Without Intravenous Contrast CLINICAL HISTORY: Reason for exam: PE, recent bowel surgery, AMS. TECHNIQUE: Axial computed tomography images of the chest without intravenous contrast. CTDI is 36.43 mGy and DLP is 3290.62 mGy-cm. Automated exposure control was utilized for the study. A dose lowering technique was utilized adhering to the principles of ALARA. COMPARISON: No relevant prior studies available. FINDINGS: Lungs: There is some streaky densities demonstrated within the lingula region presumably atelectasis. No mass. Pleural space: Unremarkable. No pneumothorax. No significant effusion. Heart: Unremarkable. No cardiomegaly. No significant pericardial effusion. No significant coronary artery calcifications. Bones/joints: Degenerative and postsurgical change to the osseous structures. No acute fracture. No dislocation. Soft tissues: Unremarkable. Vasculature: Calcific atherosclerotic vascular disease. No thoracic aortic aneurysm. Lymph nodes: Unremarkable. No enlarged lymph nodes. IMPRESSION: Nondiagnostic for assessment of pulmonary emboli as contrast was not administered, chronic change. Electronically signed by: Enrique Morse MD 05/08/24 06:[address] 05/08/24 03:45 Exam(s): CT HEAD Without Contrast EXAM: CT Head Without Intravenous Contrast CLINICAL HISTORY: Reason for exam: fall, AMS. TECHNIQUE: Axial computed tomography images of the head/brain without intravenous contrast. CTDI is 36.43 mGy and DLP is 624.41 mGy-cm. Automated exposure control was utilized for the study. A dose lowering technique was utilized adhering to the principles of ALARA. COMPARISON: No relevant prior studies available. FINDINGS: Limitations: The study is slightly limited due to motion artifact. Brain: There are a few punctate calcifications demonstrated within the right insula presumably related to remote insult. No hemorrhage. No significant white matter disease. Ventricles: Unremarkable. No ventriculomegaly. Bones/joints: Unremarkable. No acute fracture. Soft tissues: Unremarkable. Sinuses: Unremarkable as visualized. No acute sinusitis. Mastoid air cells: Unremarkable as visualized. No mastoid effusion. IMPRESSION: No acute bleed mass or infarct as visualized, slightly limited. Electronically signed by: Enrique Morse MD 05/08/24 05:20 AM Chest X-Ray 05/08/24 06:26 XR chest 1V portable CLINICAL HISTORY: post central line COMPARISON STUDY: Chest radiograph May 08, 2024 at 5:14 AM. FINDINGS: There is no pneumothorax following placement of a left internal jugular central line. Catheter tip projects over the distal SVC. No airspace opacities are present to suggest pneumonia. There is no evidence for pulmonary edema. Cardiomediastinal silhouette is normal. Thoracolumbar spine fusion and left humeral internal fixation are incidentally noted. IMPRESSION: No pneumothorax placement of a left internal jugular central line. ACT 112: Negative or not required by law. Electronically signed by: Matt Puckett M.D. 05/08/2024 6:36 AM Code Status & VTE Plan Code Status Full code VTE Prophylaxis Plan VTE Prophylaxis will be ordered: Yes PG Care Time/CCT Total # of Minutes Spent Total Time Spent with Patient: Total time spent is greater than 50% in coordination of care (as documented) at patient's floor/unit and/or counseling patient: 50 minutes Coding Level of Care Code 46634 INT INP/OBS CARE 3/75MIN Diagnoses Admitted to intensive care unit Z78.9 Septic shock A41.9; R65.21 Sepsis due to urinary tract infection A41.9; N39.0 Hypotension I95.9 Hypomagnesemia E83.42 FRANK (acute kidney injury) N17.9 Altered mental status R41.82 Paraplegia G82.20 T12 spinal cord injury S24.104A Neurogenic bladder N31.9
--- NOTE | 2024-05-08 06:33 | Critical Care Consultation ---
Date of Consultation May 08, 2024 Assessment & Plan (1) Severe sepsis: (2) Acute UTI (urinary tract infection): (3) Hypomagnesemia: (4) FRANK (acute kidney injury): (5) Encephalopathy: (6) Lactic acidosis: (7) Metabolic acidosis: (8) T12 spinal cord injury: Plan Reason Critically Ill: 58 YOM admitted to the ICU severe septic shock requiring vasopressors. Current source appears to be urine Neuro - Metabolic encephalopathy, T12 fusion and spinal cord injury (chronic) CAM ICU: Negative - Metabolic Encephalopathy at this time likely secondary to severe sepsis - supportive care at this time - Head CT without acute bleed- notable for remote infarcts - Tox screen pending, ETOH within normal limits - ETOH level and serum osmo pending- unsure of history or ingestion at this time Cardiac - Severe septic shock, AAA - Severe septic shock requiring rapidly rising levels of vasopressin- source at this time appears urine - AAA- infrarenal 3.6cm- not sure of chronicity and who is following this- previously noted on CT angiogram 03/18/24 as 3.8cm - Continue supportive care- 3 liters crystalloid administered- patient is volume responsive at this time - follow urine output and hemodynamic response Respiratory - No acute needs GI - Illeostomy- hx of ischemic colitis - CT abd/pelvis no acute findings - no output noted from ostomy- ostomy is pink - NPO while on vasopressors RENAL/LYTES - AGAP Metabolic Acidosis, ARF non-oliguric, hyop mag - likely secondary to severe septic shock - continue with crystalloid infusion - LR currently- could consider isotonic bicarb - Metabolic Acidosis with PH 7.1- s/p 2 amps HCO3 8.4% in EMD- recheck PH on arrival to ICU - AGAP 16- likely secondary to renal function and lactic acidosis- ETOh and serum osmo pending- unsure of ingestion at this time - acute UTI - hx neurogenic bladder- lopez to gravity draining maria luz colored urine ENDO - No acute needs - ICU hyper/hypoglycemic protocol HEME - No acute needs ID - Severe septic shock - Urine likely source- history reviewed- pansensitive E. Coli - antibiotics- Z osyn DISPO: ICU while on vasopressor agents --Prophylaxis VTE: Heparin GI: Pantoprazole Lines: Left IJ, peripheral, Lopez Diet: N.p.o. Supervising Physician Co-Signing Physician Notes I saw and evaluated the patient with JOSE ELIAS Walker, and agree with findings and plan as documented in the note. 58-year-old male past medical history of diabetes AAA, s/p ileostomy in 2023, bilateral AKA, T12 paraplegia present to the hospital with altered mental status and shock. Admitted to ICU for further management At time of examination patient was off vasopressors. His MAP was in the 100s at the time of examination He was oriented to self only. Denies any chest pain, no headache, no nausea vomiting Denies any shortness of breath. He was saturating 97-98% on room air. Temperature was 35.[address] negative, CT abdomen pelvis as well as CT chest did not show any significant abnormality except for chronic bladder wall thickening Constitutional: No acute distress HEENT: EOMI, PERRLA Respiratory system: Good air entry bilaterally, no wheeze, no rhonchi, no crackles CVS: S1-S2 positive, no murmurs or gallops Abdomen: Soft, nontender, nondistended, positive bowel sounds x4 Extremities: +2 pulses bilaterally radialis, no cyanosis, no edema, positive bilateral AKA, ecchymosis appreciated bilateral leg stumps especially on the right side Neuro: Awake alert oriented to self Psych: Flat mood and affect G/U: Positive Lopez Plan: Continue with antibiotics Decrease IV fluids to 75 mill an hour for 1 L and then stop Follow urine cultures Follow-up toxicology screen Potassium and magnesium being replaced Lactic acidosis has resolved. Repeat BMP later today Will need to keep a very close eye on urine output. Will get wound involved to look at ecchymosis of bilateral leg stumps I have personally spent 60 minutes of critical care time in the direct management of this patient. This is a life/limb threatening event. This includes time spent evaluating patient, direct bedside care, chart review, placing orders, interpretation of diagnostic studies, discussion with consultants, patient, and family members, as well as other required patient management activities. This time is exclusive of all separately billable procedures, and teaching time and separate from and in addition to any other critical care service time. Please note the above document was generated using voice recognition software. It may contain grammatical, syntax or spelling errors. History of Present Illness Reason for Consultation: Severe Septic Shock Requesting Physician: Tyler Bullock MD Attending Physician: Tyler Bullock MD History of Present Illness 58 YOM with medical history of T12 paraplegia, neurogenic bladder, bilateral lower knee amputations, AAA, he is status post ileostomy placement in February 2024 secondary to ischemic colitis. Patient was brought in via EMS to the [facility]. Reportedly he was found in [facility] encephalopathic, naked, and scooting around on his stumps and hands. He is only grunting in response but is spontaneously moving upper extremities and head. In the EMD the patient had routine labs performed to include toxicology screen. He was noted to be hypotensive, has received 3 liters of crystalloid infusion, and remained hypotensive to the 70/40s. 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 Central access was obtained in the ER by myself secondary to poor peripheral access and increasing vasopressors. Current source appears to be urine. Patient will be brought to the ICU for vasoactive medications and continued supportive care. CODE: FULL Allergies Allergy/AdvReac Type Severity Reaction Status Date / Time No Known Allergies Allergy Unverified 11/13/19 16:16 Home Medications Medication Instructions Recorded Confirmed Type baclofen 20 mg tablet 20 mg PO TID PRN Muscle Spasm 01/09/19 03/17/24 History amlodipine 5 mg tablet (Norvasc) 5 mg PO DAILY #30 tabs 04/26/23 03/17/24 Rx citalopram 20 mg tablet 40 mg PO DAILY 04/26/23 03/17/24 History ferrous sulfate 325 mg (65 mg 325 mg PO Q OTHER DAY 04/26/23 03/17/24 History iron) tablet (FeroSul) hydroxyzine HCl 25 mg tablet 25 mg PO TID PRN Anxiety 04/26/23 03/17/24 History metoprolol succinate 25 mg 25 mg PO DAILY 04/26/23 04/26/23 History tablet,extended release 24 hr ondansetron HCl 4 mg tablet 4 mg PO Q8 PRN Nausea And Vomiting 04/26/23 03/17/24 History pantoprazole 40 mg tablet,delayed 40 mg PO QAM 04/26/23 03/17/24 History release quetiapine 100 mg tablet 100 mg PO HS 04/26/23 03/17/24 History atorvastatin 40 mg tablet 40 mg PO DAILY 03/17/24 03/17/24 History lisinopril 20 mg tablet 20 mg PO DAILY 03/17/24 03/17/24 History Patient History Medical History (Updated 05/08/24 @ 07:15 by Ziyad Alvares) Paraplegia UTI (urinary tract infection) Surgical History S/P AKA (above knee amputation) bilateral Social History Smoking Status: Former smoker Tobacco Type: Cigarettes Cigarettes Per Day: 80; Second Hand Exposure: No; Do You Dip or Chew Tobacco: No; Hx Alcohol Use: No Hx Substance Use: No Preferred Language: Chilean Communication Ability: Effective Clinical Molecular Geneticist Required: No Beliefs That Will Affect Care: None Current Living Situation: Alone Feels Safe at Home: Yes Assistive Devices: Wheelchair Review of Systems Review of Systems: unable to be performed secondary to encephalopathy Physical Exam Physical Exam: PHYSICAL EXAM: General: awake, alert, Head: Normocephalic, atraumatic ENT: PERRLA, Neuro: AAO x 1, groans with incomprehensible sounds, strength intact bilaterally 5/5, sensation intact and equal all extremities and dermatomes, shakes head yes and no and appears to answer appropriately Chest: equal rise and fall of the chest, no accessory muscle use, no heaves or thrills, Clear to auscultation, on room air, Cardiac: Regular rate and rhythm, telemetry reviewed, skin warm dry, cap refill <3 seconds, peripheral pulses +2 no JVD, no murmur, no edema GI: illeostomy present, soft, nontender to palpation, no rebound, guarding or tenderness : Lopez to gravity draining light colored urine Extremities: abrasions to bilateral stumps, buttocks, and right neck Results & Data Results & Data Vital Signs (Past 12 Hours) Vital Signs Temp Pulse Pulse Resp BP Pulse Ox O2 Del Method 05/08/24 05:48 34.6 C L 90 14 76/47 L 100 Room Air 05/08/24 05:30 34.5 C L 85 14 109/73 100 Room Air 05/08/24 05:11 32.8 C L 05/08/24 05:11 32.8 C L 111 H 16 107/61 100 Room Air 05/08/24 04:30 89 18 76/44 L 100 Room Air 05/08/24 04:05 99 Room Air 05/08/24 03:59 34.9 C L 84 18 99 Room Air 05/08/24 03:44 93 H Laboratory Results Abnormal lab results 05/08/24 05/08/24 05/08/24 Range/Units 04:28 04:34 04:44 WBC 10.93 H (4.8-10.8) K/ul RBC 3.56 L (4.70-6.10) M/uL Hgb 10.0 L (14.0-18.0) g/dl POC Hgb 11.2 L (14.0-18.0) g/dl Hct 32.9 L (42.0-52.0) % POC Hct 33 L (42-52) % MCHC 30.4 L (32.0-36.0) g/dL RDW Std Deviation 48.9 H (36.4-46.3) fL Neut # (Auto) 9.20 H (1.40-6.50) K/uL Lymph # (Auto) 0.78 L (1.20-3.40) K/uL Elmore # (Auto) 0.83 H (0.11-0.59) K/uL VBG pH 7.13 L (7.36-7.41) Carbon Dioxide 18 L (21-32) mmol/L POC Total CO2 16 L (24-31) mmol/L Anion Gap 16 H (3-11) POC BUN 38 H (7-18) mg/dl BUN 31 H (6-23) mg/dl Creatinine 3.92 H (0.6-1.4) mg/dl POC Creatinine 4.0 H (0.6-1.3) mg/dl BUN/Creatinine Ratio 7.9 L (10-20) Glucose 187 H (70-99(Fasting)) mg/dl POC Glucose (other) 173 H (70-99) mg/dl Lactate 6.0 H* (0.4-2.0) mmol/L POC Ioniz Calcium Regi 1.08 L (1.12-1.32) mmol/l Magnesium 1.2 L (1.7-2.4) mg/dl Alkaline Phosphatase 112 H (34-104) U/L Urine Appearance (Clear) Urine Protein (Negative) Urine Ketones (Negative) Urine Blood (Negative) Urine Bilirubin (Negative) Ur Leukocyte Esterase (Negative) Urine WBC (Auto) (0-5) /hpf Urine RBC (Auto) (0-2) /hpf U Hyaline Cast (Auto) (0-2) /lpf U Epithel Cells (Auto) (0-2) /hpf Urine Bacteria (Auto) (None Seen) Urine Yeast (None Prsent) 05/08/24 Range/Units 05:17 WBC (4.8-10.8) K/ul RBC (4.70-6.10) M/uL Hgb (14.0-18.0) g/dl POC Hgb (14.0-18.0) g/dl Hct (42.0-52.0) % POC Hct (42-52) % MCHC (32.0-36.0) g/dL RDW Std Deviation (36.4-46.3) fL Neut # (Auto) (1.40-6.50) K/uL Lymph # (Auto) (1.20-3.40) K/uL Elmore # (Auto) (0.11-0.59) K/uL VBG pH (7.36-7.41) Carbon Dioxide (21-32) mmol/L POC Total CO2 (24-31) mmol/L Anion Gap (3-11) POC BUN (7-18) mg/dl BUN (6-23) mg/dl Creatinine (0.6-1.4) mg/dl POC Creatinine (0.6-1.3) mg/dl BUN/Creatinine Ratio (10-20) Glucose (70-99(Fasting)) mg/dl POC Glucose (other) (70-99) mg/dl Lactate (0.4-2.0) mmol/L POC Ioniz Calcium Regi (1.12-1.32) mmol/l Magnesium (1.7-2.4) mg/dl Alkaline Phosphatase (34-104) U/L Urine Appearance Turbid A (Clear) Urine Protein 3+ H (Negative) Urine Ketones Trace H (Negative) Urine Blood 2+ H (Negative) Urine Bilirubin 1+ H (Negative) Ur Leukocyte Esterase 3+ H (Negative) Urine WBC (Auto) >50 H (0-5) /hpf Urine RBC (Auto) 11-20 H (0-2) /hpf U Hyaline Cast (Auto) >20 H (0-2) /lpf U Epithel Cells (Auto) >20 H (0-2) /hpf Urine Bacteria (Auto) 3+ H (None Seen) Urine Yeast Present A (None Prsent) Diagnostic Findings Abdomen/Pelvis CT 05/08/24 03:45 Exam(s): CT ABDOMEN + PELVIS Without Contrast EXAM: CT Abdomen and Pelvis Without Intravenous Contrast IMPRESSION: Limited as described. Minor amount of ascites/fluid within the abdomen a component of peritonitis cannot be excluded. Configuration of the urinary bladder raises suspicion of cystitis. Cervical Spine CT 05/08/24 03:45 Exam(s): CT C SPINE IMPRESSION: No acute findings in the cervical spine. Chest CT 05/08/24 03:45 Exam(s): CT CHEST Without Contrast IMPRESSION: Nondiagnostic for assessment of pulmonary emboli as contrast was not administered, chronic change. Head CT 05/08/24 03:45 Exam(s): CT HEAD Without Contrast IMPRESSION: No acute bleed mass or infarct as visualized, slightly limited. Medications Administered Lactated Ringer's (Lr) 1,000 mls @ 250 mls/hr IV .Q4H [facility] Stop: 06/07/24 05:29 Last Infusion: 05/08/24 06:42 Dose: 999 mls/hr Documented By: Admin: 05/08/24 05:29 Dose: 250 mls/hr Documented By: AN Magnesium Sulfate/Dextrose (Magnesium Sulfate / D5w) 1 gm in 100 mls @ 100 mls/hr IV Q1H [facility] Stop: 05/08/24 07:32 Last Admin: 05/08/24 05:45 Dose: 100 mls/hr Documented By: AN Norepinephrine Bitartrate (Levophed/D5w) 4 mg in 250 mls @ 11.194 mls/hr IV .[id number] MELIDA; Protocol Stop: 06/07/24 05:59 Last Admin: 05/08/24 05:58 Dose: 0.15 mcg/kg/min, 33.6 mls/hr Documented By: PAU Co-signed By: AN Discontinued Medications Sodium Chloride (Nss) 1,000 mls @ 999 mls/hr IV .Q1H1M [facility] Stop: 05/08/24 05:45 Last Infusion: 05/08/24 05:28 Dose: Infused Documented By: JUAN MIGUEL Admin: 05/08/24 05:08 Dose: 999 mls/hr Documented By: JUAN MIGUEL Infusion: 05/08/24 05:08 Dose: Infused Documented By: JUAN MIGUEL Admin: 05/08/24 04:13 Dose: 999 mls/hr Documented By: PEGGY Piperacillin Sod/Tazobactam Sod (Zosyn) 4.5 gm in 100 mls @ 200 mls/hr IV NOW ONE Stop: 05/08/24 04:17 Last Infusion: 05/08/24 05:28 Dose: Infused Documented By: JUAN MIGUEL Admin: 05/08/24 05:07 Dose: 200 mls/hr Documented By: JUAN MIGUEL Miscellaneous (Stat Iv Infusion Titration Per Protocol) 1 each N/A NOW STA Stop: 05/08/24 05:53 Last Admin: 05/08/24 05:58 Dose: Not Given Documented By: PAU Norepinephrine Bitartrate (Norepinephrine/D5w 4 Mg/250 Ml) Confirm Administered Dose 4 mg IV .STK-MED ONE Stop: 05/08/24 05:52 Last Admin: 05/08/24 06:02 Dose: Not Given Documented By: PAU Ondansetron HCl (Ondansetron Inj 2 Mg/Ml 2 Ml Vial) 4 mg IV NOW STA Stop: 05/08/24 04:10 Last Admin: 05/08/24 04:13 Dose: 4 mg Documented By: PEGGY Sodium Bicarbonate (Sodium Bicarb 8.4% Inj 50 Meq/50 Ml Syr) Confirm Administered Dose 100 meq IV .STK-MED ONE Stop: 05/08/24 05:52 Last Admin: 05/08/24 06:02 Dose: Not Given Documented By: PAU Sodium Bicarbonate (Sodium Bicarb 8.4% Inj 50 Meq/50 Ml Syr) 100 meq IV NOW STA Stop: 05/08/24 06:02 Last Admin: 05/08/24 05:55 Dose: 100 meq Documented By: PAU Coding Level of Care Code 76418 CRITICAL CARE 1ST 30-74M Diagnoses Severe sepsis A41.9; R65.20 Acute UTI (urinary tract infection) N39.0 Hypomagnesemia E83.42 FRANK (acute kidney injury) N17.9 Encephalopathy G93.40 Lactic acidosis E87.20 Metabolic acidosis E87.20 T12 spinal cord injury S24.104A
--- NOTE | 2024-05-08 06:33 | Procedure Note ---
Procedure Note Date of Service May 08, 2024 Note INTERNAL JUGULAR CENTRAL LINE PROCEDURE NOTE: Procedure: Internal Jugular Central Line Placement Proceduralist: Elvin MOCTEZUMA ([facility]) Attending: Dr. Ceron Indication: Central Drug Administration, Poor Venous Access, Multiple Lab Draws Necessary, etc. Anesthesia: xLidocaine 1% Emergent Consent was implied as patient is unable to provide consent and no family members immediately available. He is in shock requiring escalating doses of vasopressors. Benefits greatly outweigh risk at this time. A time-out was completed verifying correct patient, procedure, site, positioning, and implants(s) or special equipment if applicable. Patients LEFT Neck was cleansed and draped in the typical sterile fashion using Chloraprep. The Internal Jugular Vein and Carotid Artery were identified using ultrasound. The superficial tissue was anesthetized using 4 mL of 1% lidocaine without epinephrine under direct visualization with the ultrasound. After adequate anesthetization was achieved, the Internal Jugular vein was cannulated under direct ultrasound guidance using an introducer needle on a syringe. Good venous blood return was maintained prior to removal of syringe from introducer needle. Using Seldinger Technique, a guide wire was advanced through the introducer needle without resistance. The introducer needle was removed and ultrasound images were obtained of the guide wire within the Internal Jugular Vein. A small incision was made in penetrating fashion at the guide wire insertion site utilizing an 11 blade scalpel. The dilator was advanced to the vessel without resistance. The dilator was exchanged for the triple lumen catheter which was advanced into the vessel without resistance. The guide wire was removed intact from the catheter without issue. Claves were placed on each catheter tip with confirmation of good blood flow from each lumen. Each port was easily flushed with sterile saline. The catheter was placed at 20 cm and sutured in place. BioPatch was applied to the catheter and a sterile Tegaderm dressing was applied over the catheter with careful attention to sterility. Patient tolerated procedure well. No immediate complications were met. Post procedure x-ray was completed, placement was appropriate and no pneumothorax was noted. Images obtained are saved for permanent record Procedural Ultrasound Guidance: Procedure Date: 05/08/24 Indication: Ultrasound placement Artery AND Vein visualized: YES Compressible Vein: YES Guidewire or Short Catheter seen in vein prior to dilation: YES Images obtained are NOT saved for permanent record as this was emergent Coding CPT Codes Tubes, Drains, and Vasc Access - Tubes, Drains, and Vasc Access: [id number] Insertion Of Non-tunneled Catheter Age 7 Yrs> ([id number]) [facility] [place] Codes (Charges) Tubes, Drains, and Vasc Access Procedure 1: Tubes, Drains, and Vasc Access: [id number] Insertion Of Non-tunneled Catheter Age 7 Yrs>
--- NOTE | 2024-05-08 06:35 | XRay Report ---
XR chest 1V portable CLINICAL HISTORY: Sepsis. COMPARISON STUDY: Chest radiograph March 17, 2024. Chest CT May 08, 2024. FINDINGS: Thoracolumbar spine fusion and left humeral internal fixation is partially imaged. Lung vol umes are normal. Lungs are clear. There is no pneumothorax or pleural effusion. Cardiac size is bandar l. Mediastinal contours are normal. There is no evidence for pulmonary edema. IMPRESSION: No acute cardiopulmonary findings. ACT 112: Negative or not required by law. Electronically signed by: Matt Puckett M.D. 05/08/2024 6:34 AM
--- NOTE | 2024-05-08 06:37 | XRay Report ---
XR chest 1V portable CLINICAL HISTORY: post central line COMPARISON STUDY: Chest radiograph May 08, 2024 at 5:14 AM. FINDINGS: There is no pneumothorax following placement of a left internal jugular central line. Carolyn ter tip projects over the distal SVC. No airspace opacities are present to suggest pneumonia. There i s no evidence for pulmonary edema. Cardiomediastinal silhouette is normal. Thoracolumbar spine fusion and left humeral internal fixation are incidentally noted. IMPRESSION: No pneumothorax placement of a left internal jugular central line. ACT 112: Negative or not required by law. Electronically signed by: Matt Puckett M.D. 05/08/2024 6:36 AM
--- NOTE | 2024-05-08 06:47 | Billing Data ---
Date of Service May 08, 2024 Coding Level of Care Code 97639 CRITICAL CARE
[2024-05-08] MEDS ORDERED: ALBUT/IPRATROP 3MG/0.5MG NEB 3 ML VIAL NEB PRN (07:22)
[2024-05-08] MEDS ORDERED: Nursing to Pharmacy Communication SCH (07:45)
[2024-05-08] MEDS: BACITRACIN/POLYMYXIN B SULFATE 90 APPLN/28.4 GM TUBE EXT ONE (07:48)
[2024-05-08 08:12] LABS: Troponin I High Sensitivity 16.8 pg/ml (0-20)
[2024-05-08 08:18] LABS: Phosphorus 3.9 mg/dl (2.5-4.9)
[2024-05-08] MEDS: POTASSIUM CHLORIDE / WTR 20 MEQ/100 ML PLCT IV ONE ×2 (08:36→16:45)
--- NOTE | 2024-05-08 09:20 | Hospitalist Progress Note ---
Date of Service May 08, 2024 Assessment & Plan (1) Admitted to intensive care unit: (2) Septic shock: (3) Sepsis due to urinary tract infection: (4) Hypotension: (5) Hypomagnesemia: (6) FRANK (acute kidney injury): (7) Altered mental status: (8) Paraplegia: (9) T12 spinal cord injury: (10) Neurogenic bladder: Plan Septic shock due to urinary tract infection/neurogenic bladder/Shields placement in ED Admit to intensive care unit Follow urine culture and sensitivity. Follow blood culture and sensitivity. Empiric Zosyn 4.5 g IV every 8 hours Status post 3 L LR fluid bolus in the ED to be followed by maintenance per the ICU Lowest blood pressure 75/40 Status post 2 A of sodium bicarbonate Levophed infusion started and titration per protocol CT scan of head, cervical spine, chest, abdomen and pelvis without acute findings Shields catheter placed in the ED, routine management Acute kidney injury- Creatinine 3.92, with base 0.45 IV fluids as noted above Repeat laboratories daily High anion gap metabolic acidosis Venous blood gas with pH 7.13, pCO2 43, pO2 26. Gap 17 with delta ratio of 0.5. Suggests high anion gap metabolic acidosis (likely lactic acidosis) with normal anion gap metabolic acidosis (likely renal losses). 2 A of sodium bicarbonate given. IV fluids as above. Hypertension/electrolyte disturbances- Magnesium 1.2, receive IV replacement Potassium 3.5, receive IV replacement Due to hypotension, holding amlodipine, lisinopril, metoprolol succinate Ischemic colitis/status post perforation/status post multiple surgeries at [facility]- CT scan of abdomen pelvis with minor amount of ascites/fluid within the abdomen, with a competent of peritonitis cannot be excluded. Configuration of the urinary bladder raises suspicion of cystitis Zosyn 4.5 g IV every 8 hours Paraplegia/T12 spinal cord injury- Routine supportive care Wound care to look at bruising noted on b/l lower extremities Continue baclofen, citalopram, hydroxyzine and quetiapine when able to take p.o. Dispo: ICU Full Code FEN/GI/Lines: NPO, Maintenance LR @ 75mL/hr, Lines: Left IJ, peripheral, Shields VTE ppx: Heparin Admission and Anticipated Discharge Date Admission Date: May 08, 2024 Supervising Physician Co-Signing Physician Notes Attending Physician Supervision Note: I independently interviewed and examined the patient and verified the jacques history and physical, reviewed labs and image studies and agree with findings and care plan noted above. alert but not able to communicate effectively. says yes and no. o/e fidgetingly moving his both arms RRR ABd- soft. AKA bilateral -stumps with mild erythema bilaterally. Shock - Possibly septic/hypovolemic -Off Levophed. continue IVF. Continue IV zosyn. -cultures pending. Metabolic/toxic encephalopathy - CT head negative. Urine tox with marijuana. -Cx pending. -replacing electrolytes -considering brain MRI if mentation doesn't continue to clear up. FRANK -possibly secondary to hypoperfusion and infection versus prerenal -Continue IV hydration -Closely monitor urine output - Shields in place - placed in the ED Bilateral leg stump erythema -Wound care consulted Neurogenic bladder -will give further history once mentation clear Paraplegia T12 spine injury -supportive care S/p colostomy -due to ischemic colitis. SQ heparin Subjective Rigoberto is feeling improved this morning, was awake and resting in bed. Denies complaints of shortness of breath, chest pain, palpitations, abdominal pain. Does have chills. Did not have any noticeable urinary symptoms prior to hospitalization. Is still confused but unsure of baseline mental status. Review of Systems Review of Systems: Per HPI. Physical Exam Physical Exam: PHYSICAL EXAM: General: awake, alert, not oriented to time or place Head: Normocephalic, atraumatic ENT: PERRLA Neuro: strength intact bilaterally 5/5, sensation intact and equal all ext remities and dermatomes Chest: equal rise and fall of the chest, no accessory muscle use, no heaves or thrills, Clear to auscultation, on room air, Cardiac: Regular rate and rhythm, telemetry reviewed, skin warm dry, cap refill <3 seconds, peripheral pulses +2 no JVD, no murmur, no edema GI: illeostomy present with yellow/brown liquid, soft, nontender to palpation, no rebound, guarding or tenderness : Shields draining dark colored urine, decreased output Extremities: abrasions to bilateral lower extremities s/p remote bilateral above knee amputation, buttocks, and right neck Results & Data Results & Data Vital Signs (Past 12 Hours) Vital Signs Temp Pulse Pulse Resp BP BP Pulse Ox 05/08/24 07:10 35.6 C L 98 H 20 148/88 H 98 05/08/24 06:45 35.1 C L 74 20 109/58 L 100 05/08/24 06:37 35.0 C L 67 14 132/54 L 100 05/08/24 06:30 34.9 C L 70 14 96 05/08/24 06:15 34.6 C L 87 16 100 05/08/24 06:08 99/70 L 05/08/24 05:56 78/66 L 05/08/24 05:51 34.6 C L 88 16 99 05/08/24 05:49 75/50 L 05/08/24 05:49 75/50 L 05/08/24 05:48 34.6 C L 90 14 76/47 L 100 05/08/24 05:39 34.4 C L 76 15 100 05/08/24 05:32 34.3 C L 93 H 20 109/73 99 05/08/24 05:30 34.5 C L 85 14 109/73 100 05/08/24 05:24 34.0 C L 87 14 100 05/08/24 05:11 107/61 05/08/24 05:11 32.8 C L 05/08/24 05:11 32.8 C L 111 H 16 107/61 100 05/08/24 04:40 93 H 18 76/44 L 83 L 05/08/24 04:30 89 18 76/44 L 100 05/08/24 04:12 96 H 12 98 05/08/24 04:05 99 05/08/24 04:03 93 H 15 97 05/08/24 03:59 34.9 C L 84 18 99 05/08/24 03:53 96 H 14 158/130 H 95 05/08/24 03:44 93 H O2 Del Method 05/08/24 07:10 Room Air 05/08/24 06:45 Room Air 05/08/24 06:37 05/08/24 06:30 05/08/24 06:15 Room Air 05/08/24 06:08 05/08/24 05:56 05/08/24 05:51 Room Air 05/08/24 05:49 05/08/24 05:49 05/08/24 05:48 Room Air 05/08/24 05:39 Room Air 05/08/24 05:32 Room Air 05/08/24 05:30 Room Air 05/08/24 05:24 Room Air 05/08/24 05:11 05/08/24 05:11 05/08/24 05:11 Room Air 05/08/24 04:40 Room Air 05/08/24 04:30 Room Air 05/08/24 04:12 Room Air 05/08/24 04:05 Room Air 05/08/24 04:03 Room Air 05/08/24 03:59 Room Air 05/08/24 03:53 Room Air 05/08/24 03:44 Resident Activity Tracking Resident Involvement: Resident Care Provided Care Provided: Adult Hospital Medicine and OB Delivery
[2024-05-08] MEDS: HEPARIN SOD 5,000 UNIT/0.5 ML VIAL SQ SCH (09:22)
[2024-05-08] MEDS: ICU Protocol for HYPERglycemia SCH (09:24)
[2024-05-08] MEDS: ACETAMINOPHEN 1000 MG/100 ML IV IV PRN (10:37)
[2024-05-08] MEDS: MoRPHine SULFATE 2 MG/ML CARP ONE (11:03)
[2024-05-08] MEDS: CALCIUM GLUCONATE 1000 MG/60 ML NSS IV ONE (11:04)
[2024-05-08] MEDS: PANTOprazole 40 MG in SYRINGE 0 ML IV SCH ×2 (11:05→22:11)
[2024-05-08] MEDS: CALCIUM GLUCONATE 10% 1,000 MG in NS X2 BAGS IV SCH (11:05)
[2024-05-08 11:07] LABS: Amphetamines+Metham, Urine Neg (Neg); Barbiturates, Urine Neg (Neg); Benzodiazepine, Urine Neg (Neg); Cocaine, Urine Neg (Neg); Fentanyl, Urine Neg (Neg); MDMA (Ecstacy), Urine Neg (Neg); Marijuana, Urine Pos (Neg); Methadone, Urine Neg (Neg); Opiate, Urine Neg (Neg); Phencyclidine, Urine Neg (Neg)
[2024-05-08] MEDS ORDERED: DEXTROSE 50% 50 ML SYRINGE IV PRN (11:15)
[2024-05-08] MEDS ORDERED: GLUCAGON FOR INJ 1 MG VIAL IM PRN (11:15)
[2024-05-08] MEDS ORDERED: GLUCOSE 10 TAB/TUBE PO PRN (11:15)
[2024-05-08] MEDS ORDERED: GLUCOSE 40% GEL 15 GM TUBE PO PRN (11:15)
[2024-05-08] MEDS ORDERED: CARBOHYDRATES FOR HYPOGLYCEMIA PO PRN (11:15)
--- NOTE | 2024-05-08 11:16 | XCELERA ---
[id number] [id number]
[2024-05-08] MEDS: THIAMINE HCL 500 MG in SODIUM CHLORIDE 0.9% 50 ML IV SCH (12:23)
[2024-05-08] MEDS: FOLIC ACID 1 MG in SYRINGE 9.8 ML IV SCH (12:23)
[2024-05-08] MEDS: PIPERACILLIN/TAZOBACTAM 4.5 GM in DEXTROSE 5% MINI-B 100 ML IV SCH (12:24)
[2024-05-08] MEDS: INSULIN ASPART PER UNIT CHARGE SC SCH (12:24)
[2024-05-08 15:13] LABS: BUN Creatinine Ratio 7.5 (10-20); Calcium 8.6 mg/dl (8.6-10.3); Creatinine Clr Calc Pharmacy 7.2 ml/min; Est GFR (African American) 19.8 ml/min; Est GFR (Non-African American) 17.1 ml/min; Potassium 3.4 mmol/L (3.5-5.1)
[2024-05-08 15:20] LABS: Troponin I High Sensitivity 18.9 pg/ml (0-20)
[2024-05-08] MEDS: MoRPHine SULFATE 2 MG/ML CARP IV PRN (15:26)
[2024-05-08] MEDS: LACTATED RINGER'S 500 ML IV ONE (15:28)
[2024-05-08] MEDS: LACTATED RINGER'S 250 ML IV ONE (16:44)
[2024-05-09] MEDS: ONDANSETRON INJ 2 MG/ML 2 ML VIAL IV PRN (00:44)
[2024-05-09 05:00] LABS: Basophils # (auto) 0.03 K/uL (0.00-0.20); Basophils % (auto) 0.4 %; Eosinophils # (auto) 0.02 K/uL (0.00-0.50); Eosinophils % (auto) 0.3 %; Hematocrit (blood only) 29.6 % (42.0-52.0); Hemoglobin 9.6 g/dl (14.0-18.0); Immature Granulocytes # (auto) 0.02 K/uL (0.01-0.20); Immature Granulocytes % (auto) 0.3 %; Lymphocytes # (auto) 0.89 K/uL (1.20-3.40); Lymphocytes % (auto) 11.2 %; Mean Corpuscular Hemoglobin 28.7 pg (25.0-34.0); Mean Corpuscular Hgb Conc 32.4 g/dL (32.0-36.0); Mean Corpuscular Volume 88.6 fL (80.0-100.0); Mean Platelet Volume 9.7 fL (9.4-12.4); Monocytes # (auto) 0.98 K/uL (0.11-0.59); Monocytes % (auto) 12.4 %; Neutrophils # (auto) 5.99 K/uL (1.40-6.50); Neutrophils % (auto) 75.4 %; Platelet Count 315 K/uL (130-400); RDW Coefficient of Variation 14.6 % (11.5-14.5); RDW Standard Deviation 47.4 fL (36.4-46.3); Red Blood Count 3.34 M/uL (4.70-6.10); White Blood Count 7.93 K/ul (4.8-10.8)
[2024-05-09 05:13] LABS: Albumin Globulin Ratio 1.3 (0.9-2); Albumin Level 3.3 gm/dl (3.4-5.0); Bilirubin,Total 0.5 mg/dl (0.2-1.0); Calcium 8.8 mg/dl (8.6-10.3); Creatinine Clr Calc Pharmacy 7.7 ml/min; Est GFR (African American) 19.9 ml/min; Est GFR (Non-African American) 17.2 ml/min; Globulin 2.6 gm/dl (2.5-4.0); Magnesium 1.8 mg/dl (1.7-2.4); Phosphorus 4.6 mg/dl (2.5-4.9); Potassium 3.8 mmol/L (3.5-5.1); Total Protein 5.9 gm/dl (6.0-8.3)
[2024-05-09 05:43] LABS: INR 1.1 (0.9-1.1); Partial Thromboplastin Ratio 1.2; Partial Thromboplastin Time 33 Seconds (21-31); Prothrombin Time 11.4 Seconds (9.0-12.0)
[2024-05-09] MEDS: MAGNESIUM SULFATE / D5W 1 GM/100 ML BAG IV SCH (06:26)
--- NOTE | 2024-05-09 06:58 | Electrocardiogram Report ---
Test Reason : Blood Pressure : / mmHG Vent. Rate : 092 BPM Atrial Rate : 092 BPM P-R Int : 106 ms QRS Dur : 086 ms QT Int : 408 ms P-R-T Axes : 001 046 050 degrees QTc Int : 504 ms Sinus rhythm Normal ECG When compared with ECG of 20-APR-2024 05:55, No significant change was found Confirmed by Fransico Bateman ([id number]) on 05/09/2024 6:57:26 AM Referred By: REFERRED SELF Confirmed By:Fransico Bateman
--- NOTE | 2024-05-09 07:04 | Electrocardiogram Report ---
Test Reason : Blood Pressure : / mmHG Vent. Rate : 102 BPM Atrial Rate : 102 BPM P-R Int : 142 ms QRS Dur : 070 ms QT Int : 364 ms P-R-T Axes : 036 042 036 degrees QTc Int : 474 ms Poor data quality, interpretation may be adversely affected Sinus tachycardia Otherwise normal ECG When compared with ECG of 08-MAY-2024 03:46, (unconfirmed) No significant change was found Confirmed by Fransico Bateman ([id number] on 05/09/2024 7:04:06 AM Referred By: REFERRED SELF Confirmed By:Fransico Bateman
--- NOTE | 2024-05-09 07:24 | Critical Care Progress Note ---
Date of Service May 09, 2024 Assessment & Plan (1) Severe sepsis: (2) Acute UTI (urinary tract infection): (3) Hypomagnesemia: (4) FRANK (acute kidney injury): (5) Encephalopathy: (6) Lactic acidosis: (7) Metabolic acidosis: (8) T12 spinal cord injury: Plan Reason Critically Ill: 58 YOM admitted to the ICU severe septic shock requiring vasopressors. Current source appears to be urine Neuro - Metabolic encephalopathy, T12 fusion and spinal cord injury (chronic) CAM ICU: Negative -- Metabolic Encephalopathy at this time likely secondary to severe sepsis - supportive care at this time - Head CT without acute bleed- notable for remote infarcts - Tox screen pending, ETOH within normal limits - ETOH level negative, tox cream was positive only for marijuana Cardiac -s/p septic shock, AAA - AAA- infrarenal 3.6cm- not sure of chronicity and who is following this- previously noted on CT angiogram 03/18/24 as 3.8cm - Continue supportive care- 3 liters crystalloid administered- patient is volume responsive at this time - follow urine output and hemodynamic response Respiratory - No acute needs GI - Illeostomy- hx of ischemic colitis - CT abd/pelvis no acute findings - no output noted from ostomy- ostomy is pink RENAL/LYTES - AGAP Metabolic Acidosis, ARF non-oliguric, hyop mag - likely secondary to septic shock - continue with crystalloid infusion - LR currently- could consider isotonic bicarb -- S/p HAGMA - acute UTI - hx neurogenic bladder- lopez to gravity draining maria luz colored urine ENDO - No acute needs - ICU hyper/hypoglycemic protocol HEME - No acute needs ID - Severe septic shock - Urine likely source- history reviewed- pansensitive E. Coli - antibiotics- Zosyn DISPO: ICU while on vasopressor agents --Prophylaxis VTE: Heparin GI: Pantoprazole Lines: Left IJ, peripheral, Lopez Diet: Cardiac diet Plan: In/out: +2.7 L, urine output 1520 Creatinine has plateaued and starting to gradually trend down. Continue with IV fluids at 75 mill an hour. Urine culture still pending. Continue with antibiotics Potassium and magnesium being replaced Will monitor the patient in the ICU till noon and if the patient does not need vasopressor support will downgrade to floor Please note the above document was generated using voice recognition software. It may contain grammatical, syntax or spelling errors.Any formal questions or concerns about the content, text or information contained within the body of this dictation should be directly addressed to the provider for clarification. Admission and Anticipated Discharge Date Admission Date: May 08, 2024 Subjective Patient seen and examined at bedside. No acute distress, no adverse events overnight Patient MAP was in the 70s at the time of examination. He was oriented to self and place. He did have bouts of delirium overnight for which mittens were placed. Denies any nausea or vomiting No abdominal pain Has been afebrile Levophed has been off since 2:30 AM Review of Systems 2 Review of Systems: All systems reviewed & are unremarkable except as noted in Subjective Physical Exam 2 Physical Exam: Constitutional: No acute distress HEENT: EOMI, PERRLA Respiratory system: Good air entry bilaterally, no wheeze, no rhonchi, mild crackles bilateral lower lobes CVS: S1-S2 positive, no murmurs or gallops Abdomen: Soft, nontender, nondistended, positive bowel sounds x4 Extremities: +2 pulses bilaterally radialis, no cyanosis, no edema, positive bilateral AKA, ecchymosis appreciated bilateral leg stumps especially on the right side Neuro: Awake alert oriented to self and place Psych: Flat mood and affect G/U: Positive Lopez Skin: no rashes, warm and dry Lymphatic: no cervical or axillary lymphadenopathy Results & Data Results & Data Vital Signs (Past 12 Hours) Vital Signs Temp Pulse Resp BP Pulse Ox 05/09/24 06:01 122/64 05/09/24 06:00 37.0 C 107 H 14 100 05/09/24 05:30 140/79 05/09/24 05:21 36.9 C 104 H 12 96 05/09/24 05:01 128/85 05/09/24 05:00 36.9 C 107 H 97 05/09/24 04:48 36.9 C 106 H 12 99 05/09/24 04:09 36.8 C 105 H 13 96 05/09/24 04:01 140/80 05/09/24 03:54 36.9 C 102 H 12 99 05/09/24 03:15 134/86 05/09/24 03:15 36.8 C 97 H 12 99 05/09/24 03:03 36.8 C 106 H 15 99 05/09/24 03:00 137/91 05/09/24 02:32 36.7 C 96 H 18 98 05/09/24 02:31 149/87 H 05/09/24 02:16 120/86 05/09/24 02:14 36.6 C 92 H 14 98 05/09/24 02:05 36.7 C 103 H 15 100 05/09/24 02:00 142/97 H 05/09/24 01:46 137/81 05/09/24 01:41 36.3 C L 112 H 23 96 05/09/24 01:17 36.8 C 84 17 99 05/09/24 01:15 97/64 L 05/09/24 00:54 36.5 C 99 H 19 99 05/09/24 00:48 36.6 C 101 H 17 96 05/09/24 00:46 129/81 05/09/24 00:17 130/86 05/09/24 00:00 111 H 05/08/24 23:45 144/92 H 05/08/24 23:27 36.5 C 108 H 18 96 05/08/24 23:18 36.7 C 106 H 15 100 05/08/24 23:00 78/57 L 05/08/24 23:00 78/57 L 05/08/24 23:00 36.7 C 74 12 100 05/08/24 22:30 36.7 C 81 14 100 05/08/24 22:30 83/57 L 05/08/24 22:15 122/89 05/08/24 22:09 36.6 C 96 H 13 99 05/08/24 22:00 138/80 05/08/24 21:51 36.5 C 107 H 17 96 05/08/24 21:06 36.7 C 111 H 14 98 05/08/24 21:01 146/71 H 05/08/24 19:52 127/77 05/08/24 19:51 35.7 C L 99 H 13 100 Laboratory Results 05/09/24 04:33 05/09/24 04:33 Coding Level of Care Code 40513 SUB INP/OBS CARE 3/50MIN Diagnoses Severe sepsis A41.9; R65.20 Acute UTI (urinary tract infection) N39.0 Hypomagnesemia E83.42 FRANK (acute kidney injury) N17.9 Encephalopathy G93.40 Lactic acidosis E87.20 Metabolic acidosis E87.20 T12 spinal cord injury S24.104A
[2024-05-09] MEDS: POTASSIUM CHLORIDE / WTR 20 MEQ/100 ML PLCT IV ONE (08:06)
--- NOTE | 2024-05-09 08:32 | Hospitalist Progress Note ---
Date of Service May 09, 2024 Assessment & Plan (1) Admitted to intensive care unit: (2) Septic shock: (3) Sepsis due to urinary tract infection: (4) Hypotension: (5) Hypomagnesemia: (6) FRANK (acute kidney injury): (7) Altered mental status: (8) Paraplegia: (9) T12 spinal cord injury: (10) Neurogenic bladder: Plan Septic shock due to urinary tract infection/neurogenic bladder/Shields placement in ED Downgrade from intensive care unit, off pressors. Follow urine culture and sensitivity. Blood cultures negative for growth at 24 hours. Empiric Zosyn 4.5 g IV every 8 hours Input 5L fluids be followed by maintenance 75mL/hour CT scan of head, cervical spine, chest, abdomen and pelvis without acute findings Shields catheter placed in the ED, routine management Metabolic/toxic encephalopathy CT head negative. Urine tox with marijuana. Acute kidney injury Creatinine 3.7, with base 0.45 IV fluids as noted above Possible component of ischemia Repeat laboratories daily High anion gap metabolic acidosis Venous blood gas with pH 7.13, pCO2 43, pO2 26. Have not repeated since yesterday. Gap 17 with delta ratio of 0.5. Suggests high anion gap metabolic acidosis (likely lactic acidosis) with normal anion gap metabolic acidosis (likely renal losses). 2 A of sodium bicarbonate given. IV fluids as above. Hypertension/electrolyte disturbances- Magnesium and Potassium stable today, receive IV replacement as necessary Due to hypotension, holding amlodipine, lisinopril, metoprolol succinate Ischemic colitis/status post perforation/status post multiple surgeries at [facility]- CT scan of abdomen pelvis with minor amount of ascites/fluid within the abdomen, with a competent of peritonitis cannot be excluded. Configuration of the urinary bladder raises suspicion of cystitis Zosyn 4.5 g IV every 8 hours Paraplegia/T12 spinal cord injury Routine supportive care Wound care to look at bruising noted on b/l lower extremities Continue baclofen, citalopram, hydroxyzine and quetiapine when able to take p.o. Admission and Anticipated Discharge Date Admission Date: May 08, 2024 Supervising Physician Co-Signing Physician Notes Attending Physician Supervision Note: I independently interviewed and examined the patient and verified the jacques history and physical, reviewed labs and image studies and agree with findings and care plan noted above. alert and following commands appropriately. speech still not clear. o/e less fidgeting today of both arms Tachycardic. CTA AKA bilateral -stumps with mild erythema bilaterally. Shock - Possibly septic/hypovolemic -Off Levophed. continue IVF since still tachycardic. -cultures negative. will reassess mental status in am and then d/c abx. Continue IV zosyn for now. Metabolic/toxic encephalopathy - CT head negative. Urine tox with marijuana. -Cx negative. -considering brain MRI if mentation doesn't continue to clear up - will need lorazepam due to fidgeting. FRANK - likely ATN due to shock. -Continue IV hydration -Urine output 1.5L 723. Shields in place - placed in the ED -consider d/c IVF in am if shows no improvement in renal function. Bilateral leg stump erythema -Wound care consulted Neurogenic bladder -will get further history once mentation clear Paraplegia T12 spine injury -supportive care S/p colostomy -due to ischemic colitis. SQ heparin Subjective Rigoberto was awake and resting in bed this morning. He is fidgety and restless. He denies complaints of shortness of breath, chest pain, palpitations, abdominal pain, fever, chills but it is difficult to know if he is comprehending the questions. Review of Systems Review of Systems: see HPI Physical Exam Physical Exam: PHYSICAL EXAM: General: awake, alert, not oriented to time or place Head: Normocephalic, atraumatic ENT: PERRLA Neuro: strength intact bilaterally, sensation intact and equal all extremities and dermatomes Chest: equal rise and fall of the chest, no accessory muscle use, no heaves or thrills, Clear to auscultation Cardiac: Regular rate and rhythm, telemetry reviewed, skin warm dry, cap refill <3 seconds, no JVD, no murmur, no edema GI: illeostomy present with yellow/brown liquid, soft, nontender to palpation, no rebound, guarding or tenderness : Shields draining urine Extremities: redness in bilateral lower extremities s/p remote bilateral above knee amputation Results & Data Results & Data Vital Signs (Past 12 Hours) Vital Signs Temp Pulse Resp BP Pulse Ox 05/09/24 06:01 122/64 05/09/24 06:00 37.0 C 107 H 14 100 05/09/24 05:30 140/79 05/09/24 05:21 36.9 C 104 H 12 96 05/09/24 05:01 128/85 05/09/24 05:00 36.9 C 107 H 97 05/09/24 04:48 36.9 C 106 H 12 99 05/09/24 04:09 36.8 C 105 H 13 96 05/09/24 04:01 140/80 05/09/24 03:54 36.9 C 102 H 12 99 05/09/24 03:15 134/86 05/09/24 03:15 36.8 C 97 H 12 99 05/09/24 03:03 36.8 C 106 H 15 99 05/09/24 03:00 137/91 05/09/24 02:32 36.7 C 96 H 18 98 05/09/24 02:31 149/87 H 05/09/24 02:16 120/86 05/09/24 02:14 36.6 C 92 H 14 98 05/09/24 02:05 36.7 C 103 H 15 100 05/09/24 02:00 142/97 H 05/09/24 01:46 137/81 05/09/24 01:41 36.3 C L 112 H 23 96 05/09/24 01:17 36.8 C 84 17 99 05/09/24 01:15 97/64 L 05/09/24 00:54 36.5 C 99 H 19 99 05/09/24 00:48 36.6 C 101 H 17 96 05/09/24 00:46 129/81 05/09/24 00:17 130/86 05/09/24 00:00 111 H 05/08/24 23:45 144/92 H 05/08/24 23:27 36.5 C 108 H 18 96 05/08/24 23:18 36.7 C 106 H 15 100 05/08/24 23:00 78/57 L 05/08/24 23:00 78/57 L 05/08/24 23:00 36.7 C 74 12 100 05/08/24 22:30 36.7 C 81 14 100 05/08/24 22:30 83/57 L 05/08/24 22:15 122/89 05/08/24 22:09 36.6 C 96 H 13 99 05/08/24 22:00 138/80 07/22/24 21:51 36.5 C 107 H 17 96 05/08/24 21:06 36.7 C 111 H 14 98 05/08/24 21:01 146/71 H Resident Activity Tracking Resident Involvement: Resident Care Provided Care Provided: Adult Hospital Medicine
[2024-05-10 04:59] LABS: Basophils # (auto) 0.03 K/uL (0.00-0.20); Basophils % (auto) 0.5 %; Eosinophils # (auto) 0.04 K/uL (0.00-0.50); Eosinophils % (auto) 0.6 %; Hematocrit (blood only) 26.8 % (42.0-52.0); Hemoglobin 8.5 g/dl (14.0-18.0); Immature Granulocytes # (auto) 0.02 K/uL (0.01-0.20); Immature Granulocytes % (auto) 0.3 %; Lymphocytes # (auto) 0.65 K/uL (1.20-3.40); Lymphocytes % (auto) 10.3 %; Mean Corpuscular Hemoglobin 28.5 pg (25.0-34.0); Mean Corpuscular Hgb Conc 31.7 g/dL (32.0-36.0); Mean Corpuscular Volume 89.9 fL (80.0-100.0); Mean Platelet Volume 9.1 fL (9.4-12.4); Monocytes # (auto) 0.53 K/uL (0.11-0.59); Monocytes % (auto) 8.4 %; Neutrophils # (auto) 5.07 K/uL (1.40-6.50); Neutrophils % (auto) 79.9 %; Platelet Count 254 K/uL (130-400); RDW Standard Deviation 49.4 fL (36.4-46.3); Red Blood Count 2.98 M/uL (4.70-6.10); White Blood Count 6.34 K/ul (4.8-10.8)
[2024-05-10 05:14] LABS: Albumin Globulin Ratio 1.3 (0.9-2); Albumin Level 3.2 gm/dl (3.4-5.0); BUN Creatinine Ratio 7.9 (10-20); Bilirubin,Total 0.5 mg/dl (0.2-1.0); Calcium 8.8 mg/dl (8.6-10.3); Creatinine Clr Calc Pharmacy 11.9 ml/min; Est GFR (African American) 33.9 ml/min; Est GFR (Non-African American) 29.2 ml/min; Globulin 2.5 gm/dl (2.5-4.0); Magnesium 1.8 mg/dl (1.7-2.4); Phosphorus 4.5 mg/dl (2.5-4.9); Potassium 3.7 mmol/L (3.5-5.1); Total Protein 5.7 gm/dl (6.0-8.3)
[2024-05-10 05:58] LABS: INR 1.1 (0.9-1.1); Partial Thromboplastin Ratio 1.2; Partial Thromboplastin Time 33 Seconds (21-31); Prothrombin Time 11.9 Seconds (9.0-12.0)
--- NOTE | 2024-05-10 07:35 | Hospitalist Progress Note ---
Date of Service May 10, 2024 Assessment & Plan (1) Admitted to intensive care unit: (2) Septic shock: (3) Sepsis due to urinary tract infection: (4) Hypotension: (5) Hypomagnesemia: (6) FRANK (acute kidney injury): (7) Altered mental status: (8) Paraplegia: (9) T12 spinal cord injury: (10) Neurogenic bladder: Plan Septic shock due to urinary tract infection/neurogenic bladder/Shields placement in ED Urine culture: yeast - may be colonized from neurogenic bladder/recurrent self- cathing? Blood cultures negative for growth at 48 hours. Stop Zosyn, no signs of infection at this time Maintenance fluids 75mL/hour CT scan of head, cervical spine, chest, abdomen and pelvis without acute findings Shields catheter placed in the ED, routine management Metabolic/toxic encephalopathy CT head negative. Urine tox with marijuana. Given significant atherosclerotic disease in abdominal arteries, concern for CVA. Will order brain MRI w/ and w/o contrast today, pending Acute kidney injury Creatinine improved to 2.39 today, with base 0.45 IV fluids as noted above Repeat laboratories daily High anion gap metabolic acidosis - Resolved: Venous blood gas with pH 7.13, pCO2 43, pO2 26 on admission. Have not repeated VBG since 05/08 but AG closed Gap 17 with delta ratio of 0.5 on admission. Suggests high anion gap metabolic acidosis (likely lactic acidosis) with normal anion gap metabolic acidosis (likely renal losses). IV fluids as above. Hypertension/electrolyte disturbances- Magnesium and Potassium stable today, receive IV replacement as necessary Due to hypotension, holding amlodipine, lisinopril, metoprolol succinate Ischemic colitis/status post perforation/status post multiple surgeries at [facility]- CT scan of abdomen pelvis with minor amount of ascites/fluid within the abdomen, with a competent of peritonitis cannot be excluded. Configuration of the urinary bladder raises suspicion of cystitis Paraplegia/T12 spinal cord injury Routine supportive care Wound care to look at bruising noted on b/l lower extremities Continue baclofen, citalopram, hydroxyzine and quetiapine DVT ppx: heparin Diet: Heart Healthy Full Code Admission and Anticipated Discharge Date Admission Date: May 08, 2024 Supervising Physician Co-Signing Physician Notes Attending Physician Supervision Note: I independently interviewed and examined the patient and verified the jacques history and physical, reviewed labs and image studies and agree with findings and care plan noted above. Mentation and speech clear this am. o/e no restlessness. RRR No resp distress AKA bilateral -stumps with mild erythema bilaterally. Shock - Likely hypovolemic -Off Levophed. continue IVF since still tachycardic. -cultures negative. d/c zosyn. Metabolic/toxic encephalopathy - CT head negative. Urine tox with marijuana. Cx negative. -Resolved. -could consider further evaluation with MRI as outpatient since has extensive h/o atherosclerosis. FRANK - likely ATN due to shock. -Continue IV hydration -UO normal. Shields in place - placed in the ED -d/c IVF after current bag. Dhara in urine - less likely causing infection since improved without any treatment. Bilateral leg stump erythema -Wound care consulted Neurogenic bladder -Uses straight cath at home. Paraplegia T12 spine injury -supportive care S/p colostomy -due to ischemic colitis. SQ heparin Subjective Rigoberto is more oriented today, still fidgeting and restless. He understands that he is in the hospital but does not remember why he was hospitalized. Denies any chest pain, shortness or breath, fever, chills. Review of Systems Review of Systems: see HPI Physical Exam Physical Exam: PHYSICAL EXAM: General: awake, alert, oriented to name, place, and month Head: Normocephalic, atraumatic ENT: PERRLA Neuro: strength intact bilaterally, sensation intact and equal all extremities and dermatomes Chest: equal rise and fall of the chest, no accessory muscle use, no heaves or thrills, Clear to auscultation Cardiac: Regular rate and rhythm, telemetry reviewed, skin warm dry, cap refill <3 seconds, no JVD, no murmur, no edema GI: illeostomy present with yellow/brown liquid, soft, tender to palpation at midline incision, no rebound, guarding or tenderness : Shields draining urine Extremities: redness in bilateral lower extremities s/p remote bilateral above knee amputation Results & Data Results & Data Vital Signs (Past 12 Hours) Vital Signs Temp Pulse Resp BP Pulse Ox 05/10/24 04:03 37.0 C 74 13 98 05/10/24 04:00 146/91 H 05/10/24 00:09 36.8 C 96 H 12 155/81 H 97 05/10/24 00:00 100 H Laboratory Results Cardiac Enzymes 05/10/24 Range/Units 04:44 AST 17 (13-39) U/L Coagulation 05/10/24 Range/Units 04:44 PT 11.9 (9.0-12.0) Seconds APTT 33 H (21-31) Seconds CBC 05/10/24 Range/Units 04:44 WBC 6.34 (4.8-10.8) K/ul RBC 2.98 L (4.70-6.10) M/uL Hgb 8.5 L (14.0-18.0) g/dl Hct 26.8 L (42.0-52.0) % Plt Count 254 (130-400) K/uL Neut # (Auto) 5.07 (1.40-6.50) K/uL Lymph # (Auto) 0.65 L (1.20-3.40) K/uL [place] # (Auto) 0.53 (0.11-0.59) K/uL Eos # (Auto) 0.04 (0.00-0.50) K/uL Baso # (Auto) 0.03 (0.00-0.20) K/uL Comprehensive Metabolic Panel 05/10/24 Range/Units 04:44 Sodium 145 (136-145) mmol/L Potassium 3.7 (3.5-5.1) mmol/L Chloride 112 H (98-107) mmol/L Carbon Dioxide 23 (21-32) mmol/L BUN 19 (6-23) mg/dl Creatinine 2.39 H D (0.6-1.4) mg/dl Glucose 120 H (70-99(Fasting)) mg/dl Calcium 8.8 (8.6-10.3) mg/dl AST 17 (13-39) U/L ALT 26 (7-52) U/L Alkaline Phosphatase 82 (34-104) U/L Total Protein 5.7 L (6.0-8.3) gm/dl Albumin 3.2 L (3.4-5.0) gm/dl Intake and Output 05/09/24 05/10/24 05/10/24 22:59 06:59 14:59 Intake Total 1355 / 2597.5 1155 / 2597.5 Output Total 425 / 2300 775 / 2300 Balance 930 / 297.5 380 / 297.5 Intake: IV 1355 / 2597.5 1155 / 2597.5 Lactated Ringer's 1,000 ml @ 75 1000 / 2000 1000 / 2000 mls/hr IV .[id number] [facility] Rx#: [id number] Magnesium Sulfate / D5w 1 gm In 100 / 187.5 100 ml @ 50 mls/hr IV Q2H [facility] Rx#:[id number] Piperacillin/Tazobactam 4.5 gm 100 / 200 100 / 200 In Dextrose 5% Mini-B 100 ml @ 25 mls/hr IV Q12H [facility] Rx#: [id number] Potassium Chloride / Wtr 20 meq 100 / 100 In 100 ml @ 50 mls/hr IV 0730 [facility] Rx#:[id number] Thiamine HCl 500 mg In Sodium 55 / 110 55 / 110 Chloride 0.9% 50 ml @ 210 mls/ hr IV Q12H [facility] Rx#:[id number] Output: Urine Amount (Catheter) 400 / 2125 750 / 2125 Temp Sensing Shields 400 / 2125 750 / 2125 Gastric Drainage 25 / 50 25 / 50 Ileostomy/Colostomy 25 / 50 25 / 50 Other: Weight 57 kg Weight Measurement Method Built in [facility] Resident Activity Tracking Resident Involvement: Resident Care Provided Care Provided: Adult Hospital Medicine
[2024-05-10] MEDS: POTASSIUM CHLORIDE / WTR 10 MEQ/100 ML PLCT IV SCH (08:35)
[2024-05-10] MEDS: MAGNESIUM SULFATE / D5W 1 GM/100 ML BAG IV SCH (08:36)
[2024-05-11 04:50] LABS: Basophils # (auto) 0.04 K/uL (0.00-0.20); Basophils % (auto) 0.5 %; Eosinophils # (auto) 0.04 K/uL (0.00-0.50); Eosinophils % (auto) 0.5 %; Hematocrit (blood only) 28.1 % (42.0-52.0); Hemoglobin 8.8 g/dl (14.0-18.0); Immature Granulocytes # (auto) 0.04 K/uL (0.01-0.20); Immature Granulocytes % (auto) 0.5 %; Lymphocytes # (auto) 1.28 K/uL (1.20-3.40); Lymphocytes % (auto) 17.4 %; Mean Corpuscular Hemoglobin 28.4 pg (25.0-34.0); Mean Corpuscular Hgb Conc 31.3 g/dL (32.0-36.0); Mean Corpuscular Volume 90.6 fL (80.0-100.0); Mean Platelet Volume 9.7 fL (9.4-12.4); Monocytes # (auto) 0.54 K/uL (0.11-0.59); Monocytes % (auto) 7.4 %; Neutrophils % (auto) 73.7 %; Platelet Count 302 K/uL (130-400); RDW Coefficient of Variation 14.9 % (11.5-14.5); White Blood Count 7.34 K/ul (4.8-10.8)
[2024-05-11 05:00] LABS: Albumin Globulin Ratio 1.2 (0.9-2); Albumin Level 3.1 gm/dl (3.4-5.0); Bilirubin,Total 0.4 mg/dl (0.2-1.0); Calcium 8.4 mg/dl (8.6-10.3); Creatinine Clr Calc Pharmacy 19.4 ml/min; Est GFR (African American) 66.9 ml/min; Est GFR (Non-African American) 57.8 ml/min; Globulin 2.6 gm/dl (2.5-4.0); Magnesium 1.7 mg/dl (1.7-2.4); Potassium 3.4 mmol/L (3.5-5.1); Total Protein 5.7 gm/dl (6.0-8.3)
[2024-05-11 05:13] LABS: INR 1.1 (0.9-1.1); Partial Thromboplastin Ratio 1.2; Partial Thromboplastin Time 31 Seconds (21-31); Prothrombin Time 11.4 Seconds (9.0-12.0)
[2024-05-11] MEDS: D5W AND 1/2NSS + 20MEQ KCL 20 MEQ/1,000 ML BAG IV SCH (05:30)
--- NOTE | 2024-05-11 07:27 | Magnetic Resonance Report ---
MR brain wo con CLINICAL HISTORY: AMS TECHNIQUE: Multiplanar and multisequence MR images of the brain were obtained without intravenous con trast. Comparison: None available at the time of this dictation. FINDINGS: No abnormal restricted diffusion is identified. Foci of T2 and FLAIR hyperintensity are noted in the paraventricular areas consistent with chronic small vessel ischemic disease. The ventricular system i s normal in appearance. No mass is seen. There is no mass effect or midline shift. There is no eviden ce of acute intraparenchymal hemorrhage. No extra axial fluid collections are seen. The corpus callos um, pituitary gland, and cerebellar tonsils appear grossly unremarkable. Flow voids of the major intracranial arterial vessels are identified. The imaged portions of the para nasal sinuses, mastoid air cells, and orbits are unremarkable. IMPRESSION: No acute abnormalities. ACT 112: Negative or not required by law. Electronically signed by: Mark Hare M.D. 05/11/2024 7:24 AM
[2024-05-11] MEDS ORDERED: ACETAMINOPHEN 325 MG TAB PO PRN (08:10)
--- NOTE | 2024-05-11 08:39 | Hospitalist Progress Note ---
Date of Service May 11, 2024 Assessment & Plan (1) Hypomagnesemia: (2) FRANK (acute kidney injury): (3) Altered mental status: (4) Paraplegia: (5) T12 spinal cord injury: (6) Neurogenic bladder: (7) Sepsis due to urinary tract infection: (8) Septic shock: (9) Abdominal pain: Plan Abdmonial pain CT scan of abdomen pelvis with minor amount of ascites/fluid within the abdomen, a component of peritonitis cannot be excluded. ?Reactive to surgical intervention as nausea has not gone away since abdominal surgeries. Protonix 40 mg BID Pepcid 20 mg QD Can consider adding Carafate 1 gm 1 hour before meals prn Zofran Septic shock due to urinary tract infection/neurogenic bladder/Lopez placement in ED Urine culture: yeast but improved without treatment. Blood cultures negative for growth at 48 hours. Stopped Zosyn, no signs of infection at this time Stopped maintenance fluids CT scan of head, cervical spine, chest, abdomen and pelvis without acute findings Lopez catheter placed in the ED, routine management Metabolic/toxic encephalopathy CT head negative. Urine tox with marijuana. Given significant atherosclerotic disease in abdominal arteries, concern for CVA -MRI of brain w/o contrast 05/10/24 without acute findings Acute kidney injury Creatinine improved to 1.36 today, with base 0.45 IV fluids stopped. Repeat laboratories daily High anion gap metabolic acidosis - Resolved Venous blood gas with pH 7.13, pCO2 43, pO2 26. Have not repeated since 05/08 but likely resolved Gap 17 with delta ratio of 0.5. Suggests high anion gap metabolic acidosis (likely lactic acidosis) with normal anion gap metabolic acidosis (likely renal losses). 2 A of sodium bicarbonate given. IV fluids as above. Hypertension/electrolyte disturbances- Magnesium wnl and Potassium low today, receive IV replacement as necessary Recheck AM electrolytes Hypertension Resume amlodipine. Hold lisinopril and metoprolol succinate for now Ischemic colitis/status post perforation/status post multiple surgeries at [facility]- CT scan of abdomen pelvis with minor amount of ascites/fluid within the abdomen, with a competent of peritonitis cannot be excluded. Configuration of the urinary bladder raises suspicion of cystitis Paraplegia/T12 spinal cord injury Routine supportive care Wound care for b/l lower extremities Continue baclofen, citalopram, hydroxyzine and quetiapine PT/OT evals completed, recommend rehab placement DVT ppx: heparin Diet: Heart Healthy Full Code Admission and Anticipated Discharge Date Admission Date: May 08, 2024 Supervising Physician Co-Signing Physician Notes Attending Physician Supervision Note: I independently interviewed and examined the patient and verified the jacques history and physical, reviewed labs and image studies and agree with findings and care plan noted above. Mentation and speech clear this am. felt nauseous this am but did tolerate his breakfast with eggs. o/e no restlessness. RRR No resp distress Abd - soft. colostomy + AKA bilateral -left with excoriation medically close to stump Shock - Likely hypovolemic -Off Levophed and IVF -cultures negative. d/c zosyn. Metabolic/toxic encephalopathy - CT head negative. Urine tox with marijuana. Cx negative. -Resolved. -MRI negative. FRANK - likely ATN due to shock. -Resolved. Dhara in urine - less likely causing infection since improved without any treatment. Bilateral leg stump erythema -Wound care consulted Neurogenic bladder -Uses straight cath at home. Paraplegia T12 spine injury -supportive care S/p colostomy -due to ischemic colitis. SQ heparin Needs rehab placement d/c lopez in am. Subjective From a mental status standpoint, Rigoberto has improved significantly from prior days. He was awake in bed, alert and oriented to surroundings and has good insight. He is reporting significant nausea and lack of appetite. No vomiting. Does also report some back and epigastric pain. Review of Systems Review of Systems: see HPI Physical Exam Physical Exam: PHYSICAL EXAM: General: awake, alert, oriented to name, place, and month Head: Normocephalic, atraumatic ENT: pupils are equal reactive Neuro: strength intact bilaterally, sensation intact and equal all extremities and dermatomes Chest: equal rise and fall of the chest, no accessory muscle use, no heaves or thrills, Clear to auscultation Cardiac: Regular rate and rhythm, telemetry reviewed, skin warm dry, cap refill <3 seconds, no JVD, no murmur, no edema GI: illeostomy present with yellow/brown liquid, soft, tender to palpation in epigsatric region, no rebound, guarding or tenderness : Lopez draining urine Extremities: abrasions on bilateral lower extremities s/p remote bilateral above knee amputation, bandage over right Results & Data Results & Data Vital Signs (Past 12 Hours) Vital Signs Temp Pulse Resp BP Pulse Ox 05/11/24 07:51 37.1 C 68 16 94 05/11/24 07:42 37.1 C 95 H 20 94 05/11/24 07:39 37.1 C 96 H 23 97 05/11/24 07:27 37.1 C 85 13 95 05/11/24 07:15 37.2 C 87 12 94 05/11/24 06:51 37.3 C 93 H 13 163/86 H 95 05/11/24 06:00 163/86 H 05/11/24 05:57 37.3 C 87 12 92 05/11/24 04:00 136/78 05/11/24 03:24 37.3 C 95 H 15 90 05/11/24 00:19 37 C 05/11/24 00:00 65 05/11/24 00:00 153/80 H 05/10/24 23:57 37.2 C 72 20 92 Laboratory Results Cardiac Enzymes 05/11/24 Range/Units 04:08 AST 14 (13-39) U/L Coagulation 05/11/24 Range/Units 04:08 PT 11.4 (9.0-12.0) Seconds APTT 31 (21-31) Seconds CBC 05/11/24 Range/Units 04:08 WBC 7.34 (4.8-10.8) K/ul RBC 3.10 L (4.70-6.10) M/uL Hgb 8.8 L (14.0-18.0) g/dl Hct 28.1 L (42.0-52.0) % Plt Count 302 (130-400) K/uL Neut # (Auto) 5.40 (1.40-6.50) K/uL Lymph # (Auto) 1.28 (1.20-3.40) K/uL [place] # (Auto) 0.54 (0.11-0.59) K/uL Eos # (Auto) 0.04 (0.00-0.50) K/uL Baso # (Auto) 0.04 (0.00-0.20) K/uL Comprehensive Metabolic Panel 05/11/24 Range/Units 04:08 Sodium 143 (136-145) mmol/L Potassium 3.4 L (3.5-5.1) mmol/L Chloride 110 H (98-107) mmol/L Carbon Dioxide 24 (21-32) mmol/L BUN 15 (6-23) mg/dl Creatinine 1.36 D (0.6-1.4) mg/dl Glucose 90 (70-99(Fasting)) mg/dl Calcium 8.4 L (8.6-10.3) mg/dl AST 14 (13-39) U/L ALT 22 (7-52) U/L Alkaline Phosphatase 79 (34-104) U/L Total Protein 5.7 L (6.0-8.3) gm/dl Albumin 3.1 L (3.4-5.0) gm/dl Intake and Output 05/10/24 05/11/24 05/11/24 22:59 06:59 14:59 Intake Total 1100 / 2506.667 1055 / 2506.667 Output Total 225 / 1750 675 / 1750 Balance 875 / 756.667 380 / 756.667 Intake: IV 1100 / 2506.667 1055 / 2506.667 Lactated Ringer's 1,000 ml @ 75 1000 / 2000 1000 / 2000 mls/hr IV .[id number] [facility] Rx#: [id number] Magnesium Sulfate / D5w 1 gm In 100 / 196.667 100 ml @ 50 mls/hr IV Q2H [facility] Rx#:[id number] Thiamine HCl 500 mg In Sodium 55 / 110 Chloride 0.9% 50 ml @ 210 mls/ hr IV Q12H [facility] Rx#:[id number] Output: Urine Amount (Catheter) 175 / 1500 575 / 1500 Temp Sensing Lopez 175 / 1500 575 / 1500 Gastric Drainage 50 / 250 100 / 250 Ileostomy/Colostomy 50 / 250 100 / 250 Other: Weight 57.4 kg Weight Measurement Method Built in [facility] Resident Activity Tracking Resident Involvement: Resident Care Provided Care Provided: Adult [facility] Medicine
[2024-05-11] MEDS: MAGNESIUM SULFATE / D5W 1 GM/100 ML BAG IV SCH (09:55)
[2024-05-11] MEDS: POTASSIUM CHLORIDE / WTR 10 MEQ/100 ML PLCT IV SCH (09:55)
[2024-05-11] MEDS: THIAMINE HCL 100 MG in SYRINGE 9 ML IV SCH (09:57)
[2024-05-11] MEDS: oxyCODONE HCL SOLN 5 MG/5 ML UDC PO PRN (10:26)
[2024-05-11 13:47] LABS: Marijuana Quant, GCMS Urine 16 ng/mL (<5)
[2024-05-11] MEDS ORDERED: BACLOFEN 20 MG TAB PO PRN (16:23)
[2024-05-11] MEDS: amLODIPine BESYLATE 5 MG TAB PO ONE (17:33)
[2024-05-12] MEDS ORDERED: Nursing to Pharmacy Communication SCH (00:45)
[2024-05-12 04:58] LABS: Hematocrit (blood only) 32.3 % (42.0-52.0); Hemoglobin 10.2 g/dl (14.0-18.0); Mean Corpuscular Hemoglobin 28.3 pg (25.0-34.0); Mean Corpuscular Hgb Conc 31.6 g/dL (32.0-36.0); Mean Corpuscular Volume 89.5 fL (80.0-100.0); Mean Platelet Volume 8.9 fL (9.4-12.4); Platelet Count 281 K/uL (130-400); RDW Coefficient of Variation 14.1 % (11.5-14.5); RDW Standard Deviation 46.1 fL (36.4-46.3); Red Blood Count 3.61 M/uL (4.70-6.10); White Blood Count 8.05 K/ul (4.8-10.8)
[2024-05-12 05:43] LABS: Albumin Globulin Ratio 1.3 (0.9-2); Albumin Level 3.1 gm/dl (3.4-5.0); BUN Creatinine Ratio 11.4 (10-20); Bilirubin,Total 0.4 mg/dl (0.2-1.0); Calcium 7.9 mg/dl (8.6-10.3); Est GFR (African American) 111.3 ml/min; Globulin 2.4 gm/dl (2.5-4.0); Magnesium 1.4 mg/dl (1.7-2.4); Phosphorus 3.2 mg/dl (2.5-4.9); Potassium 3.5 mmol/L (3.5-5.1); Total Protein 5.5 gm/dl (6.0-8.3)
--- NOTE | 2024-05-12 07:34 | Hospitalist Progress Note ---
Date of Service May 12, 2024 Assessment & Plan (1) Hypomagnesemia: (2) FRANK (acute kidney injury): (3) Altered mental status: (4) Paraplegia: (5) T12 spinal cord injury: (6) Neurogenic bladder: (7) Sepsis due to urinary tract infection: (8) Septic shock: (9) Abdominal pain: Plan Abdominal pain CT scan of abdomen pelvis with minor amount of ascites/fluid within the abdomen, with a competent of peritonitis cannot be excluded. Reactive to surgical intervention as nausea has not gone away since abdominal surgeries. Protonix 40 mg BID Pepcid 20 mg BID Can consider adding Carafate 1 gm 1 hour before meals Septic shock due to urinary tract infection/neurogenic bladder/Lopez placement in ED, resolved Urine culture: yeast but improved without treatment. Blood cultures negative for growth at 48 hours. Stopped Zosyn, no signs of infection at this time Stopped maintenance fluids CT scan of head, cervical spine, chest, abdomen and pelvis without acute findings D/c lopez, resume self-catheterization Metabolic/toxic encephalopathy, resolved CT head negative. Urine tox with marijuana. MRI of brain without acute findings, small vessel disease present Acute kidney injury, resolved Creatinine improved to 0.88 today, with base 0.45 IV fluids stopped. Repeat laboratories daily High anion gap metabolic acidosis, resolved Venous blood gas with pH 7.13, pCO2 43, pO2 26. Gap 17 with delta ratio of 0.5. Suggests high anion gap metabolic acidosis (likely lactic acidosis) with normal anion gap metabolic acidosis (likely renal losses). 2 A of sodium bicarbonate given. Hypertension/electrolyte disturbances- Magnesium low and Potassium wnl today, receive IV replacement as necessary Hypertension Resume amlodipine. Hold lisinopril and metoprolol succinate for now Ischemic colitis/status post perforation/status post multiple surgeries at - CT scan of abdomen pelvis with minor amount of ascites/fluid within the abdomen, with a competent of peritonitis cannot be excluded. Configuration of the urinary bladder raises suspicion of cystitis Paraplegia/T12 spinal cord injury Routine supportive care Wound care for b/l lower extremities Continue baclofen, citalopram, hydroxyzine and quetiapine DVT ppx: heparin Diet: Heart Healthy Full Code Admission and Anticipated Discharge Date Admission Date: May 08, 2024 Subjective Rigoberto is feeling improved this morning. His nausea and abdominal pain has improved compared to yesterday. Does report some epigastric pain. He also has some back pain. He is willing to try straight catheterization today. No shortness of breath. No vomiting. Is reporting some spasms in bilateral lower extremities. Review of Systems Review of Systems: see HPI Physical Exam Physical Exam: PHYSICAL EXAM: General: awake, alert, oriented to name, place, and month Head: Normocephalic, atraumatic ENT: pupils are equal reactive Neuro: strength intact bilaterally, sensation intact and equal all extremities and dermatomes Chest: equal rise and fall of the chest, no accessory muscle use, no heaves or thrills, Clear to auscultation Cardiac: Regular rate and rhythm, telemetry reviewed, skin warm dry, cap refill <3 seconds, no JVD, no murmur, no edema GI: illeostomy present with yellow/brown liquid, soft, tender to palpation in epigastric region, no rebound, guarding or tenderness : Lopez draining urine Extremities: abrasions on bilateral lower extremities s/p remote bilateral above knee amputation, bandage over right Results & Data Results & Data Vital Signs (Past 12 Hours) Vital Signs Temp Pulse Resp BP Pulse Ox 05/12/24 05:03 36.8 C 82 19 93 05/12/24 04:21 36.8 C 79 15 92 05/12/24 04:00 154/95 H 05/12/24 04:00 154/95 H 05/12/24 03:57 36.8 C 79 15 93 05/12/24 03:06 36.8 C 69 14 92 05/12/24 02:03 36.8 C 69 13 93 05/12/24 02:00 151/87 H 05/12/24 01:57 36.7 C 73 24 94 05/12/24 01:09 36.7 C 99 H 10 L 94 05/12/24 00:03 36.7 C 70 13 93 05/12/24 00:00 166/99 H 05/12/24 00:00 166/99 H 05/12/24 00:00 71 05/11/24 23:57 36.7 C 73 14 92 05/11/24 23:00 36.8 C 71 13 92 05/11/24 22:24 36.8 C 77 14 93 05/11/24 22:00 155/90 H 05/11/24 21:57 36.7 C 71 14 91 05/11/24 21:03 36.7 C 71 16 93 05/11/24 20:27 36.7 C 71 14 91 Laboratory Results Cardiac Enzymes 05/12/24 Range/Units 04:38 AST 14 (13-39) U/L CBC 05/12/24 Range/Units 04:38 WBC 8.05 (4.8-10.8) K/ul RBC 3.61 L (4.70-6.10) M/uL Hgb 10.2 L (14.0-18.0) g/dl Hct 32.3 L (42.0-52.0) % Plt Count 281 (130-400) K/uL Comprehensive Metabolic Panel 05/12/24 Range/Units 04:38 Sodium 140 (136-145) mmol/L Potassium 3.5 (3.5-5.1) mmol/L Chloride 107 (98-107) mmol/L Carbon Dioxide 27 (21-32) mmol/L BUN 10 (6-23) mg/dl Creatinine 0.88 D (0.6-1.4) mg/dl Glucose 82 (70-99(Fasting)) mg/dl Calcium 7.9 L (8.6-10.3) mg/dl AST 14 (13-39) U/L ALT 18 (7-52) U/L Alkaline Phosphatase 78 (34-104) U/L Total Protein 5.5 L (6.0-8.3) gm/dl Albumin 3.1 L (3.4-5.0) gm/dl Intake and Output 05/11/24 05/12/24 05/12/24 22:59 06:59 14:59 Intake Total 1200 / 1944.167 100 / 1944.167 Output Total 800 / 800 Balance 1200 / 1144.167 -700 / 1144.167 Intake: IV 1200 / 1394.167 D5w and 1/2Nss + 20Meq KCl 20 1000 / 1000 meq In 1,000 ml @ 75 mls/hr IV .[id number] [facility] Rx#:[id number] Magnesium Sulfate / D5w 1 gm In 100 / 194.167 100 ml @ 50 mls/hr IV Q2H [facility] Rx#:[id number] Potassium Chloride / Wtr 10 meq 100 / 200 In 100 ml @ 100 mls/hr IV Q1H [facility] Rx#:[id number] Oral 100 / 550 Output: Urine Amount (Catheter) 750 / 750 Temp Sensing Lopez 750 / 750 Gastric Drainage 50 / 50 Ileostomy/Colostomy 50 / 50 Other: Weight 57.5 kg Weight Measurement Method Built in [facility]
[2024-05-12] MEDS: INSULIN ASPART PER UNIT CHARGE SC SCH (08:24)
[2024-05-12] MEDS: BACLOFEN 20 MG TAB PO SCH (08:24)
[2024-05-12] MEDS: amLODIPine BESYLATE 5 MG TAB PO SCH (08:25)
[2024-05-12] MEDS: FAMOTIDINE 20 MG TAB PO SCH (08:25)
[2024-05-12] MEDS: MAGNESIUM SULFATE / D5W 1 GM/100 ML BAG IV SCH (08:32)
[2024-05-12] MEDS: POTASSIUM CHLORIDE / WTR 10 MEQ/100 ML PLCT IV SCH (08:32)
[2024-05-12 12:01] VITALS: TEMP 98.8
[2024-05-12] MEDS: METOPROLOL SUCC 25MG EXT REL TAB PO SCH (12:39)
--- NOTE | 2024-05-12 15:42 | Discharge Summary ---
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 The patient had initially presented to [facility] on 03/17/2024 with complaint of abdominal pain, nausea and vomiting, and was then transferred to [facility] due to ischemic colitis with increased lactate and abnormal CT imaging. At [facility], patient had multiple surgical interventions resulting in an ileostomy and SICU stay due to need for mechanical ventilation and multiple vasopressors. Patient was transferred back to [facility] on 04/20/2024, and remained until 04/25/2024. He was then discharged home with home health, with IV Zosyn to continue through 04/28. The patient presents to the emergency department via EMS early this morning after having been found by passersby to be confused and crawling on the ground, who then called EMS for help. The patient is unable to provide much history due to altered mental state. He was found in the emergency department to be in septic shock, received 3 L of LR fluid bolus, 2 A of sodium bicarbonate, 2 g of magnesium sulfate IV, and was started on the Levophed infusion prior to being transferred to the ICU. Admission Exam Per Admitting Provider The patient is lethargic and unresponsive, normocephalic and atraumatic, lying in bed and in no acute distress. HEENT--PERRL, EOMI, mucous membranes and oropharynx very dry. Neck--supple. No JVD. No bruits. Thyroid normal, trachea midline, no adenopathy. Heart--tachycardic and regular. Systolic murmur, no rubs or gallops. Lungs--overall clear. No respiratory distress, no accessory muscle use. Abdomen--normal bowel sounds and soft. Nontender. Nondistended Extremities--bilateral AKA, with brush hernandez noted over extremities Dermatologic--see above Neurologic--limited exam Rheumatologic--limited exam Psychiatric--unresponsive Principal Diagnosis shock Discharge Exam PHYSICAL EXAM: General: awake, alert, oriented to name, place, and month Head: Normocephalic, atraumatic ENT: pupils are equal reactive Neuro: strength intact bilaterally, sensation intact and equal all extremities and dermatomes Chest: equal rise and fall of the chest, no accessory muscle use, no heaves or thrills, Clear to auscultation Cardiac: Regular rate and rhythm, telemetry reviewed, skin warm dry, cap refill <3 seconds, no JVD, no murmur, no edema GI: illeostomy present with yellow/brown liquid, soft, tender to palpation in epigsatric region, no rebound, guarding or tenderness : Shields draining urine Extremities: abrasions on bilateral lower extremities s/p remote bilateral above knee amputation, bandage over right Discharge Data Allergies Allergy/AdvReac Type Severity Reaction Status Date / Time No Known Allergies Allergy Unverified 11/13/19 16:16 Consultations 05/08/24 06:10 ED Decision to Admit Stat 05/08/24 07:22 Consult Inclusion Intern Routine Ordered Studies 05/08/24 03:45 CT abd pelvis wo con Stat CT cervical spine wo con Stat CT chest diagnostic wo con Stat CT head/brain wo con Stat 05/10/24 13:30 MR brain wo con Routine Hospital Course (1) Hypomagnesemia: (2) FRANK (acute kidney injury): (3) Altered mental status: (4) Paraplegia: (5) T12 spinal cord injury: (6) Neurogenic bladder: (7) Sepsis due to urinary tract infection: (8) Septic shock: (9) Abdominal pain: Plan Abdominal pain CT scan of abdomen pelvis with minor amount of ascites/fluid within the abdomen, a component of peritonitis cannot be excluded - s/p recent abdominal surgery and colostomy placement - likely etiology Tolerated PO intake well. Continue Protonix 40 mg BID Shock - Hypovolemic. ruled out septic etiology/neurogenic bladder - RESOLVED: Urine culture: yeast but improved without treatment. Blood cultures negative for growth at 48 hours. Empiric Zosyn was discontinued. CT scan of head, cervical spine, chest, abdomen and pelvis without acute findings Patient will be discharged with Shields catheter in place, can consider chronic straight cathing if preferred moving forward AMS/Metabolic/toxic encephalopathy - RESOLVED CT head negative. Urine tox + marijuana. MRI of brain without acute findings, small vessel disease present Unclear rationale for AMS, infectious etiology not particularly convincing, imaging unremarkable, UDS +Cannabis o/w negative At time of discharge, pt AOx3, mentating much better though unclear what baseline mentation was like Acute kidney injury - RESOLVED Creatinine on admission 3.92 (baseline 0.45), improved to 0.88 on morning of discharge IV fluids stopped. Repeat laboratories in outpatient setting High anion gap metabolic acidosis - RESOLVED Venous blood gas with pH 7.13, pCO2 43, pO2 26 on admission Gap 17 with delta ratio of 0.5. Suggests high anion gap metabolic acidosis (likely lactic acidosis) with normal anion gap metabolic acidosis (likely renal losses). Electrolyte disturbances - RESOLVED Mag and K IV replaced as necessary Hypertension Antihypertensives held on admission in the setting of shock. Resumed amlodipine and Metoprolol. Lisinopril was held due to FRANK, continue BP monitoring and consider resuming Lisinopril after discharge as papropriate Paraplegia/T12 spinal cord injury Routine supportive care Wound care for b/l lower extremities Recs: for bilateral buttocks - after cleansing, dust with stoma powder and cover with barrier cream. Reapply as needed. For bilateral inner thighs, apply barrier cream as needed. Continue baclofen. Total Time Total Time Spent Total Time Spent (In Minutes): see attending attestation Discharge Plan Discharge Items Patient Disposition: Transfer [facility] Reason For Visit: SEPTIC SHOCK Discharge Diagnosis: Septic shock Activity: As commented below Non-emergency contact: Primary Care Provider Call non-emergency contact if: you have any medication questions, your pain is not controlled and you have a fever Follow-up/Referrals: Ines Ruiz MD [Primary Care Provider] - Diet: Heart Healthy and Low Fiber Addtl Attending Provider Instructions: Abdominal pain CT scan of abdomen pelvis with minor amount of ascites/fluid within the abdomen, a component of peritonitis cannot be excluded. Continue Protonix 40 mg BID Septic shock/neurogenic bladder - RESOLVED: Urine culture: yeast but improved without treatment. Blood cultures negative for growth at 48 hours. Empiric Zosyn was discontinued. CT scan of head, cervical spine, chest, abdomen and pelvis without acute findings Patient will be discharged with Shields catheter in place, can consider chronic straight cathing if preferred moving forward Metabolic/toxic encephalopathy - RESOLVED CT head negative. Urine tox + marijuana. MRI of brain without acute findings, small vessel disease present Acute kidney injury - RESOLVED Creatinine on admission 3.92 (baseline 0.45), improved to 0.88 on morning of discharge IV fluids stopped. Repeat laboratories in outpatient setting High anion gap metabolic acidosis - RESOLVED Venous blood gas with pH 7.13, pCO2 43, pO2 26 on admission Gap 17 with delta ratio of 0.5. Suggests high anion gap metabolic acidosis (likely lactic acidosis) with normal anion gap metabolic acidosis (likely renal losses). Electrolyte disturbances - RESOLVED Mag and K IV replaced as necessary Hypertension Antihypertensives held on admission in the setting of shock. Resumed amlodipine and Metoprolol. Lisinopril was held due to FRANK, continue BP monitoring and consider resuming Lisinopril after discharge as papropriate Paraplegia/T12 spinal cord injury Routine supportive care Wound care for b/l lower extremities Recs: for bilateral buttocks - after cleansing, dust with stoma powder and cover with barrier cream. Reapply as needed. For bilateral inner thighs, apply barrier cream as needed. Continue baclofen. Pending Studies at Discharge: No Stand-Alone Forms: [facility] Skilled Items Patient informed of condition?: Yes DNR: No Discharge Level of Care: Skilled Communicable Disease: No Discharge Prognosis: Stable Lines: None Urinary Catheter: Yes Medications and DC Order Prescriptions: Continued baclofen 20 mg tablet 20 mg PO TID PRN (Reason: Muscle Spasm) quetiapine 100 mg tablet 100 mg PO HS citalopram 20 mg tablet 40 mg PO DAILY metoprolol succinate 25 mg tablet extended release 24 hr 25 mg PO DAILY pantoprazole 40 mg tablet,delayed release (DR/EC) 40 mg PO QAM hydroxyzine HCl 25 mg tablet 25 mg PO TID PRN (Reason: Anxiety) ondansetron HCl 4 mg tablet 4 mg PO Q8 PRN (Reason: Nausea And Vomiting) ferrous sulfate [FeroSul] 325 mg (65 mg iron) tablet 325 mg PO Q OTHER DAY amlodipine [Norvasc] 5 mg tablet 5 mg PO DAILY Qty: 30 0RF atorvastatin 40 mg tablet 40 mg PO DAILY Held lisinopril 20 mg tablet 20 mg PO DAILY Hold Instructions: Resume on 05/26/24. Monitor BP - if persistently elevated, restart Losartan. Discharge Orders: Discharge Order (Routine); Ordered 05/12/24 Ordered By: Flex Kumar Admission Data Admit Date/Time: 05/08/24 06:16 Attending Provider: Smiley Glynn Admit Provider: Tyler Bullock Primary Care Provider: Ines Ruiz Other Providers: Tyler Bullock; Hayde Ceron; [place]; [facility], Supervising Physician Co-Signing Physician Notes Attending Physician Supervision Note: I independently interviewed and examined the patient and verified the jacques history and physical, reviewed labs and image studies and agree with findings and care plan noted above. Shock - Likely hypovolemic -Off Levophed and IVF -cultures negative. d/patrick zosyn. Metabolic/toxic encephalopathy - CT head negative. Urine tox with marijuana. Cx negative. -Resolved. -MRI negative. -possibly from cannabis use and poor oral intake. FRANK - likely ATN due to shock. -Resolved. Dhara in urine - less likely causing infection since improved without any treatment. Bilateral leg stump erythema -Wound care consulted Neurogenic bladder -Uses straight cath at home. -Shields placed while hospitalized - continued on discharge- voiding trial to be done at the facility. Paraplegia T12 spine injury -supportive care S/p colostomy -due to ischemic colitis. Rehab discharge Resident Activity Tracking Resident Involvement: Resident Care Provided Care Provided: Adult Hospital Medicine
[2024-05-12 15:46] VITALS: RESP 18
[2024-05-12 16:13] VITALS: O2SAT 95
[2024-05-12 16:33] VITALS: BP 147/95; PULSE 91
[2024-05-12] MEDS ORDERED: QUEtiapine FUMARATE 100 MG TABLET PO SCH (21:00)
== END 2024-05-12 17:52 | DRG 871 ==
LOC: SUATTDRO → ED 03:39 → SUATTDRO 06:16 → 1E 06:16 → 2E 05-12 12:08
DX: Z89.511 Acquired absence of right leg below knee; Z79.899 Other long term (current) drug therapy; Z87.891 Personal history of nicotine dependence; R65.21 Severe sepsis with septic shock; E83.42 Hypomagnesemia; N17.0 Acute kidney failure with tubular necrosis; K21.9 Gastro-esophageal reflux disease without esophagitis; G82.20 Paraplegia, unspecified; F32.A Depression, unspecified; E78.5 Hyperlipidemia, unspecified; X58.XXXS Exposure to other specified factors, sequela; N39.0 Urinary tract infection, site not specified; I95.9 Hypotension, unspecified; F41.9 Anxiety disorder, unspecified; A41.9 Sepsis, unspecified organism; E87.20 Acidosis, unspecified; I71.43 Infrarenal abdominal aortic aneurysm, without rupture; G92.8 Other toxic encephalopathy; Z68.44 Body mass index [BMI] 60.0-69.9, adult; Z93.2 Ileostomy status; Z89.512 Acquired absence of left leg below knee; N31.9 Neuromuscular dysfunction of bladder, unspecified; S24.104S Unspecified injury at T11-T12 level of thoracic spinal cord, sequela; E66.01 Morbid (severe) obesity due to excess calories